=== PATIENT | male | born 1965 | race African-American/Black ===

== ENCOUNTER 2018-09-11 01:33 | Inpatient (IN) | payer OTHER ==
[2018-09-11 02:53] LABS: Hemoglobin 17.1 g/dL (14.0-18.0); Mean Corpuscular HGB CONC 32.7 g/dL (32.0-36.0); Mean Corpuscular Hemoglobin 30.3 pg (27.0-31.0); Mean Corpuscular Volume 92.8 fL (78.0-98.0); Mean Platelet Volume 9.3 fL (7.4-10.4); Platelet Count 174 thou/uL (130-400); RBC Distribution Width 13.1 % (11.5-14.5); Red Blood Cell (RBC) Count 5.65 mill/uL (4.70-6.10); White Blood Cell (WBC) Count 9.3 thou/uL (4.8-10.8)
[2018-09-11 03:03] LABS: ALT (SGPT) 37 U/L (8-55); AST (SGOT) 31 U/L (5-34); Albumin 3.7 g/dL (3.5-5.0); Alkaline Phosphatase 122 U/L (40-150); Anion Gap 16 mmol/L (10-20); BUN (Urea Nitrogen) 15 mg/dL (8.9-20.6); Bilirubin, Total 0.5 mg/dL (0.2-1.2); CK (CPK) 101 U/L (30-200); Calc. Creatinine Clearance 0 mL/min (70-130); Calcium 9.5 mg/dL (7.8-10.44); Carbon Dioxide 22 mmol/L (22-29); Chloride 104 mmol/L (98-107); Estimated GFR-MDRD Greater than 90; Globulin 4.6 g/dL (2.4-3.5); Glucose 94 mg/dL (70-105); Potassium 4.8 mmol/L (3.5-5.1); Protein, Total 8.3 g/dL (6.0-8.3); Sodium 137 mmol/L (136-145)
[2018-09-11 03:09] LABS: Band 7 % (5-11); Lymphocytes 19 % (21-51); MDiff Complete? YES; Monocytes 4 % (0-10); Neutrophil 70 % (42-75); PLT Morphology Comment Appears Adequate; RBC Morphology Normal
[2018-09-11 03:30] LABS: INR-International Normal Ratio 1.4; Prothrombin Time 16.8 SEC (12.0-14.7)
[2018-09-11 03:58] LABS: Bilirubin Negative (Negative); Blood, Urine Negative (Negative); Clarity CLEAR (Clear); Glucose, Urine (Dipstick) Negative (Negative); Leukocyte Negative (Negative); Nitrite Negative (Negative); Protein, Urine (Dipstick) 30 mg/dL (Neg-Trace); Specific Gravity, Urine 1.021 (1.002-1.036)
[2018-09-11 04:16] LABS: Bacteria/HPF None Seen HPF (None Seen); WBC/HPF 0-3 HPF (0-3)
[2018-09-11 04:25] LABS: Pathc Cast-AUWi Flag 2.76 (0-2.49)
[2018-09-11 04:27] LABS: Hyaline Casts/LPF 0-3 HYALINE CAST LPF (0-3 Hyaline); Other Casts/LPF None Seen LPF (0-3 Hyaline); RBC/HPF 0-3 HPF (0-3); Renal Epithelial None Seen HPF (0-3); Transitional Epithelial NONE SEEN HPF (0-3); Yeast-All Forms None Seen HPF (None Seen)
[2018-09-11] MEDS ORDERED: Sodium Chloride 0.9% 1,000 ML IV SCH (05:28)
[2018-09-11] MEDS ORDERED: Ondansetron PF 4 MG/2 ML Vial IVP PRN ×2 (05:28→15:58)
[2018-09-11] MEDS ORDERED: Acetaminophen 325 MG TAB PO PRN (05:28)
[2018-09-11] MEDS ORDERED: Ondansetron ODT 4 MG TAB SL PRN (05:28)
[2018-09-11 05:44] VITALS: BMI 26.2
[2018-09-11] MEDS ORDERED: Dextrose 5% in Water 1,000 ML IV PRN (07:13)
[2018-09-11] MEDS ORDERED: Dextrose 50% Abboject 50 ML SYRINGE SLOW IVP PRN (07:13)
[2018-09-11] MEDS ORDERED: HumaLOG 300 UNITS/3 ML VIAL SC PRN (07:13)
--- NOTE | 2018-09-11 08:34 | RAD ---
PORTABLE SEMIUPRIGHT CHEST ONE VIEW: HISTORY: A 52-year-old male with a history of altered mental status. COMPARISON: 04/24/2017 FINDINGS: Monitor leads overly the chest. Poor inspiration. Mild vascular crowding in the mid and lower lung zones, with increased markings, without confluent pneumonia or overt edema. Heart size is within nor mal limits for this inspiration. IMPRESSION: Poor inspiration with some vascular crowding in the bases. No overt confluent pneumonia, acute edema , or other active process. POS: [facility]
--- NOTE | 2018-09-11 08:46 | CT ---
PRELIMINARY REPORT/[facility]/EMERGENTY AFTER-HOURS PROCEDURE CT Head Without Contrast EXAM DATE/TIME: 09/11/2018 1:58 AM CLINICAL HISTORY: 52 years old, male; Signs and symptoms; Other: Seizure; Patient HX: M52 presents to ed via ems for ev aluation S/P seizure. Family reports that nurse noticed patient having seizure-like movements onset m idnight. Family reports PT is normally alert, laughing/smiling, and understands but is unable to speak. TECHNIQUE: Axial computed tomography images of the head/brain without contrast. COMPARISON: No relevant prior studies available. FINDINGS: Brain: No intracrainal hemorrhage. No midline shift. The brain parenchyma appears normal for age. Old right parietal lobe infarct Laceration of the right basal ganglia concerning for ischemia. Extensive periventricular white matter hypodensity likely representing small vessel ischemic change. Ventricles: No ventriculomegaly. Bones/joints: Normal. No acute fracture. Sinuses: Normal as visualized. No acute sinusitis. Mastoid air cells: Normal as visualized. No mastoid effusion. Soft tissues: Normal. IMPRESSION: No acute intracranial hemorrhage. Possible subacute right caudate and basal ganglia ischemia Old right parietal lobe infarct Thank you for allowing us to participate in the care of your patient. Dictated and Authenticated by: Ezekiel Cadena MD 09/11/2018 2:58 AM Central Time ([place] & [place]) FINAL REPORT EMERGENCY AFTER HOURS BRAIN CT WITHOUT IV CONTRAST: Date: 09/11/18 COMPARISON: 04/23/17. HISTORY: 52-year-old male with history of altered mental status. FINDINGS/IMPRESSION: There is some scattered atrophy and chronic white matter ischemic changes. Remote appearing area of e ncephalomalacia/old infarct changes in the right posterior parietal. Minimal patchy low attenuation c hanges in the right basal ganglia. This atrophy and chronic white matter ischemic changes and old inf arct changes have all developed since 04/23/17. No mass or bleed. Report in agreement with preliminary report given on-call by Aliyah. POS: [facility]
[2018-09-11] MEDS: Divalproex Sodium 125 mg Sprinkle Capsule PER TUBE SCH (10:03)
[2018-09-11] MEDS: levETIRAcetam 500 mg/5 ml Oral Solution PER TUBE SCH ×2 (10:04→21:48)
[2018-09-11] MEDS: Lisinopril 20 MG TAB PER TUBE SCH (10:05)
[2018-09-11] MEDS: Amlodipine 5 MG TAB PER TUBE SCH (10:05)
[2018-09-11] MEDS: Famotidine 20 MG TAB PER TUBE SCH ×2 (10:05→21:49)
[2018-09-11] MEDS: Carvedilol 6.25 MG TAB PER TUBE SCH (10:05)
[2018-09-11] MEDS: Insulin Glargine 12 UNITS in Pre-Filled Syringe 1 EACH SC SCH ×2 (10:05→21:50)
[2018-09-11] MEDS: Nystatin Powder 15 GM BOT TOP SCH ×2 (10:07→21:48)
--- NOTE | 2018-09-11 10:55 | ULT ---
BILATERAL CAROTID DOPPLER: HISTORY: Cerebrovascular accident. COMPARISON: None. TECHNIQUE: Real-time, delacrzu-scale, color Doppler, and spectral analysis of the extracranial carotid and vertebral arteries is performed. FINDINGS: There are no elevated peak systolic velocities within the internal carotid arteries. Antegrade flow of both vertebral arteries. Right ICA/CCA ratio 0.58. Left ICA/CCA ratio 0.76. IMPRESSION: No hemodynamically significant stenosis. POS: [facility]
--- NOTE | 2018-09-11 11:27 | PDOC.PN ---
- Subjective Encounter Start Date: 09/11/18 Encounter Start Time: 11:25 Mr. Larsen was seen today in follow-up of seizure, and altered mental status. He is sleeping, and is non-verbal. There were no reported seizures. - Objective Resuscitation Status - Order Detail: 09/11/18 06:53 Resuscitation Status Routine Resuscitation Status: DNAR: NO Resuscitation Discussed with: Patient's brother, PAIGE MADISON Reviewed: Yes Vital Signs & Weight: Vital Signs (12 hours) Temp Pulse Resp BP BP Pulse Ox 09/11/18 10:05 71 140/92 H 09/11/18 06:53 99.4 F 71 17 140/92 H 93 L 09/11/18 05:09 101 F H 72 20 139/88 99 Weight Weight 177 lb 8 oz Result Diagrams: 09/11/18 02:20 09/11/18 02:20 Phys Exam - Physical Examination Respiratory: no wheezing, no rales, no rhonchi, clear to auscultation bilateral Cardiovascular: RRR, no significant murmur, no rub Gastrointestinal: soft, non-tender, no distention, positive bowel sounds Musculoskeletal: no edema, pulses present Dx/Plan (1) Seizure Code(s): R56.9 - UNSPECIFIED CONVULSIONS Status: Acute (2) Chronic hypoxic-ischemic brain injury Code(s): I67.82 - CEREBRAL ISCHEMIA; G93.1 - ANOXIC BRAIN DAMAGE, NOT ELSEWHERE CLASSIFIED Status: Chronic (3) Diabetes mellitus Code(s): E11.9 - TYPE 2 DIABETES MELLITUS WITHOUT COMPLICATIONS Status: Chronic - Plan * Seizure- it is unclear if he has a history of prior seizure, and this is a seizure while on medication, vs. new first seizure ( he was admitted on Keppra and Depakote).- will try to obtain records from [facility] in the [facility] * Await Neurology evaluation * DM- blood glucoe is stable * Chronic hypoxic brain injury- this has left him with severe deficits, and he is essentially bed bound, and non-verbal, and dysphagia with a PEG tube .
--- NOTE | 2018-09-11 12:54 | HP ---
CHIEF COMPLAINT: Seizure activity. HISTORY OF PRESENT ILLNESS: This patient is a 52-year-old male, who was extremely unfortunate in that he developed a case of [place] spotted fever in March of 2017. The patient had been transferred from this facility with apparent septic shock with evidence of possible hypoxic brain injury to [facility] in [place]. 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 Subsequent to this, the patient has had significant debility and has been essentially bed bound, has some contractures in his hands. He is total care in that he cannot feed himself or do any basic activities of daily living. The patient's brother and [id number] are present. They indicate that typically the patient is awake, alert, and generally can understand what is being said quite well, still has a good sense of humor, intact, however, he cannot verbally respond. He can sometimes follow some simple commands, but other times not. The patient has a history of seizure disorder, but had Keppra added to his carbamazepine and has not had a seizure in number of months. [facility] and was found to have seizure activity around midnight. The patient was subsequently brought to the hospital and en route received some benzodiazepines. The patient was more somnolent than usual and was not appearing to come around. He had pupils that were more constricted and fixed and therefore, a head CT was obtained per the ER provider and the notes indicated possible right subacute caudate and posterior ganglia ischemia with an old right parietal lobe infarct. The official report of that is not available to me at this point. The patient is subsequently admitted. REVIEW OF SYSTEMS: Unobtainable given the patient's current mental status. The patient's brother and [id number], who were here, seen him daily, and they are unaware of any problems that he has been having and has been at his normal baseline. Functional status, the patient is bed bound. PAST MEDICAL HISTORY: Diabetes, hypertension, hyperlipidemia, heart murmur, encephalopathy with [place] spotted fever with apparent subsequent seizure disorder. PAST SURGICAL HISTORY: No known surgeries. FAMILY HISTORY: Father is , had diabetes. Mother has hypertension. SOCIAL HISTORY: No history of drug or alcohol abuse. The patient is debilitated to the point that he is bed-bound and living at a penitentiary facility. He is a DNAR and his brother is his power of prosecuting attorney and surrogate decision maker. ALLERGIES: NONE. MEDICATIONS: 1. Warfarin 7.5 mg per PEG daily. 2. Multivitamin one per PEG daily. 3. Acetaminophen p.r.n. 4. Keppra 100 mg/mL solution 6 mL q.12 hours. 5. Depakote Sprinkles 125 mg four capsules per G-tube b.i.d. 6. Nystatin powder p.r.n. 7. Pepcid 40 mg per PEG daily. 8. Triamcinolone cream p.r.n. 9. Insulin glargine 12 units subcu b.i.d. 10. Amlodipine 5 mg q.a.m. 11. Coreg 12.5 mg b.i.d. 12. Lisinopril 20 mg daily. PHYSICAL EXAMINATION: VITAL SIGNS: Blood pressure 127/78, pulse 75, respirations 16, and O2 saturations 98%. GENERAL APPEARANCE: The patient is age appropriate. He is essentially sleepy, will attempt to open his eyes a little bit with prodding, and he is not otherwise interactive. He appears in no distress. He is breathing comfortably. HEENT: Pupils are midpoint and reactive. He has no OP lesions. Poor dentition. NECK: Supple and symmetric without lymphadenopathy, JVD, or carotid bruits. HEART: Regular rate and rhythm without murmurs, gallops, or rubs. LUNGS: Clear to auscultation bilaterally with good chest wall expansion and air exchange. ABDOMEN: Soft, nontender, and nondistended. Positive bowel sounds. No masses. No organomegaly. EXTREMITIES: Warm and dry with no cyanosis, clubbing, or edema. There are some contractures of the hand and some mild general sarcopenia in the extremities. NEUROLOGIC: Again, the patient is somnolent but in no distress, and appears to be generally postictal. LABORATORY DATA: White count 9.3, hemoglobin 17.1, platelets 174. PT 16.8, INR is 1.4, PTT 31.0. Sodium 137, potassium 4.8, chloride 104, CO2 of 22, BUN 15, creatinine 0.91, glucose 94, calcium 9.5, AST 31, ALT 37, alkaline phosphatase 122, albumin 3.7. Urinalysis generally negative. Chest x-ray shows poor inspiratory effort, but no evidence of significant acute pathology. IMPRESSION AND PLAN: 1. Subacute cerebrovascular accident per the CT scan based on the ER physician's report of the interpretation. The patient is already on warfarin. I had a discussion with the patient's brother and power of prosecuting attorney to determine if they would even pursue carotid stenosis if that turned out to be an issue and they felt like they probably would, therefore, we will go ahead and order carotid Dopplers and I will get echocardiogram. 2. Seizure. The patient has a history of seizure disorder and has been pretty stable for number of months. I do not see significant evidence of anything that would have triggered his seizure. At this point, no evidence of acute infection and chest x-ray looks pretty clear. His urinalysis is good and his white count is normal. We will consult Neurology. 3. Anticoagulation, not entirely sure why the patient is on Coumadin at this point. He is slightly subtherapeutic, but we will avoid more aggressive deep venous thrombosis prophylaxis. 4. Hypertension. Continue with his usual home regimen per PEG. 5. Diabetes mellitus. Continue with his home regimen. We will add Accu-Cheks and sliding scale insulin. 6. Consult dietitian to help resume the patient's normal PEG tube feeds. Job ID: [id number]
[2018-09-11] MEDS ORDERED: Ondansetron ODT 4 MG TAB PO PRN (15:58)
[2018-09-11] MEDS ORDERED: hydrALAZINE 20 MG/ML VIAL SLOW IVP PRN (15:58)
[2018-09-11] MEDS ORDERED: Acetaminophen 650 MG Suppository PR PRN (15:58)
[2018-09-11] MEDS ORDERED: Acetaminophen 325 MG TAB PER TUBE PRN (15:58)
[2018-09-11] MEDS: Sodium Chloride 0.9% 1,000 ML IV SCH ×2 (16:07→21:49)
[2018-09-11] MEDS: Warfarin Sodium 7.5 MG TAB PER TUBE SCH (16:11)
[2018-09-12] MEDS ORDERED: Pancrelipase DR 12000 1 CAP FS PRN (00:12)
[2018-09-12] MEDS ORDERED: Sodium Bicarbonate Tab 325 MG TAB PER TUBE PRN (00:12)
[2018-09-12] MEDS: Divalproex Sodium 125 mg Sprinkle Capsule PER TUBE SCH ×3 (02:03→21:28)
[2018-09-12] MEDS: Famotidine 20 MG TAB PER TUBE SCH ×3 (02:03→21:29)
[2018-09-12] MEDS: Carvedilol 6.25 MG TAB PER TUBE SCH ×3 (02:03→21:28)
[2018-09-12] MEDS: levETIRAcetam 500 mg/5 ml Oral Solution PER TUBE SCH ×3 (02:04→21:30)
[2018-09-12] MEDS ORDERED: Valproate Sodium 500 MG in Sodium Chloride 0.9% 100 ML IVPB SCH (02:30)
[2018-09-12 07:35] LABS: INR-International Normal Ratio 1.7; Prothrombin Time 19.9 SEC (12.0-14.7)
[2018-09-12] MEDS: Insulin Glargine 12 UNITS in Pre-Filled Syringe 1 EACH SC SCH ×2 (10:59→21:30)
[2018-09-12] MEDS: Amlodipine 5 MG TAB PER TUBE SCH (11:00)
[2018-09-12] MEDS: Lisinopril 20 MG TAB PER TUBE SCH (11:01)
--- NOTE | 2018-09-12 11:23 | PDOC.PN ---
- Subjective Encounter Start Date: 09/12/18 Encounter Start Time: 11:22 Mr. Larsen was seen today in follow-up of possible CVA and Seizure. He is a bit more alert this morning. He opens his eyes but he does not follow commands. - Objective Resuscitation Status - Order Detail: 09/11/18 06:53 Resuscitation Status Routine Resuscitation Status: DNAR: NO Resuscitation Discussed with: Patient's brother, PAIGE MADISON Reviewed: Yes Vital Signs & Weight: Vital Signs (12 hours) Temp Pulse Resp BP Pulse Ox 09/12/18 08:00 98.6 F 69 16 166/98 H 95 09/12/18 03:00 60 16 128/80 93 L 09/12/18 00:00 99.8 F H 62 16 121/72 94 L Weight Admit Weight 177 lb 8 oz Weight 177 lb 8 oz I&O: 09/11/18 09/12/18 09/13/18 06:59 06:59 06:59 Intake Total 1040 Output Total 3 Balance 1040 -3 Result Diagrams: 09/11/18 02:20 09/11/18 02:20 Additional Labs: Accuchecks 09/12/18 09/12/18 09/11/18 10:38 00:20 17:04 POC Glucose 85 83 78 09/11/18 10:43 POC Glucose 87 Phys Exam - Physical Examination HEENT: PERRLA Respiratory: no wheezing, no rales, no rhonchi, clear to auscultation bilateral Cardiovascular: RRR, no significant murmur, no rub Gastrointestinal: soft, non-tender, no distention, positive bowel sounds Musculoskeletal: no edema contractures of the upper extremities Dx/Plan (1) Encephalopathy, metabolic Code(s): G93.41 - METABOLIC ENCEPHALOPATHY Status: Acute (2) Seizure Code(s): R56.9 - UNSPECIFIED CONVULSIONS Status: Acute (3) Chronic hypoxic-ischemic brain injury Code(s): I67.82 - CEREBRAL ISCHEMIA; G93.1 - ANOXIC BRAIN DAMAGE, NOT ELSEWHERE CLASSIFIED Status: Chronic (4) Diabetes mellitus Code(s): E11.9 - TYPE 2 DIABETES MELLITUS WITHOUT COMPLICATIONS Status: Chronic (5) PEG tube malfunction Code(s): K94.23 - GASTROSTOMY MALFUNCTION Status: Acute - Plan * Lethargy and possible new CVA- will check an MRI if able, and if not then repeat CT-scan * Seizure- he has a history of seizures prior to this admission- his Depakote level was low normal. If he infact had a new stroke, this could have provoked the seizure * Lethargy- likely a metabolic encephalopathy due to post ictal state, and possible CVA * Fever- no obvious source- cultures have been done, consider empiric antibiotics if he develops another fever * DM- blood glucose is stable . * PEG tube malfunction- will consult GI- may need to be replaced
[2018-09-12] MEDS: Nystatin Powder 15 GM BOT TOP SCH ×2 (11:31→21:31)
[2018-09-12 12:13] LABS: Cardiac Risk 4.7 (Less than 4.5)
--- NOTE | 2018-09-12 13:06 | EEG ---
Referring Physician: Roma MALCOLM EEG # [id number] TEST TYPE: ROUTINE PORTABLE INPATIENT REPORT: AN EEG USING THE INTERNATIONAL TEN-TWENTY SYSTEM OF ELECTRODE PLACEMENT WAS PERFORMED. The background activity is at best an 8 hertz Alpha frequency. There was fairly constant sharp and slow wave type discharges noted in the right hemisphere, primarily central in location. No clinical change in the patient was noted. Photic stimulation was unremarkable. IMPRESSION: THIS IS AN ABNORMAL STUDY FOR THE FINDINGS OF FAIRLY CONSTANT SUBCLINICAL SEIZURE ACTIVITY IN THE RIGHT HEMISPHERE. Director Hematology: EVELIA Long Wall Shear Operator: [email or web address] LAST
[2018-09-12] MEDS: Warfarin Sodium 7.5 MG TAB PER TUBE SCH (18:12)
[2018-09-12] MEDS: Sodium Chloride 0.9% 1,000 ML IV SCH (19:18)
--- NOTE | 2018-09-12 19:49 | CON ---
DATE OF CONSULTATION: 09/12/2018 GI INPATIENT CONSULTATION NOTE REQUESTING PHYSICIAN: Dr. Mills. REASON FOR CONSULTATION: PEG tube malfunction. HISTORY OF PRESENT ILLNESS: Derek Larsen is an unfortunate 52-year-old gentleman, who has been debilitated since the case of [place] spotted fever in March 2017 with resultant encephalitis. He has been bedbound and has some contractures in the hands. He cannot communicate and requires total cares. He was admitted to the hospital here yesterday with worsening of mental status and concern for possible new CVA or seizure activity. He is undergoing some workup for this. Overnight, his PEG tube was found to be clogged. I am not exactly sure when the PEG tube was placed, I assume around March 2017. His PEG tube looks quite old and ratty and indeed, we were unable to push any feeds or fluids through it. The patient has not been indicating any pain in that area. REVIEW OF SYSTEMS: Unable to obtain due to the patient's mental status. PAST MEDICAL HISTORY: Diabetes, hypertension, hyperlipidemia, heart murmur, encephalitis with [place] spotted fever, seizure disorder, and debility. FAMILY HISTORY: Father had diabetes. Mother has hypertension. SOCIAL HISTORY: No history of drug or alcohol abuse. He is debilitated, bedbound at the nursing facility. ALLERGIES: NONE. OUTPATIENT MEDICATIONS: 1. Warfarin 7.5 mg daily. 2. Multivitamin daily. 3. Acetaminophen p.r.n. 4. Keppra. 5. Depakote. 6. Nystatin. 7. Pepcid. 8. Triamcinolone cream. 9. Insulin. 10. Amlodipine. 11. Coreg. 12. Lisinopril. PHYSICAL EXAMINATION: VITAL SIGNS: Temperature 99.1, pulse 79, blood pressure 176/98, and 93% oxygen saturation on room air. GENERAL: Awake and disoriented. He is calm. He does not follow commands or meaningfully communicate. HEENT: Pupils reactive. Extraocular movements intact. Mucous membranes moist. Poor dentition. LYMPH: No submandibular or supraclavicular lymphadenopathy. THYROID: Nontender to palpation. HEART: Regular rate and rhythm. LUNGS: Clear to auscultation bilaterally. ABDOMEN: Soft and nontender. His PEG tube is in good position in the left upper quadrant, but it is clogged. There is some granulation tissue around the PEG site with some friability. EXTREMITIES: No peripheral edema. Contractures in the hands and general muscle wasting in the extremities. NEUROLOGIC: The patient is in no acute distress. He does not follow commands. LABORATORY STUDIES: WBC 9.3, hemoglobin 17.1, platelets 174. INR 1.7. Sodium 137, potassium 4.8, BUN 15, creatinine 0.91. LFTs all normal. Blood culture showing coagulase-negative Staph. Urine culture shows gram-negative rods. C. difficile stool assay is positive for antigen and toxin. ASSESSMENT AND PLAN: 1. Percutaneous endoscopic gastrostomy tube malfunction. 2. Debility. The patient's PEG tube is clogged. I was able to replace it at bedside with a new 20-Wolof replacement tube with a 20 mL balloon, this was replaced quite easily. The internal balloon inflated and the external bumper positioned to 4 cm. There is some oozing around the PEG site following PEG replacement. I expect this to slow down rapidly. Advise providers to flush the tube regularly. GI will sign off. Please call back if needed. Job ID: [id number]
--- NOTE | 2018-09-12 23:34 | PRG ---
DATE OF SERVICE: 09/12/2018 NEUROLOGIC FOLLOWUP NOTE IMPRESSION: 1. Recurrent seizures, which appeared to have settled down. 2. History of right parietal stroke. 3. History of [place] spotted fever. 4. Diabetes. 5. Hypertension. PLAN: Continue current anticonvulsants. Mr. Larsen is half-way resident who was brought in due to recurrent seizure activity. He has had a fairly extensive workup including unremarkable carotid artery exam and echocardiogram. His lab work was unremarkable including a valproic acid level of 54. He has not had any further seizure activity. His EEG showed a right parietal focus. He has gone back to his baseline level of alertness. His feeding tube has been changed. He appears to be clinically better and feel he can return to the half-way on the current doses of anticonvulsants. Job ID: [id number]
[2018-09-13 05:13] LABS: INR-International Normal Ratio 2.1
[2018-09-13 08:12] VITALS: TEMP 99.5
[2018-09-13] MEDS: Divalproex Sodium 125 mg Sprinkle Capsule PER TUBE SCH (09:32)
[2018-09-13] MEDS: Insulin Glargine 12 UNITS in Pre-Filled Syringe 1 EACH SC SCH (09:33)
[2018-09-13] MEDS: levETIRAcetam 500 mg/5 ml Oral Solution PER TUBE SCH (09:33)
[2018-09-13] MEDS: Lisinopril 20 MG TAB PER TUBE SCH (09:34)
[2018-09-13] MEDS: Carvedilol 6.25 MG TAB PER TUBE SCH (09:34)
[2018-09-13] MEDS: Amlodipine 5 MG TAB PER TUBE SCH (09:34)
[2018-09-13] MEDS: Famotidine 20 MG TAB PER TUBE SCH (09:34)
[2018-09-13 09:36] VITALS: BP 133/85
--- NOTE | 2018-09-13 09:37 | PDOC.PN ---
- Subjective Encounter Start Date: 09/13/18 Encounter Start Time: 09:35 Mr. Larsen was seen today in follow-up of seizure and possible stroke. He is more alert than he has been the entire hospitalization. He appears to be at his baseline. He was not able to do the MRI due to too much movement. - Objective Resuscitation Status - Order Detail: 09/11/18 06:53 Resuscitation Status Routine Resuscitation Status: DNAR: NO Resuscitation Discussed with: Patient's brother, APIGE MADISON Reviewed: Yes Vital Signs & Weight: Vital Signs (12 hours) Temp Pulse Resp BP Pulse Ox 09/13/18 08:00 99.5 F 65 16 151/96 H 92 L 09/13/18 04:00 99.1 F 63 16 133/88 94 L 09/13/18 00:00 98.9 F 64 16 148/91 H 95 Weight Admit Weight 177 lb 8 oz Weight 177 lb 8 oz I&O: 09/12/18 09/13/18 09/14/18 06:59 06:59 06:59 Intake Total 1040 2010 Output Total 3 Balance 1040 2007 Result Diagrams: 09/11/18 02:20 09/11/18 02:20 Additional Labs: Accuchecks 09/13/18 09/13/18 09/12/18 06:04 01:02 21:36 POC Glucose 89 100 83 09/12/18 09/12/18 16:59 10:38 POC Glucose 104 85 Phys Exam - Physical Examination HEENT: PERRLA Respiratory: no wheezing, no rales, no rhonchi + rhonchi bilaterally Cardiovascular: RRR, no significant murmur, no rub Gastrointestinal: soft, non-tender, no distention, positive bowel sounds Musculoskeletal: edema present + pedal edema, contractures in the hands Dx/Plan (1) Seizure Code(s): R56.9 - UNSPECIFIED CONVULSIONS Status: Acute (2) Encephalopathy, metabolic Code(s): G93.41 - METABOLIC ENCEPHALOPATHY Status: Resolved (3) Chronic hypoxic-ischemic brain injury Code(s): I67.82 - CEREBRAL ISCHEMIA; G93.1 - ANOXIC BRAIN DAMAGE, NOT ELSEWHERE CLASSIFIED Status: Chronic (4) Diabetes mellitus Code(s): E11.9 - TYPE 2 DIABETES MELLITUS WITHOUT COMPLICATIONS Status: Chronic (5) PEG tube malfunction Code(s): K94.23 - GASTROSTOMY MALFUNCTION Status: Acute (6) Acute CVA (cerebrovascular accident) Code(s): I63.9 - CEREBRAL INFARCTION, UNSPECIFIED Status: Acute (7) C. difficile diarrhea Code(s): A04.72 - ENTEROCOLITIS D/T CLOSTRIDIUM DIFFICILE, NOT SPCF RECUR Status: Acute - Plan * Seizure- he is back to his baseline, I suspect this may have been triggered by a probable acute CVA, and C. diff * Probable CVA- will place him on aspirin, and Lipitor * C Diff Diarrhea- will treat with Oral Vancomycin * DM- blood glucose is stable * Can transfer back to the [place].
[2018-09-13] MEDS: Nystatin Powder 15 GM BOT TOP SCH (10:12)
--- NOTE | 2018-09-13 11:51 | PQF ---
DATE: 09-13-18 ATTN: DR. MARTINEZ DIAZ Please exercise your independent, professional judgment in responding to the clarification form. Clinical indicators are provided on the bottom of this form for your review Please check appropriate box(s): [ ] Functional Quadriplegia (specify underlying cause) [ ] Weakness (please specify anatomical area) Specify: [ ] Non dominant side [ ] Dominant side [ ] Other diagnosis [ ] Unable to determine In addition, please specify: Present on Admission (POA): [ ] Yes [ ] No [ ] Unable to determine CLINICAL INDICATORS - SIGNS / SYMPTOMS / LABS H&P: PATIENT HAS HAD SIGNIFICANT DEBILITY AND HAS BEEN ESSENTIALLY BED BOUND, HAS SOME CONTRACTURES IN HIS HANDS. HE IS TOTAL CARE IN THAT HE CANNOT FEED HIMSELF OR DO ANY BASIC ACTIVITIES OF DAILY LIVING. CONSULT NOTE CASE 09-12-18: HE HAS BEEN BEDBOUND AND HAS SOME CONTRACTURES IN THE HANDS. HE CANNOT COMMUNICATE AND REQUIRES TOTAL CARES. RISK FACTORS: H&P: HX ENCEPHALOPATHY WITH [place] SPOTTED FEVER, SEIZURES, CHRONIC HYPOXIC ISCHEMIC BRAIN INJURY H&P: PATIENT HAS HAD SIGNIFICANT DEBILITY AND HAS BEEN ESSENTIALLY BED BOUND, HAS SOME CONTRACTURES IN HIS HANDS. HE IS TOTAL CARE IN THAT HE CANNOT FEED HIMSELF OR DO ANY BASIC ACTIVITIES OF DAILY LIVING. TREATMENT: NURSE NOTE 09-11-18 BY SERGIO: PATIENT TRANSFERRED OVER TO BED X 3 NURSES. PATIENT TRANSFER INFO 09-13-18: STRETCHER (This form is maintained as a part of the permanent medical record) 2014 [employer], [employer]. All Rights Reserved [email or web address] [email or web address] Office: [phone] [facility] [email or web address]
[2018-09-13] MEDS ORDERED: Atorvastatin Calcium 10 MG TAB PO SCH (21:00)
--- NOTE | 2018-09-14 06:02 | DIS ---
DATE OF ADMISSION: 09/11/2018 DATE OF DISCHARGE: 09/13/2018 DISCHARGE DISPOSITION: Back to the residential. DISCHARGE DIAGNOSES: 1. Seizure disorder with acute seizure. 2. Probable cerebrovascular accident. 3. Chronic anoxic brain injury. 4. Hypertension. 5. Diabetes mellitus. 6. History of [place] spotted fever. 7. Clostridium difficile colitis. DISCHARGE MEDICATIONS: Include; 1. Oral vancomycin 125 mg q.i.d. for 14 days. 2. Lipitor 5 mg at bedtime. 3. Aspirin 81 mg daily. 4. Coumadin 7.5 mg per tube daily. 5. Nystatin powder as needed. 6. Lisinopril 20 mg daily. 7. Keppra twice daily. 8. Lantus insulin 12 units twice a day. 9. Famotidine 40 mg per tube daily. 10. Depakote 125 mg four capsules per tube twice a day. 11. Carvedilol 12.5 mg twice a day. 12. Amlodipine 5 mg daily. PROCEDURES DONE DURING THE ADMISSION: The patient had bilateral carotid Dopplers, which were negative for any hemodynamic stenosis. He had a CT scan of the brain, which showed some findings of chronic white matter ischemic change. There was a remote area of encephalomalacia in the right posterior parietal lobe. There was some atrophy and there were some ischemic infarct changes that had developed and a possible right subacute caudate basal ganglia ischemia. The patient had an echocardiogram in which the left ventricular size was normal. The EF was estimated at 60% to 65%. There was grade 1/3 diastolic dysfunction. HOSPITAL COURSE: Mr. Larsen is a 52-year-old gentleman, who presented to the emergency room after suffering a stroke in the residential and afterwards was extremely lethargic. He has a history of seizure disorder ever since having an anoxic brain injury from a severe case of [place] spotted fever. He was brought over to the hospital due to concerns for possible stroke. He had a carotid Doppler and echo, which were essentially negative. He was seen by Neurology, who recommended to continue his usual medications for seizures. He was placed on aspirin and a low-dose statin for secondary stroke prevention. He was found to have a C. difficile colitis as he had some fever and diarrhea and was placed on oral vancomycin for this. I suspected that the seizure may have been triggered by possible or probable stroke as well as the C. diff colitis and therefore the medication doses for the seizures were not changed. He is being discharged back to the residential today. Job ID: [id number]
[2018-09-14] MEDS ORDERED: Vancomycin HCl 25 MG/ML Oral PO SCH (09:00)
--- NOTE | 2018-09-17 12:47 | EKG ---
Test Reason : Blood Pressure : / mmHG Vent. Rate : 066 BPM Atrial Rate : 066 BPM P-R Int : 142 ms QRS Dur : 078 ms QT Int : 338 ms P-R-T Axes : 053 026 -01 degrees QTc Int : 354 ms Normal sinus rhythm Possible Left atrial enlargement Nonspecific T wave abnormality Abnormal ECG Confirmed by KENYETTA MARSHALL DO ([id number]), editor city SALVADOR HERNANDEZ ([id number] on 09/17/2018 12:47:24 PM Referred By: Confirmed By:KENYETTA MARSHALL DO
== END 2018-09-13 12:28 | DRG 64 ==
LOC: ERS 01:33 → 2SE 03:43
PROVIDERS: ADMIT Internal Medicine; ATTEND Internal Medicine
PROC: 3E0G76Z Introduction of Nutritional Substance into Upper GI, Via Natural or Artificial Opening (ICD-10-PCS; principal; 2018-09-11)
DX: I63.9 Cerebral infarction, unspecified (principal); G93.41 Metabolic encephalopathy; G93.1 Anoxic brain damage, not elsewhere classified; K94.23 Gastrostomy malfunction; A04.72 Enterocolitis due to Clostridium difficile, not specified as recurrent; Z74.01 Bed confinement status; G40.909 Epilepsy, unspecified, not intractable, without status epilepticus; E11.9 Type 2 diabetes mellitus without complications; I10 Essential (primary) hypertension; E78.5 Hyperlipidemia, unspecified; Z79.4 Long term (current) use of insulin; Z79.01 Long term (current) use of anticoagulants; Z83.3 Family history of diabetes mellitus; Z82.49 Family history of ischemic heart disease and other diseases of the circulatory system
CPT/HCPCS: 36415; 36416; 51701; 70450; 71045; 80053; 80061; 80164; 81003; 81015; 82550; 85025; 85610; 85730; 87040; 87077; 87086; 87149; 87324; 87449; 93005; 93306; 93880; 95816; 95819; J1953; J7050

== ENCOUNTER 2018-09-29 09:31 | Emergency (ER) | payer OTHER ==
--- NOTE | 2018-09-29 14:11 | RAD ---
ABDOMEN 1 VIEW: Date: 09/29/18 HISTORY: PEG tube evaluation. FINDINGS: Visualized bowel gas pattern is nonspecific. Pelvis is excluded from the image. Contrast material is apparent within the second portion of the duodenum. It extends into the third an d fourth portions of the duodenum. No evidence of leak. IMPRESSION: PEG catheter tip is in the proximal duodenum. POS: GONZALEZ
== END 2018-09-29 14:45 | disposition home or self-care (01) ==
LOC: ERS 09:31
DX: Z43.1 Encounter for attention to gastrostomy (principal); E78.5 Hyperlipidemia, unspecified; E11.9 Type 2 diabetes mellitus without complications; I10 Essential (primary) hypertension; E66.9 Obesity, unspecified; Z79.899 Other long term (current) drug therapy; Z79.4 Long term (current) use of insulin
CPT/HCPCS: 43762; 74018

== ENCOUNTER 2018-11-26 10:19 | Emergency (ER) | payer OTHER | END 2018-11-26 14:30 | LOC: ERS 10:19 | DX: K94.23 Gastrostomy malfunction (principal); E11.9 Type 2 diabetes mellitus without complications; E78.5 Hyperlipidemia, unspecified; E66.9 Obesity, unspecified; Z79.899 Other long term (current) drug therapy; Z79.01 Long term (current) use of anticoagulants | CPT/HCPCS: 36415; 85610; 99283; C1769 ==

== ENCOUNTER 2018-11-29 10:43 | Emergency (ER) | payer OTHER ==
--- NOTE | 2018-11-29 12:32 | RAD ---
RADIOGRAPH ABDOMEN 1 VIEW: DATE: 11/29/2018. TIME: 11:09 a.m. HISTORY: A 53-year-old male with occluded, malfunctioning percutaneous gastrostomy tube. FINDINGS: A single supine KUB demonstrates contrast material within the lumen of the PEG tube, and within the l umen of a nondistended stomach. There is no evidence of extravasation. IMPRESSION: Intraluminal location of the distal portion of the percutaneous gastrostomy tube is confirmed. POS: TPC
== END 2018-11-29 16:15 | disposition home or self-care (01) ==
LOC: ERS 10:43
DX: K94.23 Gastrostomy malfunction (principal); E11.9 Type 2 diabetes mellitus without complications; I10 Essential (primary) hypertension; E66.9 Obesity, unspecified; E78.5 Hyperlipidemia, unspecified; Z79.899 Other long term (current) drug therapy
CPT/HCPCS: 43762; 74018

== ENCOUNTER 2018-12-23 11:35 | Emergency (ER) | payer OTHER | END 2018-12-23 11:52 | disposition home or self-care (01) | LOC: ERS 11:35 | DX: K94.23 Gastrostomy malfunction (principal); E78.5 Hyperlipidemia, unspecified; E11.9 Type 2 diabetes mellitus without complications; I10 Essential (primary) hypertension; E66.9 Obesity, unspecified; Z86.73 Personal history of transient ischemic attack (TIA), and cerebral infarction without residual deficits; Z79.899 Other long term (current) drug therapy; Z79.4 Long term (current) use of insulin | CPT/HCPCS: 99283 ==

== ENCOUNTER 2019-01-09 08:29 | Emergency (ER) | payer OTHER ==
--- NOTE | 2019-01-09 12:44 | RAD ---
Abdomen one view HISTORY: Feeding tube replacement. COMPARISON: 11/29/2018. FINDINGS: Radiopaque contrast is present within the stomach and duodenum. Some contrast also evident within the percutaneous feeding catheter. No evidence of intra-abdominal leak of contrast.
[2019-01-09] MEDS ORDERED: Lorazepam 2 MG/ML VIAL ONE (12:50)
[2019-01-09] MEDS ORDERED: levETIRAcetam In NaCl (Iso-Os) 1,000 MG in Premix Bag 1 BAG IVPB SCH (13:30)
== END 2019-01-09 15:30 ==
LOC: ERS 08:29
DX: K94.23 Gastrostomy malfunction (principal); G40.509 Epileptic seizures related to external causes, not intractable, without status epilepticus; Z91.14 Patient's other noncompliance with medication regimen; E78.5 Hyperlipidemia, unspecified; E11.9 Type 2 diabetes mellitus without complications; I10 Essential (primary) hypertension; E66.9 Obesity, unspecified; Z86.73 Personal history of transient ischemic attack (TIA), and cerebral infarction without residual deficits; Z79.899 Other long term (current) drug therapy; Z79.4 Long term (current) use of insulin
CPT/HCPCS: 43762; 74018; 96365; 96375; J1953; J2060

== ENCOUNTER 2019-01-09 16:34 | Emergency (ER) | payer OTHER | END 2019-01-09 17:03 | disposition home or self-care (01) | LOC: ERS 16:34 | DX: G40.909 Epilepsy, unspecified, not intractable, without status epilepticus (principal); E78.5 Hyperlipidemia, unspecified; E78.00 Pure hypercholesterolemia, unspecified; E11.9 Type 2 diabetes mellitus without complications; I10 Essential (primary) hypertension; E66.9 Obesity, unspecified; Z86.73 Personal history of transient ischemic attack (TIA), and cerebral infarction without residual deficits | CPT/HCPCS: 99284 ==

== ENCOUNTER 2019-02-27 10:20 | Emergency (ER) | payer OTHER ==
[2019-02-27 11:24] LABS: #Eosinphils 0.1 thou/uL (0.0-0.7); #Lymphocytes 1.4 thou/uL (1.20-3.40); #Monocytes 0.6 thou/uL (0.11-0.59); %Basophils 0.3 % (0.0-1.0); %Eosinophils 2.9 % (0.0-10.0); %Lymphocytes 27.1 % (21.0-51.0); %Monocytes 10.9 % (0.0-10.0); %Neutrophils 58.8 % (42.0-75.0); Hemoglobin 15.2 g/dL (14.0-18.0); Mean Corpuscular HGB CONC 33.2 g/dL (32.0-36.0); Mean Corpuscular Hemoglobin 30.6 pg (27.0-31.0); Mean Corpuscular Volume 92.4 fL (78.0-98.0); Mean Platelet Volume 9.4 fL (7.4-10.4); Platelet Count 122 thou/uL (130-400); RBC Distribution Width 12.7 % (11.5-14.5); Red Blood Cell (RBC) Count 4.95 mill/uL (4.70-6.10)
[2019-02-27 11:38] LABS: ALT (SGPT) 24 U/L (8-55); AST (SGOT) 19 U/L (5-34); Albumin 3.6 g/dL (3.5-5.0); Alkaline Phosphatase 94 U/L (40-150); Anion Gap 11 mmol/L (10-20); BUN (Urea Nitrogen) 14 mg/dL (8.4-25.7); Bilirubin, Total 0.3 mg/dL (0.2-1.2); Calc. Creatinine Clearance 0 mL/min (70-130); Calcium 9.5 mg/dL (7.8-10.44); Carbon Dioxide 26 mmol/L (22-29); Estimated GFR-MDRD Greater than 90; Globulin 3.8 g/dL (2.4-3.5); Glucose 112 mg/dL (70-105); Protein, Total 7.4 g/dL (6.0-8.3)
[2019-02-27 11:47] LABS: Chloride 102 mmol/L (98-107); Potassium 4.2 mmol/L (3.5-5.1); Sodium 135 mmol/L (136-145)
[2019-02-27] MEDS ORDERED: Divalproex Sodium 125 mg Sprinkle Capsule PER TUBE SCH (12:45)
== END 2019-02-27 13:19 ==
LOC: ERS 10:20
DX: K94.23 Gastrostomy malfunction (principal); R56.9 Unspecified convulsions; Z86.73 Personal history of transient ischemic attack (TIA), and cerebral infarction without residual deficits; E78.5 Hyperlipidemia, unspecified; E11.9 Type 2 diabetes mellitus without complications; I10 Essential (primary) hypertension; E66.9 Obesity, unspecified
CPT/HCPCS: 36415; 43762; 80053; 80164; 80177; 85025; B4087

== ENCOUNTER 2019-03-21 01:46 | Inpatient (IN) | payer OTHER ==
[2019-03-21 03:18] LABS: ALT (SGPT) 46 U/L (8-55); AST (SGOT) 39 U/L (5-34); Albumin 4.1 g/dL (3.5-5.0); Alkaline Phosphatase 109 U/L (40-150); Anion Gap 17 mmol/L (10-20); BUN (Urea Nitrogen) 18 mg/dL (8.4-25.7); Bilirubin, Total 0.4 mg/dL (0.2-1.2); Calc. Creatinine Clearance 0 mL/min (70-130); Carbon Dioxide 23 mmol/L (22-29); Chloride 103 mmol/L (98-107); Estimated GFR-MDRD Greater than 90; Globulin 4.6 g/dL (2.4-3.5); Glucose 109 mg/dL (70-105); Potassium 5.2 mmol/L (3.5-5.1); Protein, Total 8.7 g/dL (6.0-8.3); Sodium 138 mmol/L (136-145)
[2019-03-21 03:24] LABS: Hemoglobin 17.3 g/dL (14.0-18.0); Mean Corpuscular HGB CONC 32.4 g/dL (32.0-36.0); Mean Corpuscular Hemoglobin 30.6 pg (27.0-31.0); Mean Corpuscular Volume 94.4 fL (78.0-98.0); Mean Platelet Volume 10.1 fL (7.4-10.4); Platelet Count 139 thou/uL (130-400); RBC Distribution Width 12.7 % (11.5-14.5); Red Blood Cell (RBC) Count 5.66 mill/uL (4.70-6.10); White Blood Cell (WBC) Count 9.5 thou/uL (4.8-10.8)
[2019-03-21 03:35] LABS: Band 6 % (5-11); Lymphocytes 11 % (21-51); MDiff Complete? YES; Monocytes 3 % (0-10); Neutrophil 80 % (42-75); Platelet Morphology Comment Appears Adequate
[2019-03-21 03:37] LABS: Bilirubin Negative (Negative); Blood, Urine Negative (Negative); Clarity Clear (Clear); Glucose, Urine (Dipstick) Negative (Negative); Leukocyte Negative (Negative); Nitrite Negative (Negative); Protein, Urine (Dipstick) 100 mg/dL (Neg-Trace); Urobilinogen 0.2 mg/dL (0.2-1.0)
[2019-03-21 03:48] LABS: Bacteria/HPF None Seen HPF (None Seen); Hyaline Casts/LPF NONE SEEN LPF (0-3 Hyaline); RBC/HPF None Seen HPF (0-3); Squamous Epithelial 0-3 HPF (0-3); WBC/HPF None Seen HPF (0-3)
[2019-03-21] MEDS ORDERED: Piperacillin/Tazobactam 3.375 GM VIAL ONE (06:05)
[2019-03-21] MEDS ORDERED: Fentanyl 250 MCG/5 ML VIAL ONE (06:27)
[2019-03-21] MEDS ORDERED: Midazolam HCl 2 mg/2 ml Vial ONE (06:27)
--- NOTE | 2019-03-21 07:52 | CT ---
PRELIMINARY REPORT/[facility]/EMERGENCY AFTER HOURS PROCEDURE: Addendum created by Beau Wise MD on 03/21/2019 5:39 AM Central Time ([place] & [place]) On image 65 of axial series 2 there is suggestion of mass in the cecum, potentially primary colon cancer. Findings discussed with BETH CROOKS MD at time of interpretation. Initial Report created on 03/21/2019 5:23 AM Central Time ([place] & [place]) EXAM: CT Abdomen and Pelvis With Contrast EXAM DATE/TIME: 03/21/2019 4:21 AM CLINICAL HISTORY: 53 years old, male; Nausea and vomiting; Patient HX: Er 7. Transaminitis ; PT brought to er by EMS af ter [facility] noted that pt's face was twitching. PT has also had episodes of vomiting tonight. ; Additional info: *pt unable to move arms above his head TECHNIQUE: Imaging protocol: Axial computed tomography images of the abdomen and pelvis with intravenous contras t. COMPARISON: No relevant prior studies available. FINDINGS: Tubes, catheters and devices: Percutaneous G-tube in place, appears normally positioned. Entry site i s unremarkable. Liver: Normal. No mass. Gallbladder and bile ducts: Normal. No calcified stones. No ductal dilation. Pancreas: Normal. No ductal dilation. Spleen: Normal. No splenomegaly. Adrenals: Normal. No mass. Kidneys and ureters: Normal. No hydronephrosis. Stomach and bowel: There is fairly extensive multifocal pneumoperitoneum along the ascending colon wi thout associated inflammation, wall thickening, or extravasated bowel contents, consistent with perforation of the ascending colon. No abscess. No foreign body. No bowel wall thickening or intestin al obstruction. Appendix: Normal appendix. Intraperitoneal space: Normal. No free air. No significant fluid collection. Vasculature: Normal. No abdominal aortic aneurysm. Lymph nodes: Normal. No enlarged lymph nodes. Bladder: Unremarkable as visualized. Reproductive: Prostatomegaly. Bones/joints: No acute fracture. No dislocation. Soft tissues: See Stomach And Bowel Finding. IMPRESSION: There is fairly extensive multifocal pneumoperitoneum along the ascending colon without associated in flammation, wall thickening, or extravasated bowel contents, consistent with perforation of the ascending colon. No abscess. No foreign body. Thank you for allowing us to participate in the care of your patient. Dictated and Authenticated by: Beau Wise MD 03/21/2019 5:23 AM Central Time ([place] & [place]) FINAL REPORT: CT ABDOMEN AND PELVIS WITH IV CONTRAST:: I agree with the report given by Dr. Beau Wise of [facility]. Transcribed Date/Time: 03/21/2019 8:04 AM
--- NOTE | 2019-03-21 07:57 | RAD ---
RADIOGRAPH CHEST 1 VIEW: HISTORY: 53-year-old male with fever. FINDINGS: Lung volumes are very low, and therefore this is a limited study. There is no air space density, pulm onary edema, or pneumothorax. The lateral costophrenic angles are sharp. IMPRESSION: No acute pulmonary findings. tavo [] POS: CELESTE
[2019-03-21] MEDS ORDERED: Fentanyl 100 MCG/2 ML VIAL ONE (08:09)
[2019-03-21] MEDS ORDERED: Famotidine/PF 20 mg/2ml Vial ONE (08:10)
[2019-03-21] MEDS ORDERED: Dextrose 5% in Water 1,000 ML IV PRN (08:16)
[2019-03-21] MEDS ORDERED: Dextrose 50% Abboject 50 ML SYRINGE SLOW IVP PRN (08:16)
[2019-03-21] MEDS ORDERED: Ventilator Sedation Protocol 1 EACH FS SCH (08:30)
[2019-03-21] MEDS ORDERED: Propofol BOLUS 1,000 MG/100 ML VIAL IV PRN (08:32)
[2019-03-21] MEDS ORDERED: DISCONTINUE PREVIOUS NARCOTIC PAIN MEDICATIONS AND BENZODIAZEPINES FS SCH (08:32)
[2019-03-21] MEDS ORDERED: Lorazepam 2 MG/ML VIAL SLOW IVP PRN (08:32)
[2019-03-21] MEDS ORDERED: Morphine 2 MG/ML SYRINGE SLOW IVP PRN (08:32)
[2019-03-21] MEDS ORDERED: Fentanyl BOLUS 250 ML IVPB PRN (08:32)
[2019-03-21] MEDS ORDERED: Propofol 1,000 MG/100 ML VIAL IV PRN (08:32)
[2019-03-21] MEDS ORDERED: fentaNYL Citrate/PF 2,000 MCG in Sodium Chloride 0.9% 60 ML IV SCH (08:32)
[2019-03-21 08:35] LABS: INR-International Normal Ratio 2.5; PTT 36.1 SEC (22.9-36.1); Prothrombin Time 26.8 SEC (12.0-14.7)
[2019-03-21] MEDS ORDERED: [UNRECOGNIZED DRUG - OTHER] IV SCH (09:15)
[2019-03-21] MEDS ORDERED: HUM PROTHROMBIN CPLX IV SCH ×2 (09:15→09:30)
[2019-03-21] MEDS ORDERED: ADMIXTURE FEE IV SCH ×2 (09:15→09:30)
--- NOTE | 2019-03-21 09:24 | HP ---
HISTORY OF PRESENT ILLNESS: Derek Larsen is a 53-year-old black male, [facility] resident for the past year, is nonambulatory and bedridden essentially, contracted with dysphagia, unable to swallow, has depended on a feeding tube. He initially developed a case of [place] spotted fever in March of 2017, transferred from this facility with septic shock and hypoxic brain injury to [facility] in [place] where he was diagnosed with [place] spotted fever, resultant encephalitis. He has severe disability and has been in and out of emergency room for UTIs and pneumonias and feeding tube dysfunction dislodgement. Family reports he has a good sense of humor and still responds nonverbally. He is aphasic. He is able to follow some simple commands at times. He has a seizure disorder. His past history includes diabetes, hypertension, hyperlipidemia, encephalopathy, and severe disability. The patient developed seizure-type symptoms, presented to the emergency room where he was evaluated and found to be febrile. His white count was 9 and hemoglobin 17. Basic metabolic profile unremarkable. Potassium 5.2, sodium 138, BUN and creatinine 18 and 0.91, and glucose 109. He underwent a CAT scan of the abdomen and pelvis at 03:57 and a chest x-ray at 02:33. Chest x-ray did not reveal any acute findings. CAT scan of the abdomen and pelvis revealed extensive multifocal pneumoperitoneum along the ascending colon without associated inflammation. He had wall thickening. No extravasated bowel contents. It was felt that he had a perforation of ascending colon, possibly devascularization. I was asked to see him. I had a long discussion with the patient's brother who has power of senior trial attorney. The patient's [id number] is present. The patient's brother is called multiple family members. The patient after much consideration has decided to proceed with operative intervention. Plan is for laparotomy and indicated procedures. Risks of infection, bleeding, reoperation, colon anastomotic leakage, postoperative mechanical ventilation, tracheostomy necessity discussed. Options for hospice and supportive care only and nonoperative therapy given, but after much discussion and consideration, family desires operative intervention. ALLERGIES: NONE. SOCIAL HISTORY: Tobacco, none. Alcohol, none. Has been in the senior care for over a year. Debilitated, essentially bedridden with tube feedings. He is a DNR. There is a power of senior trial attorney in family, assures this, reiterates this at bedside. MEDICATIONS: 1. Flush feeding tube at 30 mL of water before and after feedings and after meds, Glucerna 1.5 infusion pumps 89 mL/hr, water flush 65 mL per hour, started 4 p.m. and off at 8 a.m., flushed with 60 mL of water before and after feedings at 3 cans formula to bag at 4 p.m. and midnight. Anti-pressure mattress, anti-pressure cushion, and the Lola chair. 2. Amlodipine 5 mg a day. 3. Atorvastatin 5 mg at bedtime per feeding tube. 4. Centrum liquid. 5. Coreg 12.5 per PEG twice a day. 6. Coumadin 7.5 mg per PEG once a day. 7. Depakene 250 mg per 5 mL, 10 mL via PEG 2 times a day. 8. Insulin 12 units subcu. 9. Glargine in the evening. 10. Keppra 2 times a day. 11. Lisinopril 20 mg a day. 12. Nystatin powder. 13. Pepcid tablet 40 mg a day per tube. 14. Triamcinolone ointment for face rash as needed. PAST SURGICAL HISTORY: PEG tube. PAST MEDICAL HISTORY: Type 2 diabetes mellitus, hypertension, hyperlipidemia, encephalopathy, [place] spotted fever, immobile, nonambulatory, dysphagia with tube feeding infusion dependent. PHYSICAL EXAMINATION: VITAL SIGNS: Blood pressure 130/74, respiratory rate 24, and heart rate 90. HEAD, EARS, EYES, NOSE, AND THROAT: Unremarkable. LUNGS: Coarse respirations. No wheezing. CARDIAC: Rate and rhythm. ABDOMEN: Soft, mild tenderness, firmness. Feeding tube, left upper quadrant. EXTREMITIES: Both upper extremities contracted with foam pads in his palms, deformity of his feet from immobility and encephalitis. DIAGNOSTIC DATA: Echocardiogram, 09/01/2018, 60% to 65% EF, grade 1 to 3 diastolic dysfunction. Mild mitral and tricuspid regurgitation. CAT scan; findings as described above. The right colonic changes of early perforation. ASSESSMENT AND PLAN: 1. Right colon abnormality with evidence of early perforation that may be contained. There are no clinical signs of peritonitis; however, I have discussed with family necessity of intervention. They do desire intervention. We will plan laparotomy, right colon resection is indicated, possibly anastomosis. Risks of infection, bleeding, reoperation, and anastomotic leakage discussed. DNR will be continued postoperatively. He may require mechanical ventilation postoperatively. 2. [place] spotted fever with encephalopathy, resulting in severe disability. He is immobile in the senior care, dysphagia, dysarthric, requires feeding tube. Job ID: [id number]
[2019-03-21] MEDS ORDERED: [UNRECOGNIZED DRUG - OTHER] IV SCH (09:30)
[2019-03-21] MEDS ORDERED: Promethazine HCl 25 MG/ML VIAL SLOW IVP PRN (09:53)
[2019-03-21] MEDS ORDERED: Promethazine HCl 25 MG/ML VIAL IM PRN (09:53)
[2019-03-21] MEDS ORDERED: SUGAMMADEX SODIUM 500 MG/5 ML VIAL ONE (09:53)
[2019-03-21] MEDS ORDERED: Ondansetron HCl/PF 4 MG/2 ML Vial IVP PRN (09:53)
--- NOTE | 2019-03-21 10:49 | OP ---
DATE OF PROCEDURE: 03/21/2019 PREOPERATIVE DIAGNOSIS: Pneumoperitoneum cecal tumor. POSTOPERATIVE DIAGNOSIS: Pneumoperitoneum cecal tumor without evident pneumoperitoneum and no evidence of peritonitis. PROCEDURES PERFORMED: Right subclavian vein central line, exploratory laparotomy, right colectomy, primary anastomosis, primary wound closure. ANESTHESIA: General. ESTIMATED BLOOD LOSS: 20 mL. Blood transfused none. Kcentra given in the operating room for INR 2.5. DESCRIPTION OF PROCEDURE: The patient was taken to the operating room, where under general anesthesia in supine position, Damico catheter placed and left postoperatively. NG tube placed. Right subclavian vein central line was placed. ChloraPrep was used. Infraclavicular approach used to cannulate the subclavian vein. J-wire threaded. Trocar catheter removed. Skin site enlarged sharply. Seldinger technique used to place triple-lumen catheter, removed the J-wire, securing the catheter with 3-0 silk suture. A Biopatch sterile dressing applied. Each port aspirated blood, flushed with saline solution. Abdomen, clipped of hair, prepared with ChloraPrep and draped in routine fashion. Midline incision was made and carried down to skin and subcutaneous tissue from above to below the umbilicus and in the abdominal cavity sharply. There was no evidence of peritonitis. Attention was turned to the right colon, where the preoperative CAT scan suggested a possible cecal tumor and pneumoperitoneum. The right colon was paler than the rest of the colon, but there was no evidence of perforation and no evidence of inflammation. There was a cecal tumor appreciated on palpation. The terminal ileum was removed, mobilized from its peritoneal attachments in the pelvis. Right colon mobilized. Hepatic flexure mobilized using the cautery. Duodenum identified and kept free of harm during the procedure. Transverse colon divided with DREA stapler. Terminal ileum 6 inches from the ileocecal valve, divided with a DREA stapler. Mesentery divided with the LigaSure and ileocolic, and then, the right colic vessels divided between clamps, ligated with 2-0 silk ties. Colon removed, submitted to Pathology. Good hemostasis ensured with the cautery and irrigation. Primary anastomosis performed with a DREA 75 staple technique closing the common enterocolotomy with another fire of the stapler. The anastomosis was reinforced with interrupted Lembert sutures of 3-0 silk. Mesenteric defect was not closed. Good hemostasis was noted. Abdominal cavity irrigated with saline solution. Irrigant evacuated. Hemostasis was noted. Midline fascia was closed after noting good sponge, instrument, and needle counts correct. Skin and subcutaneous tissues were irrigated. Good hemostasis was noted. Gloves were changed after the colon anastomosis. Skin was approximated with jeferson. Sterile dressing applied. Job ID: [id number]
[2019-03-21] MEDS ORDERED: Labetalol HCl 100 MG/20 ML VIAL SLOW IVP PRN (11:06)
--- NOTE | 2019-03-21 11:07 | RAD ---
XR Chest 1 View Portable History: Central line placement Comparison: Radiograph same day Findings: Patient is intubated endotracheal tube tip at the level of the clavicles in good position. Enteric tube tip at the gastric body. Central venous catheter tip sits at the cavoatrial junction. Lungs are hypoinflated with vascular crowding and compressive atelectasis. Impression: 1. Uncomplicated placement central venous catheter without pneumothorax. 2. Endotracheal and enteric tube tips in good position.]
[2019-03-21] MEDS ORDERED: Iopamidol 370 76% 100 ML VIAL ONE (11:13)
[2019-03-21] MEDS ORDERED: PROPOFOL 200 MG/20 ML VIAL ONE (11:21)
[2019-03-21] MEDS ORDERED: PHENYLEPHRINE-NS 100 MCG/ML 10 ML SYRINGE ONE (11:21)
[2019-03-21] MEDS ORDERED: Ondansetron PF 4 MG/2 ML Vial ONE (11:21)
[2019-03-21] MEDS ORDERED: Rocuronium Bromide 10 MG/ML (10ML VIAL) ONE (11:21)
[2019-03-21] MEDS ORDERED: Lidocaine 1% PF 5 ML VIAL ONE (11:21)
[2019-03-21] MEDS ORDERED: Metoprolol Tartrate 5 MG/5 ML VIAL ONE (11:21)
[2019-03-21] MEDS ORDERED: Senokot S 8.6-50 MG TAB PO PRN (11:22)
[2019-03-21] MEDS ORDERED: Cepastat Lozenges 1 LOZ PO PRN (11:22)
[2019-03-21] MEDS ORDERED: Sodium Chloride 0.65% Nasal 44 ML BOT EA NARE PRN (11:22)
[2019-03-21] MEDS ORDERED: Bisacodyl 5 MG TAB PO PRN (11:22)
[2019-03-21] MEDS ORDERED: Ondansetron PF 4 MG/2 ML Vial IVP PRN (11:22)
[2019-03-21] MEDS ORDERED: Bisacodyl 10 MG SUPP PR PRN (11:22)
[2019-03-21] MEDS ORDERED: Nitroglycerin 0.4 MG TAB (25 Tab Bottle) SL PRN (11:22)
[2019-03-21] MEDS ORDERED: hydrALAZINE 20 MG/ML VIAL SLOW IVP PRN (11:22)
[2019-03-21] MEDS ORDERED: Loratadine 10 MG TAB PO PRN (11:22)
[2019-03-21] MEDS ORDERED: Diabetic Tussin 200 MG/10 ML UDCUP PO PRN (11:22)
[2019-03-21] MEDS ORDERED: Piperacillin/Tazobactam 3.375 GM in Sodium Chloride 0.9% 100 ML IVPB SCH (12:00)
--- NOTE | 2019-03-21 12:07 | CON ---
DATE OF CONSULTATION: HISTORY OF PRESENT ILLNESS: Derek Larsen is a 53-year-old gentleman, from the prison in [place], previous baseline underlying problem of CVA and severe encephalopathy following [place] spotted fever and meningitis. He now is aphasic, has a PEG tube in place, which was recently replaced. He has right-sided hemiparesis. Comes in with some kind of nausea, vomiting, and abdominal pain issues. CT of the abdomen was done, which showed evidence of extensive multifocal pneumoperitoneum along the ascending colon inflammation, wall thickening, and extravasated bowel contents consistent with perforation of the ascending colon. He was taken to surgery, and apparently at the time of surgery as per the surgeon, no obvious perforation was seen. He underwent a right colectomy, back anastomosis in the ICU, on the vent. The patient is obviously unable to give any history. MEDICAL HISTORY: His previous medical records are extensively well outlined pertinent for presumed C diff colitis and was started on p.o. vancomycin, encephalopathy, CVA, diabetes, high cholesterol, hypertension, and right-sided weakness. HOME MEDICATIONS: Medicine from the prison is included; 1. Keppra 6 mL b.i.d. 2. Coumadin 1 tablet. 3. Vancomycin p.o. 125. 4. Lisinopril. 5. Pepcid. 6. Depakote Sprinkles 4 capsules b.i.d. 7. Coreg 1 tablet twice a day. 8. Calcium. 9. Aspirin. 10. Norvasc. ALLERGIES: NONE. SOCIAL HISTORY: No alcohol or tobacco at this time. REVIEW OF SYSTEMS: Otherwise unobtainable. PHYSICAL EXAMINATION: VITAL SIGNS: Postop on the vent, pulse is 70, blood pressure is elevated 102/106, sats 100%, and respiratory rate of 18. CHEST: Decreased breath sounds. No wheezing. CARDIAC: Normal S1-S2. No gallops. ABDOMEN: No masses. LABORATORY DATA: His lab shows his INR was 2.5. His lytes were normal. Renal function was normal. AST is mildly elevated at 39. Urine was normal. White count 9000, H and H are 17 and 53, and platelet count 139. IMPRESSION: 1. Presumed acute abdomen, status post laparoscopic colectomy. 2. Baseline underlying encephalopathy, secondary to [place] spotted fever. 3. Right-sided CVA, hypertension, and diabetes. We will try and wean the patient once he is stabilized. Supportive care. Otherwise, antibiotics as per Surgery. Pulmonary will follow him in the ICU. This is a 45-minute critical time. Job ID: [id number]
[2019-03-21 12:37] LABS: INR-International Normal Ratio 1.6; Prothrombin Time 19.3 SEC (12.0-14.7)
[2019-03-21] MEDS: Sodium Chloride 0.9% 1,000 ML IV SCH ×2 (12:44→19:35)
[2019-03-21 12:50] LABS: Anion Gap 13 mmol/L (10-20); BUN (Urea Nitrogen) 14 mg/dL (8.4-25.7); Calc. Creatinine Clearance 0 mL/min (70-130); Calcium 8.6 mg/dL (7.8-10.44); Carbon Dioxide 22 mmol/L (22-29); Chloride 108 mmol/L (98-107); Estimated GFR-MDRD Greater than 90; Glucose 159 mg/dL (70-105); Potassium 4.2 mmol/L (3.5-5.1); Sodium 139 mmol/L (136-145)
[2019-03-21] MEDS: cloNIDine 0.1 MG TAB PO PRN (13:12)
[2019-03-21] MEDS: Pantoprazole 40 MG VIAL IVP SCH (13:13)
--- NOTE | 2019-03-21 13:35 | PDOC.PN ---
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 - Objective Resuscitation Status - Order Detail: 03/21/19 08:16 Resuscitation Status Routine Resuscitation Status: DNAR: NO Resuscitation Discussed with: Family MAR Reviewed: Yes Vital Signs & Weight: Vital Signs (12 hours) Pulse BP 03/21/19 13:12 180/87 H 03/21/19 10:38 71 208/106 H Most Recent Monitor Data Heart Rate from ECG 79 NIBP 172/79 NIBP BP-Mean 110 Respiration from ECG 12 SpO2 100 Result Diagrams: 03/21/19 02:50 03/21/19 12:11 Additional Labs: Microbiology 03/21/19 03:17 Urine Straight Catheter Urine Culture - Preliminary NO GROWTH AT 12 HOURS Laboratory Tests 03/21/19 03/21/19 03/21/19 02:49 02:50 02:50 INR Lactic Acid Procalcitonin 0.08 Prolactin 8.30 Valproic Acid 60.1 Levetiracetam 03/21/19 03/21/19 03/21/19 02:50 02:50 06:23 INR Lactic Acid 2.8 H 2.0 Procalcitonin Prolactin Valproic Acid Levetiracetam 18.0 03/21/19 08:18 INR 2.5 Lactic Acid Procalcitonin Prolactin Valproic Acid Levetiracetam Phys Exam - Physical Examination Constitutional: NAD wakes up when name is called but wolf snot follow commands HEENT: PERRLA, moist MMs, sclera anicteric, oral pharynx no lesions ETT Neck: no nodes, no JVD, supple, full ROM Respiratory: no wheezing, no rales, no rhonchi Cardiovascular: RRR, no significant murmur Gastrointestinal: soft, non-tender, no distention, positive bowel sounds Musculoskeletal: no edema, pulses present chr venostasis changes R hemiparesis. Psychiatric: normal affect Deviation from normal: does not respond to Qs or follows any commands Skin: no rash Dx/Plan (1) Uncontrolled hypertension Code(s): I10 - ESSENTIAL (PRIMARY) HYPERTENSION Status: Acute Comment: Add Prn antihypertensives. Discussed w RN-Home meds need to be reconciled. restart on Coreg (2) Perforation bowel Code(s): K63.1 - PERFORATION OF INTESTINE (NONTRAUMATIC) Status: Acute Comment: s/p Ex-lap and R colectomy.Supportive care. Vent support Empiric ABx. follow Cx results GS primary team (3) PEG (percutaneous endoscopic gastrostomy) status Code(s): Z93.1 - GASTROSTOMY STATUS Status: Chronic (4) Seizure Code(s): R56.9 - UNSPECIFIED CONVULSIONS Status: Chronic Comment: [email or web address] Depakote and keppra (5) Chronic hypoxic-ischemic brain injury Code(s): I67.82 - CEREBRAL ISCHEMIA; G93.1 - ANOXIC BRAIN DAMAGE, NOT ELSEWHERE CLASSIFIED Status: Chronic Comment: supportive care (6) Diabetes mellitus Code(s): E11.9 - TYPE 2 DIABETES MELLITUS WITHOUT COMPLICATIONS Status: Chronic Comment: ISS and accuchecks. 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 EMR reviewed.On HOld due to abdominal Sx - Plan diaz catheter, DVT proph w/SCDs BP very high.started on prn antihypertensives but need to restart [facility] emeds -: Monitor Labs and blood sugar. -: IM team will follow * . Review of Systems - Review of Systems Other: can not be obtanied due to chr brain injury leading to dementia/encephalopathy - Medications/Allergies Allergies/Adverse Reactions: Allergies Allergy/AdvReac Type Severity Reaction Status Date / Time No Known Drug Allergies Allergy Verified 09/11/18 06:06 Medications: Current Medications Acetaminophen (Tylenol) 1,000 mg PO Q6H PRN PRN Reason: Mild Pain (1-3) Albuterol/Ipratropium (Duoneb) 3 ml NEB [id number] MEI Benzonatate (Tessalon) 100 mg PO Q6H PRN PRN Reason: Cough Bisacodyl (Dulcolax) 10 mg PO DAILYPRN PRN PRN Reason: Constipation Bisacodyl (Dulcolax) 10 mg [place] DAILYPRN PRN PRN Reason: Constipation Carvedilol (Coreg) 12.5 mg PER TUBE BID [facility] Clonidine (Catapres) 0.1 mg PO Q4H PRN PRN Reason: SBP > 160____ Last Admin: 03/21/19 13:12 Dose: 0.1 mg Dextrose/Water (Dextrose 50%) 25 gm SLOW IVP PRN PRN PRN Reason: Hypoglycemia Divalproex Sodium (Depakote Sprinkle) 500 mg PER TUBE BID [facility] Glucagon (Glucagon) 1 mg IM PRN PRN PRN Reason: Hypoglycemia Guaifenesin (Robitussin Sf) 200 mg PO Q4H PRN PRN Reason: Cough Hydralazine HCl (Apresoline) 10 mg SLOW IVP Q4H PRN PRN Reason: SBP > 180 and HR < 70 Dextrose/Water (D5w) 1,000 mls @ 0 mls/hr IV .Q0M PRN PRN Reason: Hypoglycemia Fentanyl Citrate 2,000 mcg/ (Sodium Chloride) 100 mls @ 0 mls/hr IV INF MEI; Protocol Stop: 04/20/19 08:32 Fentanyl Citrate (Fentanyl Bolus) 250 mls @ 0 mls/hr IVPB PRN PRN PRN Reason: Breakthrough pain/agitation Stop: 04/20/19 08:32 Sodium Chloride (Normal Saline 0.9%) 1,000 mls @ 125 mls/hr IV .Q8H [facility] Last Admin: 03/21/19 12:44 Dose: 1,000 mls Insulin Human Lispro (Humalog) 0 units SC .AGGRESSIVE SLIDING PRN PRN Reason: Aggressive Correctional Scale Labetalol HCl (Normodyne) 20 mg SLOW IVP Q2HR PRN PRN Reason: Blood Pressure Levetiracetam (Keppra Oral Solution) 600 mg PER TUBE BID [facility] Loratadine (Claritin) 10 mg PO DAILYPRN PRN PRN Reason: Sinus Symptoms Lorazepam (Ativan) 2 mg SLOW IVP Q1H PRN PRN Reason: Breakthrough agitation Stop: 04/20/19 08:32 Miscellaneous Medication (Ventilator Sedation Protocol) 1 each FS ONE [facility] Stop: 03/21/19 23:00 Morphine Sulfate (Morphine) 2 mg SLOW IVP Q1H PRN PRN Reason: BREAKTHROUGH PAIN/Agitation Stop: 04/20/19 08:32 Nitroglycerin (Nitrostat) 0.4 mg SL Q5MIN PRN PRN Reason: Chest Pain Discontinue Previous Narcotic Pain Medications And Benzodiazepines 1 each FS .ONE MEI Stop: 04/20/19 08:32 Ondansetron HCl (Zofran) 4 mg IVP Q6H PRN PRN Reason: Nausea/Vomiting Pantoprazole Sodium (Protonix) 40 mg IVP DAILY MEI Last Admin: 03/21/19 13:13 Dose: 40 mg Propofol (Diprivan) 1,000 mg IV INF PRN; Protocol PRN Reason: TO ACHIEVE GOAL RASS Stop: 04/20/19 08:32 Propofol (Diprivan Bolus) 20 mg IV Q5MIN PRN PRN Reason: BREAKTHROUGH AGITATION Stop: 04/20/19 08:32 Senna/Docusate Sodium (Senokot S) 2 tab PO BID PRN PRN Reason: Constipation Sodium Chloride (Flush - Normal Saline) 10 ml IVF PRN PRN PRN Reason: Saline Flush Sodium Chloride (Normal Saline Pf) 10 ml FS PRN PRN PRN Reason: RECONSTITUTION Sodium Chloride ([place] Nasal [place] 0.65%) 0 ml EA NARE QIDPRN PRN PRN Reason: Nasal Congestion Throat Lozenges (Cepastat Lozenges) 1 priyanka PO Q2H PRN PRN Reason: Sore Throat Triamcinolone Acetonide (Kenalog 0.1% Ointment) 0 gm TOP Q7DAYS MEI
[2019-03-21] MEDS ORDERED: Divalproex Sodium 125 mg Sprinkle Capsule PER TUBE SCH ×2 (17:00→21:00)
[2019-03-21] MEDS: Carvedilol 6.25 MG TAB PER TUBE SCH (20:54)
[2019-03-21] MEDS: levETIRAcetam 500 mg/5 ml Oral Solution PER TUBE SCH (20:54)
[2019-03-21] MEDS: Divalproex Sodium 125 mg Sprinkle Capsule PER TUBE SCH (20:56)
[2019-03-21] MEDS ORDERED: levETIRAcetam 100 mg/ml Oral Solution PER TUBE SCH (21:00)
[2019-03-21] MEDS ORDERED: Non-Formulary Item 1 EACH (Carvedilol [Carvedilol] 1 TAB) PER TUBE SCH (21:00)
[2019-03-22] MEDS: Sodium Chloride 0.9% 1,000 ML IV SCH ×3 (03:20→21:09)
[2019-03-22] MEDS: Acetaminophen 500 MG TAB PO PRN ×2 (04:25→21:09)
[2019-03-22 05:21] LABS: INR-International Normal Ratio 3.5; Prothrombin Time 34.5 SEC (12.0-14.7)
[2019-03-22 05:33] LABS: Band 11 % (5-11); Hemoglobin 10.5 g/dL (14.0-18.0); Lymphocytes 12 % (21-51); MDiff Complete? YES; Mean Corpuscular HGB CONC 31.5 g/dL (32.0-36.0); Mean Corpuscular Hemoglobin 29.7 pg (27.0-31.0); Mean Corpuscular Volume 94.3 fL (78.0-98.0); Mean Platelet Volume 9.8 fL (7.4-10.4); Metamyelocyte 1 % (0-0); Monocytes 15 % (0-10); Neutrophil 61 % (42-75); Platelet Count 131 thou/uL (130-400); Platelet Morphology Comment Appears Decreased; RBC Distribution Width 12.6 % (11.5-14.5); RBC Morphology Normal; Red Blood Cell (RBC) Count 3.54 mill/uL (4.70-6.10); White Blood Cell (WBC) Count 11.4 thou/uL (4.8-10.8)
[2019-03-22 05:34] LABS: Anion Gap 10 mmol/L (10-20); BUN (Urea Nitrogen) 17 mg/dL (8.4-25.7); Calc. Creatinine Clearance 124 mL/min (70-130); Calcium 7.8 mg/dL (7.8-10.44); Carbon Dioxide 22 mmol/L (22-29); Chloride 111 mmol/L (98-107); Estimated GFR-MDRD Greater than 90; Glucose 138 mg/dL (70-105); Magnesium 1.5 mg/dL (1.6-2.6); Phosphorus 2.7 mg/dL (2.3-4.7); Potassium 4.4 mmol/L (3.5-5.1); Sodium 139 mmol/L (136-145)
[2019-03-22] MEDS ORDERED: Morphine 4 MG/ML VIAL SLOW IVP PRN (08:14)
--- NOTE | 2019-03-22 08:47 | PRG ---
DATE OF SERVICE: 03/22/2019 SUBJECTIVE: This morning, he is awake, responsive, obviously encephalopathic, apparently he is grimacing. He has some pain. OBJECTIVE: VITAL SIGNS: , temperature is 99.1, pulse 93, respiratory rate 22, , and blood pressure is 160/86. CHEST: Bilateral rhonchi. CARDIAC: Normal S1, S2. No gallops. ABDOMEN: No masses. LABORATORY DATA: His white count is 11,000, but he got 61 segs, 11 bands. Lytes are normal. IMPRESSION: 1. Status post lap for acute abdomen. 2. Respiratory failure. 3. Previous [place] spotted fever with ensuing severe encephalopathy. PLAN: He is a DNR. I spoke to his brother postsurgery. He was extubated. X-ray shows low volumes, atelectatic area. He requires neb treatments and supportive care. He will be transferred out of the ICU. Antibiotics as per surgery. One-half hour of critical time. Job ID: [id number]
[2019-03-22] MEDS ORDERED: Magnesium Sulfate 4 GM in Sodium Chloride 0.9% 250 ML 250 ML IVPB SCH (09:00)
[2019-03-22] MEDS: Pantoprazole 40 MG VIAL IVP SCH (09:28)
[2019-03-22] MEDS: Divalproex Sodium 125 mg Sprinkle Capsule PER TUBE SCH ×2 (09:29→21:10)
[2019-03-22] MEDS: Carvedilol 6.25 MG TAB PER TUBE SCH ×2 (09:29→21:09)
[2019-03-22] MEDS: levETIRAcetam 500 mg/5 ml Oral Solution PER TUBE SCH ×2 (09:30→21:09)
[2019-03-22] MEDS ORDERED: Lactated Ringer's 500 ML IV SCH (09:45)
--- NOTE | 2019-03-22 12:02 | RAD ---
PORTABLE CHEST: Date: 03/22/19 HISTORY: Respiratory distress. COMPARISON: Prior day's exam. FINDINGS: Endotracheal and NG tubes have been removed. Right subclavian line is unchanged in position. There is now development of some atelectatic changes extending from the right hilum into the right upper lobe region. The left parahilar and lower lobe parenchymal changes have improved. IMPRESSION: Slight increasing atelectasis in the right lung. Improving changes within the left lung. POS: [facility]
--- NOTE | 2019-03-22 17:19 | PDOC.PN ---
- Subjective Encounter Start Date: 03/22/19 Encounter Start Time: 11:45 Subjective: pt up in bed does not communicate -: family at bedside - Objective Resuscitation Status - Order Detail: 03/21/19 08:16 Resuscitation Status Routine Resuscitation Status: DNAR: NO Resuscitation Discussed with: Family Vital Signs & Weight: Vital Signs (12 hours) Temp Pulse Resp BP BP Pulse Ox 03/22/19 15:53 99.3 F 92 14 127/84 96 03/22/19 13:25 99.5 F 97 18 124/85 96 03/22/19 12:00 99.5 F 03/22/19 11:02 100 19 95 03/22/19 09:29 138/93 H 03/22/19 08:00 100.1 F H 95 03/22/19 07:58 99 03/22/19 07:57 93 19 99 Weight Admit Weight 183 lb 6.793 oz Weight 177 lb 0.499 oz Most Recent Monitor Data Heart Rate from ECG 103 NIBP 100/83 NIBP BP-Mean 88 Respiration from ECG 20 SpO2 91 I&O: 03/21/19 03/22/19 03/23/19 06:59 06:59 06:59 Intake Total 3126 2028 Output Total 1200 475 Balance 1926 1553 Result Diagrams: 03/22/19 04:40 03/22/19 03:30 Additional Labs: Accuchecks 03/22/19 03/22/19 03/22/19 12:06 04:51 00:49 POC Glucose 140 H 144 H 150 H Phys Exam - Physical Examination Neck: no nodes, no JVD, supple, full ROM Respiratory: no wheezing, no rales, no rhonchi, clear to auscultation bilateral Cardiovascular: RRR, no significant murmur, no rub, gallop, irregular Gastrointestinal: soft, positive bowel sounds Musculoskeletal: no edema, pulses present, edema present Dx/Plan (1) Uncontrolled hypertension Code(s): I10 - ESSENTIAL (PRIMARY) HYPERTENSION Status: Acute Comment: Add Prn antihypertensives. Discussed w RN-Home meds need to be reconciled. restart on Coreg (2) Perforation bowel Code(s): K63.1 - PERFORATION OF INTESTINE (NONTRAUMATIC) Status: Acute Comment: s/p Ex-lap and R colectomy.Supportive care. Vent support Empiric ABx. follow Cx results GS primary team (3) PEG (percutaneous endoscopic gastrostomy) status Code(s): Z93.1 - GASTROSTOMY STATUS Status: Chronic (4) Diabetes mellitus Code(s): E11.9 - TYPE 2 DIABETES MELLITUS WITHOUT COMPLICATIONS Status: Chronic Comment: ISS and accuchecks. restart PO meds including glipizide via PEG (5) Seizure Code(s): R56.9 - UNSPECIFIED CONVULSIONS Status: Chronic Comment: [email or web address] Depakote and keppra - Plan pt has a cecal mass, s/p right colectomy -: vitals stable, family updated * . Review of Systems - Review of Systems Other: unable to obtain - Medications/Allergies Allergies/Adverse Reactions: Allergies Allergy/AdvReac Type Severity Reaction Status Date / Time No Known Drug Allergies Allergy Verified 09/11/18 06:06 Medications: Current Medications Acetaminophen (Tylenol) 1,000 mg PO Q6H PRN PRN Reason: Mild Pain (1-3) Last Admin: 03/22/19 04:25 Dose: 1,000 mg Albuterol/Ipratropium (Duoneb) 3 ml NEB [id number] [facility] Last Admin: 03/22/19 13:12 Dose: Not Given Benzonatate (Tessalon) 100 mg PO Q6H PRN PRN Reason: Cough Bisacodyl (Dulcolax) 10 mg PO DAILYPRN PRN PRN Reason: Constipation Bisacodyl (Dulcolax) 10 mg [place] DAILYPRN PRN PRN Reason: Constipation Carvedilol (Coreg) 12.5 mg PER TUBE BID [facility] Last Admin: 03/22/19 09:29 Dose: 12.5 mg Clonidine (Catapres) 0.1 mg PO Q4H PRN PRN Reason: SBP > 160____ Last Admin: 03/21/19 13:12 Dose: 0.1 mg Dextrose/Water (Dextrose 50%) 25 gm SLOW IVP PRN PRN PRN Reason: Hypoglycemia Divalproex Sodium (Depakote Sprinkle) 500 mg PER TUBE BID [facility] Last Admin: 03/22/19 09:29 Dose: 500 mg Glucagon (Glucagon) 1 mg IM PRN PRN PRN Reason: Hypoglycemia Guaifenesin (Robitussin Sf) 200 mg PO Q4H PRN PRN Reason: Cough Hydralazine HCl (Apresoline) 10 mg SLOW IVP Q4H PRN PRN Reason: SBP > 180 and HR < 70 Dextrose/Water (D5w) 1,000 mls @ 0 mls/hr IV .Q0M PRN PRN Reason: Hypoglycemia Fentanyl Citrate 2,000 mcg/ (Sodium Chloride) 100 mls @ 0 mls/hr IV INF [facility]; Protocol Stop: 04/20/19 08:32 Fentanyl Citrate (Fentanyl Bolus) 250 mls @ 0 mls/hr IVPB PRN PRN PRN Reason: Breakthrough pain/agitation Stop: 04/20/19 08:32 Sodium Chloride (Normal Saline 0.9%) 1,000 mls @ 125 mls/hr IV .Q8H [facility] Last Admin: 03/22/19 09:31 Dose: 1,000 mls Insulin Human Lispro (Humalog) 0 units SC .AGGRESSIVE SLIDING PRN PRN Reason: Aggressive Correctional Scale Labetalol HCl (Normodyne) 20 mg SLOW IVP Q2HR PRN PRN Reason: Blood Pressure Levetiracetam (Keppra Oral Solution) 600 mg PER TUBE BID [facility] Last Admin: 03/22/19 09:30 Dose: 600 mg Loratadine (Claritin) 10 mg PO DAILYPRN PRN PRN Reason: Sinus Symptoms Lorazepam (Ativan) 2 mg SLOW IVP Q1H PRN PRN Reason: Breakthrough agitation Stop: 04/20/19 08:32 Morphine Sulfate (Morphine) 2 mg SLOW IVP Q1H PRN PRN Reason: BREAKTHROUGH PAIN/Agitation Stop: 04/20/19 08:32 Morphine Sulfate (Morphine) 4 mg SLOW IVP Q4H PRN PRN Reason: Moderate to Severe Pain (6-10) Last Admin: 03/22/19 09:35 Dose: 4 mg Nitroglycerin (Nitrostat) 0.4 mg SL Q5MIN PRN PRN Reason: Chest Pain Discontinue Previous Narcotic Pain Medications And Benzodiazepines 1 each FS .ONE [facility] Stop: 04/20/19 08:32 Ondansetron HCl (Zofran) 4 mg IVP Q6H PRN PRN Reason: Nausea/Vomiting Pantoprazole Sodium (Protonix) 40 mg IVP DAILY [facility] Last Admin: 03/22/19 09:28 Dose: 40 mg Propofol (Diprivan) 1,000 mg IV INF PRN; Protocol PRN Reason: TO ACHIEVE GOAL RASS Stop: 04/20/19 08:32 Propofol (Diprivan Bolus) 20 mg IV Q5MIN PRN PRN Reason: BREAKTHROUGH AGITATION Stop: 04/20/19 08:32 Senna/Docusate Sodium (Senokot S) 2 tab PO BID PRN PRN Reason: Constipation Sodium Chloride (Flush - Normal Saline) 10 ml IVF PRN PRN PRN Reason: Saline Flush Sodium Chloride (Normal Saline Pf) 10 ml FS PRN PRN PRN Reason: RECONSTITUTION Sodium Chloride ([place] Nasal [place] 0.65%) 0 ml EA NARE QIDPRN PRN PRN Reason: Nasal Congestion Throat Lozenges (Cepastat Lozenges) 1 priyanka PO Q2H PRN PRN Reason: Sore Throat Triamcinolone Acetonide (Kenalog 0.1% Ointment) 0 gm TOP Q7DAYS MEI
--- NOTE | 2019-03-22 19:59 | PRG ---
DATE OF SERVICE: 03/22/2019 SUBJECTIVE: The patient is currently on the critical care unit. He is postop day #1, status post exploratory laparotomy, right colectomy, primary anastomosis, and primary wound closure. The patient had no issues overnight and after discussion with the Medicine and pulmonologists all are in agreement, the patient may be moved to the surgical floor today. OBJECTIVE: VITAL SIGNS: Temperature is 100.1, heart rate 93, blood pressure 155/85, respirations 22, and oxygen saturation is 95% on 2 L via nasal cannula. GENERAL: The patient appears to be resting comfortably in bed. He remains at his baseline. This is confirmed with family at bedside. LUNGS: Bilateral scattered rhonchi. HEART: Regular rate and rhythm. ABDOMEN: Incision is clean, dry, and intact. EXTREMITIES: Neurovascularly intact x4. LABORATORY FINDINGS: White blood cell count 11.4, hemoglobin 10.5, hematocrit 33.4, platelets 131. Sodium 139, potassium 4.4, chloride 111, CO2 of 10, BUN 17, creatinine 0.83, glucose 138, magnesium 1.5, and phosphorus 2.7. RADIOGRAPHS: AP chest shows slightly increasing atelectasis in the right lung, improving changes within the left lung. ASSESSMENT AND PLAN: 1. Status post exploratory laparotomy and above mentioned procedures. 2. History of severe encephalopathy. Plan will be to continue supportive care. Await bowel function return and start diet as indicated. The patient was evaluated this morning with Dr. Dawson during rounds. Job ID: [id number]
[2019-03-22] MEDS: Benzonatate 100 MG CAP PO PRN (21:09)
[2019-03-23] MEDS: Sodium Chloride 0.9% 1,000 ML IV SCH ×3 (03:17→22:26)
[2019-03-23 06:20] LABS: Anion Gap 9 mmol/L (10-20); BUN (Urea Nitrogen) 13 mg/dL (8.4-25.7); Calc. Creatinine Clearance 140 mL/min (70-130); Calcium 8.4 mg/dL (7.8-10.44); Carbon Dioxide 26 mmol/L (22-29); Chloride 112 mmol/L (98-107); Estimated GFR-MDRD Greater than 90; Glucose 94 mg/dL (70-105); Potassium 4.1 mmol/L (3.5-5.1); Sodium 143 mmol/L (136-145)
[2019-03-23 06:28] LABS: Band 12 % (5-11); Elliptocytes SLIGHT = 2-5 cells (100X) (0-1/hpf); Hemoglobin 7.8 g/dL (14.0-18.0); Lymphocytes 20 % (21-51); MDiff Complete? YES; Mean Corpuscular Hemoglobin 30.7 pg (27.0-31.0); Mean Platelet Volume 9.3 fL (7.4-10.4); Monocytes 27 % (0-10); Neutrophil 40 % (42-75); Platelet Count 99 thou/uL (130-400); Platelet Morphology Comment Appears Decreased; RBC Distribution Width 12.5 % (11.5-14.5); Reactive Lymphocytes 1 % (0-10); Red Blood Cell (RBC) Count 2.55 mill/uL (4.70-6.10); White Blood Cell (WBC) Count 5.8 thou/uL (4.8-10.8)
[2019-03-23] MEDS: Divalproex Sodium 125 mg Sprinkle Capsule PER TUBE SCH ×2 (08:32→22:08)
[2019-03-23] MEDS: Sodium Chloride 0.9% (PF) 10 ML VIAL FS PRN (08:33)
[2019-03-23] MEDS: Pantoprazole 40 MG VIAL IVP SCH (08:33)
[2019-03-23] MEDS: Carvedilol 6.25 MG TAB PER TUBE SCH ×2 (08:33→22:08)
--- NOTE | 2019-03-23 09:04 | RAD ---
CHEST 1 VIEW: Date: 03/23/19 HISTORY: Cough. COMPARISON: Prior day's study. FINDINGS: Heart size is enlarged. Film is of poor inspiration. Elevation of the right hemidiaphragm noted. Ther e are bibasilar parenchymal changes which have the appearance of atelectasis. IMPRESSION: Cardiomegaly with worsening bibasilar atelectasis. POS: [facility]
[2019-03-23] MEDS: levETIRAcetam 500 mg/5 ml Oral Solution PER TUBE SCH ×2 (10:50→22:08)
--- NOTE | 2019-03-23 11:33 | PRG ---
DATE OF SERVICE: 03/23/2019 SUBJECTIVE: This morning, he is in no distress. OBJECTIVE: VITAL SIGNS: Blood pressure 152/100, temperature 100.3, pulse 115, saturations 98% on 2 L, respiratory rate 18. CHEST: No wheezing, crackles. CARDIAC: Normal S1, S2. No gallops. ABDOMEN: No masses. LABORATORY DATA: Lytes are normal. White count is 5000, H and H 7 and 24. IMPRESSION: 1. Status post laparotomy for an acute abdomen. 2. Seizure disorder. 3. Encephalopathy. 4. Cerebrovascular accident. 5. Long-term [facility] patient. He is a DNR. X-ray shows an elevated right hemidiaphragm, but I do not see any other infiltrates. Pulmonary will follow at a distance. Disposition as per Surgery. Job ID: [id number]
[2019-03-23] MEDS: Piperacillin/Tazobactam 3.375 GM in Sodium Chloride 0.9% 100 ML IVPB SCH ×3 (13:19→23:59)
[2019-03-23 16:07] LABS: Hemoglobin 7.8 g/dL (14.0-18.0)
--- NOTE | 2019-03-23 16:24 | PRG ---
DATE OF SERVICE: 03/23/2019 SUBJECTIVE: The patient has been moved to the surgical floor yesterday. Overnight, he had no issues. He is postop day #2, status post exploratory laparotomy, right colectomy, primary anastomosis, and primary wound closure. OBJECTIVE: VITAL SIGNS: Temperature 100.3, heart rate 115, blood pressure 151/96, respirations 18, oxygen saturation 98% on 2 L via nasal cannula. GENERAL: The patient is lying, appears to be comfortable in bed. He appears to be at his baseline. HEENT: Unremarkable. LUNGS: Continued scattered rhonchi with moderate inspiratory and expiratory effort. HEART: Regular rate and rhythm. ABDOMEN: Soft, flat, nontender with hypoactive bowel sounds. Midline incision is clean, dry, and intact. EXTREMITIES: Neurovascularly intact x4. LABORATORY FINDINGS: White blood cell count 5.8, hemoglobin 7.8, hematocrit 24.5, platelets 99. Sodium 143, potassium 4.1, chloride 112, CO2 26, BUN 13, creatinine 0.71, glucose 94. RADIOGRAPHS: AP chest x-ray shows cardiomegaly with worsening bibasilar atelectasis. ASSESSMENT AND PLAN: 1. Status post exploratory laparotomy and above procedures. 2. History of severe encephalopathy, aphasic. PLAN: Plan will be to continue supportive care. Await function of the bowels to return and start tube feeds at that time. PEG tube will remain at gravity at this time. We will repeat his H and H this afternoon and transfuse if necessary. The patient was evaluated this morning with Dr. Dawson during rounds. Job ID: [id number]
[2019-03-23] MEDS: Acetaminophen 500 MG TAB PO PRN (22:09)
[2019-03-24] MEDS: Sodium Chloride 0.9% 1,000 ML IV SCH ×4 (04:32→17:57)
[2019-03-24] MEDS: MEROPENEM 1 GM/50 ML 1 GM in Premix Bag 1 BAG IVPB SCH ×3 (05:43→21:09)
[2019-03-24 06:21] LABS: Anion Gap 11 mmol/L (10-20); BUN (Urea Nitrogen) 12 mg/dL (8.4-25.7); Calc. Creatinine Clearance 126 mL/min (70-130); Carbon Dioxide 23 mmol/L (22-29); Chloride 111 mmol/L (98-107); Estimated GFR-MDRD Greater than 90; Glucose 94 mg/dL (70-105); Potassium 3.9 mmol/L (3.5-5.1); Sodium 141 mmol/L (136-145)
[2019-03-24 06:25] LABS: Band 5 % (5-11); Hemoglobin 7.1 g/dL (14.0-18.0); Hypochromia SLIGHT = 6-15 cells (100X) (0-5/hpf); Lymphocytes 32 % (21-51); MDiff Complete? YES; Mean Corpuscular HGB CONC 31.8 g/dL (32.0-36.0); Mean Corpuscular Hemoglobin 30.4 pg (27.0-31.0); Mean Corpuscular Volume 95.5 fL (78.0-98.0); Mean Platelet Volume 10.5 fL (7.4-10.4); Monocytes 6 % (0-10); Neutrophil 57 % (42-75); Platelet Count 74 thou/uL (130-400); Platelet Morphology Comment Appears Decreased; RBC Distribution Width 12.1 % (11.5-14.5); Red Blood Cell (RBC) Count 2.33 mill/uL (4.70-6.10); White Blood Cell (WBC) Count 7.4 thou/uL (4.8-10.8)
[2019-03-24] MEDS: levETIRAcetam 500 mg/5 ml Oral Solution PER TUBE SCH ×2 (08:53→20:45)
[2019-03-24] MEDS: Acetaminophen 500 MG TAB PO PRN ×2 (08:53→18:02)
[2019-03-24] MEDS: Sodium Chloride 0.9% (PF) 10 ML VIAL FS PRN (08:54)
[2019-03-24] MEDS: Divalproex Sodium 125 mg Sprinkle Capsule PER TUBE SCH ×2 (08:54→20:44)
[2019-03-24] MEDS: Pantoprazole 40 MG VIAL IVP SCH (08:54)
[2019-03-24] MEDS: Carvedilol 6.25 MG TAB PER TUBE SCH ×2 (08:54→20:44)
--- NOTE | 2019-03-24 09:33 | PRG ---
DATE OF SERVICE: 03/24/2019 SUBJECTIVE: Derek Larsen is a 53-year-old gentleman this morning. OBJECTIVE: VITAL SIGNS: Temperature of 101.7, blood pressure 164/80, pulse 103, and saturations are 98% on room air, respirations 18. GENERAL: He is in no distress. CHEST: Decreased breath sounds. No wheezing. CARDIAC: Normal S1 and S2. No gallops. ABDOMEN: No masses. IMPRESSION: 1. Status post laparoscopic colectomy, acute abdomen. 2. Underlying severe encephalopathy from previous [place] spotted fever. 3. Anemia. PLAN: Pulmonary-baires, he is stable. Disposition as per Surgery. Job ID: [id number]
--- NOTE | 2019-03-24 09:40 | PDOC.PN ---
- Subjective Encounter Start Date: 03/23/19 Encounter Start Time: 15:00 Subjective: pt up in bed unable to express any complains - Objective Resuscitation Status - Order Detail: 03/21/19 08:16 Resuscitation Status Routine Resuscitation Status: DNAR: NO Resuscitation Discussed with: Family Vital Signs & Weight: Vital Signs (12 hours) Temp Pulse Resp BP BP Pulse Ox 03/24/19 08:54 164/80 H 03/24/19 07:26 101.7 F H 103 H 18 164/80 H 96 03/24/19 06:48 106 H 20 98 03/24/19 03:16 99.0 F 80 20 116/73 100 03/23/19 23:29 99.4 F 78 20 95/54 L 100 03/23/19 22:08 130/78 Weight Admit Weight 183 lb 6.793 oz Weight 177 lb 0.499 oz Most Recent Monitor Data Heart Rate from ECG 103 NIBP 100/83 NIBP BP-Mean 88 Respiration from ECG 20 SpO2 91 I&O: 03/23/19 03/24/19 03/25/19 06:59 06:59 06:59 Intake Total 2027 3070 Output Total 780 3375 Balance 1248 -305 Result Diagrams: 03/24/19 05:42 03/24/19 05:42 Additional Labs: Accuchecks 03/24/19 03/23/19 03/23/19 05:55 23:27 15:26 POC Glucose 110 113 H 115 H 03/23/19 11:36 POC Glucose 105 Phys Exam - Physical Examination awake but does not follow any commands Neck: no nodes, no JVD, supple, full ROM Respiratory: no wheezing, no rales, no rhonchi, wheezing present, clear to auscultation bilateral Cardiovascular: RRR, no significant murmur, no rub, gallop, irregular Gastrointestinal: soft, non-tender, no distention, positive bowel sounds Dx/Plan (1) Uncontrolled hypertension Code(s): I10 - ESSENTIAL (PRIMARY) HYPERTENSION Status: Acute Comment: Add Prn antihypertensives. Discussed w RN-Home meds need to be reconciled. restart on Coreg (2) Perforation bowel Code(s): K63.1 - PERFORATION OF INTESTINE (NONTRAUMATIC) Status: Acute Comment: s/p Ex-lap and R colectomy.Supportive care. Vent support Empiric ABx. follow Cx results GS primary team (3) PEG (percutaneous endoscopic gastrostomy) status Code(s): Z93.1 - GASTROSTOMY STATUS Status: Chronic (4) Diabetes mellitus Code(s): E11.9 - TYPE 2 DIABETES MELLITUS WITHOUT COMPLICATIONS Status: Chronic Comment: ISS and accuchecks. restart PO meds including glipizide via PEG (5) Seizure Code(s): R56.9 - UNSPECIFIED CONVULSIONS Status: Chronic Comment: [email or web address] Depakote and keppra - Plan * .
[2019-03-24 12:40] VITALS: BMI 25.4
--- NOTE | 2019-03-24 13:13 | PQF ---
CLINICAL DOCUMENTATION IMPROVEMENT CLARIFICATION FORM: ICD-10 Updated PLEASE DO AN ADDENDUM TO THE PROGRESS NOTE WITH ANY DOCUMENTATION UPDATES OR ADDITIONS AND CARRY THROUGH TO DC SUMMARY. THANK YOU. DATE: 03/24/19 ATTN : DR. BROOKS Please exercise your independent, professional judgment in responding to the clarification form. Clinical indicators are provided on the bottom of this form for your review Please check appropriate box(s) to clarify if the following diagnosis has been ruled in or ruled out: "SEPSIS" WE ARE CONSULTANTS ON THIS CASE. DID NOT ADMIT THE PATIENT. [ ] Ruled in diagnosis [ ] Continue to treat [ ] Resolved [ ] Ruled out diagnosis [ ] Cannot rule out diagnosis [ ] Other diagnosis [ ] Unable to determine In addition, please specify: Present on Admission (POA): [ ] Yes [ ] No [ ] Unable to determine For continuity of documentation, please document condition throughout progress notes and discharge summary. Thank You. CLINICAL INDICATORS - SIGNS / SYMPTOMS / LABS ER NOTE: "SEPSIS" LACTIC ACID 2.8 PULSE 109 TEMP 101.7 RR 24 RISKS: PERFORATION OF BOWEL TREATMENT: EXPLORATORY LAP RIGHT COLECTOMY IV FLUIDS (ER) IV ZOSYN (ER-03/23) IV MEROPENEM (03/24) (This form is maintained as a part of the permanent medical record) 2014 [employer]. All Rights Reserved Radha Malhotra - [facility] Registrar [email or web address] [phone] [email or web address]
[2019-03-24] MEDS ORDERED: Pancrelipase DR 12000 1 CAP FS PRN (13:22)
[2019-03-24] MEDS ORDERED: Sodium Bicarbonate Tab 325 MG TAB PER TUBE PRN (13:22)
--- NOTE | 2019-03-24 13:22 | PQF ---
CLINICAL DOCUMENTATION IMPROVEMENT CLARIFICATION FORM: ICD-10 Updated PLEASE DO AN ADDENDUM TO THE PROGRESS NOTE WITH ANY DOCUMENTATION UPDATES OR ADDITIONS AND CARRY THROUGH TO DC SUMMARY. THANK YOU. DATE: 03/24/19 ATTN: DR. BROOKS Please exercise your independent, professional judgment in responding to the clarification form. Clinical indicators are provided on the bottom of this form for your review Please check appropriate box(s): [ ] Encephalopathy: Type: [ x ] Acute [ ] Subacute [ ] Chronic Etiology: [ ] Hypertensive [ x ] Metabolic [ ] Toxic [ ] Hepatic with Coma [ ] Hepatic w/o Coma [ ] Hypoxic [ ] Septic [ ] Drug induced: [ ] Unspecified [ ] in the setting of underlying dementia [ ] Other (please specify) [ ] Transient Alteration of Awareness [ ] Other diagnosis [ ] Unable to determine In addition, please specify: Present on Admission (POA): [ x ] Yes [ ] No [ ] Unable to determine For continuity of documentation, please document condition throughout progress notes and discharge summary. Thank You. CLINICAL INDICATORS - SIGNS / SYMPTOMS / LABS PROGRESS NOTE 03/23: "ENCEPHALOPATHY" RISKS: H/O CVA H/O [place] SPOTTED FEVER TREATMENT: IV FLUIDS (ER) IV ZOSYN (ER-03/23) IV MEROPENEM (03/24) (This form is maintained as a part of the permanent medical record) 2014 [employer]. All Rights Reserved [email or web address] Office: [phone] [email or web address]
--- NOTE | 2019-03-24 13:33 | PQF ---
CLINICAL DOCUMENTATION IMPROVEMENT CLARIFICATION FORM: ICD-10 Updated PLEASE DO AN ADDENDUM TO THE PROGRESS NOTE WITH ANY DOCUMENTATION UPDATES OR ADDITIONS AND CARRY THROUGH TO DC SUMMARY. THANK YOU. DATE: 03/24/19 ATTN: DR. BROOKS Please exercise your independent, professional judgment in responding to the clarification form. Clinical indicators are provided on the bottom of this form for your review Please check appropriate box(s): [ ] Hemiplegia Specify: [ ] Non dominant side [ ] Dominant side Status: [ ] Complete [ ] Incomplete [ ] Paraplegia Specify: [ ] Non dominant side [ ] Dominant side Status: [ ] Complete [ ] Incomplete [ ] Quadriplegia [ ] Functional Quadriplegia (specify underlying cause) [ ] Weakness (please specify anatomical area) Specify: [ ] Non dominant side [ ] Dominant side [ ] Other diagnosis [ x] Unable to determine In addition, please specify: Present on Admission (POA): [ ] Yes [ ] No [ x ] Unable to determine CLINICAL INDICATORS - SIGNS / SYMPTOMS / LABS H&P: "IS NONAMBULATORY AND BEDRIDDEN ESSENTIALLY" RISKS: H/O CVA H/O MAISHA M[place] SPOTTED FEVER TREATMENT: TOTAL ASSISTANCE PER NURSING CARE (This form is maintained as a part of the permanent medical record) 2015 [employer] All Rights Reserved [email or web address] Office: [phone] [facility] HOSPITALRocío
--- NOTE | 2019-03-24 13:48 | PRG ---
DATE OF SERVICE: 03/24/2019 SUBJECTIVE: Derek Larsen is doing well today. OBJECTIVE: VITAL SIGNS: 100.6 degrees, 92, and 160/72. GENERAL: The patient is bed ridden, has not been out of bed. In the intermediate, he does not get out of bed. LUNGS: Clear to auscultation. Rhonchi at base. CARDIAC: Regular rate and rhythm. ABDOMEN: Soft, difficult to examine. Wound well healed. LABORATORY DATA: This morning, his hemoglobin is 7.1 and his white count is 7.4. Basic metabolic profile is normal. Pathology is pending. ASSESSMENT AND PLAN: Post right colon resection, pathology pending. Anemia, continue to observe. His hemoglobin is stable. He was on anticoagulation reversed with Kcentra and he probably had some mild postoperative bleeding. This is stabilized and resolved. No transfusion necessary. The patient is a DNR and bedridden, but we will try to get him up into a chair or leave sit him upright for periods of time. We will resume his tube feedings. We will saline lock him when he is tolerating his tube feedings. Job ID: [id number]
--- NOTE | 2019-03-24 14:41 | PDOC.PN ---
- Subjective Encounter Start Date: 03/24/19 Encounter Start Time: 10:15 Subjective: pt in bed unable to communicate - Objective Resuscitation Status - Order Detail: 03/21/19 08:16 Resuscitation Status Routine Resuscitation Status: DNAR: NO Resuscitation Discussed with: Family Vital Signs & Weight: Vital Signs (12 hours) Temp Pulse Resp BP BP Pulse Ox 03/24/19 13:57 102 H 16 98 03/24/19 11:13 100.6 F H 92 18 116/72 98 03/24/19 08:54 164/80 H 03/24/19 08:00 96 03/24/19 07:26 101.7 F H 103 H 18 164/80 H 96 03/24/19 06:48 106 H 20 98 03/24/19 03:16 99.0 F 80 20 116/73 100 Weight Admit Weight 183 lb 6.793 oz Weight 177 lb 0.499 oz Most Recent Monitor Data Heart Rate from ECG 103 NIBP 100/83 NIBP BP-Mean 88 Respiration from ECG 20 SpO2 91 I&O: 03/23/19 03/24/19 03/25/19 06:59 06:59 06:59 Intake Total 8 3070 Output Total 780 3375 Balance 1248 -305 Result Diagrams: 03/24/19 05:42 03/24/19 05:42 Additional Labs: Accuchecks 03/24/19 03/24/19 03/23/19 11:14 05:55 23:27 POC Glucose 117 H 110 113 H 03/23/19 15:26 POC Glucose 115 H Phys Exam - Physical Examination Neck: no nodes, no JVD, supple, full ROM Respiratory: no wheezing, no rales, no rhonchi, wheezing present, clear to auscultation bilateral Cardiovascular: RRR, no significant murmur, no rub, gallop, irregular Gastrointestinal: soft, non-tender, no distention, positive bowel sounds Dx/Plan (1) Uncontrolled hypertension Code(s): I10 - ESSENTIAL (PRIMARY) HYPERTENSION Status: Acute Comment: Add Prn antihypertensives. Discussed w RN-Home meds need to be reconciled. restart on Coreg (2) Perforation bowel Code(s): K63.1 - PERFORATION OF INTESTINE (NONTRAUMATIC) Status: Acute Comment: s/p Ex-lap and R colectomy.Supportive care. Vent support Empiric ABx. follow Cx results primary team (3) PEG (percutaneous endoscopic gastrostomy) status Code(s): Z93.1 - GASTROSTOMY STATUS Status: Chronic (4) Diabetes mellitus Code(s): E11.9 - TYPE 2 DIABETES MELLITUS WITHOUT COMPLICATIONS Status: Chronic Comment: ISS and accuchecks. restart PO meds including glipizide via PEG (5) Seizure Code(s): R56.9 - UNSPECIFIED CONVULSIONS Status: Chronic Comment: [email or web address] Depakote and keppra (6) Thrombocytopenia Code(s): D69.6 - THROMBOCYTOPENIA, UNSPECIFIED Status: Acute - Plan pt spiked a fever, he needs to do IS but will hard to explain to patient -: since he is not very verbal. -: pending pathology. will call and update family -: will monitor his platelets, he is not on any heparin or lovonox * . Review of Systems - Review of Systems Other: unable to obtain - Medications/Allergies Allergies/Adverse Reactions: Allergies Allergy/AdvReac Type Severity Reaction Status Date / Time aspirin Allergy Verified 03/24/19 01:55 Penicillins Allergy Verified 03/24/19 01:55 Medications: Current Medications Acetaminophen (Tylenol) 1,000 mg PO Q6H PRN PRN Reason: Mild Pain (1-3) Last Admin: 03/24/19 08:53 Dose: 1,000 mg Albuterol/Ipratropium (Duoneb) 3 ml NEB [id number] MEI Last Admin: 03/24/19 13:57 Dose: 3 ml Lipase/Protease/[place] ([place] [id number]) 1 cap FS .PER PROTOCOL PRN PRN Reason: TUBE OCCLUSION PROTOCOL Benzonatate (Tessalon) 100 mg PO Q6H PRN PRN Reason: Cough Last Admin: 03/22/19 21:09 Dose: 100 mg Bisacodyl (Dulcolax) 10 mg PO DAILYPRN PRN PRN Reason: Constipation Bisacodyl (Dulcolax) 10 mg [place] DAILYPRN PRN PRN Reason: Constipation Carvedilol (Coreg) 12.5 mg PER TUBE BID MEI Last Admin: 03/24/19 08:54 Dose: 12.5 mg Clonidine (Catapres) 0.1 mg PO Q4H PRN PRN Reason: SBP > 160____ Last Admin: 03/21/19 13:12 Dose: 0.1 mg Dextrose/Water (Dextrose 50%) 25 gm SLOW IVP PRN PRN PRN Reason: Hypoglycemia Divalproex Sodium (Depakote Sprinkle) 500 mg PER TUBE BID [facility] Last Admin: 03/24/19 08:54 Dose: 500 mg Glucagon (Glucagon) 1 mg IM PRN PRN PRN Reason: Hypoglycemia Guaifenesin (Robitussin Sf) 200 mg PO Q4H PRN PRN Reason: Cough Hydralazine HCl (Apresoline) 10 mg SLOW IVP Q4H PRN PRN Reason: SBP > 180 and HR < 70 Dextrose/Water (D5w) 1,000 mls @ 0 mls/hr IV .Q0M PRN PRN Reason: Hypoglycemia Sodium Chloride (Normal Saline 0.9%) 1,000 mls @ 125 mls/hr IV .Q8H [facility] Last Admin: 03/24/19 12:14 Dose: Not Given Meropenem 1 gm/ Device 50 mls @ 100 mls/hr IVPB Q8HR [facility] Last Admin: 03/24/19 05:43 Dose: 50 mls Insulin Human Lispro (Humalog) 0 units SC .AGGRESSIVE SLIDING PRN PRN Reason: Aggressive Correctional Scale Labetalol HCl (Normodyne) 20 mg SLOW IVP Q2HR PRN PRN Reason: Blood Pressure Levetiracetam (Keppra Oral Solution) 600 mg PER TUBE BID [facility] Last Admin: 03/24/19 08:53 Dose: 600 mg Loratadine (Claritin) 10 mg PO DAILYPRN PRN PRN Reason: Sinus Symptoms Morphine Sulfate (Morphine) 4 mg SLOW IVP Q4H PRN PRN Reason: Moderate to Severe Pain (6-10) Last Admin: 03/22/19 09:35 Dose: 4 mg Nitroglycerin (Nitrostat) 0.4 mg SL Q5MIN PRN PRN Reason: Chest Pain Discontinue Previous Narcotic Pain Medications And Benzodiazepines 1 each FS .ONE [facility] Stop: 04/20/19 08:32 Ondansetron HCl (Zofran) 4 mg IVP Q6H PRN PRN Reason: Nausea/Vomiting Pantoprazole Sodium (Protonix) 40 mg IVP DAILY [facility] Last Admin: 03/24/19 08:54 Dose: 40 mg Senna/Docusate Sodium (Senokot S) 2 tab PO BID PRN PRN Reason: Constipation Sodium Bicarbonate (Bicarbonate, Sodium) 650 mg PER TUBE .PER PROTOCOL PRN PRN Reason: ENTERAL TUBE OCCLUSION Sodium Chloride (Flush - Normal Saline) 10 ml IVF PRN PRN PRN Reason: Saline Flush Sodium Chloride (Normal Saline Pf) 10 ml FS PRN PRN PRN Reason: RECONSTITUTION Last Admin: 03/24/19 08:54 Dose: 10 ml Sodium Chloride ([place] Nasal [place] 0.65%) 0 ml EA NARE QIDPRN PRN PRN Reason: Nasal Congestion Throat Lozenges (Cepastat Lozenges) 1 priyanka PO Q2H PRN PRN Reason: Sore Throat Triamcinolone Acetonide (Kenalog 0.1% Ointment) 0 gm TOP Q7DAYS MEI
[2019-03-24] MEDS ORDERED: Clopidogrel Bisulfate 75 MG TAB ONE (14:45)
[2019-03-25 01:33] LABS: Hemoglobin 7.8 g/dL (14.0-18.0)
[2019-03-25 01:54] LABS: ALT (SGPT) 16 U/L (8-55); AST (SGOT) 18 U/L (5-34); Albumin 2.6 g/dL (3.5-5.0); Alkaline Phosphatase 69 U/L (40-150); Bilirubin, Direct 0.2 mg/dL (0.1-0.3); Bilirubin, Total 0.4 mg/dL (0.2-1.2); Protein, Total 5.7 g/dL (6.0-8.3)
[2019-03-25] MEDS: Sodium Chloride 0.9% 1,000 ML IV SCH ×2 (02:52→10:39)
[2019-03-25] MEDS: MEROPENEM 1 GM/50 ML 1 GM in Premix Bag 1 BAG IVPB SCH ×2 (05:07→14:18)
[2019-03-25] MEDS: Acetaminophen 500 MG TAB PO PRN ×2 (05:07→16:19)
[2019-03-25] MEDS: Benzonatate 100 MG CAP PO PRN (05:12)
[2019-03-25 05:42] LABS: Anion Gap 11 mmol/L (10-20); BUN (Urea Nitrogen) 15 mg/dL (8.4-25.7); Band 42 % (5-11); Calc. Creatinine Clearance 129 mL/min (70-130); Calcium 8.4 mg/dL (7.8-10.44); Carbon Dioxide 25 mmol/L (22-29); Chloride 112 mmol/L (98-107); Estimated GFR-MDRD Greater than 90; Glucose 139 mg/dL (70-105); Hemoglobin 7.6 g/dL (14.0-18.0); Lymphocytes 20 % (21-51); MDiff Complete? YES; Mean Corpuscular HGB CONC 30.8 g/dL (32.0-36.0); Mean Corpuscular Hemoglobin 29.8 pg (27.0-31.0); Mean Corpuscular Volume 96.9 fL (78.0-98.0); Monocytes 6 % (0-10); Neutrophil 32 % (42-75); Platelet Count 136 thou/uL (130-400); Platelet Morphology Comment Appears Adequate; Potassium 3.7 mmol/L (3.5-5.1); RBC Distribution Width 12.1 % (11.5-14.5); Red Blood Cell (RBC) Count 2.54 mill/uL (4.70-6.10); Sodium 144 mmol/L (136-145); White Blood Cell (WBC) Count 10.4 thou/uL (4.8-10.8)
[2019-03-25] MEDS: HumaLOG 300 UNITS/3 ML VIAL SC PRN ×2 (06:51→18:23)
[2019-03-25] MEDS: levETIRAcetam 500 mg/5 ml Oral Solution PER TUBE SCH ×2 (10:06→20:49)
[2019-03-25] MEDS: Carvedilol 6.25 MG TAB PER TUBE SCH ×2 (10:06→20:52)
[2019-03-25] MEDS: Pantoprazole 40 MG VIAL IVP SCH (10:07)
[2019-03-25] MEDS: Divalproex Sodium 125 mg Sprinkle Capsule PER TUBE SCH ×2 (10:09→20:51)
--- NOTE | 2019-03-25 16:19 | PDOC.PN ---
- Subjective Encounter Start Date: 03/25/19 Encounter Start Time: 10:30 Subjective: pt up in bed non verbal - Objective Resuscitation Status - Order Detail: 03/21/19 08:16 Resuscitation Status Routine Resuscitation Status: DNAR: NO Resuscitation Discussed with: Family Vital Signs & Weight: Vital Signs (12 hours) Temp Pulse Resp BP BP Pulse Ox 03/25/19 15:31 99.6 F 91 21 H 148/88 H 99 03/25/19 13:42 86 16 100 03/25/19 11:58 99.3 F 88 22 H 168/79 H 100 03/25/19 10:06 155/79 H 03/25/19 08:45 100 03/25/19 07:22 99.1 F 89 24 H 155/79 H 100 03/25/19 06:42 98 16 98 Weight Admit Weight 183 lb 6.793 oz Weight 177 lb 0.499 oz Most Recent Monitor Data Heart Rate from ECG 103 NIBP 100/83 NIBP BP-Mean 88 Respiration from ECG 20 SpO2 91 I&O: 03/24/19 03/25/19 03/26/19 06:59 06:59 06:59 Intake Total 3070 3673 Output Total 3375 2548 Balance -305 1125 Result Diagrams: 03/25/19 05:02 03/25/19 05:02 Additional Labs: Accuchecks 03/25/19 03/25/19 03/25/19 11:54 05:42 00:26 POC Glucose 143 H 155 H 137 H Phys Exam - Physical Examination Neck: no nodes, no JVD, supple, full ROM Respiratory: no wheezing, no rales, no rhonchi, wheezing present, clear to auscultation bilateral Cardiovascular: RRR, no significant murmur, no rub, gallop, irregular Gastrointestinal: soft, non-tender, no distention, positive bowel sounds Dx/Plan (1) Uncontrolled hypertension Code(s): I10 - ESSENTIAL (PRIMARY) HYPERTENSION Status: Acute Comment: Add Prn antihypertensives. Discussed w RN-Home meds need to be reconciled. restart on Coreg (2) Perforation bowel Code(s): K63.1 - PERFORATION OF INTESTINE (NONTRAUMATIC) Status: Acute Comment: s/p Ex-lap and R colectomy.Supportive care. Vent support Empiric ABx. follow Cx results GS primary team (3) PEG (percutaneous endoscopic gastrostomy) status Code(s): Z93.1 - GASTROSTOMY STATUS Status: Chronic (4) Diabetes mellitus Code(s): E11.9 - TYPE 2 DIABETES MELLITUS WITHOUT COMPLICATIONS Status: Chronic Comment: ISS and accuchecks. restart PO meds including glipizide via PEG (5) Seizure Code(s): R56.9 - UNSPECIFIED CONVULSIONS Status: Chronic Comment: [email or web address] Depakote and keppra (6) Thrombocytopenia Code(s): D69.6 - THROMBOCYTOPENIA, UNSPECIFIED Status: Acute - Plan updated pt's brother about his pathlogy -: pt's hh stable, platelets have improved -: feedings have been started. possible discharge soon * . Review of Systems - Review of Systems Respiratory: negative: Cough, Dry, Shortness of Breath, Hemoptysis, SOB with Excertion, Pleuritic Pain, Sputum, Wheezing Cardiovascular: negative: chest pain, palpitations, orthopnea, paroxysmal nocturnal dyspnea, edema, light headedness, other Gastrointestinal: negative: Nausea, Vomiting, Abdominal Pain, Diarrhea, Constipation, Melena, Hematochezia, Other - Medications/Allergies Allergies/Adverse Reactions: Allergies Allergy/AdvReac Type Severity Reaction Status Date / Time aspirin Allergy Verified 03/24/19 01:55 Penicillins Allergy Verified 03/24/19 01:55 Medications: Current Medications Acetaminophen (Tylenol) 1,000 mg PO Q6H PRN PRN Reason: Mild Pain (1-3) Last Admin: 03/25/19 05:07 Dose: 1,000 mg Albuterol/Ipratropium (Duoneb) 3 ml NEB [id number] MEI Last Admin: 03/25/19 13:42 Dose: 3 ml Lipase/Protease/Amylase ([place] [address]) 1 cap FS .PER PROTOCOL PRN PRN Reason: TUBE OCCLUSION PROTOCOL Benzonatate (Tessalon) 100 mg PO Q6H PRN PRN Reason: Cough Last Admin: 03/25/19 05:12 Dose: 100 mg Bisacodyl (Dulcolax) 10 mg PO DAILYPRN PRN PRN Reason: Constipation Bisacodyl (Dulcolax) 10 mg [place] DAILYPRN PRN PRN Reason: Constipation Carvedilol (Coreg) 12.5 mg PER TUBE BID [facility] Last Admin: 03/25/19 10:06 Dose: 12.5 mg Clonidine (Catapres) 0.1 mg PO Q4H PRN PRN Reason: SBP > 160____ Last Admin: 03/21/19 13:12 Dose: 0.1 mg Dextrose/Water (Dextrose 50%) 25 gm SLOW IVP PRN PRN PRN Reason: Hypoglycemia Divalproex Sodium (Depakote Sprinkle) 500 mg PER TUBE BID [facility] Last Admin: 03/25/19 10:09 Dose: 500 mg Glucagon (Glucagon) 1 mg IM PRN PRN PRN Reason: Hypoglycemia Guaifenesin (Robitussin Sf) 200 mg PO Q4H PRN PRN Reason: Cough Hydralazine HCl (Apresoline) 10 mg SLOW IVP Q4H PRN PRN Reason: SBP > 180 and HR < 70 Dextrose/Water (D5w) 1,000 mls @ 0 mls/hr IV .Q0M PRN PRN Reason: Hypoglycemia Sodium Chloride (Normal Saline 0.9%) 1,000 mls @ 125 mls/hr IV .Q8H [facility] Last Admin: 03/25/19 10:39 Dose: 1,000 mls Meropenem 1 gm/ Device 50 mls @ 100 mls/hr IVPB Q8HR [facility] Last Admin: 03/25/19 14:18 Dose: 50 mls Insulin Human Lispro (Humalog) 0 units [place] .AGGRESSIVE SLIDING PRN PRN Reason: Aggressive Correctional Scale Last Admin: 03/25/19 06:51 Dose: 3 unit Labetalol HCl (Normodyne) 20 mg SLOW IVP Q2HR PRN PRN Reason: Blood Pressure Levetiracetam (Keppra Oral Solution) 600 mg PER TUBE BID [facility] Last Admin: 03/25/19 10:06 Dose: 600 mg Loratadine (Claritin) 10 mg PO DAILYPRN PRN PRN Reason: Sinus Symptoms Morphine Sulfate (Morphine) 4 mg SLOW IVP Q4H PRN PRN Reason: Moderate to Severe Pain (6-10) Last Admin: 03/22/19 09:35 Dose: 4 mg Nitroglycerin (Nitrostat) 0.4 mg SL Q5MIN PRN PRN Reason: Chest Pain Discontinue Previous Narcotic Pain Medications And Benzodiazepines 1 each FS .ONE MEI Stop: 04/20/19 08:32 Ondansetron HCl (Zofran) 4 mg IVP Q6H PRN PRN Reason: Nausea/Vomiting Pantoprazole Sodium (Protonix) 40 mg IVP DAILY [facility] Last Admin: 03/25/19 10:07 Dose: 40 mg Senna/Docusate Sodium (Senokot S) 2 tab PO BID PRN PRN Reason: Constipation Sodium Bicarbonate (Bicarbonate, Sodium) 650 mg PER TUBE .PER PROTOCOL PRN PRN Reason: ENTERAL TUBE OCCLUSION Sodium Chloride (Flush - Normal Saline) 10 ml IVF PRN PRN PRN Reason: Saline Flush Sodium Chloride (Normal Saline Pf) 10 ml FS PRN PRN PRN Reason: RECONSTITUTION Last Admin: 03/24/19 08:54 Dose: 10 ml Sodium Chloride ([place] Nasal [place] 0.65%) 0 ml EA NARE QIDPRN PRN PRN Reason: Nasal Congestion Throat Lozenges (Cepastat Lozenges) 1 priyanka PO Q2H PRN PRN Reason: Sore Throat Triamcinolone Acetonide (Kenalog 0.1% Ointment) 0 gm TOP Q7DAYS MEI
--- NOTE | 2019-03-25 17:40 | PRG ---
DATE OF SERVICE: 03/25/2019 SUBJECTIVE: Mr. Larsen is doing well today. He is tolerating his tube feedings. He has no complaints. He is afebrile, 99.6, 91, 148/88. He did have some bloody stools yesterday, but his hemoglobin remained stable at 7.6, white count at 10.4. Basic metabolic profile is normal. OBJECTIVE: LUNGS: Clear to auscultation. CARDIAC: Regular rate and rhythm without murmur or gallop. ABDOMEN: Soft. LABORATORY DATA: Pathology report from right colectomy 03/21/2019 reveals invasive moderately differentiated adenocarcinoma arising in adenoma. There is a 2 mm focus. 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 All lymph nodes negative. T1 N0 M0 right colon cancer. ASSESSMENT AND PLAN: The patient is doing well. [facility] will [facility]. Job ID: [id number]
[2019-03-25 19:46] LABS: Hemoglobin 6.8 g/dL (14.0-18.0); Mean Corpuscular HGB CONC 31.7 g/dL (32.0-36.0); Mean Corpuscular Hemoglobin 30.4 pg (27.0-31.0); Mean Platelet Volume 8.3 fL (7.4-10.4); Platelet Count 155 thou/uL (130-400); RBC Distribution Width 12.1 % (11.5-14.5); Red Blood Cell (RBC) Count 2.23 mill/uL (4.70-6.10); White Blood Cell (WBC) Count 10.6 thou/uL (4.8-10.8)
[2019-03-25 20:03] LABS: Band 16 % (5-11); Eosinophils 2 % (0-10); Hypochromia SLIGHT = 6-15 cells (100X) (0-5/hpf); Lymphocytes 2 % (21-51); MDiff Complete? YES; Monocytes 11 % (0-10); Neutrophil 69 % (42-75); Platelet Morphology Comment Appears Adequate; Polychromasia MODERATE = 3-4 cells (100X) (0-2/hpf)
[2019-03-26] MEDS: HumaLOG 300 UNITS/3 ML VIAL SC PRN ×3 (00:40→17:34)
[2019-03-26] MEDS: cloNIDine 0.1 MG TAB PO PRN (03:09)
[2019-03-26 05:33] LABS: Anion Gap 9 mmol/L (10-20); BUN (Urea Nitrogen) 12 mg/dL (8.4-25.7); Calc. Creatinine Clearance 138 mL/min (70-130); Calcium 8.8 mg/dL (7.8-10.44); Carbon Dioxide 28 mmol/L (22-29); Chloride 109 mmol/L (98-107); Estimated GFR-MDRD Greater than 90; Glucose 137 mg/dL (70-105); Potassium 3.4 mmol/L (3.5-5.1); Sodium 143 mmol/L (136-145)
[2019-03-26 05:35] LABS: Band 8 % (5-11); Eosinophils 3 % (0-10); Hemoglobin 8.7 g/dL (14.0-18.0); Hypochromia SLIGHT = 6-15 cells (100X) (0-5/hpf); Lymphocytes 12 % (21-51); MDiff Complete? YES; Mean Corpuscular HGB CONC 31.7 g/dL (32.0-36.0); Mean Corpuscular Hemoglobin 30.1 pg (27.0-31.0); Mean Corpuscular Volume 95.1 fL (78.0-98.0); Mean Platelet Volume 8.6 fL (7.4-10.4); Monocytes 8 % (0-10); Neutrophil 69 % (42-75); Nucleated RBC 1 % (0); Platelet Count 173 thou/uL (130-400); Platelet Morphology Comment Appears Adequate; RBC Distribution Width 12.7 % (11.5-14.5); Red Blood Cell (RBC) Count 2.87 mill/uL (4.70-6.10)
--- NOTE | 2019-03-26 07:34 | PRG ---
DATE OF SERVICE: 03/26/2019 SUBJECTIVE: Mr. Short is doing well today. He is tolerating his tube feedings. He has had multiple bowel movements. He has had some bloody output, but he has bowel movements, but his stools are becoming more formed and darker and less bloody. OBJECTIVE: VITAL SIGNS: Temperature 99.1 degrees, pulse 86, and blood pressure 151/92. LUNGS: Clear to auscultation. No wheezing. CARDIAC: Regular rate and rhythm. ABDOMEN: Soft and nontender. Surgical wound looks good. EXTREMITIES: Unremarkable. LABORATORY DATA: His hemoglobin yesterday morning was 7.6. At 7 o'clock last night, it was 6.8, and he was given 1 unit of blood. His hemoglobin is 8.7 this morning. ASSESSMENT AND PLAN: 1. T1 N0 M0 cecal adenocarcinoma. Since he required 1 unit of blood last night, we will plan on discharge to the assisted either later today or tomorrow. We will check his hemoglobin early this afternoon and again in the morning and hopefully will be able to transfer back to the assisted tomorrow. 2. Do not resuscitate status initiated. 3. Anemia. This patient's hemoglobin on admission was 17.3. He was dehydrated. Once hydrated, hemoglobin was 10.5. He did have some postoperative bleeding problem probably from his colon and small bowel anastomosis and this is decreased on its own. Plan is to observe him the remainder of the day, possibly transferred to the assisted later today or tomorrow for likely in the morning after we check the hemoglobin, begin iron. Job ID: [id number]
[2019-03-26] MEDS: levETIRAcetam 500 mg/5 ml Oral Solution PER TUBE SCH ×2 (09:13→19:41)
[2019-03-26] MEDS: Acetaminophen 500 MG TAB PO PRN ×2 (09:13→17:34)
[2019-03-26] MEDS: Carvedilol 6.25 MG TAB PER TUBE SCH ×2 (09:13→19:42)
[2019-03-26] MEDS: Divalproex Sodium 125 mg Sprinkle Capsule PER TUBE SCH ×2 (09:13→19:44)
[2019-03-26] MEDS: Pantoprazole 40 MG VIAL IVP SCH (09:16)
[2019-03-26 09:44] LABS: Magnesium 1.7 mg/dL (1.6-2.6)
[2019-03-26 09:47] LABS: Phosphorus 1.5 mg/dL (2.3-4.7)
[2019-03-26] MEDS ORDERED: PHOS-NAK 1 PKT PACK PER TUBE PRN (10:45)
[2019-03-26] MEDS ORDERED: Potassium Phosphate 12 MMOL in Sodium Chloride 0.9% 100 ML IVPB SCH (11:45)
[2019-03-26 15:10] LABS: Hemoglobin 9.4 g/dL (14.0-18.0); Mean Corpuscular HGB CONC 32.1 g/dL (32.0-36.0); Mean Corpuscular Hemoglobin 30.5 pg (27.0-31.0); Mean Corpuscular Volume 95.1 fL (78.0-98.0); Mean Platelet Volume 8.3 fL (7.4-10.4); Platelet Count 185 thou/uL (130-400); RBC Distribution Width 13.1 % (11.5-14.5); Red Blood Cell (RBC) Count 3.07 mill/uL (4.70-6.10); White Blood Cell (WBC) Count 11.9 thou/uL (4.8-10.8)
[2019-03-26 15:35] LABS: Band 12 % (5-11); Lymphocytes 7 % (21-51); MDiff Complete? YES; Metamyelocyte 1 % (0-0); Monocytes 12 % (0-10); Neutrophil 68 % (42-75); Nucleated RBC 2 % (0); Platelet Morphology Comment Appears Adequate; Polychromasia SLIGHT = 2-3 cells (100X) (0-2/hpf)
[2019-03-27] MEDS: cloNIDine 0.1 MG TAB PO PRN ×2 (03:55→16:05)
[2019-03-27 06:04] LABS: Band 13 % (5-11); Eosinophils 1 % (0-10); Hemoglobin 8.9 g/dL (14.0-18.0); Lymphocytes 13 % (21-51); MDiff Complete? YES; Mean Corpuscular HGB CONC 32.7 g/dL (32.0-36.0); Mean Corpuscular Hemoglobin 30.6 pg (27.0-31.0); Mean Corpuscular Volume 93.6 fL (78.0-98.0); Mean Platelet Volume 8.3 fL (7.4-10.4); Monocytes 13 % (0-10); Neutrophil 60 % (42-75); Platelet Count 229 thou/uL (130-400); Platelet Morphology Comment Appears Adequate; RBC Distribution Width 12.9 % (11.5-14.5); Red Blood Cell (RBC) Count 2.91 mill/uL (4.70-6.10); White Blood Cell (WBC) Count 11.7 thou/uL (4.8-10.8)
[2019-03-27] MEDS: HumaLOG 300 UNITS/3 ML VIAL SC PRN ×2 (06:09→12:34)
[2019-03-27] MEDS: Divalproex Sodium 125 mg Sprinkle Capsule PER TUBE SCH (09:07)
[2019-03-27] MEDS: Carvedilol 6.25 MG TAB PER TUBE SCH (09:07)
[2019-03-27] MEDS: levETIRAcetam 500 mg/5 ml Oral Solution PER TUBE SCH (09:07)
[2019-03-27] MEDS: Pantoprazole 40 MG VIAL IVP SCH (09:08)
[2019-03-27] MEDS: Acetaminophen 500 MG TAB PO PRN ×2 (09:08→16:05)
--- NOTE | 2019-03-27 13:58 | PRG ---
DATE OF SERVICE: 03/27/2019 SUBJECTIVE: Mr. Larsen is postoperative day #6 from his laparotomy and right hemicolectomy. He is at his baseline apparently. He is noncommunicative and noninteractive. He is tolerating tube feeds. He is having bowel movements and has had at least one today. He is having reasonable urine output, but his Damico catheter has been discontinued now. OBJECTIVE: VITAL SIGNS: On examination, he is afebrile currently. His temperature this morning was 99.9, pulse is 92, blood pressure 125/79. LUNGS: Clear to auscultation. ABDOMEN: Normoactive bowel sounds. The skin incision appears to be healing appropriately, although it looks like one of the jeferson was removed from the upper abdomen and there is a little bit of bloody-looking drainage coming from this. When I pressed, I was able to produce a little bit of additional bloody fluid. There is no foul smell associated with it. Remainder of incision is nicely healed. LABORATORY DATA: His hemoglobin is stable at 8.9. It was 9.4 at 3 o'clock yesterday. He did receive 1 unit of packed red blood cells early yesterday morning after his hemoglobin had dropped as low as 6.8 on the evening of March 25. Since then, it has been stable. He had a chemistry panel checked yesterday. ASSESSMENT AND PLAN: He appears to be stable following his surgery. The small amount of drainage from his upper abdominal wound will have to be followed. He is tolerating his tube feeds and is hemodynamically stable, and his hemoglobin is stable as well. He looks like to be stable for [facility] Dr. Farrell early next week. Job ID: [id number]
--- NOTE | 2019-03-27 14:14 | PDOC.PN ---
- Subjective Encounter Start Date: 03/26/19 Encounter Start Time: 10:00 Subjective: pt up in bed unable to express his feelings - Objective Resuscitation Status - Order Detail: 03/21/19 08:16 Resuscitation Status Routine Resuscitation Status: DNAR: NO Resuscitation Discussed with: Family Vital Signs & Weight: Vital Signs (12 hours) Temp Pulse Resp BP BP Pulse Ox 03/27/19 14:10 104 H 15 03/27/19 12:26 98.5 F 92 16 125/79 100 03/27/19 09:07 168/99 H 03/27/19 08:59 94 L 03/27/19 07:38 99.9 F H 97 18 168/99 H 94 L 03/27/19 07:13 92 15 03/27/19 06:00 159/97 H 03/27/19 03:55 166/99 H 03/27/19 03:43 99.4 F 90 16 166/99 H 94 L Weight Admit Weight 177 lb 0.4 oz Weight 177 lb 0.4 oz Most Recent Monitor Data Heart Rate from ECG 103 NIBP 100/83 NIBP BP-Mean 88 Respiration from ECG 20 SpO2 91 I&O: 03/26/19 03/27/19 03/28/19 06:59 06:59 06:59 Intake Total 2455 825 30 Output Total 4250 Balance -1795 825 30 Result Diagrams: 03/27/19 04:57 03/26/19 04:52 Additional Labs: Accuchecks 03/27/19 03/27/19 03/26/19 12:25 06:01 23:54 POC Glucose 164 H 177 H 132 H 03/26/19 17:01 POC Glucose 164 H Phys Exam - Physical Examination Neck: no nodes, no JVD, supple, full ROM Respiratory: no wheezing, no rales, no rhonchi, wheezing present, clear to auscultation bilateral Cardiovascular: RRR, no significant murmur, no rub, gallop, irregular Gastrointestinal: soft, non-tender, no distention, positive bowel sounds Dx/Plan (1) Uncontrolled hypertension Code(s): I10 - ESSENTIAL (PRIMARY) HYPERTENSION Status: Acute Comment: Add Prn antihypertensives. Discussed w RN-Home meds need to be reconciled. restart on Coreg (2) Perforation bowel Code(s): K63.1 - PERFORATION OF INTESTINE (NONTRAUMATIC) Status: Acute Comment: s/p Ex-lap and R colectomy.Supportive care. Vent support Empiric ABx. follow Cx results primary team (3) PEG (percutaneous endoscopic gastrostomy) status Code(s): Z93.1 - GASTROSTOMY STATUS Status: Chronic (4) Diabetes mellitus Code(s): E11.9 - TYPE 2 DIABETES MELLITUS WITHOUT COMPLICATIONS Status: Chronic Comment: ISS and accuchecks. restart PO meds including glipizide via PEG (5) Seizure Code(s): R56.9 - UNSPECIFIED CONVULSIONS Status: Chronic Comment: [email or web address] Depakote and keppra (6) Thrombocytopenia Code(s): D69.6 - THROMBOCYTOPENIA, UNSPECIFIED Status: Acute - Plan pt to follow up with surgeon next week -: was transfused blood last night * . Review of Systems - Review of Systems Other: pt unable to express - Medications/Allergies Allergies/Adverse Reactions: Allergies Allergy/AdvReac Type Severity Reaction Status Date / Time aspirin Allergy Verified 03/24/19 01:55 Penicillins Allergy Verified 03/24/19 01:55 Medications: Current Medications Acetaminophen (Tylenol) 1,000 mg PO Q6H PRN PRN Reason: Mild Pain (1-3) Last Admin: 03/27/19 09:08 Dose: 1,000 mg Albuterol/Ipratropium (Duoneb) 3 ml NEB [id number] [facility] Last Admin: 03/27/19 14:10 Dose: 3 ml Lipase/Protease/[place] ([place] [id number]) 1 cap FS .PER PROTOCOL PRN PRN Reason: TUBE OCCLUSION PROTOCOL Benzonatate (Tessalon) 100 mg PO Q6H PRN PRN Reason: Cough Last Admin: 03/25/19 05:12 Dose: 100 mg Bisacodyl (Dulcolax) 10 mg PO DAILYPRN PRN PRN Reason: Constipation Bisacodyl (Dulcolax) 10 mg [place] DAILYPRN PRN PRN Reason: Constipation Carvedilol (Coreg) 12.5 mg PER TUBE BID [facility] Last Admin: 03/27/19 09:07 Dose: 12.5 mg Clonidine (Catapres) 0.1 mg PO Q4H PRN PRN Reason: SBP > 160____ Last Admin: 03/27/19 03:55 Dose: 0.1 mg Dextrose/Water (Dextrose 50%) 25 gm SLOW IVP PRN PRN PRN Reason: Hypoglycemia Divalproex Sodium (Depakote Sprinkle) 500 mg PER TUBE BID [facility] Last Admin: 03/27/19 09:07 Dose: 500 mg Ferrous Sulfate (Ferrous Sulfate) 300 mg PER TUBE BID [facility] Last Admin: 03/27/19 09:07 Dose: 300 mg Glucagon (Glucagon) 1 mg IM PRN PRN PRN Reason: Hypoglycemia Guaifenesin (Robitussin Sf) 200 mg PO Q4H PRN PRN Reason: Cough Hydralazine HCl (Apresoline) 10 mg SLOW IVP Q4H PRN PRN Reason: SBP > 180 and HR < 70 Dextrose/Water (D5w) 1,000 mls @ 0 mls/hr IV .Q0M PRN PRN Reason: Hypoglycemia Insulin Human Lispro (Humalog) 0 units SC .AGGRESSIVE SLIDING PRN PRN Reason: Aggressive Correctional Scale Last Admin: 03/27/19 12:34 Dose: 3 unit Labetalol HCl (Normodyne) 20 mg SLOW IVP Q2HR PRN PRN Reason: Blood Pressure Levetiracetam (Keppra Oral Solution) 600 mg PER TUBE BID [facility] Last Admin: 03/27/19 09:07 Dose: 600 mg Loratadine (Claritin) 10 mg PO DAILYPRN PRN PRN Reason: Sinus Symptoms Nitroglycerin (Nitrostat) 0.4 mg SL Q5MIN PRN PRN Reason: Chest Pain Discontinue Previous Narcotic Pain Medications And Benzodiazepines 1 each FS .ONE [facility] Stop: 04/20/19 08:32 Ondansetron HCl (Zofran) 4 mg IVP Q6H PRN PRN Reason: Nausea/Vomiting Pantoprazole Sodium (Protonix) 40 mg IVP DAILY [facility] Last Admin: 03/27/19 09:08 Dose: 40 mg Senna/Docusate Sodium (Senokot S) 2 tab PO BID PRN PRN Reason: Constipation Sodium Bicarbonate (Bicarbonate, Sodium) 650 mg PER TUBE .PER PROTOCOL PRN PRN Reason: ENTERAL TUBE OCCLUSION Sodium Chloride (Flush - Normal Saline) 10 ml IVF PRN PRN PRN Reason: Saline Flush Sodium Chloride (Normal Saline Pf) 10 ml FS PRN PRN PRN Reason: RECONSTITUTION Last Admin: 03/24/19 08:54 Dose: 10 ml Sodium Chloride ([place] Nasal [place] 0.65%) 0 ml EA NARE QIDPRN PRN PRN Reason: Nasal Congestion Throat Lozenges (Cepastat Lozenges) 1 priyanka PO Q2H PRN PRN Reason: Sore Throat Triamcinolone Acetonide (Kenalog 0.1% Ointment) 0 gm TOP Q7DAYS [facility]
--- NOTE | 2019-03-27 14:18 | PDOC.PN ---
- Subjective Encounter Start Date: 03/27/19 Encounter Start Time: 11:30 Subjective: pt up in bed arousable, family at bedside updated - Objective Resuscitation Status - Order Detail: 03/21/19 08:16 Resuscitation Status Routine Resuscitation Status: DNAR: NO Resuscitation Discussed with: Family Vital Signs & Weight: Vital Signs (12 hours) Temp Pulse Resp BP BP Pulse Ox 03/27/19 14:10 104 H 15 03/27/19 12:26 98.5 F 92 16 125/79 100 03/27/19 09:07 168/99 H 03/27/19 08:59 94 L 03/27/19 07:38 99.9 F H 97 18 168/99 H 94 L 03/27/19 07:13 92 15 03/27/19 06:00 159/97 H 03/27/19 03:55 166/99 H 03/27/19 03:43 99.4 F 90 16 166/99 H 94 L Weight Admit Weight 177 lb 0.4 oz Weight 177 lb 0.4 oz Most Recent Monitor Data Heart Rate from ECG 103 NIBP 100/83 NIBP BP-Mean 88 Respiration from ECG 20 SpO2 91 I&O: 03/26/19 03/27/19 03/28/19 06:59 06:59 06:59 Intake Total 2455 825 30 Output Total 4250 Balance -1795 825 30 Result Diagrams: 03/27/19 04:57 03/26/19 04:52 Additional Labs: Accuchecks 03/27/19 03/27/19 03/26/19 12:25 06:01 23:54 POC Glucose 164 H 177 H 132 H 03/26/19 17:01 POC Glucose 164 H Phys Exam - Physical Examination Neck: no nodes, no JVD, supple, full ROM Respiratory: no wheezing, no rales, no rhonchi, wheezing present, clear to auscultation bilateral Cardiovascular: RRR, no significant murmur, no rub, gallop, irregular Gastrointestinal: soft, non-tender, no distention, positive bowel sounds Musculoskeletal: no edema, pulses present, edema present Dx/Plan (1) Uncontrolled hypertension Code(s): I10 - ESSENTIAL (PRIMARY) HYPERTENSION Status: Acute Comment: Add Prn antihypertensives. Discussed w RN-Home meds need to be reconciled. restart on Coreg (2) Perforation bowel Code(s): K63.1 - PERFORATION OF INTESTINE (NONTRAUMATIC) Status: Acute Comment: s/p Ex-lap and R colectomy.Supportive care. Vent support Empiric ABx. follow Cx results primary team (3) PEG (percutaneous endoscopic gastrostomy) status Code(s): Z93.1 - GASTROSTOMY STATUS Status: Chronic (4) Diabetes mellitus Code(s): E11.9 - TYPE 2 DIABETES MELLITUS WITHOUT COMPLICATIONS Status: Chronic Comment: ISS and accuchecks. restart PO meds including glipizide via PEG (5) Seizure Code(s): R56.9 - UNSPECIFIED CONVULSIONS Status: Chronic Comment: satble.cont Depakote and keppra (6) Thrombocytopenia Code(s): D69.6 - THROMBOCYTOPENIA, UNSPECIFIED Status: Acute - Plan pt to be discharged to the [facility]. -: will need to follow up with surgeon for follow u and when to start -: him back on coumadin. Family updated * . Review of Systems - Review of Systems Other: unable to obtain - Medications/Allergies Allergies/Adverse Reactions: Allergies Allergy/AdvReac Type Severity Reaction Status Date / Time aspirin Allergy Verified 03/24/19 01:55 Penicillins Allergy Verified 03/24/19 01:55 Medications: Current Medications Acetaminophen (Tylenol) 1,000 mg PO Q6H PRN PRN Reason: Mild Pain (1-3) Last Admin: 03/27/19 09:08 Dose: 1,000 mg Albuterol/Ipratropium (Duoneb) 3 ml NEB [id number] [facility] Last Admin: 03/27/19 14:10 Dose: 3 ml Lipase/Protease/Amylase ([place] [id number]) 1 cap FS .PER PROTOCOL PRN PRN Reason: TUBE OCCLUSION PROTOCOL Benzonatate (Tessalon) 100 mg PO Q6H PRN PRN Reason: Cough Last Admin: 03/25/19 05:12 Dose: 100 mg Bisacodyl (Dulcolax) 10 mg PO DAILYPRN PRN PRN Reason: Constipation Bisacodyl (Dulcolax) 10 mg [place] DAILYPRN PRN PRN Reason: Constipation Carvedilol (Coreg) 12.5 mg PER TUBE BID [facility] Last Admin: 03/27/19 09:07 Dose: 12.5 mg Clonidine (Catapres) 0.1 mg PO Q4H PRN PRN Reason: SBP > 160____ Last Admin: 03/27/19 03:55 Dose: 0.1 mg Dextrose/Water (Dextrose 50%) 25 gm SLOW IVP PRN PRN PRN Reason: Hypoglycemia Divalproex Sodium (Depakote Sprinkle) 500 mg PER TUBE BID [facility] Last Admin: 03/27/19 09:07 Dose: 500 mg Ferrous Sulfate (Ferrous Sulfate) 300 mg PER TUBE BID [facility] Last Admin: 03/27/19 09:07 Dose: 300 mg Glucagon (Glucagon) 1 mg IM PRN PRN PRN Reason: Hypoglycemia Guaifenesin (Robitussin Sf) 200 mg PO Q4H PRN PRN Reason: Cough Hydralazine HCl (Apresoline) 10 mg SLOW IVP Q4H PRN PRN Reason: SBP > 180 and HR < 70 Dextrose/Water (D5w) 1,000 mls @ 0 mls/hr IV .Q0M PRN PRN Reason: Hypoglycemia Insulin Human Lispro (Humalog) 0 units SC .AGGRESSIVE SLIDING PRN PRN Reason: Aggressive Correctional Scale Last Admin: 03/27/19 12:34 Dose: 3 unit Labetalol HCl (Normodyne) 20 mg SLOW IVP Q2HR PRN PRN Reason: Blood Pressure Levetiracetam (Keppra Oral Solution) 600 mg PER TUBE BID [facility] Last Admin: 03/27/19 09:07 Dose: 600 mg Loratadine (Claritin) 10 mg PO DAILYPRN PRN PRN Reason: Sinus Symptoms Nitroglycerin (Nitrostat) 0.4 mg SL Q5MIN PRN PRN Reason: Chest Pain Discontinue Previous Narcotic Pain Medications And Benzodiazepines 1 each FS .ONE [facility] Stop: 04/20/19 08:32 Ondansetron HCl (Zofran) 4 mg IVP Q6H PRN PRN Reason: Nausea/Vomiting Pantoprazole Sodium (Protonix) 40 mg IVP DAILY [facility] Last Admin: 03/27/19 09:08 Dose: 40 mg Senna/Docusate Sodium (Senokot S) 2 tab PO BID PRN PRN Reason: Constipation Sodium Bicarbonate (Bicarbonate, Sodium) 650 mg PER TUBE .PER PROTOCOL PRN PRN Reason: ENTERAL TUBE OCCLUSION Sodium Chloride (Flush - Normal Saline) 10 ml IVF PRN PRN PRN Reason: Saline Flush Sodium Chloride (Normal Saline Pf) 10 ml FS PRN PRN PRN Reason: RECONSTITUTION Last Admin: 03/24/19 08:54 Dose: 10 ml Sodium Chloride ([place] Nasal [place] 0.65%) 0 ml EA NARE QIDPRN PRN PRN Reason: Nasal Congestion Throat Lozenges (Cepastat Lozenges) 1 priyanka PO Q2H PRN PRN Reason: Sore Throat Triamcinolone Acetonide (Kenalog 0.1% Ointment) 0 gm TOP Q7DAYS [facility]
[2019-03-27 15:52] VITALS: TEMP 99.9
[2019-03-27 16:06] VITALS: BP 168/99
== END 2019-03-27 16:51 | DRG 329 ==
LOC: ERS 01:46 → SDC 08:26 → SURG A 08:26 → CCU 10:31 → SURG A 03-22 13:44
PROVIDERS: ADMIT Specialist; ATTEND Specialist
PROC: 0DTF0ZZ Resection of Right Large Intestine, Open Approach (ICD-10-PCS; principal; 2019-03-21)
PROC: 02HV33Z Insertion of Infusion Device into Superior Vena Cava, Percutaneous Approach (ICD-10-PCS; 2019-03-21)
PROC: 30233N1 Transfusion of Nonautologous Red Blood Cells into Peripheral Vein, Percutaneous Approach (ICD-10-PCS; 2019-03-26)
DX: K63.1 Perforation of intestine (nontraumatic) (principal); G93.41 Metabolic encephalopathy; J96.90 Respiratory failure, unspecified, unspecified whether with hypoxia or hypercapnia; R47.01 Aphasia; D49.0 Neoplasm of unspecified behavior of digestive system; G40.909 Epilepsy, unspecified, not intractable, without status epilepticus; Z66 Do not resuscitate; D69.6 Thrombocytopenia, unspecified; E78.5 Hyperlipidemia, unspecified; E11.9 Type 2 diabetes mellitus without complications; I10 Essential (primary) hypertension; E66.9 Obesity, unspecified; Z74.01 Bed confinement status; Z93.1 Gastrostomy status; Z88.0 Allergy status to penicillin; Z88.8 Allergy status to other drugs, medicaments and biological substances; Z86.73 Personal history of transient ischemic attack (TIA), and cerebral infarction without residual deficits; Z90.49 Acquired absence of other specified parts of digestive tract; Z79.01 Long term (current) use of anticoagulants; Z68.25 Body mass index [BMI] 25.0-25.9, adult
CPT/HCPCS: 36415; 36416; 36430; 51701; 71045; 74177; 80048; 80053; 80076; 80164; 80177; 81003; 81015; 83605; 83615; 83735; 84100; 84145; 84146; 85025; 85610; 85730; 86850; 86900; 86901; 87040; 87086; 88309; 93005; 94002; 94640; 96361; 96365; C9113; C9132; J0131; J0360; J2001; J2060; J2185; J2250; J2270; J2405; J2543; J2704; J3010; J3475; J3490; J7050; J7620; P9016; Q9967; S0028

== ENCOUNTER 2019-04-21 12:38 | Emergency (ER) | payer OTHER ==
--- NOTE | 2019-04-21 13:32 | RAD ---
EXAM: Single view of the abdomen HISTORY: Clogged feeding tube COMPARISON: 01/09/2019 FINDINGS: Single view of the abdomen shows a nonspecific, nonobstructive bowel gas pattern. Contrast is seen in the feeding tube, stomach and proximal small bowel The bones are unremarkable. IMPRESSION: Feeding tube located in the stomach.
[2019-04-21] MEDS ORDERED: MD-Gastroview 120 ML BOT ONE (16:25)
== END 2019-04-21 14:48 ==
LOC: ERS 12:38
DX: K94.23 Gastrostomy malfunction (principal); E78.5 Hyperlipidemia, unspecified; E11.9 Type 2 diabetes mellitus without complications; E66.9 Obesity, unspecified
CPT/HCPCS: 43762; 74018; B4087; Q9963

== ENCOUNTER 2019-05-29 05:10 | Observation (INO) | payer OTHER ==
[2019-05-29 07:09] LABS: Hemoglobin 11.8 g/dL (14.0-18.0); Mean Corpuscular HGB CONC 31.3 g/dL (32.0-36.0); Mean Corpuscular Hemoglobin 27.6 pg (27.0-31.0); Mean Corpuscular Volume 88.1 fL (78.0-98.0); Mean Platelet Volume 8.8 fL (7.4-10.4); Platelet Count 251 thou/uL (130-400); RBC Distribution Width 15.4 % (11.5-14.5); Red Blood Cell (RBC) Count 4.29 mill/uL (4.70-6.10); White Blood Cell (WBC) Count 8.9 thou/uL (4.8-10.8)
[2019-05-29 07:13] LABS: Bacteria/HPF None Seen HPF (None Seen); Bilirubin Negative (Negative); Blood, Urine 2+ (Negative); Clarity Clear (Clear); Glucose, Urine (Dipstick) Normal (Negative); Leukocyte 25 Leu/uL (Negative); Nitrite Negative (Negative); Protein, Urine (Dipstick) Negative (Neg-Trace); RBC/HPF Greater than 50 HPF (0-3); Squamous Epithelial None Seen HPF (0-3); Urobilinogen Normal mg/dL (Less than 2); WBC/HPF 0-3 HPF (0-3)
[2019-05-29 07:22] LABS: ALT (SGPT) 12 U/L (8-55); AST (SGOT) 21 U/L (5-34); Albumin 3.3 g/dL (3.5-5.0); Alkaline Phosphatase 97 U/L (40-150); Anion Gap 13 mmol/L (10-20); BUN (Urea Nitrogen) 18 mg/dL (8.4-25.7); Bilirubin, Total 0.3 mg/dL (0.2-1.2); Calc. Creatinine Clearance 0 mL/min (70-130); Calcium 9.5 mg/dL (7.8-10.44); Carbon Dioxide 26 mmol/L (22-29); Chloride 103 mmol/L (98-107); Estimated GFR-MDRD Greater than 90; Globulin 5.1 g/dL (2.4-3.5); Glucose 106 mg/dL (70-105); Lipase 71 U/L (8-78); Potassium 5.8 mmol/L (3.5-5.1); Protein, Total 8.4 g/dL (6.0-8.3); Sodium 136 mmol/L (136-145)
[2019-05-29 07:32] LABS: Band 19 % (5-11); Hypochromia SLIGHT = 6-15 cells (100X) (0-5/hpf); Lymphocytes 30 % (21-51); MDiff Complete? YES; Monocytes 7 % (0-10); Neutrophil 44 % (42-75); Platelet Morphology Comment Appears Adequate; Polychromasia SLIGHT = 2-3 cells (100X) (0-2/hpf)
--- NOTE | 2019-05-29 08:28 | CT ---
PRELIMINARY REPORT/[facility]/EMERGENCY AFTER HOURS PROCEDURE: EXAM: CT Abdomen and Pelvis With Contrast EXAM DATE/TIME: 05/29/2019 5:51 AM CLINICAL HISTORY: 53 years old, male; Fever and nausea and vomiting; Prior surgery; Patient HX: 53 y/o m [place] of fever (tmax 1004. F) and vomiting. PT was dx with cThania Mckeon f in February, , with dx following colon resection for treatment of colon CA TECHNIQUE: Imaging protocol: Computed tomography of the abdomen and pelvis with intravenous contrast. COMPARISON: CT Abdomen Pelvis W Con 03/21/2019 4:21 AM FINDINGS: Lungs: There are mild patchy groundglass opacities in the lung bases. Liver: Normal. No mass. Gallbladder and bile ducts: Normal. No calcified stones. No ductal dilation. Pancreas: Normal. No ductal dilation. Spleen: Normal. No splenomegaly. Adrenals: Normal. No mass. Kidneys and ureters: Normal. No hydronephrosis. Stomach and bowel: There is a percutaneous gastrostomy catheter with balloon inflated in the proximal duodenum. There is evidence of right hemicolectomy. There is fluid in the colon. Appendix: Absent. Intraperitoneal space: There is infiltration of mesenteric fat adjacent to ileocolic anastomosis in m id abdomen. Vasculature: Unremarkable. No abdominal aortic aneurysm. Lymph nodes: Unremarkable. No enlarged lymph nodes. Bladder: Unremarkable as visualized. Reproductive: The prostate is enlarged. Bones/joints: No fracture. No dislocation. Soft tissues: There is a new 3.0 x 1.8 x 4.1 cm gas and fluid collection in the anterior abdominal wa ll in the umbilical area to the right of midline. There is infiltration of adjacent soft tissues. The re is skin thickening in the anterior abdominal wall. IMPRESSION: 1. Gas and fluid collection in the anterior abdominal wall consistent with abscess. 2. Inflammatory process adjacent to ileocolic anastomosis which may be due to recent surgery although infection and leak are not ruled out. 3. Fluid in the colon. 4. Additional findings as above. Thank you for allowing us to participate in the care of your patient. Dictated and Authenticated by: Moe Boston MD 05/29/2019 6:59 AM Central Time ([place] & [place]) FINAL REPORT EMERGENT AFTER HOURS CT OF THE ABDOMEN AND PELVIS WITH CONTRAST: FINDINGS/IMPRESSION: I agree with the findings and impression given in the preliminary report per [facility] physician. 1. There is a periumbilical fluid collection containing air with surrounding stranding change consis tent with an abscess. 2. Interval postsurgical change within the ileocecal anastomosis concerning surrounding stranding ch anges. This may represent recent postsurgical change. POS: [facility]
[2019-05-29] MEDS ORDERED: Ondansetron ODT 4 MG TAB SL PRN (10:45)
[2019-05-29] MEDS ORDERED: Ondansetron PF 4 MG/2 ML Vial IVP PRN (10:45)
[2019-05-29] MEDS ORDERED: Acetaminophen 325 MG TAB PO PRN (10:45)
[2019-05-29] MEDS ORDERED: Lactated Ringer's 1,000 ML IV SCH (11:00)
[2019-05-29] MEDS ORDERED: Lidocaine 1% w/Epinephrine 1:100K 20 ML VIAL FS SCH (11:00)
[2019-05-29] MEDS ORDERED: Iopamidol 370 76% 100 ML VIAL ONE (17:12)
[2019-05-29] MEDS ORDERED: Bisacodyl 5 MG TAB PO PRN (17:40)
[2019-05-29] MEDS ORDERED: Bisacodyl 10 MG SUPP PR PRN (17:40)
[2019-05-29] MEDS ORDERED: Dextrose 5% in Water 1,000 ML IV PRN (17:41)
[2019-05-29] MEDS ORDERED: HumaLOG 300 UNITS/3 ML VIAL SC PRN (17:41)
[2019-05-29] MEDS ORDERED: Dextrose 50% Abboject 50 ML SYRINGE SLOW IVP PRN (17:41)
[2019-05-29] MEDS ORDERED: Acetaminophen 650 MG/20.3 ML UDCUP PO PRN (17:44)
[2019-05-29] MEDS ORDERED: Ketorolac Tromethamine 30 MG/ML VIAL IVP PRN (17:45)
[2019-05-29] MEDS ORDERED: Acetaminophen 1,000 MG in Premix Bag 1 BAG IVPB PRN (17:45)
--- NOTE | 2019-05-29 18:15 | RAD ---
Chest one view HISTORY: Chest pain. Dyspnea. COMPARISON: 03/23/2019. FINDINGS: Cardiac silhouette is magnified by projection. Pulmonary vasculature is engorged and accent uated by shallow inspiration. Mediastinum is midline. No lobar consolidation or evidence of pneumothorax. IMPRESSION: Borderline pulmonary vascular congestion. Less severe than on the prior exam.
[2019-05-29] MEDS: levETIRAcetam 500 mg/5 ml Oral Solution PER TUBE SCH (20:42)
[2019-05-29] MEDS: Divalproex Sodium 125 mg Sprinkle Capsule PER TUBE SCH (20:45)
[2019-05-29] MEDS: Carvedilol 25 MG TAB PER TUBE SCH (20:46)
[2019-05-29] MEDS ORDERED: Insulin Glargine 12 UNITS in Pre-Filled Syringe SC SCH (21:00)
[2019-05-29] MEDS ORDERED: Enoxaparin Sodium 40 MG/0.4 ML SYRINGE SC SCH (21:00)
[2019-05-29] MEDS ORDERED: Atorvastatin Calcium 10 MG TAB PO SCH (21:00)
[2019-05-29] MEDS: Nystatin Powder 15 GM BOT TOP SCH (22:27)
--- NOTE | 2019-05-29 22:39 | HP ---
HISTORY OF PRESENT ILLNESS: A 53-year-old male, assisted resident, presents to the Emergency Room [facility] and referred because of fevers and wound concerns. 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 He has had a seizure disorder. On 03/21/2019, the patient presented with radiological evidence of a perforated viscus, underwent right colectomy without evidence of perforation. 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 All lymph nodes were negative. The patient has been tolerating tube feedings in the assisted. He is admitted to the floor. CAT scan of the abdomen, pelvis on admission IV, no oral contrast reveals post right colectomy changes and abscess of abdominal wall periumbilical. Evaluation of the abdomen reveals that his wound did indeed heal secondarily and there is an area of thin skin of the umbilicus that I visually opened revealing intact fascia and evacuated. Material and a gauze dressing applied. The patient will be placed back on his tube feedings and observed and likely transfer back to the assisted tomorrow. On admission, his white count is 8, hemoglobin 11. Basic metabolic profile normal. Glucose 106. MEDICATIONS: 1. Levetiracetam. 2. Kenalog ointment. 3. Nystatin. 4. Lisinopril. 5. Ferrous sulfate. 6. Famotidine. 7. Carvedilol. 8. Atorvastatin. 9. Amlodipine. 10. He is on Vancocin for C diff colitis that was started elsewhere. I am not sure the treating physician for that. C diff studies on 04/28/2019 were positive antigen, positive toxin. We will continue Vancocin and avoid antibiotics for this reason. ALLERGIES: ASPIRIN, PENICILLIN. SOCIAL HISTORY: Tobacco, none. Alcohol, none. PAST SURGICAL HISTORY: PEG tube placement, right colectomy. PAST MEDICAL HISTORY: Type 2 diabetes mellitus, hypertension, hyperlipidemia, encephalopathy, Bernie spotted fever, seizure disorder, immobile, nonambulatory, assisted status, dysphagia, tube feeding, infusion dependent. PHYSICAL EXAMINATION: VITAL SIGNS: Height 5 feet 7 inches, weight 200 pounds. Temperature 98.4, pulse 78, blood pressure 125/82. GENERAL: The patient is noncommunicative. HEAD, EYES, EARS, NOSE, AND THROAT: Unremarkable. LUNGS: Clear to auscultation. CARDIAC: Regular rhythm without murmur or gallop. ABDOMEN: Soft. Wound periumbilical is noted. This was opened digitally. Purulent material evacuated. Fascia is intact. LABORATORY DATA: Urine culture on 05/28/2019, negative at 24 hours. We will repeat his C diff studies. ASSESSMENT: 1. Clostridium difficile on previous admission, not required this hospitalization. Continue Vancocin p.o. 2. Resume tube feedings. 3. Wound care. PLAN: Return to the assisted tomorrow. Job ID: [id number]
[2019-05-30] MEDS ORDERED: Polyethylene Glycol 3350 17 GM Packet PER TUBE SCH (09:00)
[2019-05-30] MEDS ORDERED: Famotidine 20 MG TAB PER TUBE SCH (09:00)
[2019-05-30] MEDS ORDERED: Amlodipine 5 MG TAB PER TUBE SCH (09:00)
[2019-05-30] MEDS ORDERED: Lisinopril 20 MG TAB PER TUBE SCH (09:00)
[2019-05-30] MEDS: Carvedilol 25 MG TAB PER TUBE SCH (09:39)
[2019-05-30] MEDS: Divalproex Sodium 125 mg Sprinkle Capsule PER TUBE SCH (09:39)
[2019-05-30] MEDS: levETIRAcetam 500 mg/5 ml Oral Solution PER TUBE SCH (09:40)
[2019-05-30] MEDS: Nystatin Powder 15 GM BOT TOP SCH (09:41)
[2019-05-30 12:25] VITALS: BP 144/84; TEMP 99
--- NOTE | 2019-05-31 02:41 | DIS ---
DATE OF ADMISSION: 05/29/2019 DATE OF DISCHARGE: 05/30/2019 HOSPITAL COURSE: Derek Larsen was sent to the emergency room from the residential. He had a wound infection. CAT scan was done revealing the wound infection and inflammatory changes, ileocolic, from previous anastomosis. No intraabdominal pathology was noted. His white count was noted to be 8, hemoglobin 11.9. Sodium 136, potassium 5.8. The patient in the hospital underwent bedside drainage of the abscess by digital breakdown of thinned out skin. The fascia was intact. Normal saline, wet-to-dry dressings were initiated. The patient had a chest x-ray obtained as well as a urine culture. Urine culture is negative for growth. Chest x-ray is no acute disease. No pneumonia. The patient remained afebrile this hospitalization. He has been transferred back to residential. We will continue wound care and resume tube feedings per PEG and overall care and medications per his PEG tube. He will see me in office in 3 to 4 weeks. wound is healing difficult transfer to my office. He did have a pre-existing C diff colitis for which he is receiving Vancocin. Stool culture was repeated this hospitalization and noted to be antigen and toxin negative. Job ID: [id number]
--- NOTE | 2019-06-01 03:16 | EKG ---
Test Reason : Blood Pressure : / mmHG Vent. Rate : 078 BPM Atrial Rate : 078 BPM P-R Int : 132 ms QRS Dur : 062 ms QT Int : 342 ms P-R-T Axes : 049 027 018 degrees QTc Int : 389 ms Normal sinus rhythm Possible Left atrial enlargement Nonspecific T wave abnormality Abnormal ECG Confirmed by KENYETTA MARSHALL DO ([id number]), manager editorial SALVADOR HERNANDEZ ([id number]) on 06/01/2019 3:15:21 AM Referred By: Confirmed By:KENYETTA MARSHALL DO
== END 2019-05-30 14:31 ==
LOC: ERS 05:10 → SURG A 07:27
PROVIDERS: ADMIT Specialist; ATTEND Specialist
DX: T81.41XA Infection following a procedure, superficial incisional surgical site, initial encounter (principal); G40.909 Epilepsy, unspecified, not intractable, without status epilepticus; E11.9 Type 2 diabetes mellitus without complications; I10 Essential (primary) hypertension; E78.5 Hyperlipidemia, unspecified; A04.72 Enterocolitis due to Clostridium difficile, not specified as recurrent; E66.9 Obesity, unspecified; Z68.31 Body mass index [BMI] 31.0-31.9, adult; Z86.19 Personal history of other infectious and parasitic diseases; Z86.73 Personal history of transient ischemic attack (TIA), and cerebral infarction without residual deficits; Z79.01 Long term (current) use of anticoagulants; Z79.2 Long term (current) use of antibiotics; Z79.4 Long term (current) use of insulin; Z79.899 Other long term (current) drug therapy; Z88.0 Allergy status to penicillin; Z88.8 Allergy status to other drugs, medicaments and biological substances; Z90.49 Acquired absence of other specified parts of digestive tract
CPT/HCPCS: 36415; 36416; 51701; 71045; 74177; 80053; 81003; 81015; 83690; 85025; 87324; 87449; 93005; 96372; 96374; G0378; J0131; J1650; J1815; J2001; Q9967

== ENCOUNTER 2019-06-03 14:12 | Emergency (ER) | payer OTHER ==
[~2019-06-03 14:12] MED LIST: Iopamidol 370 76% 100 ML VIAL ONE; Iopamidol 370 76% 50 ML VIAL FS ONE
[2019-06-03] MEDS ORDERED: Morphine 4 MG/ML VIAL ONE (15:27)
[2019-06-03 15:35] LABS: Hemoglobin 10.8 g/dL (14.0-18.0); Mean Corpuscular HGB CONC 31.5 g/dL (32.0-36.0); Mean Corpuscular Hemoglobin 27.5 pg (27.0-31.0); Mean Corpuscular Volume 87.5 fL (78.0-98.0); Mean Platelet Volume 8.3 fL (7.4-10.4); Platelet Count 289 thou/uL (130-400); RBC Distribution Width 15.4 % (11.5-14.5); Red Blood Cell (RBC) Count 3.92 mill/uL (4.70-6.10); White Blood Cell (WBC) Count 7.7 thou/uL (4.8-10.8)
[2019-06-03 15:49] LABS: Anisocytosis SLIGHT = 6-15 cells (100X) (0-5/hpf); Band 6 % (5-11); Hypochromia SLIGHT = 6-15 cells (100X) (0-5/hpf); Large Platelets SLIGHT; Lymphocytes 25 % (21-51); MDiff Complete? YES; Monocytes 16 % (0-10); Neutrophil 53 % (42-75); Platelet Morphology Comment Appears Adequate; Polychromasia SLIGHT = 2-3 cells (100X) (0-2/hpf)
[2019-06-03 15:59] LABS: ALT (SGPT) 15 U/L (8-55); AST (SGOT) 16 U/L (5-34); Albumin 3.2 g/dL (3.5-5.0); Alkaline Phosphatase 88 U/L (40-150); Anion Gap 12 mmol/L (10-20); BUN (Urea Nitrogen) 19 mg/dL (8.4-25.7); Bilirubin, Total 0.2 mg/dL (0.2-1.2); Calc. Creatinine Clearance 0 mL/min (70-130); Calcium 9.2 mg/dL (7.8-10.44); Carbon Dioxide 26 mmol/L (22-29); Chloride 102 mmol/L (98-107); Estimated GFR-MDRD Greater than 90; Globulin 4.6 g/dL (2.4-3.5); Glucose 81 mg/dL (70-105); Lipase 49 U/L (8-78); Potassium 4.5 mmol/L (3.5-5.1); Protein, Total 7.8 g/dL (6.0-8.3); Sodium 135 mmol/L (136-145)
--- NOTE | 2019-06-03 16:59 | CT ---
CT OF THE ABDOMEN AND PELVIS WITH IV CONTRAST INDICATION: Draining wound COMPARISON: CT abdomen pelvis dated May 29, 2019 and March 21, 2019. FINDINGS: ABDOMEN: Lung bases: There is bibasilar atelectasis Liver: No focal lesion. Gallbladder: Normal appearing. Pancreas: Normal. Adrenal glands: Normal. Spleen: Normal. Kidneys: Normal. Retroperitoneum of the upper abdomen: No lymphadenopathy or free fluid is identified. Pelvis: Small and large bowel: There is postsurgical change of a right hemicolectomy and establishment right ileocecal anastomosis. There is a fluid and gas tubular collection extending to the superficial anterior midline incision suspicious for small draining abscess or potentially a very tiny enterocuta neous fistula. There is no enteric contrast within this region. This is best seen on images 57 through 62 of series 2. There is a percutaneous gastrostomy tube in place. Bladder: Normal. Rectal and perirectal soft tissues:Normal. Reproductive structures: Normal. Free fluid in pelvis: No free fluid is evident. Lymphadenopathy pelvis: No lymphadenopathy is evident. Osseous structures: There is diffuse osteopenia. No acute osseous abnormality is evident. There is s cattered degenerative and osteoarthritic changes. IMPRESSION: 1. Fluid gas collection extending to the anterior midline abdominal incision without visible extralum inal contrast is suspicious for possible draining intra-abdominal abscess or possibly a very tiny enterocutaneous fistula. Findings were discussed with Dr. Farrell at 4:50 PM on 2018.
== END 2019-06-03 18:45 | disposition home or self-care (01) ==
LOC: ERS 14:12
DX: T81.31XA Disruption of external operation (surgical) wound, not elsewhere classified, initial encounter (principal); E11.9 Type 2 diabetes mellitus without complications; I10 Essential (primary) hypertension; Z79.899 Other long term (current) drug therapy; Z79.4 Long term (current) use of insulin
CPT/HCPCS: 36415; 74177; 80053; 83605; 83690; 85025; 87070; 87077; 87186; 87205; 96374; J2270; Q9967

== ENCOUNTER 2019-07-05 20:35 | Emergency (ER) | payer OTHER | END 2019-07-05 22:30 | LOC: ERS 20:35 | DX: K94.23 Gastrostomy malfunction (principal); E78.5 Hyperlipidemia, unspecified; E78.00 Pure hypercholesterolemia, unspecified; E11.9 Type 2 diabetes mellitus without complications; I10 Essential (primary) hypertension; E66.9 Obesity, unspecified; Z79.899 Other long term (current) drug therapy; Z79.01 Long term (current) use of anticoagulants; Z86.73 Personal history of transient ischemic attack (TIA), and cerebral infarction without residual deficits; Z79.4 Long term (current) use of insulin | CPT/HCPCS: 43762; B4087 ==

== ENCOUNTER 2019-07-19 01:49 | Inpatient (IN) | payer OTHER ==
[2019-07-19 03:10] LABS: Hemoglobin 14.1 g/dL (14.0-18.0); Mean Corpuscular HGB CONC 31.9 g/dL (32.0-36.0); Mean Corpuscular Hemoglobin 28.1 pg (27.0-31.0); Mean Corpuscular Volume 88.1 fL (78.0-98.0); Mean Platelet Volume 9.8 fL (7.4-10.4); Platelet Count 148 thou/uL (130-400); RBC Distribution Width 15.2 % (11.5-14.5); Red Blood Cell (RBC) Count 5.04 mill/uL (4.70-6.10); White Blood Cell (WBC) Count 8.1 thou/uL (4.8-10.8)
[2019-07-19 03:21] LABS: Bilirubin Negative (Negative); Blood, Urine Negative (Negative); Clarity Clear (Clear); Glucose, Urine (Dipstick) Normal (Negative); Leukocyte Negative Leu/uL (Negative); Nitrite Negative (Negative); Protein, Urine (Dipstick) 50 mg/dL (Neg-Trace); RBC/HPF 0-3 HPF (0-3); Squamous Epithelial None Seen HPF (0-3); Urobilinogen Normal mg/dL (Less than 2); WBC/HPF 0-3 HPF (0-3)
[2019-07-19 03:25] LABS: ALT (SGPT) 21 U/L (8-55); AST (SGOT) 18 U/L (5-34); Albumin 3.4 g/dL (3.5-5.0); Alkaline Phosphatase 110 U/L (40-110); Anion Gap 12 mmol/L (10-20); BUN (Urea Nitrogen) 17 mg/dL (8.4-25.7); Bilirubin, Total 0.2 mg/dL (0.2-1.2); CK (CPK) 113 U/L (30-200); Calc. Creatinine Clearance 0 mL/min (70-130); Carbon Dioxide 25 mmol/L (22-29); Chloride 103 mmol/L (98-107); Estimated GFR-MDRD Greater than 90; Globulin 4.6 g/dL (2.4-3.5); Glucose 97 mg/dL (70-105); Potassium 4.3 mmol/L (3.5-5.1); Sodium 136 mmol/L (136-145)
[2019-07-19 03:27] LABS: Bacteria/HPF 1+ HPF (None Seen)
[2019-07-19 03:36] LABS: Band 1 % (5-11); Lymphocytes 8 % (21-51); MDiff Complete? YES; Monocytes 4 % (0-10); Neutrophil 87 % (42-75); Platelet Morphology Comment Appears Adequate; RBC Morphology Normal
[2019-07-19 04:17] LABS: Color Of CSF Supernatant COLORLESS (Colorless); Tube # 2; Unspun CSF Color COLORLESS (Colorless)
[2019-07-19] MEDS ORDERED: Sodium Chloride 0.9% 100 ML ONE (04:18)
[2019-07-19] MEDS ORDERED: cefTRIAXone\\ROCEPHIN 1 GM VIAL ONE (04:18)
[2019-07-19 04:28] LABS: CSF, Glucose 54 mg/dl (40-70); CSF, Protein 88 mg/dL (15-40)
[2019-07-19 04:58] LABS: CSF Source CSF; Clarity Clear (Clear); Tube # 4
[2019-07-19 04:59] LABS: CSF Source CSF; Clarity Clear (Clear); Tube # 1
--- NOTE | 2019-07-19 07:47 | CT ---
PRELIMINARY REPORT/[facility]/EMERGENCY AFTER HOURS PROCEDURE: PROCEDURE INFORMATION: Exam: CT Head Without Contrast Exam date and time: 07/19/2019 2:11 AM Clinical history: 53 years old, male; Altered mental status/memory loss; Patient HX: 53m [place] changes after seizure, per [facility] staff. EMS was called d/t PT not tracking with his eyes or responding as he normally does. He is reportedly nonverbal at baseline. HX of dm, HTN, seizures, rickets. EMS gave 2mg of ativan, after which pt's BP dropped to 80s systolic, is not usuall y on home oxygen but was placed on nc for supposed low o2 saturation at the snf. TECHNIQUE: Imaging protocol: Computed tomography of the head without contrast. COMPARISON: No relevant prior studies available. FINDINGS: Brain: No acute intracranial hemorrhage or mass effect. There is decreased attenuation in the periventricular white matter, likely from microvascular disease . Old infarct in the right posterior parietal region. No definite acute infarct by CT. MRI could be more sensitive/specific for detection, as clinically di rected. Ventricles: Ventricle size is normal for age. Bones/joints: No definite acute skull fracture. Sinuses: Mild mucosal thickening in the maxillary sinuses. Included paranasal sinuses otherwise appea r essentially clear. Mastoid air cells: No significant acute finding. IMPRESSION: 1. No acute intracranial hemorrhage or mass effect. 2. Changes of microvascular disease, and old right-sided infarct. 3. No definite acute infarct by CT, see above. 4. Other findings discussed above. Thank you for allowing us to participate in the care of your patient. Dictated and Authenticated by: Derek Love MD 07/19/2019 2:32 AM Central Time ([place] & [place]) FINAL REPORT CT BRAIN WITHOUT CONTRAST: I agree with the preliminary report given by Aliyah. POS: [facility]
--- NOTE | 2019-07-19 08:37 | RAD ---
Portable frontal chest radiograph: 07/19/2019 COMPARISON: 05/29/2019 HISTORY: Seizure FINDINGS: Lungs are clear. Heart and mediastinal contours appear within normal limits. Shallow inspir ation slightly limits detailed assessment of the lung bases. IMPRESSION: No acute findings.
[2019-07-19] MEDS ORDERED: Ondansetron PF 4 MG/2 ML Vial IVP PRN (11:29)
[2019-07-19] MEDS ORDERED: Bisacodyl 10 MG SUPP PR PRN (11:29)
[2019-07-19] MEDS ORDERED: Lorazepam 2 MG/ML VIAL SLOW IVP PRN (11:29)
[2019-07-19] MEDS ORDERED: Acetaminophen 650 MG Suppository PR PRN (11:29)
[2019-07-19] MEDS ORDERED: Acetaminophen 650 MG/20.3 ML UDCUP PO PRN (11:29)
[2019-07-19] MEDS ORDERED: Warfarin Sodium 7.5 MG TAB PER TUBE SCH (11:30)
[2019-07-19] MEDS ORDERED: Warfarin Sodium 5 MG TAB PER TUBE SCH (11:30)
[2019-07-19] MEDS: Sodium Chloride 0.9% 1,000 ML IV SCH ×2 (12:14→21:30)
[2019-07-19 12:24] VITALS: BMI 26.2
[2019-07-19] MEDS: cefTRIAXone\\ROCEPHIN 2 GM in Sodium Chloride 0.9% 100 ML IVPB SCH (12:38)
[2019-07-19 13:45] LABS: INR-International Normal Ratio 2.4
--- NOTE | 2019-07-19 16:35 | HP ---
PRIMARY CARE PROVIDER: Vikram Mallory MD. CHIEF COMPLAINT: Seizure activity. HISTORY OF PRESENT ILLNESS: This is a 53-year-old male, who presents to [facility] in transfer from [facility] in [place], [place], where the patient is a current resident, after [place] [facility] staff noted seizure-like activity. The patient normally alert and can track with his eyes; however, [place] [facility] staff noted decreased responsiveness and concern for recurrent seizure in the context of known seizure disorder. The patient's history is significant for Quinby spotted fever with associated encephalitis, now bed-bound status, and requiring total assistance for care including tube feeds. The patient resides at [facility] in [place], [place], receiving supervised medical care and tube feedings. The patient was notably admitted on 08/2018 for similar presentation and seizure-like activity. The patient was evaluated by EMS personnel during this admission, receiving Ativan 2 mg IV push. The patient was noted with hypotension and received oxygen and IV fluids. The patient remains nonverbal and was evaluated in the emergency room including CT of the brain showing no acute process. Portable chest x-ray imaging was also obtained showing no acute process. The patient did receive IV vancomycin and Rocephin after concern for potential infectious process as the patient exhibited a temperature of 100.6 degrees rectally. PAST MEDICAL HISTORY: 1. Apraxia. 2. Expressive aphasia. 3. Ischemic CVA. 4. Dysphagia. 5. Generalized seizure disorder. 6. 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 8. Right-sided hemiparesis. 9. Bed-bound status. 10. Hyperlipidemia. 11. Diabetes mellitus, type 2, insulin dependent. PAST SURGICAL HISTORY: 1. Status post PEG tube placement. 2. Status post abscess drainage of the abdominal wall, 05/2019. CURRENT MEDICATIONS: 1. Amlodipine 5 mg per PEG tube daily. 2. Arginine powder 1 packet per tube PEG tube b.i.d. 3. Ascorbic acid 500 mg per PEG tube daily. 4. Carvedilol 12.5 mg per PEG tube b.i.d. 5. Pepcid 40 mg per PEG tube daily. 6. Lantus 12 units subcutaneously at bedtime. 7. Keppra 600 mg per PEG tube b.i.d. 8. Lisinopril 20 mg per PEG tube daily. 9. Multivitamin 1 tablet per PEG tube daily. 10. Nystatin one application topically b.i.d. 11. Valproic acid 500 mg per PEG tube b.i.d. 12. Coumadin 5 mg 1 tablet per PEG tube Sunday, , and Sunday, and 7.5 mg on Sunday, Sunday, Sunday, and Sunday. 13. Zinc sulfate 220 mg per PEG tube daily. 14. Lipitor 5 mg per PEG tube at bedtime. 15. Dulcolax 10 mg per rectum daily p.r.n. 16. Ferrous sulfate 300 mg per PEG tube b.i.d. ALLERGIES: NO KNOWN DRUG ALLERGIES. FAMILY HISTORY: Father . Mother with hypertension. SOCIAL HISTORY: The patient resides at [facility] in [place], [place]. Nonambulatory status. Total care patient. Medical power of commercial attorney is his brother. No alcohol, tobacco, or illicit drug use. CODE STATUS: Do not attempt resuscitation. REVIEW OF SYSTEMS: Unobtainable due to the patient's nonverbal status and obtunded. PHYSICAL EXAMINATION: VITAL SIGNS: On admission, blood pressure 134/84, pulse 66, respiratory rate 20, temperature 98.8 degrees Fahrenheit, and O2 saturation 100% on room air. T-max 100.6 degrees rectally. GENERAL APPEARANCE: This is a 53-year-old male, lethargic, obtunded, aphasic, in [id number] distress. HEENT: Pupils are equal, round, and reactive to light and accommodation. Extraocular muscles are intact. No scleral icterus. No conjunctival injection. Nares patent. OP is clear with dry oral mucosa. NECK: Supple. No cervical adenopathy. No thyromegaly. No carotid bruits. No JVD appreciated. Cervical spine with full active and passive range of motion. No meningeal signs noted. CHEST: Diminished breath sounds in the bases bilaterally. Occasional coarse breath sounds. CARDIOVASCULAR EXAM: S1 and S2 without noted murmur, rub, or gallop. ABDOMEN: Rounded, soft, and nontender. PEG tube in place. No palpable mass. No rebound or guarding appreciated. EXTREMITIES: Warm and dry with fair turgor. Contractures of bilateral upper and lower extremities. Generalized atrophy. Pulses palpable distally at the dorsalis pedis, posterior tibial, and popliteal arteries bilaterally. Capillary refill less than 2 seconds. NEUROLOGIC: Aphasic, dysphagia. Does not follow commands. Does not open eyes to name. Bed-bound status. PERTINENT LABORATORY AND X-RAY FINDINGS: Basic metabolic profile within normal limits. Total CK 113. CBC showed a white blood cell count 8.1, hemoglobin 14.1, hematocrit 44.4, and platelet count 148 with 87% neutrophils. Urinalysis positive for protein, trace ketones. Influenza A and B antigen on 07/19/2019 negative. Spinal fluid culture dated 07/19/2019 showed no organisms. WBC is noted. CT of the brain without contrast dated 07/19/2019 showed no acute intracranial process. Portable chest x-ray dated 07/19/2019 showed no acute cardiopulmonary process. ASSESSMENT AND PLAN: 1. Recurrent seizures. The patient will be admitted to the medical floor. Multifactorial process. Resume Keppra 600 mg b.i.d. Continue to monitor for recurrent seizures. May need additional titration of his chronic Keppra. 2. Acute metabolic encephalopathy. Multifactorial. We will continue general supportive management. Monitor for clinical improvement. 3. Dysphagia. We will resume Glucerna 1.5 tube feeds at 90 mL/h between the hours of 4 p.m. to 8 a.m. 4. Chronic anticoagulation. Resume outpatient regimen of Coumadin with daily PT/INR. 5. Diabetes mellitus, type 2, insulin requiring. Resume glargine 12 units subcutaneously at bedtime. Insulin sliding scale for reflexive coverage. Serial Accu-Cheks before meals and at bedtime. 6. Prophylaxis. SCDs while in bed. Pepcid 40 mg per PEG tube daily. Aspiration precautions. 7. Code status is do not attempt resuscitation, confirmed with family and medical power of commercial attorney. Job ID: [id number]
[2019-07-19] MEDS ORDERED: Nystatin Powder 15 GM BOT TOP SCH (21:00)
[2019-07-19] MEDS ORDERED: levETIRAcetam 100 mg/ml Oral Solution PER TUBE SCH (21:00)
[2019-07-19] MEDS ORDERED: Famotidine/PF 20 mg/2ml Vial SLOW IVP SCH (21:00)
[2019-07-19] MEDS ORDERED: Non-Formulary Item 1 EACH (Arginine/Ascorbate Sod/Vite Ac [Arginaid Powder] 1 PACKET) PER TUBE SCH (21:00)
[2019-07-19] MEDS: levETIRAcetam 500 mg/5 ml Oral Solution PO SCH (22:12)
[2019-07-19] MEDS: Carvedilol 6.25 MG TAB PER TUBE SCH (22:23)
[2019-07-19] MEDS: Atorvastatin Calcium 10 MG TAB PO SCH (22:24)
[2019-07-19] MEDS: Nystatin Powder 15 GM BOT TOP SCH (22:24)
[2019-07-19] MEDS: Valproic Acid 250 MG CAP PO SCH (22:25)
[2019-07-19] MEDS: Vancomycin HCl 1 GM in Premix Bag 1 BAG IVPB SCH (22:25)
[2019-07-19] MEDS: Insulin Glargine 12 UNITS in Pre-Filled Syringe 1 EACH SC SCH (23:17)
[2019-07-20] MEDS: Sodium Chloride 0.9% 1,000 ML IV SCH ×3 (03:43→17:41)
[2019-07-20 06:37] LABS: INR-International Normal Ratio 2.2; Prothrombin Time 23.9 SEC (12.0-14.7)
[2019-07-20 06:47] LABS: Anion Gap 11 mmol/L (10-20); BUN (Urea Nitrogen) 17 mg/dL (8.4-25.7); Calc. Creatinine Clearance 108 mL/min (70-130); Calcium 8.9 mg/dL (7.8-10.44); Carbon Dioxide 26 mmol/L (22-29); Chloride 108 mmol/L (98-107); Estimated GFR-MDRD Greater than 90; Glucose 125 mg/dL (70-105); Potassium 4.5 mmol/L (3.5-5.1); Sodium 140 mmol/L (136-145)
[2019-07-20 07:32] LABS: Band 4 % (5-11); Hemoglobin 12.2 g/dL (14.0-18.0); Lymphocytes 31 % (21-51); MDiff Complete? YES; Mean Corpuscular HGB CONC 30.5 g/dL (32.0-36.0); Mean Corpuscular Hemoglobin 27.1 pg (27.0-31.0); Mean Corpuscular Volume 88.6 fL (78.0-98.0); Mean Platelet Volume 9.6 fL (7.4-10.4); Monocytes 11 % (0-10); Neutrophil 53 % (42-75); Platelet Count 148 thou/uL (130-400); Red Blood Cell (RBC) Count 4.51 mill/uL (4.70-6.10); White Blood Cell (WBC) Count 6.4 thou/uL (4.8-10.8)
[2019-07-20] MEDS ORDERED: ASCORBATE SOD PER TUBE SCH (09:00)
[2019-07-20] MEDS ORDERED: VITE AC PER TUBE SCH (09:00)
[2019-07-20] MEDS ORDERED: ARGININE PER TUBE SCH (09:00)
[2019-07-20] MEDS ORDERED: FLU VACC QS2019-20(6MOS UP)/PF 60 MCG/0.5 ML SYRINGE IM ONE (09:00)
[2019-07-20] MEDS: Carvedilol 6.25 MG TAB PER TUBE SCH ×2 (09:05→20:38)
[2019-07-20] MEDS: Multivits W-Minerals Liquid 15mL UDCUP PER TUBE SCH (09:05)
[2019-07-20] MEDS: Valproic Acid 250 MG CAP PO SCH ×2 (09:05→20:38)
[2019-07-20] MEDS: Zinc Sulfate 220 MG CAP PER TUBE SCH (09:05)
[2019-07-20] MEDS: Ascorbic Acid 500 mg Chewable Tablet PER TUBE SCH (09:05)
[2019-07-20] MEDS: Amlodipine 5 MG TAB PER TUBE SCH (09:05)
[2019-07-20] MEDS: Famotidine 20 MG TAB PER TUBE SCH (09:05)
[2019-07-20] MEDS: Lisinopril 20 MG TAB PER TUBE SCH (09:05)
[2019-07-20] MEDS: Nystatin Powder 15 GM BOT TOP SCH ×2 (09:06→20:50)
[2019-07-20] MEDS: Vancomycin HCl 1 GM in Premix Bag 1 BAG IVPB SCH ×2 (09:06→20:38)
[2019-07-20] MEDS: levETIRAcetam 500 mg/5 ml Oral Solution PO SCH ×2 (09:06→20:38)
--- NOTE | 2019-07-20 12:19 | RAD ---
PORTABLE CHEST 1 VIEW: Date: 07/20/19 Time: 1036 hours HISTORY: Aspiration. Tube feeds. Seizure. Mental status change. FINDINGS/IMPRESSION: Comparison made with exam from previous day. The heart size is normal. No lobar consolidation, pneumothoraces, or pleural effusions are seen. Ther e is a plate of linear atelectasis in the right mid lung. POS: [facility]
[2019-07-20] MEDS: cefTRIAXone\\ROCEPHIN 2 GM in Sodium Chloride 0.9% 100 ML IVPB SCH (12:46)
--- NOTE | 2019-07-20 17:15 | PDOC.HOSPP ---
- Subjective Encounter Date: 07/20/19 Encounter Time: 17:15 Subjective: f/u for recurrent seizures and bacteremia with strep pneumonia spp on current Rocephin/Vancomycin. Nursing reports gurgling earlier this am on TF's which were discontinued and suctioned improved sx. - Objective Vital Signs & Weight: Vital Signs (12 hours) Temp Pulse Resp BP BP Pulse Ox 07/20/19 12:00 98.7 F 73 20 164/94 H 98 07/20/19 09:05 72 160/96 H 99 07/20/19 08:00 98.8 F 72 20 160/96 H 99 Weight Admit Weight 183 lb 3 oz Weight 183 lb 3 oz Result Diagrams: 07/20/19 06:15 07/20/19 06:15 Additional Labs: Accuchecks 07/20/19 07/19/19 12:15 23:17 POC Glucose 165 H 142 H Microbiology 07/19/19 03:28 Nasopharyngeal swab Influenza Types A,B Direct EIA - Final 07/19/19 04:20 Spinal Fluid Culture - Pending Body Fluid Culture - Preliminary 07/19/19 02:56 Venous blood - Right Hand Blood Culture - Preliminary Streptococcus species 07/19/19 02:45 Venous blood - Left Arm Blood Culture - Preliminary Specimen has been received and culture in progress. No Growth to date. Laboratory Tests 07/19/19 07/19/19 07/20/19 02:46 13:25 06:15 Hgb 14.1 Neutrophils % (Manual) 87 H 53 INR 2.4 07/20/19 06:15 Hgb Neutrophils % (Manual) INR 2.2 Radiology Reviewed by me: Yes (PCXR - R mid lung zone atelectasis) Hospitalist ROS - Medication Medications: Active Medications Generic Name Dose Route Start Last Admin Trade Name Freq PRN Reason Stop Dose Admin Amlodipine Besylate 5 mg 07/20/19 09:00 07/20/19 09:05 Norvasc PER TUBE 5 mg DAILY MEI Administration Ascorbic Acid 500 mg 07/20/19 09:00 07/20/19 09:05 Vitamin C PER TUBE 500 mg DAILY MEI Administration Atorvastatin Calcium 5 mg 07/19/19 21:00 07/19/19 22:24 Lipitor PO 5 mg HS MEI Administration Carvedilol 12.5 mg 07/19/19 21:00 07/20/19 09:05 Coreg PER TUBE 12.5 mg BID MEI Administration Famotidine 40 mg 07/20/19 09:00 07/20/19 09:05 Pepcid PER TUBE 40 mg DAILY MEI Administration Ferrous Sulfate 300 mg 07/19/19 21:00 07/20/19 09:05 Ferrous Sulfate PER TUBE 300 mg BID MEI Administration Sodium Chloride 1,000 mls @ 100 mls/hr 07/19/19 11:30 07/20/19 12:49 Normal Saline 0.9% IV 1,000 mls .Q10H MEI Administration Ceftriaxone Sodium 2 gm/ 100 mls @ 200 mls/hr 07/19/19 11:45 07/20/19 12:46 Sodium Chloride IVPB 100 mls Q24HR MEI Administration Vancomycin HCl 1 gm/ Device 200 mls @ 200 mls/hr 07/19/19 21:00 07/20/19 09: 06 IVPB 200 mls Q12HR MEI Administration Insulin Glargine 12 units/ 0.12 mls @ 0 mls/hr 07/19/19 21:00 07/19/19 23:17 Miscellaneous Medication SC Not Given HS MEI Iron/Minerals/Multivitamins 15 ml 07/20/19 09:00 07/20/19 09:05 Certa Yair Liquid PER TUBE 15 ml DAILY MEI Administration Levetiracetam 600 mg 07/19/19 21:00 07/20/19 09:06 Keppra Oral Solution PO 600 mg BID MEI Administration Lisinopril 20 mg 07/20/19 09:00 07/20/19 09:05 Zestril PER TUBE 20 mg DAILY MEI Administration Nystatin 0 gm 07/19/19 21:00 07/20/19 09:06 Mycostatin Powder TOP 1 applic BID MEI Administration Ondansetron HCl 4 mg 07/19/19 11:29 07/20/19 10:35 Zofran IVP 4 mg Q6H PRN Administration Nausea/Vomiting Valproic Acid 500 mg 07/19/19 21:00 07/20/19 09:05 Depakene PO 500 mg BID MEI Administration Zinc Sulfate 220 mg 07/20/19 09:00 07/20/19 09:05 Zinc Sulfate PER TUBE 220 mg DAILY MEI Administration - Exam General Appearance: awake alert General - other findings: eyes look left and do not track, non-verbal Eye: PERRL, anicteric sclera ENT: normocephalic atraumatic, no oropharyngeal lesions Neck: supple, symmetric, no JVD, no thyromegaly, no lymphadenopathy Heart: no murmur, no gallops, no rubs, normal peripheral pulses Heart - other findings: tachycardic Respiratory - other findings: diminished bilat, occasional rhonchi Gastrointestinal: soft, non-tender, non-distended, normal bowel sounds Gastrointestinal - other findings: PEG tube in place Extremities: no cyanosis, no edema Skin: normal turgor, no lesions Neurological - other findings: dysphagia, aphasic, bedbound Hosp A/P (1) Streptococcal bacteremia Code(s): R78.81 - BACTEREMIA; B95.5 - UNSP STREPTOCOCCUS THE CAUSE OF DISEASES CLASSD ELSR Status: Acute Plan: Continue Vancomycin/Rocephin, await final sensitivities, continue IVF's (2) Aspiration pneumonia Code(s): J69.0 - PNEUMONITIS DUE TO INHALATION OF FOOD AND VOMIT Status: Acute Plan: Continue Rocephin/Vancomycin, monitor clinical response, consider addition of Clindamycin if clinically decompensating (3) Seizure Code(s): R56.9 - UNSPECIFIED CONVULSIONS Status: Chronic Plan: Continue Keppra 600mg BID (4) Chronic anticoagulation Code(s): Z79.01 - SENIOR CARE (CURRENT) USE OF ANTICOAGULANTS Status: Chronic Plan: Resume Coumadin, serial PT/INR (5) Encephalopathy, metabolic Code(s): G93.41 - METABOLIC ENCEPHALOPATHY Status: Acute Plan: Improved, appears near baseline (6) Dysphagia Code(s): R13.10 - DYSPHAGIA, UNSPECIFIED Status: Chronic Qualifiers: Dysphagia type: oropharyngeal phase Qualified Code(s): R13.12 - Dysphagia, oropharyngeal phase Plan: Aspiration precautions, resume TF's at low-volume and monitor for recurrence, consider AMPLIFIER MECHANIC evaluation - Plan continue antibiotics, social welfare administrator, speech therapy, DVT proph w/SCDs Continue Rocephin/Vancomycin Consider additional Clindamycin Resume low-volume TF's Resume Coumadin Continue Keppra AM lab: BMP, CBC
[2019-07-20] MEDS: hydrALAZINE 20 MG/ML VIAL SLOW IVP PRN (17:29)
[2019-07-20] MEDS ORDERED: Warfarin Sodium 7.5 MG TAB PER TUBE SCH (17:45)
[2019-07-20] MEDS: Clindamycin/D5W 600 MG in Premix Bag 1 BAG IVPB SCH ×2 (17:56→23:33)
[2019-07-20] MEDS: Atorvastatin Calcium 10 MG TAB PO SCH (20:38)
[2019-07-20] MEDS: Insulin Glargine 12 UNITS in Pre-Filled Syringe 1 EACH SC SCH (20:48)
[2019-07-21] MEDS ORDERED: HumaLOG 300 UNITS/3 ML VIAL SC PRN ×2 (04:36)
[2019-07-21] MEDS ORDERED: Dextrose 50% Abboject 50 ML SYRINGE SLOW IVP PRN (04:36)
[2019-07-21] MEDS ORDERED: Dextrose 5% in Water 1,000 ML IV PRN (04:36)
[2019-07-21] MEDS ORDERED: Acetaminophen 650 MG/20.3 ML UDCUP PER TUBE PRN (04:38)
[2019-07-21] MEDS: Sodium Chloride 0.9% 1,000 ML IV SCH ×3 (05:18→20:47)
[2019-07-21] MEDS: Clindamycin/D5W 600 MG in Premix Bag 1 BAG IVPB SCH ×3 (05:18→17:58)
[2019-07-21 06:32] LABS: INR-International Normal Ratio 1.8; Prothrombin Time 21.1 SEC (12.0-14.7)
[2019-07-21 06:34] LABS: Mean Corpuscular HGB CONC 30.3 g/dL (32.0-36.0); Mean Corpuscular Volume 88.9 fL (78.0-98.0); Mean Platelet Volume 9.7 fL (7.4-10.4); Platelet Count 137 thou/uL (130-400); RBC Distribution Width 15.2 % (11.5-14.5); Red Blood Cell (RBC) Count 4.45 mill/uL (4.70-6.10); White Blood Cell (WBC) Count 12.7 thou/uL (4.8-10.8)
[2019-07-21 06:36] LABS: Band 6 % (5-11); MDiff Complete? YES; Neutrophil 69 % (42-75)
[2019-07-21 06:37] LABS: Eosinophils 1 % (0-10); Lymphocytes 16 % (21-51); Monocytes 8 % (0-10)
[2019-07-21 06:47] LABS: Anion Gap 10 mmol/L (10-20); BUN (Urea Nitrogen) 13 mg/dL (8.4-25.7); Calc. Creatinine Clearance 122 mL/min (70-130); Calcium 8.9 mg/dL (7.8-10.44); Carbon Dioxide 26 mmol/L (22-29); Chloride 107 mmol/L (98-107); Estimated GFR-MDRD Greater than 90; Glucose 128 mg/dL (70-105); Potassium 4.1 mmol/L (3.5-5.1); Sodium 139 mmol/L (136-145)
[2019-07-21] MEDS: Valproic Acid 250 MG CAP PO SCH ×2 (09:07→20:29)
[2019-07-21] MEDS: Multivits W-Minerals Liquid 15mL UDCUP PER TUBE SCH (09:07)
[2019-07-21] MEDS: Zinc Sulfate 220 MG CAP PER TUBE SCH (09:07)
[2019-07-21] MEDS: Ascorbic Acid 500 mg Chewable Tablet PER TUBE SCH (09:07)
[2019-07-21] MEDS: Carvedilol 6.25 MG TAB PER TUBE SCH ×2 (09:07→20:29)
[2019-07-21] MEDS: Famotidine 20 MG TAB PER TUBE SCH (09:08)
[2019-07-21] MEDS: Amlodipine 5 MG TAB PER TUBE SCH (09:08)
[2019-07-21] MEDS: levETIRAcetam 500 mg/5 ml Oral Solution PER TUBE SCH ×2 (09:08→20:29)
[2019-07-21] MEDS: Lisinopril 20 MG TAB PER TUBE SCH (09:08)
[2019-07-21] MEDS: Vancomycin HCl 1 GM in Premix Bag 1 BAG IVPB SCH ×3 (09:09→20:30)
[2019-07-21] MEDS: Nystatin Powder 15 GM BOT TOP SCH ×2 (09:09→20:31)
--- NOTE | 2019-07-21 11:20 | PDOC.HOSPP ---
- Subjective Encounter Date: 07/21/19 Encounter Time: 11:10 Subjective: f/u for strep pneumonia bacteremia, aspiration pneumonia and recurrent seizures. Receiving Rocephin/Vancomycin/Clindamycin. - Objective Vital Signs & Weight: Vital Signs (12 hours) Temp Pulse Resp BP BP Pulse Ox 07/21/19 09:08 76 151/90 H 07/21/19 09:07 151/90 H 07/21/19 08:00 99.2 F 76 16 151/90 H 98 07/21/19 04:00 99.1 F 78 16 170/94 H 96 07/21/19 00:00 98.7 F 70 16 138/82 99 Weight Admit Weight 183 lb 3 oz Weight 183 lb 3 oz I&O: 07/20/19 07/21/19 07/22/19 06:59 06:59 06:59 Intake Total 3317 Output Total 1400 Balance 1917 Result Diagrams: 07/21/19 06:02 07/21/19 06:02 Additional Labs: Accuchecks 07/21/19 07/20/19 07/20/19 05:17 20:49 17:16 POC Glucose 166 H 120 H 95 07/20/19 12:15 POC Glucose 165 H Microbiology 07/19/19 03:28 Nasopharyngeal swab Influenza Types A,B Direct EIA - Final 07/19/19 04:20 Spinal Fluid Culture - Pending Body Fluid Culture - Preliminary 07/19/19 04:20 Spinal Fluid Culture - Pending Body Fluid Culture - Preliminary 07/19/19 02:56 Venous blood - Right Hand Blood Culture - Preliminary Streptococcus species 07/19/19 02:45 Venous blood - Left Arm Blood Culture - Preliminary Specimen has been received and culture in progress. No Growth to date. Laboratory Tests 07/19/19 07/19/19 07/20/19 02:46 13:25 06:15 Hgb 14.1 Neutrophils % (Manual) 87 H 53 PT INR 2.4 Vancomycin Trough 07/20/19 07/21/19 07/21/19 06:15 06:02 09:22 Hgb Neutrophils % (Manual) PT 21.1 H INR 2.2 1.8 Vancomycin Trough 14.0 Radiology Reviewed by me: Yes (PCXR - R mid zone atelectasis) Hospitalist ROS - Medication Medications: Active Medications Generic Name Dose Route Start Last Admin Trade Name Freq PRN Reason Stop Dose Admin Amlodipine Besylate 5 mg 07/20/19 09:00 07/21/19 09:08 Norvasc PER TUBE 5 mg DAILY MEI Administration Ascorbic Acid 500 mg 07/20/19 09:00 07/21/19 09:07 Vitamin C PER TUBE 500 mg DAILY MEI Administration Carvedilol 12.5 mg 07/19/19 21:00 07/21/19 09:07 Coreg PER TUBE 12.5 mg BID MEI Administration Famotidine 40 mg 07/20/19 09:00 07/21/19 09:08 Pepcid PER TUBE 40 mg DAILY MEI Administration Ferrous Sulfate 300 mg 07/19/19 21:00 07/21/19 09:08 Ferrous Sulfate PER TUBE 300 mg BID MEI Administration Hydralazine HCl 10 mg 07/19/19 11:29 07/20/19 17:29 Apresoline SLOW IVP 10 mg Q4H PRN Administration SBP > 180 and HR < 70 Sodium Chloride 1,000 mls @ 100 mls/hr 07/19/19 11:30 07/21/19 05:18 Normal Saline 0.9% IV 1,000 mls .Q10H MEI Administration Ceftriaxone Sodium 2 gm/ 100 mls @ 200 mls/hr 07/19/19 11:45 07/20/19 12:46 Sodium Chloride IVPB 100 mls Q24HR MEI Administration Vancomycin HCl 1 gm/ Device 200 mls @ 200 mls/hr 07/19/19 21:00 07/21/19 10: 01 IVPB 200 mls Q12HR MEI Administration Insulin Glargine 12 units/ 0.12 mls @ 0 mls/hr 07/19/19 21:00 07/20/19 20:48 Miscellaneous Medication SC 0.12 mls HS MEI Administration Clindamycin Phosphate/Dextrose 50 mls @ 100 mls/hr 07/20/19 18:00 07/21/19 05 :18 600 mg/ Device IVPB 50 mls Q6HR MEI Administration Iron/Minerals/Multivitamins 15 ml 07/20/19 09:00 07/21/19 09:07 Certa Yair Liquid PER TUBE 15 ml DAILY MEI Administration Levetiracetam 600 mg 07/21/19 04:39 07/21/19 09:08 Keppra Oral Solution PER TUBE 600 mg BID MEI Administration Lisinopril 20 mg 07/20/19 09:00 07/21/19 09:08 Zestril PER TUBE 20 mg DAILY MEI Administration Nystatin 0 gm 07/19/19 21:00 07/21/19 09:09 Mycostatin Powder TOP 1 applic BID MEI Administration Ondansetron HCl 4 mg 07/19/19 11:29 07/20/19 10:35 Zofran IVP 4 mg Q6H PRN Administration Nausea/Vomiting Valproic Acid 500 mg 07/19/19 21:00 07/21/19 09:07 Depakene PO 500 mg BID MEI Administration Zinc Sulfate 220 mg 07/20/19 09:00 07/21/19 09:07 Zinc Sulfate PER TUBE 220 mg DAILY MEI Administration - Exam General Appearance: awake alert General - other findings: non-verbal Eye: PERRL, anicteric sclera ENT: normocephalic atraumatic, no oropharyngeal lesions ENT - other findings: dry oral mucosa Neck: supple, symmetric, no JVD, no thyromegaly Heart: RRR, no murmur, no gallops, no rubs, normal peripheral pulses Respiratory: CTAB, no wheezes, no rales, no ronchi Gastrointestinal: soft, non-tender, non-distended, normal bowel sounds Gastrointestinal - other findings: PEG in place Extremities: no cyanosis Extremities - other findings: contractures of upper extremities Skin: normal turgor Neurological - other findings: non-verbal, bed bound Musculoskeletal: generalized weakness Hosp A/P (1) Streptococcal bacteremia Code(s): R78.81 - BACTEREMIA; B95.5 - UNSP STREPTOCOCCUS THE CAUSE OF DISEASES CLASSD ELSWHR Status: Acute Plan: Likely from pulmonary source, continue Vanc/Rocephin, monitor pulmonary status (2) Aspiration pneumonia Code(s): J69.0 - PNEUMONITIS DUE TO INHALATION OF FOOD AND VOMIT Status: Acute Plan: Suspected given presentation, continue IV abx with addition of Clindamycin, pulmonary support, aspiration precautions (3) Seizure Code(s): R56.9 - UNSPECIFIED CONVULSIONS Status: Chronic Plan: Continue Keppra 600mg BID (4) Chronic anticoagulation Code(s): Z79.01 - PULVERIZER TENDER (CURRENT) USE OF ANTICOAGULANTS Status: Chronic Plan: Continue Coumadin, daily PT/INR (5) Encephalopathy, metabolic Code(s): G93.41 - METABOLIC ENCEPHALOPATHY Status: Acute (6) Dysphagia Code(s): R13.10 - DYSPHAGIA, UNSPECIFIED Status: Chronic Qualifiers: Dysphagia type: oropharyngeal phase Qualified Code(s): R13.12 - Dysphagia, oropharyngeal phase Plan: Continue TF's, monitor residuals, tolerating current volume/rate - Plan continue antibiotics, PT/OT, manager social media, speech therapy, DVT proph w/SCDs Continue Rocephin/Vancomycin Clindamycin 600mg IV q6h Resume low-volume TF's titrate to goal rate, monitor gastric residuals Resume Coumadin Continue Keppra AM lab: CBC
[2019-07-21] MEDS: cefTRIAXone\\ROCEPHIN 2 GM in Sodium Chloride 0.9% 100 ML IVPB SCH (11:23)
[2019-07-21] MEDS ORDERED: Hydrocortisone 1% Cream 1.5 GM Packet TOP SCH (13:00)
[2019-07-21] MEDS: Warfarin Sodium 7.5 MG TAB PER TUBE SCH (16:26)
[2019-07-21] MEDS: hydrALAZINE 20 MG/ML VIAL SLOW IVP PRN (16:44)
[2019-07-21] MEDS: Insulin Glargine 12 UNITS in Pre-Filled Syringe 1 EACH SC SCH (20:30)
[2019-07-21] MEDS: Hydrocortisone 1% Cream 30 GM TUBE TOP SCH (20:30)
[2019-07-21] MEDS: Atorvastatin Calcium 10 MG TAB PER TUBE SCH (20:30)
[2019-07-22] MEDS: Clindamycin/D5W 600 MG in Premix Bag 1 BAG IVPB SCH ×4 (00:22→17:23)
[2019-07-22 04:51] LABS: INR-International Normal Ratio 2.3; Prothrombin Time 25.2 SEC (12.0-14.7)
[2019-07-22 05:27] LABS: Anisocytosis SLIGHT = 6-15 cells (100X) (0-5/hpf); Band 3 % (5-11); Eosinophils 1 % (0-10); Hemoglobin 11.6 g/dL (14.0-18.0); Lymphocytes 20 % (21-51); MDiff Complete? YES; Mean Corpuscular HGB CONC 30.2 g/dL (32.0-36.0); Mean Corpuscular Hemoglobin 26.4 pg (27.0-31.0); Mean Corpuscular Volume 87.4 fL (78.0-98.0); Mean Platelet Volume 9.8 fL (7.4-10.4); Monocytes 9 % (0-10); Neutrophil 67 % (42-75); Platelet Count 144 thou/uL (130-400); Red Blood Cell (RBC) Count 4.39 mill/uL (4.70-6.10); White Blood Cell (WBC) Count 8.2 thou/uL (4.8-10.8)
[2019-07-22] MEDS: Vancomycin HCl 1 GM in Premix Bag 1 BAG IVPB SCH (09:44)
[2019-07-22] MEDS: levETIRAcetam 500 mg/5 ml Oral Solution PER TUBE SCH ×2 (09:48→20:28)
[2019-07-22] MEDS: Valproic Acid 250 MG CAP PO SCH (09:51)
[2019-07-22] MEDS: Zinc Sulfate 220 MG CAP PER TUBE SCH (09:52)
[2019-07-22] MEDS: Famotidine 20 MG TAB PER TUBE SCH (09:52)
[2019-07-22] MEDS: Lisinopril 20 MG TAB PER TUBE SCH (09:52)
[2019-07-22] MEDS: Carvedilol 6.25 MG TAB PER TUBE SCH ×2 (09:53→20:28)
[2019-07-22] MEDS: Amlodipine 5 MG TAB PER TUBE SCH ×2 (09:53→20:28)
[2019-07-22] MEDS: Hydrocortisone 1% Cream 30 GM TUBE TOP SCH (09:54)
[2019-07-22] MEDS: Ascorbic Acid 500 mg Chewable Tablet PER TUBE SCH (09:54)
[2019-07-22] MEDS: Multivits W-Minerals Liquid 15mL UDCUP PER TUBE SCH (09:54)
[2019-07-22] MEDS: Nystatin Powder 15 GM BOT TOP SCH ×2 (09:55→20:30)
[2019-07-22] MEDS: cefTRIAXone\\ROCEPHIN 2 GM in Sodium Chloride 0.9% 100 ML IVPB SCH (11:39)
[2019-07-22] MEDS: Sodium Chloride 0.9% 1,000 ML IV SCH ×3 (11:47→20:48)
--- NOTE | 2019-07-22 16:28 | PDOC.HOSPP ---
- Subjective Subjective: Seen and examined. Eyes open, tracks around the room. Does not follow commands. Patient is very stiff with flexion contractures from prior CVA. Feeding tube in position and working adequately. Aspiration pneumonia with bacteremia, will repeat blood cultures. EEG to monitor for subclinical seizures. Seborrheic dermatitis of the face, improving per RN. - Objective Vital Signs & Weight: Vital Signs (12 hours) Temp Pulse Resp BP BP Pulse Ox 07/22/19 09:53 70 157/74 H 07/22/19 09:52 150/74 H 07/22/19 08:00 97 07/22/19 07:56 98.4 F 70 16 157/74 H 97 07/22/19 05:37 98.5 F 63 17 144/83 H 96 Weight Admit Weight 183 lb 3 oz Weight 183 lb 3 oz I&O: 07/21/19 07/22/19 07/23/19 06:59 06:59 06:59 Intake Total 3317 3676 30 Output Total 1400 2700 Balance 1917 976 30 Result Diagrams: 07/22/19 04:26 07/21/19 06:02 Additional Labs: Accuchecks 07/22/19 07/22/19 07/21/19 11:36 05:12 20:02 POC Glucose 140 H 140 H 126 H 07/21/19 16:37 POC Glucose 84 Radiology Reviewed by me: Yes (CT head) Hospitalist ROS - Review of Systems All other systems reviewed; all pertinent +/- noted in HPI/Subj - Medication Medications: Active Medications Generic Name Dose Route Start Last Admin Trade Name Freq PRN Reason Stop Dose Admin Ascorbic Acid 500 mg 07/20/19 09:00 07/22/19 09:54 Vitamin C PER TUBE 500 mg DAILY MEI Administration Atorvastatin Calcium 5 mg 07/21/19 04:39 07/21/19 20:30 Lipitor PER TUBE 5 mg HS MEI Administration Carvedilol 12.5 mg 07/19/19 21:00 07/22/19 09:53 Coreg PER TUBE 12.5 mg BID MEI Administration Famotidine 40 mg 07/20/19 09:00 07/22/19 09:52 Pepcid PER TUBE 40 mg DAILY MEI Administration Ferrous Sulfate 300 mg 07/19/19 21:00 07/22/19 09:54 Ferrous Sulfate PER TUBE 300 mg BID MEI Administration Hydralazine HCl 10 mg 07/19/19 11:29 07/21/19 16:44 Apresoline SLOW IVP 10 mg Q4H PRN Administration SBP > 180 and HR < 70 Ceftriaxone Sodium 2 gm/ 100 mls @ 200 mls/hr 07/19/19 11:45 07/22/19 11:39 Sodium Chloride IVPB 100 mls Q24HR MEI Administration Vancomycin HCl 1 gm/ Device 200 mls @ 200 mls/hr 07/19/19 21:00 07/22/19 09: 44 IVPB 200 mls Q12HR MEI Administration Insulin Glargine 12 units/ 0.12 mls @ 0 mls/hr 07/19/19 21:00 07/21/19 20:30 Miscellaneous Medication SC 0.12 mls HS MEI Administration Clindamycin Phosphate/Dextrose 50 mls @ 100 mls/hr 07/20/19 18:00 07/22/19 12 :45 600 mg/ Device IVPB 50 mls Q6HR MEI Administration Sodium Chloride 1,000 mls @ 50 mls/hr 07/22/19 11:49 07/22/19 12:46 Normal Saline 0.9% IV Not Given .Q20H MEI Iron/Minerals/Multivitamins 15 ml 07/20/19 09:00 07/22/19 09:54 Certa Yair Liquid PER TUBE 15 ml DAILY MEI Administration Levetiracetam 600 mg 07/21/19 04:39 07/22/19 09:48 Keppra Oral Solution PER TUBE 600 mg BID MEI Administration Lisinopril 20 mg 07/20/19 09:00 07/22/19 09:52 Zestril PER TUBE 20 mg DAILY MEI Administration Nystatin 0 gm 07/19/19 21:00 07/22/19 09:55 Mycostatin Powder TOP 1 applic BID MEI Administration Ondansetron HCl 4 mg 07/19/19 11:29 07/20/19 10:35 Zofran IVP 4 mg Q6H PRN Administration Nausea/Vomiting Valproic Acid 500 mg 07/19/19 21:00 07/22/19 09:51 Depakene PO 500 mg BID MEI Administration Warfarin Sodium 7.5 mg 07/21/19 17:00 07/21/19 16:26 Coumadin PER TUBE 7.5 mg [id number] MEI Administration Zinc Sulfate 220 mg 10/27/19 09:00 07/22/19 09:52 Zinc Sulfate PER TUBE 220 mg DAILY MEI Administration - Exam General Appearance: ill appearing Eye: anicteric sclera ENT: normocephalic atraumatic, moist mucosa ENT - other findings: Seborrheic dermatitis of the face Neck: supple, symmetric, no lymphadenopathy Heart: no murmur, no gallops, no rubs Respiratory: CTAB, no wheezes, no ronchi Gastrointestinal: soft, non-tender, no guarding, no rigidity Gastrointestinal - other findings: PEG tube in position Extremities: no edema Skin: no lesions, no rashes Neurological: cranial nerve grossly intact, no new deficit. negative: vision deficit (Tracks around the room with eyes) Neurological - other findings: Flexion contractures bilateral upper extremities. Follows no commands. Psychiatric: not oriented, flat affect Hosp A/P (1) Aspiration pneumonia Code(s): J69.0 - PNEUMONITIS DUE TO INHALATION OF FOOD AND VOMIT Status: Acute (2) Streptococcal bacteremia Code(s): R78.81 - BACTEREMIA; B95.5 - UNSP STREPTOCOCCUS THE CAUSE OF DISEASES CLASSD ELSWHR Status: Acute (3) Dysphagia Code(s): R13.10 - DYSPHAGIA, UNSPECIFIED Status: Chronic Qualifiers: Dysphagia type: oropharyngeal phase Qualified Code(s): R13.12 - Dysphagia, oropharyngeal phase (4) Encephalopathy, metabolic Code(s): G93.41 - METABOLIC ENCEPHALOPATHY Status: Acute (5) Uncontrolled hypertension Code(s): I10 - ESSENTIAL (PRIMARY) HYPERTENSION Status: Acute (6) Chronic anticoagulation Code(s): Z79.01 - HIGH SCALER (CURRENT) USE OF ANTICOAGULANTS Status: Chronic (7) Chronic hypoxic-ischemic brain injury Code(s): I67.82 - CEREBRAL ISCHEMIA; G93.1 - ANOXIC BRAIN DAMAGE, NOT ELSEWHERE CLASSIFIED Status: Chronic (8) Diabetes mellitus Code(s): E11.9 - TYPE 2 DIABETES MELLITUS WITHOUT COMPLICATIONS Status: Chronic (9) PEG (percutaneous endoscopic gastrostomy) status Code(s): Z93.1 - GASTROSTOMY STATUS Status: Chronic (10) Seizure Code(s): R56.9 - UNSPECIFIED CONVULSIONS Status: Chronic - Plan Plan: medical unit consider neurology consultation EEG to evaluate for subclinical seizure Keppra level patient on Keppra and valproic acid for antiepileptic control seizure precautions Ativan 2 mg PRN seizure concerning the patient's bacteremia: Streptococcus pneumoniae a with subspecies mitis/ oralis - on one out of two blood cultures repeat blood cultures to ensure sterilization of the blood patient on broad-spectrum antibiotics which have been clinically improving his condition as there is no MRSA colonization or culture data with MRSA, we can d/c vancomycin Afebrile for past 48 hours Add probiotic therapy I adjusted blood pressure medications Blood sugar control, long and short acting insulin for glucose control Tube feedings, increase free water flush in tube feeding Decrease rate of IV fluids, will D/c tomorrow after tube feedings corrected nystatin/triamcinolone for seborrheic dermatitis of the face continue other home medications as able
[2019-07-22] MEDS: Warfarin Sodium 10 MG TAB PER TUBE SCH (17:23)
[2019-07-22] MEDS ORDERED: Valproate Sodium 1,500 MG in Sodium Chloride 0.9% 100 ML IVPB SCH (17:45)
[2019-07-22] MEDS: Floranex Packet PER TUBE SCH (20:27)
[2019-07-22] MEDS: Nystatin/Triamcinolone Cream 15 GM TUBE TOP SCH (20:27)
[2019-07-22] MEDS: Insulin Glargine 12 UNITS in Pre-Filled Syringe 1 EACH SC SCH (20:29)
[2019-07-22] MEDS: Atorvastatin Calcium 10 MG TAB PER TUBE SCH (20:29)
[2019-07-23] MEDS: Clindamycin/D5W 600 MG in Premix Bag 1 BAG IVPB SCH ×4 (00:11→17:16)
[2019-07-23] MEDS: Floranex Packet PER TUBE SCH ×2 (08:48→21:36)
[2019-07-23] MEDS: Carvedilol 6.25 MG TAB PER TUBE SCH ×2 (08:49→21:37)
[2019-07-23] MEDS: Ascorbic Acid 500 mg Chewable Tablet PER TUBE SCH (08:49)
[2019-07-23] MEDS: Famotidine 20 MG TAB PER TUBE SCH (08:49)
[2019-07-23] MEDS: Lisinopril 20 MG TAB PER TUBE SCH (08:50)
[2019-07-23] MEDS: Zinc Sulfate 220 MG CAP PER TUBE SCH (08:50)
[2019-07-23] MEDS: levETIRAcetam 500 mg/5 ml Oral Solution PER TUBE SCH (09:04)
[2019-07-23] MEDS: Nystatin Powder 15 GM BOT TOP SCH ×2 (09:04→21:38)
[2019-07-23] MEDS: Multivits W-Minerals Liquid 15mL UDCUP PER TUBE SCH (09:04)
[2019-07-23] MEDS: Valproate Sodium 1,500 MG in Sodium Chloride 0.9% 100 ML IVPB SCH ×2 (09:04→21:29)
[2019-07-23] MEDS: Nystatin/Triamcinolone Cream 15 GM TUBE TOP SCH ×2 (09:05→21:38)
[2019-07-23] MEDS: Amlodipine 5 MG TAB PER TUBE SCH ×2 (09:05→21:36)
--- NOTE | 2019-07-23 12:00 | CON ---
DATE OF TELEMEDICINE CONSULTATION: 07/23/2019 CHIEF COMPLAINT: Possible seizures and altered mental status. HISTORY OF PRESENT ILLNESS: The patient is unable to give any medical history based on the admitting physician's request for consultation. The patient was thought to have stiffening of the whole body and altered mental status and presence of prior contractures, and we were called to consult on possible seizures and the patient is from a nursing facility and he is from [facility] in [place], [place], and nursing staff noted seizure-like activity. He is normally alert and track with his eyes and staff noted decreased responsiveness, and the patient has history of Soledad spotted fever and encephalitis. The patient also is receiving tube feeds. He was admitted in August 2018 for similar presentation. He is nonverbal. CT of the head was negative for acute in process and the diagnosis at this time is whether he has aspiration pneumonia and he is being given vancomycin and Rocephin. 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 PAST SURGICAL HISTORY: He has PEG tube placement and abscess drainage of the abdominal wall in May 2019. MEDICATIONS: At the facility include; 1. Amlodipine. 2. Arginine powder. 3. Ascorbic acid. 4. Carvedilol. 5. Pepcid. 6. Lantus insulin. 7. Keppra 600 mg b.i.d. 8. Lisinopril. 9. Multivitamin. 10. Valproic acid 500 mg b.i.d. 11. Coumadin. 12. Zinc sulfate. 13. Lipitor. 14. Dulcolax. 15. Ferrous sulfate. ALLERGIES: NO KNOWN DRUG ALLERGIES. FAMILY HISTORY: Per chart, father is and mother has hypertension. SOCIAL HISTORY: He lives in a nursing facility and he is full care. REVIEW OF SYSTEMS: Unobtainable. LABORATORY DATA: White count 8.2, hemoglobin 11.6, hematocrit 38.3, and platelet count 144. Coagulation PT 25.2. INR 2.3. Chemistry; sodium 139, potassium 4.1 , chloride 107, bicarb 26, BUN 13, creatinine 0.84, glucose 128, and calcium 8.9; and he did have CSF studies on 07/19/2019 showed normal glucose, high protein at 88 , and colorless clear fluid. 59 RBCs, 5 nucleated cells. Depakote level 23.4, Keppra level 17.9. IMAGING STUDIES: His CT has been performed. CT scan from 07/19/2019 showed no intracranial hemorrhage. There is decreased attenuation in the periventricular white matter, likely from microvascular disease, old infarct in the right posterior parietal region, and no acute infarct. MRI could be most sensitive. PHYSICAL EXAMINATION: VITAL SIGNS: Temperature 97.5, pulse 67, and blood pressure 144/84. GENERAL APPEARANCE: Well-built, well-nourished man, who seems to be comfortable in bed. HEENT: He is looking, and after being stimulated, he was able to track RN, Candelario Chand, when he went back to check on. His eyes were open, does track, but has threat response. EXTREMITIES: He has contracture in the right elbow and the left hand. Has increased tone in all extremities. He has atrophy of the muscles in lower extremities. Rest of motor response is withdrawal in right lower extremities with stimulus. He also had some spontaneous movement of the left foot. Sensory/cerebellar unable to examine. IMPRESSION AND RECOMMENDATIONS: The patient is a 53-year-old man with history of encephalitis and CVA. CSF studies seem to be unremarkable at this time. His cultures are negative so far other than Streptococcus in his blood from 07/19/2019. He is on antibiotics as well for possible pneumonia. 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 He seems to be tracking. I did not observe any seizure activity. He is on Keppra, but we can increase the dose to 1000 mg b.i.d. 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 Job ID: [id number] [facility]
[2019-07-23] MEDS: cefTRIAXone\\ROCEPHIN 2 GM in Sodium Chloride 0.9% 100 ML IVPB SCH (12:17)
--- NOTE | 2019-07-23 14:52 | PDOC.HOSPP ---
- Subjective Subjective: Seen and examined. Patient's eyes open and does track around the room to the right, though he will not look to the left. The patient follows no commands. The patient has flexion contractures in the upper extremity. Patient will not open his mouth. I was paged yesterday in the afternoon about seizure activity, valproic acid level was found to be subtherapeutic. I ordered and EEG and increased the valproic acid. Neurology consultation requested for further recommendations. - Objective Vital Signs & Weight: Vital Signs (12 hours) Temp Pulse Resp BP BP Pulse Ox 07/23/19 11:00 98.3 F 62 18 167/93 H 95 07/23/19 09:05 144/84 H 07/23/19 08:50 144/84 H 07/23/19 08:49 144/84 H 07/23/19 08:40 96 07/23/19 08:00 97.5 F L 67 20 144/84 H 96 07/23/19 03:00 98.4 F 64 17 151/85 H 96 Weight Admit Weight 183 lb 3 oz Weight 183 lb 3 oz I&O: 07/22/19 07/23/19 07/24/19 06:59 06:59 06:59 Intake Total 3676 3053 30 Output Total 2700 2100 Balance 976 953 30 Result Diagrams: 07/22/19 04:26 07/21/19 06:02 Additional Labs: Accuchecks 07/23/19 07/23/19 07/22/19 11:54 05:20 20:22 POC Glucose 101 102 126 H 07/22/19 07/20/19 16:22 05:28 POC Glucose 93 114 H Radiology Reviewed by me: Yes (CT head) Hospitalist ROS - Review of Systems ROS unobtainable: due to mental status - Medication Medications: Active Medications Generic Name Dose Route Start Last Admin Trade Name Freq PRN Reason Stop Dose Admin Acidophilus 1 gm 07/22/19 21:00 07/23/19 08:48 Floranex PER TUBE 1 gm BID MEI Administration Amlodipine Besylate 5 mg 07/22/19 21:00 07/23/19 09:05 Norvasc PER TUBE Not Given BID MEI Ascorbic Acid 500 mg 07/20/19 09:00 07/23/19 08:49 Vitamin C PER TUBE 500 mg DAILY MEI Administration Atorvastatin Calcium 5 mg 07/21/19 04:39 07/22/19 20:29 Lipitor PER TUBE 5 mg HS MEI Administration Carvedilol 12.5 mg 07/19/19 21:00 07/23/19 08:49 Coreg PER TUBE 12.5 mg BID MEI Administration Famotidine 40 mg 07/20/19 09:00 07/23/19 08:49 Pepcid PER TUBE 40 mg DAILY MEI Administration Ferrous Sulfate 300 mg 07/19/19 21:00 07/23/19 08:49 Ferrous Sulfate PER TUBE 300 mg BID MEI Administration Hydralazine HCl 10 mg 07/19/19 11:29 07/21/19 16:44 Apresoline SLOW IVP 10 mg Q4H PRN Administration SBP > 180 and HR < 70 Ceftriaxone Sodium 2 gm/ 100 mls @ 200 mls/hr 07/19/19 11:45 07/23/19 12:17 Sodium Chloride IVPB 100 mls Q24HR MEI Administration Insulin Glargine 12 units/ 0.12 mls @ 0 mls/hr 07/19/19 21:00 07/22/19 20:29 Miscellaneous Medication SC 0.12 mls HS MEI Administration Clindamycin Phosphate/Dextrose 50 mls @ 100 mls/hr 07/20/19 18:00 07/23/19 13 :14 600 mg/ Device IVPB 50 mls Q6HR MEI Administration Sodium Chloride 1,000 mls @ 50 mls/hr 07/22/19 11:49 07/22/19 20:48 Normal Saline 0.9% IV 1,000 mls .Q20H MEI Administration Valproic Acid 1,500 mg/ Sodium 115 mls @ 100 mls/hr 07/23/19 09:00 07/23/19 09:04 Chloride IVPB 115 mls BID MEI Administration Iron/Minerals/Multivitamins 15 ml 07/20/19 09:00 07/23/19 09:04 Certa Yair Liquid PER TUBE 15 ml DAILY MEI Administration Levetiracetam 600 mg 07/21/19 04:39 07/23/19 09:04 Keppra Oral Solution PER TUBE 600 mg BID MEI Administration Lisinopril 20 mg 07/20/19 09:00 07/23/19 08:50 Zestril PER TUBE 20 mg DAILY MEI Administration Lorazepam 1 mg 07/19/19 11:29 07/22/19 17:25 Ativan SLOW IVP 1 mg Q4H PRN Administration Seizures Nystatin 0 gm 07/19/19 21:00 07/23/19 09:04 Mycostatin Powder TOP 1 applic BID MEI Administration Nystatin/Triamcinolone Acetonide 1 gm 07/22/19 21:00 07/23/19 09:05 Mycogen Ii Cream TOP 1 applic BID MEI Administration Ondansetron HCl 4 mg 07/19/19 11:29 07/20/19 10:35 Zofran IVP 4 mg Q6H PRN Administration Nausea/Vomiting Warfarin Sodium 7.5 mg 07/21/19 17:00 07/21/19 16:26 Coumadin PER TUBE 7.5 mg [email or web address] MEI Administration Warfarin Sodium 10 mg 07/22/19 17:00 07/22/19 17:23 Coumadin PER TUBE 10 mg [email or web address] MEI Administration Zinc Sulfate 220 mg 07/20/19 09:00 07/23/19 08:50 Zinc Sulfate PER TUBE 220 mg DAILY MEI Administration - Exam General Appearance: ill appearing Eye: PERRL ENT: normocephalic atraumatic, moist mucosa Neck: supple, symmetric, no JVD, no lymphadenopathy Heart: RRR, no murmur, no gallops, no rubs Respiratory: no rales, normal chest expansion, no tachypnea, rhonchi, wheezes Respiratory - other findings: Few faint lower lung field rhonchorus breath sounds with mild wheezing Gastrointestinal: soft, non-tender, no guarding, no rigidity Gastrointestinal - other findings: PEG tube in position Skin - other findings: Seborrheic dermatitis on face with dry white scales with erythema on face Neurological: no new deficit Neurological - other findings: Stiff flexion contractures. Follows no commands. Tracks with eyes Musculoskeletal: diffuse muscle atrophy Psychiatric: not oriented, flat affect Hosp A/P (1) Aspiration pneumonia Code(s): J69.0 - PNEUMONITIS DUE TO INHALATION OF FOOD AND VOMIT Status: Acute (2) Streptococcal bacteremia Code(s): R78.81 - BACTEREMIA; B95.5 - UNSP STREPTOCOCCUS THE CAUSE OF DISEASES CLASSD ELSWHR Status: Acute (3) Dysphagia Code(s): R13.10 - DYSPHAGIA, UNSPECIFIED Status: Chronic Qualifiers: Dysphagia type: oropharyngeal phase Qualified Code(s): R13.12 - Dysphagia, oropharyngeal phase (4) Encephalopathy, metabolic Code(s): G93.41 - METABOLIC ENCEPHALOPATHY Status: Acute (5) Uncontrolled hypertension Code(s): I10 - ESSENTIAL (PRIMARY) HYPERTENSION Status: Acute (6) Chronic anticoagulation Code(s): Z79.01 - [facility] (CURRENT) USE OF ANTICOAGULANTS Status: Chronic (7) Chronic hypoxic-ischemic brain injury Code(s): I67.82 - CEREBRAL ISCHEMIA; G93.1 - ANOXIC BRAIN DAMAGE, NOT ELSEWHERE CLASSIFIED Status: Chronic (8) Diabetes mellitus Code(s): E11.9 - TYPE 2 DIABETES MELLITUS WITHOUT COMPLICATIONS Status: Chronic (9) PEG (percutaneous endoscopic gastrostomy) status Code(s): Z93.1 - GASTROSTOMY STATUS Status: Chronic (10) Seizure Code(s): R56.9 - UNSPECIFIED CONVULSIONS Status: Acute - Plan Plan: medical unit neurology consultation, Recommendations appreciated valproic acid found to be subtherapeutic dose increased Keppra dose increased EEG report pending Keppra level seizure precautions Ativan 1 mg PRN seizure MRI brain pending concerning the patient's bacteremia: Streptococcus pneumoniae a with subspecies mitis/ oralis - on one out of two blood cultures repeat blood cultures to ensure sterilization of the blood patient on broad-spectrum antibiotics which have been clinically improving his condition as there is no MRSA colonization or culture data with MRSA, we can d/c vancomycin Afebrile for past 48 hours Add probiotic therapy I adjusted blood pressure medications Blood sugar control, long and short acting insulin for glucose control Tube feedings, increased free water flush in tube feeding D/c IV fluids nystatin/triamcinolone for seborrheic dermatitis of the face continue other home medications as able
--- NOTE | 2019-07-23 15:25 | MRI ---
Exam: Brain MRI without contrast HISTORY: Altered mental status. Eval for CVA. COMPARISON: 04/24/2017 FINDINGS: Calvarial marrow signal intensity: Appropriate T1 signal Gradient echo sequence: No hemorrhage Brain parenchyma: Expected evolutionary changes of leukomalacia and gliosis involving the right cereb rum compatible with a posterior right MCA distribution infarct. Remainder the cerebrum demonstrates preservation of cortical delacruz-white matter differentiation. Diffuse cerebral atrophy, greater than ex pected for patient's age. Confluent T2 and FLAIR white matter hyperintensities, which have developed since the examination. Restricted diffusion: Central arterial flow voids are maintained. Absent restricted diffusion Sinuses: Adequate aeration of the paranasal sinuses and mastoid air cells. IMPRESSION: 1. Expected evolutionary changes with malacia and gliosis due to a remote posterior right MCA distrib ution infarct. 2. Atrophy, greater than expected for patient's age 3. Confluent T2 and FLAIR white matter hyperintensities since the previous examination. Findings may be due to chronic small vessel ischemic changes white matter. Additional etiologies cannot be excluded. Further evaluation with postcontrast imaging may be beneficial. CODE T
[2019-07-23] MEDS: Warfarin Sodium 7.5 MG TAB PER TUBE SCH (17:11)
[2019-07-23] MEDS: levETIRAcetam In NaCl (Iso-Os) 1,000 MG in Premix Bag 1 BAG IVPB SCH (20:42)
[2019-07-23] MEDS: Atorvastatin Calcium 10 MG TAB PER TUBE SCH (21:37)
[2019-07-23] MEDS: Insulin Glargine 12 UNITS in Pre-Filled Syringe 1 EACH SC SCH (21:37)
[2019-07-24] MEDS: Clindamycin/D5W 600 MG in Premix Bag 1 BAG IVPB SCH ×5 (00:15→23:57)
[2019-07-24 05:43] LABS: INR-International Normal Ratio 3.5
[2019-07-24] MEDS: Multivits W-Minerals Liquid 15mL UDCUP PER TUBE SCH (09:30)
[2019-07-24] MEDS: Famotidine 20 MG TAB PER TUBE SCH (09:30)
[2019-07-24] MEDS: Floranex Packet PER TUBE SCH ×2 (09:30→20:45)
[2019-07-24] MEDS: Lisinopril 20 MG TAB PER TUBE SCH (09:30)
[2019-07-24] MEDS: Carvedilol 6.25 MG TAB PER TUBE SCH (09:31)
[2019-07-24] MEDS: Ascorbic Acid 500 mg Chewable Tablet PER TUBE SCH (09:31)
[2019-07-24] MEDS: Zinc Sulfate 220 MG CAP PER TUBE SCH (09:31)
[2019-07-24] MEDS: Amlodipine 5 MG TAB PER TUBE SCH ×2 (09:31→20:47)
[2019-07-24] MEDS: Nystatin/Triamcinolone Cream 15 GM TUBE TOP SCH ×2 (09:32→20:48)
[2019-07-24] MEDS: Nystatin Powder 15 GM BOT TOP SCH ×2 (09:32→20:48)
[2019-07-24] MEDS: Valproate Sodium 1,500 MG in Sodium Chloride 0.9% 100 ML IVPB SCH ×2 (09:32→20:47)
[2019-07-24] MEDS: levETIRAcetam In NaCl (Iso-Os) 1,000 MG in Premix Bag 1 BAG IVPB SCH ×2 (10:23→20:42)
[2019-07-24] MEDS ORDERED: Gadobenate Dimeglumine 529 MG/1 ML (20ML VIAL) ONE (12:00)
[2019-07-24] MEDS: cefTRIAXone\\ROCEPHIN 2 GM in Sodium Chloride 0.9% 100 ML IVPB SCH (14:24)
--- NOTE | 2019-07-24 16:23 | MRI ---
MRI BRAIN WITH IV CONTRAST: HISTORY: Altered mental status. CORRELATION: Noncontrast study from the previous day. FINDINGS: No abnormal post contrast enhancement is seen. Findings are consistent with chronic small vessel isch emic disease in the periventricular white matter. The posterior right MCA distribution infarct appear s old. IMPRESSION: No evidence of post contrast enhancement. Please see above. This study was interpreted in consultation with Dr. Elliott Jones (neuroradiologist) who concurs. POS: CELESTE
[2019-07-24] MEDS: Warfarin Sodium 10 MG TAB PER TUBE SCH (17:32)
--- NOTE | 2019-07-24 17:43 | PDOC.HOSPP ---
- Subjective Subjective: Seen and examined. Discuss case with nursing staff. No acute overnight events. MRI brain noted. No further overt seizure activity. Neurology on case. Blood pressure elevated, adjusting medications. Appears in no distress today and more comfortable resting in bed. - Objective Vital Signs & Weight: Vital Signs (12 hours) Temp Pulse Resp BP BP Pulse Ox 07/24/19 09:31 73 182/92 H 07/24/19 09:30 182/92 H 07/24/19 08:00 98.8 F 73 18 182/92 H 95 Weight Admit Weight 183 lb 3 oz Weight 183 lb 3 oz I&O: 07/23/19 07/24/19 07/25/19 06:59 06:59 06:59 Intake Total 3053 2445 280 Output Total 2100 1725 1000 Balance 953 720 -720 Result Diagrams: 07/22/19 04:26 07/21/19 06:02 Additional Labs: Accuchecks 07/24/19 07/24/19 07/24/19 16:57 12:18 04:31 POC Glucose 82 96 106 07/23/19 20:08 POC Glucose 120 H Radiology Reviewed by me: Yes (MRI brain - Old CVA) Hospitalist ROS - Review of Systems ROS unobtainable: due to mental status - Medication Medications: Active Medications Generic Name Dose Route Start Last Admin Trade Name Freq PRN Reason Stop Dose Admin Acetaminophen 650 mg 07/21/19 04:38 07/23/19 21:39 Tylenol Elixir PER TUBE 650 mg Q6H PRN Administration Pain Acidophilus 1 gm 07/22/19 21:00 07/24/19 09:30 Floranex PER TUBE 1 gm BID MEI Administration Amlodipine Besylate 5 mg 07/22/19 21:00 07/24/19 09:31 Norvasc PER TUBE 5 mg BID MEI Administration Ascorbic Acid 500 mg 07/20/19 09:00 07/24/19 09:31 Vitamin C PER TUBE 500 mg DAILY MEI Administration Atorvastatin Calcium 5 mg 07/21/19 04:39 07/23/19 21:37 Lipitor PER TUBE 5 mg HS MEI Administration Famotidine 40 mg 07/20/19 09:00 07/24/19 09:30 Pepcid PER TUBE 40 mg DAILY MEI Administration Ferrous Sulfate 300 mg 07/19/19 21:00 07/24/19 09:31 Ferrous Sulfate PER TUBE 300 mg BID MEI Administration Hydralazine HCl 10 mg 07/19/19 11:29 07/21/19 16:44 Apresoline SLOW IVP 10 mg Q4H PRN Administration SBP > 180 and HR < 70 Ceftriaxone Sodium 2 gm/ 100 mls @ 200 mls/hr 07/19/19 11:45 07/24/19 14:24 Sodium Chloride IVPB 100 mls Q24HR MEI Administration Insulin Glargine 12 units/ 0.12 mls @ 0 mls/hr 07/19/19 21:00 07/23/19 21:37 Miscellaneous Medication SC 0.12 mls HS MEI Administration Clindamycin Phosphate/Dextrose 50 mls @ 100 mls/hr 07/20/19 18:00 07/24/19 14 :22 600 mg/ Device IVPB 50 mls Q6HR MEI Administration Valproic Acid 1,500 mg/ Sodium 115 mls @ 100 mls/hr 07/23/19 09:00 07/24/19 09:32 Chloride IVPB 115 mls BID MEI Administration Levetiracetam 1,000 mg/ Device 100 mls @ 200 mls/hr 07/23/19 21:00 07/24/19 10:23 IVPB 100 mls BID MEI Administration Iron/Minerals/Multivitamins 15 ml 07/20/19 09:00 07/24/19 09:30 Certa Yair Liquid PER TUBE 15 ml DAILY MEI Administration Lisinopril 20 mg 07/20/19 09:00 07/24/19 09:30 Zestril PER TUBE 20 mg DAILY MEI Administration Lorazepam 1 mg 07/19/19 11:29 07/22/19 17:25 Ativan SLOW IVP 1 mg Q4H PRN Administration Seizures Nystatin 0 gm 07/19/19 21:00 07/24/19 09:32 Mycostatin Powder TOP 1 applic BID MEI Administration Nystatin/Triamcinolone Acetonide 1 gm 07/22/19 21:00 07/24/19 09:32 Mycogen Ii Cream TOP 1 applic BID MEI Administration Ondansetron HCl 4 mg 07/19/19 11:29 07/20/19 10:35 Zofran IVP 4 mg Q6H PRN Administration Nausea/Vomiting Warfarin Sodium 7.5 mg 07/21/19 17:00 07/23/19 17:11 Coumadin PER TUBE 7.5 mg [email or web address] [facility] Administration Warfarin Sodium 10 mg 07/22/19 17:00 07/24/19 17:32 Coumadin PER TUBE Not Given [email or web address] [facility] Zinc Sulfate 220 mg 07/20/19 09:00 07/24/19 09:31 Zinc Sulfate PER TUBE 220 mg DAILY MEI Administration - Exam General Appearance: NAD Eye: PERRL ENT: normocephalic atraumatic, moist mucosa Neck: supple, symmetric, no lymphadenopathy Heart: RRR, no murmur, no gallops, no rubs Respiratory: CTAB, no rales, no ronchi, normal chest expansion, wheezes ( improving) Gastrointestinal: soft, non-tender, non-distended, no guarding, no rigidity Gastrointestinal - other findings: PEG in position Extremities: no edema Skin - other findings: Seborrhea on face improving Neurological: no new deficit Neurological - other findings: Eyes open, track in room, follows no commands. Rigid flexion contractures Musculoskeletal: diffuse muscle atrophy Psychiatric: not oriented, flat affect Hosp A/P (1) Aspiration pneumonia Code(s): J69.0 - PNEUMONITIS DUE TO INHALATION OF FOOD AND VOMIT Status: Acute (2) Streptococcal bacteremia Code(s): R78.81 - BACTEREMIA; B95.5 - UNSP STREPTOCOCCUS THE CAUSE OF DISEASES CLASSD ELSWHR Status: Acute (3) Dysphagia Code(s): R13.10 - DYSPHAGIA, UNSPECIFIED Status: Chronic Qualifiers: Dysphagia type: oropharyngeal phase Qualified Code(s): R13.12 - Dysphagia, oropharyngeal phase (4) Encephalopathy, metabolic Code(s): G93.41 - METABOLIC ENCEPHALOPATHY Status: Acute (5) Uncontrolled hypertension Code(s): I10 - ESSENTIAL (PRIMARY) HYPERTENSION Status: Acute (6) Chronic anticoagulation Code(s): Z79.01 - [facility] (CURRENT) USE OF ANTICOAGULANTS Status: Chronic (7) Chronic hypoxic-ischemic brain injury Code(s): I67.82 - CEREBRAL ISCHEMIA; G93.1 - ANOXIC BRAIN DAMAGE, NOT ELSEWHERE CLASSIFIED Status: Chronic (8) Diabetes mellitus Code(s): E11.9 - TYPE 2 DIABETES MELLITUS WITHOUT COMPLICATIONS Status: Chronic (9) PEG (percutaneous endoscopic gastrostomy) status Code(s): Z93.1 - GASTROSTOMY STATUS Status: Chronic (10) Seizure Code(s): R56.9 - UNSPECIFIED CONVULSIONS Status: Acute - Plan Plan: medical unit neurology consultation, Recommendations appreciated AED per neurology Continue Salazar valproic acid MRI brain noted, no acute intracranial pathology - old CVA identified EEG report pending seizure precautions Ativan 1 mg PRN seizure MRI brain pending concerning the patient's bacteremia: Streptococcus pneumoniae a with subspecies mitis/ oralis - on one out of two blood cultures repeat blood cultures to ensure sterilization of the blood patient on broad-spectrum antibiotics which have been clinically improving his condition as there is no MRSA colonization or culture data with MRSA, we can d/c vancomycin Afebrile Continue probiotic therapy Again adjusting blood pressure medications Blood sugar control, long and short acting insulin for glucose control Tube feedings, increased free water flush in tube feeding D/c IV fluids nystatin/triamcinolone for seborrheic dermatitis of the face continue other home medications as able
[2019-07-24] MEDS: Atorvastatin Calcium 10 MG TAB PER TUBE SCH (20:45)
[2019-07-24] MEDS: Carvedilol 25 MG TAB PER TUBE SCH (20:46)
[2019-07-24] MEDS: Insulin Glargine 10 UNITS in Pre-Filled Syringe SC SCH (20:49)
[2019-07-25] MEDS: Clindamycin/D5W 600 MG in Premix Bag 1 BAG IVPB SCH ×4 (05:41→23:01)
[2019-07-25 06:03] LABS: INR-International Normal Ratio 2.5; Prothrombin Time 26.7 SEC (12.0-14.7)
[2019-07-25] MEDS: levETIRAcetam In NaCl (Iso-Os) 1,000 MG in Premix Bag 1 BAG IVPB SCH (08:44)
[2019-07-25] MEDS: Lisinopril 20 MG TAB PER TUBE SCH (08:47)
[2019-07-25] MEDS: Zinc Sulfate 220 MG CAP PER TUBE SCH (08:48)
[2019-07-25] MEDS: Famotidine 20 MG TAB PER TUBE SCH (08:48)
[2019-07-25] MEDS: Floranex Packet PER TUBE SCH ×2 (08:48→21:37)
[2019-07-25] MEDS: Amlodipine 5 MG TAB PER TUBE SCH ×2 (08:48→21:37)
[2019-07-25] MEDS: Ascorbic Acid 500 mg Chewable Tablet PER TUBE SCH (08:48)
[2019-07-25] MEDS: Carvedilol 25 MG TAB PER TUBE SCH ×2 (08:48→21:36)
[2019-07-25] MEDS: Nystatin/Triamcinolone Cream 15 GM TUBE TOP SCH ×2 (08:49→21:38)
[2019-07-25] MEDS: Nystatin Powder 15 GM BOT TOP SCH ×2 (08:50→21:38)
[2019-07-25] MEDS: Valproate Sodium 1,500 MG in Sodium Chloride 0.9% 100 ML IVPB SCH (08:50)
[2019-07-25] MEDS: Multivits W-Minerals Liquid 15mL UDCUP PER TUBE SCH (11:19)
[2019-07-25] MEDS: cefTRIAXone\\ROCEPHIN 2 GM in Sodium Chloride 0.9% 100 ML IVPB SCH (11:19)
--- NOTE | 2019-07-25 14:16 | PDOC.HOSPP ---
- Subjective Subjective: Seen and examined. Getting cleaned and changed this AM. Skin breakdown on gluteal is mild and superficial - present on admission DTI stage 1. Being dressed by RN. I am told that patient was laughing when his family was in the room with him. He continues to be non verbal for me, follows no commands. No seizures overnight. Will transition to oral AED. - Objective Vital Signs & Weight: Vital Signs (12 hours) Temp Pulse Resp BP BP Pulse Ox 07/25/19 08:48 79 137/86 07/25/19 08:47 137/86 07/25/19 08:00 98.3 F 60 18 137/86 97 Weight Admit Weight 183 lb 3 oz Weight 183 lb 3 oz I&O: 07/24/19 07/25/19 07/26/19 06:59 06:59 06:59 Intake Total 2445 4551 Output Total 1725 1450 Balance 720 3101 Result Diagrams: 07/22/19 04:26 07/21/19 06:02 Additional Labs: Accuchecks 07/25/19 07/25/19 07/24/19 10:50 04:42 19:46 POC Glucose 106 132 H 119 H 07/24/19 16:57 POC Glucose 82 Hospitalist ROS - Review of Systems All other systems reviewed; all pertinent +/- noted in HPI/Subj - Medication Medications: Active Medications Generic Name Dose Route Start Last Admin Trade Name Freq PRN Reason Stop Dose Admin Acetaminophen 650 mg 07/21/19 04:38 07/23/19 21:39 Tylenol Elixir PER TUBE 650 mg Q6H PRN Administration Pain Acidophilus 1 gm 07/22/19 21:00 07/25/19 08:48 Floranex PER TUBE 1 gm BID MEI Administration Amlodipine Besylate 5 mg 07/22/19 21:00 07/25/19 08:48 Norvasc PER TUBE 5 mg BID MEI Administration Ascorbic Acid 500 mg 07/20/19 09:00 07/25/19 08:48 Vitamin C PER TUBE 500 mg DAILY MEI Administration Atorvastatin Calcium 5 mg 07/21/19 04:39 07/24/19 20:45 Lipitor PER TUBE 5 mg HS MEI Administration Carvedilol 25 mg 07/24/19 21:00 07/25/19 08:48 Coreg PER TUBE 25 mg BID MEI Administration Famotidine 40 mg 07/20/19 09:00 07/25/19 08:48 Pepcid PER TUBE 40 mg DAILY MEI Administration Ferrous Sulfate 300 mg 07/19/19 21:00 07/25/19 08:48 Ferrous Sulfate PER TUBE 300 mg BID MEI Administration Hydralazine HCl 10 mg 07/19/19 11:29 07/21/19 16:44 Apresoline SLOW IVP 10 mg Q4H PRN Administration SBP > 180 and HR < 70 Ceftriaxone Sodium 2 gm/ 100 mls @ 200 mls/hr 07/19/19 11:45 07/25/19 11:19 Sodium Chloride IVPB 100 mls Q24HR MEI Administration Clindamycin Phosphate/Dextrose 50 mls @ 100 mls/hr 07/20/19 18:00 07/25/19 11 :21 600 mg/ Device IVPB 50 mls Q6HR MEI Administration Valproic Acid 1,500 mg/ Sodium 115 mls @ 100 mls/hr 07/23/19 09:00 07/25/19 08:50 Chloride IVPB 115 mls BID MEI Administration Levetiracetam 1,000 mg/ Device 100 mls @ 200 mls/hr 07/23/19 21:00 07/25/19 08:44 IVPB 100 mls BID MEI Administration Insulin Glargine 10 units/ 0.1 mls @ 1 mls/hr 07/24/19 21:00 07/24/19 20:49 Miscellaneous Medication SC 0.1 mls HS MEI Administration Iron/Minerals/Multivitamins 15 ml 07/20/19 09:00 07/25/19 11:19 Certa Yair Liquid PER TUBE 15 ml DAILY MEI Administration Lisinopril 20 mg 07/20/19 09:00 07/25/19 08:47 Zestril PER TUBE 20 mg DAILY MEI Administration Lorazepam 1 mg 07/19/19 11:29 07/22/19 17:25 Ativan SLOW IVP 1 mg Q4H PRN Administration Seizures Nystatin 0 gm 07/19/19 21:00 07/25/19 08:50 Mycostatin Powder TOP 1 applic BID MEI Administration Nystatin/Triamcinolone Acetonide 1 gm 07/22/19 21:00 07/25/19 08:49 Mycogen Ii Cream TOP 1 applic BID MEI Administration Ondansetron HCl 4 mg 07/19/19 11:29 07/20/19 10:35 Zofran IVP 4 mg Q6H PRN Administration Nausea/Vomiting Zinc Sulfate 220 mg 07/20/19 09:00 07/25/19 08:48 Zinc Sulfate PER TUBE 220 mg DAILY MEI Administration - Exam General Appearance: NAD Eye: PERRL, anicteric sclera ENT: normocephalic atraumatic, moist mucosa Neck: supple, no lymphadenopathy Heart: RRR, no murmur, no gallops, no rubs Respiratory: CTAB, no wheezes, no rales, no ronchi, normal chest expansion Gastrointestinal: soft, non-tender, no guarding, no rigidity Extremities: no edema Skin - other findings: Stage 1 DTI on bilateral buttocks - present on admission. See wound care Neurological: cranial nerve grossly intact, normal sensation to touch, no new deficit Musculoskeletal: generalized weakness Psychiatric: not oriented, flat affect Hosp A/P (1) Aspiration pneumonia Code(s): J69.0 - PNEUMONITIS DUE TO INHALATION OF FOOD AND VOMIT Status: Acute (2) Streptococcal bacteremia Code(s): R78.81 - BACTEREMIA; B95.5 - UNSP STREPTOCOCCUS THE CAUSE OF DISEASES CLASSD ELSWHR Status: Acute (3) Dysphagia Code(s): R13.10 - DYSPHAGIA, UNSPECIFIED Status: Chronic Qualifiers: Dysphagia type: oropharyngeal phase Qualified Code(s): R13.12 - Dysphagia, oropharyngeal phase (4) Encephalopathy, metabolic Code(s): G93.41 - METABOLIC ENCEPHALOPATHY Status: Acute (5) Uncontrolled hypertension Code(s): I10 - ESSENTIAL (PRIMARY) HYPERTENSION Status: Acute (6) Chronic anticoagulation Code(s): 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 Status: Chronic (7) Chronic hypoxic-ischemic brain injury Code(s): I67.82 - CEREBRAL ISCHEMIA; G93.1 - ANOXIC BRAIN DAMAGE, NOT ELSEWHERE CLASSIFIED Status: Chronic (8) Diabetes mellitus Code(s): E11.9 - TYPE 2 DIABETES MELLITUS WITHOUT COMPLICATIONS Status: Chronic (9) PEG (percutaneous endoscopic gastrostomy) status Code(s): Z93.1 - GASTROSTOMY STATUS Status: Chronic (10) Seizure Code(s): R56.9 - UNSPECIFIED CONVULSIONS Status: Acute - Plan Plan: medical unit neurology consultation, Recommendations appreciated AED per neurology, transition to oral Continue Keppra, valproic acid MRI brain noted, no acute intracranial pathology - old CVA identified EEG report pending seizure precautions Ativan 1 mg PRN seizure MRI brain pending concerning the patient's bacteremia: Streptococcus pneumoniae a with subspecies mitis/ oralis - on one out of two blood cultures repeat blood cultures to ensure sterilization of the blood - no growth to date patient on broad-spectrum antibiotics which have been clinically improving his condition as there is no MRSA colonization or culture data with MRSA, we can d/c vancomycin Afebrile Continue probiotic therapy Again adjusting blood pressure medications Blood sugar control, long and short acting insulin for glucose control Tube feedings, increased free water flush in tube feeding D/c IV fluids nystatin/triamcinolone for seborrheic dermatitis of the face continue other home medications as able Continue Coumadin - pharmacy to dose
[2019-07-25] MEDS ORDERED: Valproate Sodium 250 mg/5 ml UD Cup PO SCH (15:00)
[2019-07-25] MEDS: Warfarin Sodium 7.5 MG TAB PER TUBE SCH (16:31)
[2019-07-25] MEDS: Atorvastatin Calcium 10 MG TAB PER TUBE SCH (21:36)
[2019-07-25] MEDS: levETIRAcetam 500 mg/5 ml Oral Solution PER TUBE SCH (21:37)
[2019-07-25] MEDS: Insulin Glargine 10 UNITS in Pre-Filled Syringe SC SCH (21:38)
[2019-07-26] MEDS: Clindamycin/D5W 600 MG in Premix Bag 1 BAG IVPB SCH ×2 (05:32→12:20)
[2019-07-26 08:40] LABS: Prothrombin Time 22.9 SEC (12.0-14.7)
[2019-07-26] MEDS: Zinc Sulfate 220 MG CAP PER TUBE SCH (08:59)
[2019-07-26] MEDS: Ascorbic Acid 500 mg Chewable Tablet PER TUBE SCH (09:00)
[2019-07-26] MEDS: Lisinopril 20 MG TAB PER TUBE SCH (09:00)
[2019-07-26] MEDS: Carvedilol 25 MG TAB PER TUBE SCH ×2 (09:00→21:42)
[2019-07-26] MEDS: Famotidine 20 MG TAB PER TUBE SCH (09:00)
[2019-07-26] MEDS: Amlodipine 5 MG TAB PER TUBE SCH ×2 (09:00→21:42)
[2019-07-26] MEDS: Floranex Packet PER TUBE SCH ×2 (09:00→21:43)
[2019-07-26] MEDS: Multivits W-Minerals Liquid 15mL UDCUP PER TUBE SCH (09:01)
[2019-07-26] MEDS: Valproate Sodium 250 mg/5 ml UD Cup PO SCH ×3 (09:01→21:41)
[2019-07-26] MEDS: levETIRAcetam 500 mg/5 ml Oral Solution PER TUBE SCH ×2 (09:01→21:42)
[2019-07-26] MEDS: Nystatin/Triamcinolone Cream 15 GM TUBE TOP SCH ×2 (09:02→21:43)
[2019-07-26] MEDS: Nystatin Powder 15 GM BOT TOP SCH ×2 (09:02→21:43)
[2019-07-26] MEDS: cefTRIAXone\\ROCEPHIN 2 GM in Sodium Chloride 0.9% 100 ML IVPB SCH (12:20)
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
[2019-07-26] MEDS: Warfarin Sodium 7.5 MG TAB PER TUBE SCH (16:06)
[2019-07-26] MEDS: Insulin Glargine 10 UNITS in Pre-Filled Syringe SC SCH (21:41)
[2019-07-26] MEDS: Atorvastatin Calcium 10 MG TAB PER TUBE SCH (21:42)
[2019-07-27 06:20] LABS: INR-International Normal Ratio 1.9; Prothrombin Time 21.4 SEC (12.0-14.7)
[2019-07-27] MEDS: Multivits W-Minerals Liquid 15mL UDCUP PER TUBE SCH (09:31)
[2019-07-27] MEDS: Amlodipine 5 MG TAB PER TUBE SCH ×2 (09:31→20:57)
[2019-07-27] MEDS: Floranex Packet PER TUBE SCH ×2 (09:31→20:57)
[2019-07-27] MEDS: Lisinopril 20 MG TAB PER TUBE SCH (09:32)
[2019-07-27] MEDS: Carvedilol 25 MG TAB PER TUBE SCH ×2 (09:32→20:58)
[2019-07-27] MEDS: levETIRAcetam 500 mg/5 ml Oral Solution PER TUBE SCH ×2 (09:33→20:57)
[2019-07-27] MEDS: Valproate Sodium 250 mg/5 ml UD Cup PO SCH ×3 (09:33→20:57)
[2019-07-27] MEDS: Ascorbic Acid 500 mg Chewable Tablet PER TUBE SCH (09:33)
[2019-07-27] MEDS: Nystatin/Triamcinolone Cream 15 GM TUBE TOP SCH ×2 (09:34→20:59)
[2019-07-27] MEDS: Nystatin Powder 15 GM BOT TOP SCH ×2 (09:34→20:58)
[2019-07-27] MEDS: Zinc Sulfate 220 MG CAP PER TUBE SCH (09:37)
[2019-07-27] MEDS: Famotidine 20 MG TAB PER TUBE SCH (09:37)
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
[2019-07-27] MEDS ORDERED: Warfarin Sodium 7.5 MG TAB PER TUBE SCH (17:00)
[2019-07-27] MEDS: Atorvastatin Calcium 10 MG TAB PER TUBE SCH (20:57)
[2019-07-27] MEDS: Insulin Glargine 10 UNITS in Pre-Filled Syringe SC SCH (20:58)
[2019-07-28] MEDS: Amlodipine 5 MG TAB PER TUBE SCH (08:42)
[2019-07-28] MEDS: Floranex Packet PER TUBE SCH (08:42)
[2019-07-28] MEDS: Lisinopril 20 MG TAB PER TUBE SCH (08:42)
[2019-07-28] MEDS: Zinc Sulfate 220 MG CAP PER TUBE SCH (08:42)
[2019-07-28] MEDS: Valproate Sodium 250 mg/5 ml UD Cup PO SCH ×2 (08:42→14:52)
[2019-07-28] MEDS: Ascorbic Acid 500 mg Chewable Tablet PER TUBE SCH (08:42)
[2019-07-28] MEDS: Carvedilol 25 MG TAB PER TUBE SCH (08:42)
[2019-07-28] MEDS: Famotidine 20 MG TAB PER TUBE SCH (08:43)
[2019-07-28] MEDS: levETIRAcetam 500 mg/5 ml Oral Solution PER TUBE SCH (08:43)
[2019-07-28] MEDS: Multivits W-Minerals Liquid 15mL UDCUP PER TUBE SCH (08:43)
[2019-07-28] MEDS: Nystatin Powder 15 GM BOT TOP SCH (08:44)
[2019-07-28] MEDS: Nystatin/Triamcinolone Cream 15 GM TUBE TOP SCH (08:44)
[2019-07-28 10:43] LABS: Prothrombin Time 22.3 SEC (12.0-14.7)
[2019-07-28 13:36] VITALS: BP 142/88
[2019-07-28 15:39] VITALS: TEMP 98
--- NOTE | 2019-07-29 02:15 | DIS ---
DATE OF ADMISSION: 07/19/2019 DATE OF DISCHARGE: 07/28/2019 REASON FOR HOSPITALIZATION: Bacteremia and seizures. SIGNIFICANT FINDINGS: The patient is found to have aspiration pneumonia and was admitted to the medical floor for close management. PROCEDURES PERFORMED AND TREATMENTS RENDERED: The patient had maximum medical therapy and was treated by Neurology-please see full consultation and progress notes for details. The patient had antiepileptic drugs that were titrated appropriately by neurologist. The patient had improvement of his seizure condition. However, he did have periodic seizures throughout his hospital course. Neurology recommending the patient is stable for discharge with close followup in the outpatient setting. The patient had MRI of the brain-please see full report for details-there is no acute intracranial pathology. However, there is chronic changes noted consistent with right middle cerebral artery distribution infarct which is old in appearance. The patient also with chronic small-vessel ischemic disease and periventricular white matter. An EEG was performed-please see full report for details-read by Neurology. Concerning the patient's aspiration, he was found to have Streptococcus oralis growing in the blood. Blood cultures were repeated and final report was no growth. The patient had appropriate antibiotic therapy with resolution of infection. The patient's Coumadin was continued and Coumadin dosing was therapeutic with a level of 2.0 on day of discharge, 07/28/2019. The patient worked with Physical Therapy and Occupational Therapy, who recommended the patient safe for discharge. This is a halfway facility, where he is a chronic resident. The patient did have improvement of his symptoms and recommended safe for discharge. DISCHARGE MEDICATIONS: Please see full discharge medication list for details. 1. Tylenol 650 mg per PEG tube q.6 hours p.r.n. pain or fever. 2. Floranex 1 g p.o. b.i.d. 3. Amlodipine 5 mg b.i.d. 4. Vitamin C 500 mg daily. 5. Atorvastatin 5 mg daily. 6. Dulcolax 5 mg per rectal p.r.n. constipation. 7. Carvedilol 25 mg one tablet p.o. b.i.d. 8. Cefpodoxime 200 mg one tablet p.o. PEG tube q.12 hours for an additional 7 days. 9. Famotidine 40 mg one tab daily. 10. Hydralazine IV push q.4 hours p.r.n. blood pressure greater than 180 systolic over 100. 11. Insulin glargine 10 units subcutaneous injection at bedtime. 12. Insulin lispro sliding scale moderate before meals and at bedtime. 13. Multivitamin per feeding tube daily. 14. Keppra 1000 mg per feeding tube liquid solution b.i.d. 15. Lisinopril 20 mg per feeding tube daily. 16. Nystatin topical powder to creases and full to the body daily. 17. Nystatin/triamcinolone topical cream apply to affected area of the face b.i.d. 18. Valproic acid 500 mg per PEG tube t.i.d. 19. Warfarin 7.5 mg per PEG tube, Sunday, Sunday, Sunday, Sunday, Sunday. 20. Warfarin 10 mg per PEG tube, Sunday and . 21. Zinc 220 mg per PEG tube daily. SPECIFIC INSTRUCTIONS FOR THE PATIENT/FAMILY: 1. The patient recommended to complete a full course of oral antibiotics for resolution of infection. 2. The patient is recommended to have all medications adjusted by admitting physician at [facility], where he is a chronic resident. 3. The patient is recommended to follow up with Neurology in the outpatient clinic in the next 2 to 4 weeks. 4. The patient is recommended to follow up with all other specialists as directed. 5. The patient is recommended to return to acute care hospital immediately if signs or symptoms return, worsen, or any other new symptoms occur. Greater than 39 minutes spent coordinating care and discharge process for this patient. Job ID: [id number]
[2019-07-29] MEDS ORDERED: Warfarin Sodium 10 MG TAB PO SCH (17:00)
== END 2019-07-28 15:27 | DRG 177 ==
LOC: ERS 01:49 → T4-B 04:40
PROVIDERS: ADMIT Internal Medicine; ATTEND Internal Medicine
PROC: 009U3ZX Drainage of Spinal Canal, Percutaneous Approach, Diagnostic (ICD-10-PCS; principal; 2019-07-19)
DX: J69.0 Pneumonitis due to inhalation of food and vomit (principal); G93.41 Metabolic encephalopathy; R78.81 Bacteremia; G93.1 Anoxic brain damage, not elsewhere classified; I69.351 Hemiplegia and hemiparesis following cerebral infarction affecting right dominant side; Z66 Do not resuscitate; E78.5 Hyperlipidemia, unspecified; G40.409 Other generalized epilepsy and epileptic syndromes, not intractable, without status epilepticus; B95.4 Other streptococcus as the cause of diseases classified elsewhere; R13.10 Dysphagia, unspecified; E11.9 Type 2 diabetes mellitus without complications; Z88.0 Allergy status to penicillin; Z88.8 Allergy status to other drugs, medicaments and biological substances; Z79.899 Other long term (current) drug therapy; Z79.01 Long term (current) use of anticoagulants; Z79.4 Long term (current) use of insulin; Z74.01 Bed confinement status; Z93.1 Gastrostomy status; I69.391 Dysphagia following cerebral infarction
CPT/HCPCS: 36415; 36416; 51702; 62270; 70450; 70551; 70552; 71045; 80048; 80053; 80164; 80177; 80202; 81003; 81015; 82550; 82945; 84157; 85007; 85025; 85027; 85610; 87040; 87070; 87077; 87149; 87186; 87205; 87804; 89051; 95816; 95819; 96365; 96367; A9577; J0360; J0696; J1815; J1953; J2060; J2405; J3370; J3490

== ENCOUNTER 2019-08-01 22:33 | Inpatient (IN) | payer OTHER, SELFPAY ==
[2019-08-01] MEDS ORDERED: levETIRAcetam In NaCl (Iso-Os) 1,500 MG in Premix Bag 1 BAG IVPB SCH (23:15)
--- NOTE | 2019-08-01 23:22 | CT ---
CT Head without IV contrast COMPARISON: 08/19/2019 HISTORY: Increased seizure frequency. TECHNIQUE: Axial CT imaging at 5 mm intervals from vertex through skull base without contrast FINDINGS: There is no evidence of an acute infarction, hemorrhage, mass effect, or midline shift. There is decr eased attenuation seen in the periventricular white matter which is nonspecific but likely attributable to chronic small vessel ischemic changes and overall stable compared to prior study. The re is a stable area of encephalomalacia seen within the right parietal-occipital lobe likely due to remote area of infarction. There is mild cerebral volume loss. The ventricular system is normal in si ze, shape, and position for the degree of sulcal atrophy. Small mucous retention cyst is seen in each maxillary antrum. The mastoid air cells are clear. Osseous structures appear intact. IMPRESSION: 1. No acute intracranial abnormality demonstrated. 2. Stable chronic small vessel ischemic changes and cerebral volume loss as well as stable area of en cephalomalacia in the right cerebral hemisphere likely due to remote area of infarction.
[2019-08-01 23:33] LABS: Bacteria/HPF None Seen HPF (None Seen); Bilirubin Negative (Negative); Blood, Urine Negative (Negative); Clarity Clear (Clear); Glucose, Urine (Dipstick) Normal (Negative); Leukocyte Negative Leu/uL (Negative); Nitrite Negative (Negative); Protein, Urine (Dipstick) 30 mg/dL (Neg-Trace); Squamous Epithelial 0-3 HPF (0-3); Urobilinogen Normal mg/dL (Less than 2)
[2019-08-01 23:34] LABS: #Basophils 0.1 thou/uL (0.0-0.2); #Eosinphils 0.1 thou/uL (0.0-0.7); #Lymphocytes 1.8 thou/uL (1.20-3.40); #Monocytes 0.6 thou/uL (0.11-0.59); #Neutrophils 6.2 thou/uL (1.40-6.50); %Basophils 0.7 % (0.0-1.0); %Eosinophils 0.6 % (0.0-10.0); %Lymphocytes 20.3 % (21.0-51.0); %Monocytes 7.2 % (0.0-10.0); %Neutrophils 71.3 % (42.0-75.0); Hemoglobin 14.2 g/dL (14.0-18.0); Mean Corpuscular HGB CONC 31.5 g/dL (32.0-36.0); Mean Corpuscular Hemoglobin 27.7 pg (27.0-31.0); Mean Corpuscular Volume 87.7 fL (78.0-98.0); Mean Platelet Volume 9.1 fL (7.4-10.4); Platelet Count 194 thou/uL (130-400); RBC Distribution Width 15.1 % (11.5-14.5); Red Blood Cell (RBC) Count 5.14 mill/uL (4.70-6.10); White Blood Cell (WBC) Count 8.7 thou/uL (4.8-10.8)
--- NOTE | 2019-08-01 23:48 | RAD ---
EXAM: CHEST ONE VIEW HISTORY: Seizure. Evaluate for pneumonia. COMPARISON: 07/20/2019 FINDINGS: The cardiac silhouette and pulmonary vasculature is within normal limits. There are linear bibasilar densities probably related to volume loss as this exam was obtained in a shallow depth of inspiration. No consolidation or pleural fluid is identified. The osseous structures are intact. Ches t is overall stable compared to prior study. IMPRESSION: Findings likely related to bibasilar atelectasis. There is otherwise no acute cardiopulmonary process identified.
[2019-08-01 23:49] LABS: Acetaminophen Less than 6.0 mcg/mL (10.0-30.0); Alcohol Less than 10 mg/dL (Less than 10); Salicylate Less than 8.0 mg/dL (15.0-30.0)
[2019-08-01 23:50] LABS: INR-International Normal Ratio 1.8; PTT 29.4 SEC (22.9-36.1); Prothrombin Time 20.5 SEC (12.0-14.7)
[2019-08-02 00:07] LABS: Albumin 3.4 g/dL (3.5-5.0)
[2019-08-02 00:08] LABS: Chloride 105 mmol/L (98-107); Sodium 137 mmol/L (136-145)
[2019-08-02 00:09] LABS: Calcium 8.8 mg/dL (7.8-10.44); Glucose 91 mg/dL (70-105)
[2019-08-02 00:10] LABS: Globulin 4.3 g/dL (2.4-3.5); Protein, Total 7.7 g/dL (6.0-8.3)
[2019-08-02 00:11] LABS: Bilirubin, Total 0.2 mg/dL (0.2-1.2); Carbon Dioxide 20 mmol/L (22-29)
[2019-08-02 00:12] LABS: Alkaline Phosphatase 99 U/L (40-110)
[2019-08-02 00:13] LABS: Calc. Creatinine Clearance 0 mL/min (70-130); Estimated GFR-MDRD 88
[2019-08-02 00:14] LABS: BUN (Urea Nitrogen) 25 mg/dL (8.4-25.7)
[2019-08-02 00:15] LABS: ALT (SGPT) 23 U/L (8-55); AST (SGOT) 23 U/L (5-34)
[2019-08-02] MEDS ORDERED: cefTRIAXone\\ROCEPHIN 2 GM VIAL ONE (00:30)
[2019-08-02] MEDS ORDERED: ACYCLOVIR SODIUM IVPB SCH (00:30)
[2019-08-02] MEDS ORDERED: SODIUM CHLORIDE 0.9% IVPB SCH (00:30)
[2019-08-02 00:33] LABS: Anion Gap 17 mmol/L (10-20)
[2019-08-02 01:10] LABS: Syphilis Antibody Nonreactive (Nonreactive); Syphilis Antibody Index 0.12 S/CO (<1.00 Non-Reactive)
[2019-08-02] MEDS ORDERED: Lorazepam 2 MG/ML VIAL SLOW IVP PRN (01:20)
--- NOTE | 2019-08-02 01:55 | PDOC.EVN ---
Event Note - Event Note Event Note: [id number] HP
[2019-08-02 02:13] LABS: Color Of CSF Supernatant COLORLESS (Colorless); Tube # 2; Unspun CSF Color COLORLESS (Colorless)
[2019-08-02 02:26] LABS: CSF, Glucose 60 mg/dl (40-70); CSF, Protein 56 mg/dL (15-40)
[2019-08-02 02:40] LABS: CSF Source CSF; Clarity Cloudy/Turbid (Clear); Tube # 1
[2019-08-02 02:59] LABS: CSF Source CSF; Clarity Clear (Clear); Tube # 4
--- NOTE | 2019-08-02 03:41 | HP ---
CHIEF COMPLAINT: Seizures. HISTORY OF PRESENT ILLNESS: Mr. Larsen is a 53-year-old male with past medical history of CVA, ischemic, , seizures, hyperlipidemia, type 2 diabetes, among others, was brought to the emergency room for seizures. The patient has a history of large CVA with residual global cerebral dysfunction. The patient was given 4 mg of midazolam and 4 mg of diazepam by EMS. Glucose was 145. Vital signs were within normal limits. The patient was maintaining his airway. The patient was recently admitted for seizures and infection ? The patient had a low-grade fever. During his previous hospital stay, lumbar puncture was done. CSF was inconclusive. In the emergency room, the patient also was loaded with IV Keppra. Emergency physician is attempting to repeat the lumbar puncture. The patient is being admitted to hospital for further management. PAST MEDICAL HISTORY: 1. Ischemic CVA. 2. 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 3. Toxic encephalopathy. 4. Hyperlipidemia. 5. Hypertension, type 2. 6. Seizures. PAST SURGICAL HISTORY: 1. PEG tube. 2. Abscess drainage. SOCIAL HISTORY: No reported alcohol use or drug use or smoking. FAMILY HISTORY: Reviewed and noncontributory. HOME MEDICATIONS: Please see home medication reconciliation form for updated medications. REVIEW OF SYSTEMS: Unable to obtain due to patient's underlying medical condition. ALLERGIES: ALLERGIC TO ASPIRIN AND PENICILLIN. PHYSICAL EXAMINATION: GENERAL: The patient is awake about at his baseline as per his brother. HEAD AND NECK: Normocephalic. Neck is supple. CHEST: Fair bilateral air entry. HEART: S1, S2. Regular. ABDOMEN: Soft. Bowel sounds present. NEUROLOGIC: Awake, right-sided weakness. PSYCH: Unable to assess. EXTREMITIES: No clubbing, no cyanosis. LABORATORY DATA: Sodium 137, potassium is 5, BUN is 25, creatinine 1.0. WBC is 8.7, hemoglobin 14.2, platelets 194. Urinalysis, 4 to 6 wbc's and 4 to 6 rbc's, nitrite negative, leukocyte negative. CT of the head, no acute finding, stable chronic small vessel ischemic changes and cerebral volume loss as well as area of encephalomalacia in the right cerebral hemisphere. ASSESSMENT: 1. Seizures, recurrent. 2. History of cerebrovascular accident. 3. Encephalopathy, chronic. 4. Hyperlipidemia. 5. Diabetes mellitus. 6. History of spotted fever. PLAN: 1. Admit. 2. Follow CSF results, lumbar puncture is being done by the ED physician at the time of this dictation. 3. The patient was loaded with IV Keppra. 4. Septic workup done in the ED. 5. IV antibiotics given, reassess in a.m. 6. Consider neurology consultation in a.m. for evaluation and further recommendations. 7. Consider infectious disease consultation in a.m. for evaluation and further recommendations. During the recent hospital stay, the patient had bacteremia with Streptococcus in the blood. Still having low-grade fever. 8. Reassess in the morning for the need for continuation of antibiotics after reviewing CSF results. 9. Reconcile home medications. 10. DVT prophylaxis, the patient is anticoagulated. 11. Expected length of stay, 2 midnights or more. 12. Case discussed with ED physician and the patient's family. Job ID: [id number]
[2019-08-02 04:07] LABS: Cell Count Non Hematic 2 %; Lymphocytes 86 %; Segmented Neutrophils 12 %
[2019-08-02 04:13] LABS: Cell Count Non Hematic 1 %; Lymphocytes 25 %; Segmented Neutrophils 74 %
[2019-08-02] MEDS: Sodium Chloride 0.9% 1,000 ML IV SCH ×2 (04:26→14:35)
[2019-08-02] MEDS ORDERED: Fosphenytoin Sodium 100 MG in Sodium Chloride 0.9% 50 ML IVPB SCH (06:00)
[2019-08-02] MEDS: levETIRAcetam In NaCl (Iso-Os) 1,000 MG in Premix Bag 1 BAG IVPB SCH ×2 (08:46→21:45)
[2019-08-02] MEDS ORDERED: Prevnar 13-Val Conj/PF 0.5 ML SYRINGE IM ONE (09:00)
[2019-08-02] MEDS ORDERED: FLU VACC QS2019-20(6MOS UP)/PF 60 MCG/0.5 ML SYRINGE IM ONE (09:00)
--- NOTE | 2019-08-02 09:15 | CON ---
DATE OF CONSULTATION: 08/02/2019 CONSULTING PHYSICIAN: Hospitalist Service. IMPRESSION: 1. Seizure disorder. 2. Previous right middle cerebral artery stroke. 3. Chronic encephalopathy. 4. Diabetes. 5. Hyperlipidemia. 6. History of [place] spotted fever. PLAN: Continue Keppra 1000 mg twice a day. HISTORY OF PRESENT ILLNESS: Mr. Larsen is a 53-year-old man with past history of multiple problems. He was recently seen in June by Dr. Cottrell for seizure. Prior EEGs have showed subclinical seizure activity of the right hemisphere. He apparently had an alteration of mental status. Based on the review of the available records, there is no one with the patient to give me any further information and he apparently received 4 mg of midazolam and some Valium by EMS. His glucose is 145. He had a CT scan of the brain done, which showed chronic ischemic change in the right middle cerebral artery territory. He had lumbar puncture done, which did not suggest evidence of infection. He was given some IV Keppra. He has been admitted for observation. PAST MEDICAL HISTORY: As listed above. PAST SURGICAL HISTORY: PEG tube placement, abscess drainage. SOCIAL HISTORY: No alcohol or drug use. FAMILY HISTORY: Not obtainable. MEDICATIONS: List was reviewed. ALLERGIES: ASPIRIN, PENICILLIN. REVIEW OF SYSTEMS: Not obtainable due to his unresponsive state. PHYSICAL EXAMINATION: GENERAL: He appears to be well nourished with poor dentition. He reportedly can appear awake based on his family's reports. HEENT: Pupils are equal. Conjunctivae are clear. Oropharynx is dry. NECK: Supple. No lymphadenopathy noted. NEUROLOGIC: He is sleepy and would not follow any commands. There did not appear to be any facial asymmetry. There was no abnormal movements seen. Tone appeared grossly symmetric. LABORATORY DATA: Laboratory studies were reviewed. IMAGING STUDIES: CT scan of the brain was reviewed. SUMMARY: A middle-aged man with a history of a prior stroke, encephalopathy, and seizures. His Keppra level is 21.8. This is relatively low. We will continue a dose of 1000 mg twice a day IV. Monitor his clinical course. Job ID: [id number]
[2019-08-02] MEDS ORDERED: Bisacodyl 10 MG SUPP PR PRN (11:01)
[2019-08-02] MEDS ORDERED: Docusate Sodium 100 MG/10 ML UDCUP PO PRN (11:01)
[2019-08-02] MEDS ORDERED: Warfarin Sodium 7.5 MG TAB PER TUBE SCH (11:15)
[2019-08-02] MEDS ORDERED: Warfarin Sodium 5 MG TAB PER TUBE SCH (11:15)
--- NOTE | 2019-08-02 11:18 | PDOC.HOSPP ---
- Subjective Encounter Date: 08/02/19 Encounter Time: 11:10 Subjective: f/u for recurrent seizures in context of prior large R MCA infarct and [place] Spotted Fever. Remains lethargic and sleeping per family after receiving Midazolam/Keppra IV. Resides at the [facility] in [place] receiving total care and TF's. - Objective Vital Signs & Weight: Vital Signs (12 hours) Temp Pulse Resp BP Pulse Ox 08/02/19 07:18 97.1 F L 59 L 20 102/50 L 99 08/02/19 03:25 98.1 F 61 20 117/59 L 100 Weight Weight 180 lb 8 oz I&O: 08/01/19 08/02/19 08/03/19 06:59 06:59 06:59 Intake Total 360 Output Total 450 Balance -90 Result Diagrams: 08/01/19 23:20 08/01/19 23:20 Additional Labs: Accuchecks 08/02/19 08/02/19 08/01/19 10:16 05:32 23:25 POC Glucose 77 84 92 Microbiology 08/02/19 02:00 Spinal Fluid Culture - Pending Cryptococcal Antigen - Final 08/02/19 00:24 Nasal swab Influenza Types A,B Direct EIA - Final 07/22/19 13:56 Venous blood - Left Hand Blood Culture - Final NO GROWTH IN 5 DAYS 07/22/19 13:47 Venous blood - Left Hand Blood Culture - Final NO GROWTH IN 5 DAYS 07/19/19 03:28 Nasopharyngeal swab Influenza Types A,B Direct EIA - Final 08/02/19 02:00 Lumbar - Pending Body Fluid Culture - Preliminary 07/19/19 04:20 Spinal Fluid Culture - Pending Body Fluid Culture - Preliminary 07/19/19 02:56 Venous blood - Right Hand Blood Culture - Preliminary Streptococcus species 07/19/19 02:45 Venous blood - Left Arm Blood Culture - Preliminary Specimen has been received and culture in progress. No Growth to date. Laboratory Tests 07/19/19 07/19/19 07/20/19 02:46 13:25 06:15 Hgb 14.1 Neutrophils % (Manual) 87 H 53 PT INR 2.4 Levetiracetam Plasma Alcohol Syphilis IgG/IgM Ab 07/20/19 08/01/19 08/01/19 06:15 23:20 23:20 Hgb Neutrophils % (Manual) PT INR 2.2 Levetiracetam 21.8 Plasma Alcohol Less than 10 Syphilis IgG/IgM Ab 08/01/19 08/01/19 23:20 23:31 Hgb Neutrophils % (Manual) PT 20.5 H INR 1.8 Levetiracetam Plasma Alcohol Syphilis IgG/IgM Ab Nonreactive Radiology Reviewed by me: Yes (CT brain - no acute process, stable chronic changes) EKG Reviewed by me: Yes (Tele - SR) Hospitalist ROS - Medication Medications: Active Medications Generic Name Dose Route Start Last Admin Trade Name Freq PRN Reason Stop Dose Admin Levetiracetam 1,000 mg/ Device 100 mls @ 200 mls/hr 08/02/19 09:00 08/02/19 08:46 IVPB 100 mls BID MEI Administration Sodium Chloride 1,000 mls @ 100 mls/hr 08/02/19 01:30 08/02/19 04:26 Normal Saline 0.9% IV 1,000 mls .Q10H MEI Administration - Exam General - other findings: lethargic, sleeping Eye: PERRL ENT: normocephalic atraumatic, no oropharyngeal lesions, dry oral mucosa Neck: supple, symmetric, no JVD, no thyromegaly Heart: RRR, no murmur, no gallops, no rubs, normal peripheral pulses Respiratory - other findings: diminished in bases, scattered coarse sounds Gastrointestinal: soft, non-tender, non-distended, normal bowel sounds Gastrointestinal - other findings: PEG in place Extremities: no cyanosis Skin: normal turgor, no lesions Neurological: no new deficit Neurological - other findings: aphasic, bed-bound Psychiatric: somnolent, lethargic Hosp A/P (1) Recurrent seizures Code(s): G40.909 - EPILEPSY, UNSP, NOT INTRACTABLE, WITHOUT STATUS EPILEPTICUS Status: Acute Plan: Unclear etiology of recurrent seizures, potential natural clinical decline, continue Keppra/Valproic Acid, Ativan PRN IV (2) Encephalopathy, metabolic Code(s): G93.41 - METABOLIC ENCEPHALOPATHY Status: Acute Plan: Chronic encephalopathy due to hx of KENDRA fever and prior CVA (3) Chronic anticoagulation Code(s): 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 Status: Chronic Plan: Resume outpt Coumadin, serial INR (4) Chronic hypoxic-ischemic brain injury Code(s): I67.82 - CEREBRAL ISCHEMIA; G93.1 - ANOXIC BRAIN DAMAGE, NOT ELSEWHERE CLASSIFIED Status: Chronic (5) Dysphagia Code(s): R13.10 - DYSPHAGIA, UNSPECIFIED Status: Chronic Qualifiers: Dysphagia type: oropharyngeal phase Qualified Code(s): R13.12 - Dysphagia, oropharyngeal phase Plan: Resume TF's when clinically stabilizing, monitor for aspiration - Plan plan discussed w/ family, continue antibiotics, social services director, speech therapy , respiratory therapy, DVT proph w/SCDs Continue Keppra 1000mg IV BID Resume Valproic Acid 500mg TID Resume home BP regimen Appreciate assistance from Neurology Discussed likely progressive clinical decline with family Continue IVF's Dietitian consult for TF recommendations
[2019-08-02] MEDS: Valproate Sodium 250 mg/5 ml UD Cup PO SCH ×2 (15:52→21:44)
[2019-08-02] MEDS ORDERED: Warfarin Sodium 10 MG TAB PER TUBE SCH (17:00)
[2019-08-02] MEDS: Atorvastatin Calcium 10 MG TAB PO SCH (21:40)
[2019-08-02] MEDS: Carvedilol 25 MG TAB PER TUBE SCH (21:41)
[2019-08-02] MEDS: Amlodipine 5 MG TAB PER TUBE SCH (21:43)
[2019-08-02] MEDS: Floranex Packet PER TUBE SCH (21:44)
[2019-08-02] MEDS: Nystatin Powder 15 GM BOT TOP SCH (21:45)
[2019-08-02] MEDS: Nystatin/Triamcinolone Cream 15 GM TUBE TOP SCH (21:46)
[2019-08-02] MEDS: Insulin Glargine 10 UNITS in Pre-Filled Syringe 1 EACH SC SCH (22:04)
[2019-08-03] MEDS: Sodium Chloride 0.9% 1,000 ML IV SCH ×3 (00:39→18:33)
[2019-08-03] MEDS: levETIRAcetam In NaCl (Iso-Os) 1,000 MG in Premix Bag 1 BAG IVPB SCH ×2 (08:26→21:14)
[2019-08-03] MEDS: Carvedilol 25 MG TAB PER TUBE SCH ×2 (08:36→21:22)
[2019-08-03] MEDS: Ascorbic Acid 500 mg Chewable Tablet PER TUBE SCH (08:37)
[2019-08-03] MEDS: Famotidine 20 MG TAB PER TUBE SCH (08:37)
[2019-08-03] MEDS: Amlodipine 5 MG TAB PER TUBE SCH ×2 (08:37→21:22)
[2019-08-03] MEDS: Zinc Sulfate 220 MG CAP PER TUBE SCH (08:37)
[2019-08-03] MEDS: Floranex Packet PER TUBE SCH ×2 (08:38→21:23)
[2019-08-03] MEDS: Nystatin Powder 15 GM BOT TOP SCH ×2 (08:38→21:24)
[2019-08-03] MEDS: Nystatin/Triamcinolone Cream 15 GM TUBE TOP SCH ×2 (08:39→21:24)
[2019-08-03] MEDS ORDERED: Lisinopril 20 MG TAB PER TUBE SCH (09:00)
[2019-08-03] MEDS: Valproate Sodium 250 mg/5 ml UD Cup PO SCH ×3 (10:08→21:21)
--- NOTE | 2019-08-03 15:53 | CON ---
DATE OF CONSULTATION: 08/03/2019 REASON FOR CONSULTATION: Evaluate CSF findings, possibility of a IT CONSULTING DIRECTOR infection. 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 He has a history of type 2 diabetes and has had recurrent episodes of seizures and admitted for admissions for those complications of seizure related events. At this time, he was brought back from the intermediate because of another episode of seizure activity. He was given antiseizure medication with control and he had a CSF evaluation at this time, which showed the findings described below. He is currently awake, but does not interact with the examiner, does not establish eye contact, which seems to be his baseline. According to the nursing staff, the seizure activities are mostly localized around the facial area, lasting for 5 to 15 minutes with multiple episodes. No reported diarrhea and no respiratory symptoms. The patient is fed through a gastrostomy tube. 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 PAST SURGICAL HISTORY: Includes partial colectomy for adeno CA of cecum. ALLERGIES: PENICILLIN. CURRENT MEDICATIONS: 1. Tylenol. 2. Floranex. 3. DuoNeb. 4. Norvasc. 5. Vitamin C. 6. Lipitor. 7. Dulcolax. 8. Coreg. 9. Vantin. 10. Colace. 11. Pepcid. 12. Keppra. 13. Lorazepam. 14. Valproic acid. 15. Warfarin. FAMILY HISTORY: Noncontributory. SOCIAL HISTORY: Resident at a local intermediate. No smoking history. PHYSICAL EXAMINATION: VITAL SIGNS: Temperature max 99.8, blood pressure 140/70, pulse 76, respirations 16, O2 saturation 96%. SKIN: Areas of dryness around the gluteal region. A little bit of intertriginous maceration and shallow erosion in the intergluteal region as well. Peripheral IV access, gastrostomy tube exit site appears normal. HEENT: Left gaze preference. Pupils are equal and reactive, although he grimaces frequently. Oral cavity was hard to evaluate due to lack of cooperation. NECK: No jugular vein distention. Neck stiff to all directions. LUNGS: Symmetric air entry. HEART: S1 and S2. Regular rate without murmurs. ABDOMEN: Soft, not distended, not tender. No ascites. No bladder distention. He has an indwelling [place] catheter, which was placed upon admission. LABORATORY DATA: White cell count 8.7, hemoglobin 14, platelets 194. Chemistry was fairly normal except for albumin 3.4 and globulin 4.3, carbon dioxide 20. Syphilis was nonreactive. CSF with initial with the only sample with tube 4 showing 9 nucleated cells with 86% lymphocytes, glucose was 60 and protein 256. Urinalysis with 4 to 6 wbc's. Microbiology with negative cryptococcal antigen. Blood culture, no growth. Influenza A and B were negative. IMAGING STUDIES: Chest x-ray, bibasilar atelectases, but no other infiltrate noted. Brain MRI, chronic small-vessel disease and periventricular white matter, previous posterior right MCA distribution infarct which is old. 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 ASSESSMENT: Anoxic encephalopathy, prior cerebrovascular accident, prior Rickettsial infection, recurrent seizure activity, recent resection of ascending colon for management of colonic mass which was identified as adenocarcinoma moderately differentiated. The tumor had focally invaded into submucosa. All the lymph nodes were negative. Now recrudescence of what appears to be a perioral seizure activity and the CSF findings as related above. DISCUSSION: The CSF findings are typical of post ictal state. I would not treat those findings at this point in time. CSF fluid pleocytosis is common in the postictal state. He has had a negative syphilis serology. (There is a positive Rickettsia IgG antibody test from April 09 and that in itself does not establish the diagnosis of rickettsial infection.) The abdomen and pelvis CT from May showed a fluid gas collection extending to the anterior midline abdominal incision, but no extraluminal contrast noted. That area seems to have healed at this point in time. If drainage or wound recurrence develops, would need repeat imaging study. Job ID: [id number] [facility]
[2019-08-03] MEDS ORDERED: Warfarin Sodium 7.5 MG TAB PER TUBE SCH (17:00)
--- NOTE | 2019-08-03 18:05 | PDOC.HOSPP ---
- Subjective Encounter Date: 08/03/19 Encounter Time: 18:00 Subjective: Patient still encephalopathic and non-verbal. He is able to follow some commands. Tube feeds restarted per dietary - Objective Vital Signs & Weight: Vital Signs (12 hours) Temp Pulse Resp BP Pulse Ox 08/03/19 15:50 98.8 F 77 16 149/79 H 95 08/03/19 12:00 98.7 F 76 16 149/70 H 96 08/03/19 08:26 100 08/03/19 08:00 98.4 F 86 18 164/82 H 100 Weight Admit Weight 180 lb Weight 180 lb 1 oz I&O: 08/02/19 08/03/19 08/04/19 06:59 06:59 06:59 Intake Total 360 1300 Output Total 450 3750 Balance -90 -2450 Result Diagrams: 08/01/19 23:20 08/01/19 23:20 Additional Labs: Accuchecks 08/03/19 08/03/19 08/03/19 16:54 11:14 05:57 POC Glucose 97 85 75 08/03/19 08/02/19 08/02/19 00:31 19:57 18:30 POC Glucose 79 84 79 Hospitalist ROS - Review of Systems ROS unobtainable: due to mental status - Medication Medications: Active Medications Generic Name Dose Route Start Last Admin Trade Name Freq PRN Reason Stop Dose Admin Acidophilus 1 gm 08/02/19 21:00 08/03/19 08:38 Floranex PER TUBE 1 gm BID MEI Administration Amlodipine Besylate 5 mg 08/02/19 21:00 08/03/19 08:37 Norvasc PER TUBE 5 mg BID MEI Administration Ascorbic Acid 500 mg 08/03/19 09:00 08/03/19 08:37 Vitamin C PER TUBE 500 mg DAILY MEI Administration Atorvastatin Calcium 5 mg 08/02/19 21:00 08/02/19 21:40 Lipitor PO 5 mg HS MEI Administration Carvedilol 12.5 mg 08/02/19 21:00 08/03/19 08:36 Coreg PER TUBE 12.5 mg BID MEI Administration Cefpodoxime Proxetil 200 mg 08/02/19 21:00 08/03/19 08:38 Vantin PER TUBE 200 mg Q12HR MEI Administration Famotidine 40 mg 08/03/19 09:00 08/03/19 08:37 Pepcid PER TUBE 40 mg DAILY MEI Administration Ferrous Sulfate 300 mg 08/02/19 21:00 08/03/19 08:37 Ferrous Sulfate PER TUBE 300 mg BID MEI Administration Levetiracetam 1,000 mg/ Device 100 mls @ 200 mls/hr 08/02/19 09:00 08/03/19 08:26 IVPB 100 mls BID MEI Administration Sodium Chloride 1,000 mls @ 100 mls/hr 08/02/19 01:30 08/03/19 10:08 Normal Saline 0.9% IV 1,000 mls .Q10H MEI Administration Insulin Glargine 10 units/ 0.1 mls @ 0 mls/hr 08/02/19 21:00 08/02/19 22:04 Miscellaneous Medication SC Not Given HS MEI Lisinopril 20 mg 08/03/19 09:00 08/03/19 08:37 Zestril PER TUBE 20 mg DAILY MEI Administration Nystatin 0 gm 08/02/19 21:00 08/03/19 08:38 Mycostatin Powder TOP 1 applic BID MEI Administration Nystatin/Triamcinolone Acetonide 1 gm 08/02/19 21:00 08/03/19 08:39 Mycogen Ii Cream TOP 1 applic BID MIE Administration Valproic Acid 500 mg 08/02/19 15:00 08/03/19 14:52 Depakene Liquid PO 500 mg TID MEI Administration Warfarin Sodium 10 mg 08/02/19 17:00 08/02/19 15:51 Coumadin PER TUBE 10 mg [id number]@1700 MEI Administration Warfarin Sodium 7.5 mg 08/03/19 17:00 08/03/19 18:00 Coumadin PER TUBE 7.5 mg [id number]@1700 MEI Administration Zinc Sulfate 220 mg 08/03/19 09:00 08/03/19 08:37 Zinc Sulfate PER TUBE 220 mg DAILY MEI Administration - Exam General Appearance: NAD General - other findings: drowsy Eye: PERRL ENT: normocephalic atraumatic, no oropharyngeal lesions ENT - other findings: Patient's lower lip noted to be swollen. Red bumps noted on upper lip Neck: no JVD Heart: RRR, no murmur, no gallops, no rubs Respiratory: CTAB, no wheezes, no rales, no ronchi Gastrointestinal: soft, non-tender, non-distended Extremities: no cyanosis, no clubbing, no edema Skin - other findings: erythematous dry skin on face Neurological: no focal deficits Psychiatric: lethargic Hosp A/P - Plan ECHO: mild MR, mild TR, aortic valve sclerosis. EF 60-65% This is a 53 year old male with recent Rickettsia infection who was in vegetative state after seizure who presented with recurrent seizure event. Seizures - neurology was consulted and patient was started on keppra 1000 mg IV BId - CT head showed no acute disease. Will check MRI brain -blood culture, body fluid culture, crypto in CSF negative. Influenza and urine culture negative - ECHO showed no endocarditis, chest X ray normal - repeat labs today Angioedema of lips - lower lip very swollen and erythematous. Patient is on lisinopril, will discontinue and switch to losartan - check HSV1 and 2 PCR, appears to possibly have some herpetic lesion on upper lip. Will trial acyclovir TID - repeat BMP Malnutrition - nutrition consulted, tube feeds with glucerna resumed Cecal adenocarcinoma - s/p treatment Type II diabetes Hypertension - continue lisinopril and coreg Code status:full
[2019-08-03] MEDS: Non-Formulary Item 1 EACH (Arginine/Ascorbate Sod/Vite Ac [Arginaid Powder] 1 PACKET) PER TUBE SCH (18:26)
[2019-08-03 18:28] LABS: PTT 51.6 SEC (22.9-36.1); Prothrombin Time 39.3 SEC (12.0-14.7)
[2019-08-03] MEDS ORDERED: Acyclovir 400 mg Tablet PER TUBE SCH ×2 (18:30→21:00)
[2019-08-03 18:34] LABS: INR-International Normal Ratio 4.1
[2019-08-03 18:44] LABS: ALT (SGPT) 14 U/L (8-55); AST (SGOT) 20 U/L (5-34); Albumin 3.4 g/dL (3.5-5.0); Alkaline Phosphatase 93 U/L (40-110); Anion Gap 13 mmol/L (10-20); BUN (Urea Nitrogen) 18 mg/dL (8.4-25.7); Bilirubin, Total 0.2 mg/dL (0.2-1.2); Calc. Creatinine Clearance 67 mL/min (70-130); Calcium 9.3 mg/dL (7.8-10.44); Carbon Dioxide 26 mmol/L (22-29); Chloride 115 mmol/L (98-107); Estimated GFR-MDRD 59; Globulin 4.4 g/dL (2.4-3.5); Glucose 94 mg/dL (70-105); Potassium 4.6 mmol/L (3.5-5.1); Protein, Total 7.8 g/dL (6.0-8.3); Sodium 149 mmol/L (136-145)
[2019-08-03] MEDS ORDERED: Phytonadione 10 MG/ML AMP PO SCH (18:45)
[2019-08-03 18:50] LABS: Band 7 % (5-11); Eosinophils 3 % (0-10); Hemoglobin 13.1 g/dL (14.0-18.0); Lymphocytes 9 % (21-51); MDiff Complete? YES; Mean Corpuscular HGB CONC 31.6 g/dL (32.0-36.0); Mean Corpuscular Hemoglobin 28.1 pg (27.0-31.0); Mean Corpuscular Volume 88.8 fL (78.0-98.0); Mean Platelet Volume 9.2 fL (7.4-10.4); Monocytes 8 % (0-10); Neutrophil 69 % (42-75); Platelet Count 181 thou/uL (130-400); Platelet Morphology Comment Appears Adequate; Polychromasia SLIGHT = 2-3 cells (100X) (0-2/hpf); Reactive Lymphocytes 3 % (0-10); Red Blood Cell (RBC) Count 4.65 mill/uL (4.70-6.10); Target Cells SLIGHT = 2-5 cells (100X) (0-1/hpf); Tear Drops SLIGHT = 2-5 cells (100X) (0-1/hpf)
--- NOTE | 2019-08-03 19:26 | CT ---
CT BRAIN NONCONTRAST: DATE: 08/03/2019 HISTORY: 53-year-old male with encephalopathy. COMPARISON: 08/01/2019 FINDINGS: Current images are moderately severely degraded by streak artifact due to waffle mattress, limiting t he evaluation of the lower half of the brain. There is no evidence of acute intra-axial or extra-axial hemorrhage. There is no midline shift or any other mass effect. There is no extra-axial f luid collection. There is no evidence of obstructive hydrocephalus. Calvarium is intact. There is diffuse brain parenchymal volume loss. There are low attenuation areas in the white matter. These are nonspecific, but in a patient of this age, they are probably chronic ischemic white matter changes due to microvascular atherosclerosis. There is a moderate sized right parietal infarction. There is n o interval change detected overall. IMPRESSION: 1) No acute intracranial findings. 2) involutional changes and severe chronic ischemic white matter changes. 3) moderate size old right parietal infarction in the right middle cerebral artery territory.
[2019-08-03] MEDS: Dextrose 5% in Water 1,000 ML IV SCH (21:14)
[2019-08-03] MEDS: Acyclovir 400 mg Tablet PER TUBE SCH (21:21)
[2019-08-03] MEDS: Atorvastatin Calcium 10 MG TAB PO SCH (21:23)
[2019-08-03] MEDS: Insulin Glargine 10 UNITS in Pre-Filled Syringe 1 EACH SC SCH (21:25)
[2019-08-04 04:59] LABS: Hemoglobin 12.7 g/dL (14.0-18.0); Mean Corpuscular HGB CONC 30.8 g/dL (32.0-36.0); Mean Corpuscular Hemoglobin 27.2 pg (27.0-31.0); Mean Corpuscular Volume 88.4 fL (78.0-98.0); Mean Platelet Volume 9.9 fL (7.4-10.4); Platelet Count 192 thou/uL (130-400); RBC Distribution Width 15.1 % (11.5-14.5); Red Blood Cell (RBC) Count 4.66 mill/uL (4.70-6.10); White Blood Cell (WBC) Count 7.8 thou/uL (4.8-10.8)
[2019-08-04 05:06] LABS: INR-International Normal Ratio 3.3; Prothrombin Time 33.2 SEC (12.0-14.7)
[2019-08-04 05:30] LABS: ALT (SGPT) 27 U/L (8-55); AST (SGOT) 30 U/L (5-34); Albumin 3.2 g/dL (3.5-5.0); Alkaline Phosphatase 96 U/L (40-110); Anion Gap 15 mmol/L (10-20); BUN (Urea Nitrogen) 21 mg/dL (8.4-25.7); Bilirubin, Total 0.2 mg/dL (0.2-1.2); Calc. Creatinine Clearance 74 mL/min (70-130); Calcium 9.1 mg/dL (7.8-10.44); Carbon Dioxide 23 mmol/L (22-29); Chloride 114 mmol/L (98-107); Estimated GFR-MDRD 66; Globulin 4.4 g/dL (2.4-3.5); Glucose 145 mg/dL (70-105); Potassium 4.5 mmol/L (3.5-5.1); Protein, Total 7.6 g/dL (6.0-8.3); Sodium 147 mmol/L (136-145)
--- NOTE | 2019-08-04 08:59 | MRI ---
Brain MRI without contrast: 08/04/2019 HISTORY: Recurrent seizures, encephalopathy TECHNIQUE: Multiplanar multisequence MR imaging of the brain obtained without contrast COMPARISON: 07/23/2019 FINDINGS: A seizure protocol was attempted but is markedly limited secondary to persistent head motio n artifact. The diffusion weighted imaging demonstrates no evidence for acute infarction. There is extensive periventricular, deep, and subcortical white matter FLAIR hyperintensity, evidence of small vessel disease. Significant diffuse cerebral volume loss. Focal area of encephalomalacia in the right posterior parietal region suggesting prior infarct. IMPRESSION: Motion limited examination with no evidence for acute infarction.
[2019-08-04] MEDS: Valproate Sodium 250 mg/5 ml UD Cup PO SCH ×3 (09:15→21:53)
[2019-08-04] MEDS: Amlodipine 5 MG TAB PER TUBE SCH ×2 (09:16→21:53)
[2019-08-04] MEDS: Carvedilol 25 MG TAB PER TUBE SCH ×2 (09:16→21:54)
[2019-08-04] MEDS: Famotidine 20 MG TAB PER TUBE SCH (09:18)
[2019-08-04] MEDS: Floranex Packet PER TUBE SCH ×2 (09:18→21:55)
[2019-08-04] MEDS: Acyclovir 400 mg Tablet PER TUBE SCH ×3 (09:18→21:54)
[2019-08-04] MEDS: Ascorbic Acid 500 mg Chewable Tablet PER TUBE SCH (09:19)
[2019-08-04] MEDS: Losartan 25 MG TAB PO SCH (09:19)
[2019-08-04] MEDS: levETIRAcetam In NaCl (Iso-Os) 1,000 MG in Premix Bag 1 BAG IVPB SCH ×2 (09:19→21:55)
[2019-08-04] MEDS: Zinc Sulfate 220 MG CAP PER TUBE SCH (09:19)
[2019-08-04] MEDS: Dextrose 5% in Water 1,000 ML IV SCH (13:00)
--- NOTE | 2019-08-04 16:44 | PDOC.HOSPP ---
- Subjective Encounter Date: 08/04/19 Encounter Time: 16:43 Subjective: Patient is more alert. He looks at you while walking in the room, but otherwise he is still non-verbal. - Objective Vital Signs & Weight: Vital Signs (12 hours) Temp Pulse Resp BP BP Pulse Ox 08/04/19 16:00 99.3 F 71 18 158/77 H 98 08/04/19 12:00 99.4 F 80 18 138/80 98 08/04/19 09:45 95 08/04/19 09:16 83 145/88 H 08/04/19 07:55 99.2 F 80 18 145/88 H 95 Weight Admit Weight 180 lb Weight 183 lb 8 oz I&O: 08/03/19 08/04/19 08/05/19 06:59 06:59 06:59 Intake Total 1300 3962 Output Total 3750 2750 Balance -2450 1212 Result Diagrams: 08/04/19 04:40 08/04/19 04:40 Additional Labs: Accuchecks 08/04/19 08/04/19 08/03/19 10:58 06:10 19:51 POC Glucose 121 H 164 H 107 08/03/19 16:54 POC Glucose 97 Hospitalist ROS - Review of Systems ROS unobtainable: due to mental status - Medication Medications: Active Medications Generic Name Dose Route Start Last Admin Trade Name Freq PRN Reason Stop Dose Admin Acidophilus 1 gm 08/02/19 21:00 08/04/19 09:18 Floranex PER TUBE 1 gm BID MEI Administration Acyclovir 400 mg 08/03/19 21:00 08/04/19 15:50 Zovirax PER TUBE 400 mg TID MEI Administration Amlodipine Besylate 5 mg 08/02/19 21:00 08/04/19 09:16 Norvasc PER TUBE 5 mg BID MEI Administration Ascorbic Acid 500 mg 08/03/19 09:00 08/04/19 09:19 Vitamin C PER TUBE 500 mg DAILY MEI Administration Atorvastatin Calcium 5 mg 08/02/19 21:00 08/03/19 21:23 Lipitor PO 5 mg HS MEI Administration Carvedilol 12.5 mg 08/02/19 21:00 08/04/19 09:16 Coreg PER TUBE 12.5 mg BID MEI Administration Cefpodoxime Proxetil 200 mg 08/02/19 21:00 08/04/19 09:19 Vantin PER TUBE 200 mg Q12HR MEI Administration Famotidine 40 mg 08/03/19 09:00 08/04/19 09:18 Pepcid PER TUBE 40 mg DAILY MEI Administration Ferrous Sulfate 300 mg 08/02/19 21:00 08/04/19 09:22 Ferrous Sulfate PER TUBE 300 mg BID MEI Administration Levetiracetam 1,000 mg/ Device 100 mls @ 200 mls/hr 08/02/19 09:00 08/04/19 09:19 IVPB 100 mls BID MEI Administration Insulin Glargine 10 units/ 0.1 mls @ 0 mls/hr 08/02/19 21:00 08/03/19 21:25 Miscellaneous Medication SC 0.1 mls HS MEI Administration Dextrose/Water 1,000 mls @ 75 mls/hr 08/03/19 20:15 08/04/19 13:00 D5w IV 1,000 mls .[id number] MEI Administration Losartan Potassium 25 mg 08/04/19 09:00 08/04/19 09:19 Cozaar PO 25 mg DAILY MEI Administration Nystatin 0 gm 08/02/19 21:00 08/04/19 09:22 Mycostatin Powder TOP 1 applic BID MEI Administration Nystatin/Triamcinolone Acetonide 1 gm 08/02/19 21:00 08/04/19 09:22 Mycogen Ii Cream TOP 1 applic BID MEI Administration Valproic Acid 500 mg 08/02/19 15:00 08/04/19 15:50 Depakene Liquid PO 500 mg TID MEI Administration Zinc Sulfate 220 mg 08/03/19 09:00 08/04/19 09:19 Zinc Sulfate PER TUBE 220 mg DAILY MEI Administration - Exam General Appearance: NAD, awake alert Eye: PERRL, anicteric sclera ENT: normocephalic atraumatic, no oropharyngeal lesions ENT - other findings: Still has some swelling of his lips, less erythematous Neck: supple, symmetric, no JVD, no thyromegaly Heart: RRR, no murmur, no gallops, no rubs Respiratory: CTAB, no wheezes, no rales, no ronchi Gastrointestinal: soft, non-tender, non-distended, normal bowel sounds Extremities: no cyanosis, no clubbing, no edema Skin: normal turgor, no lesions, no rashes Neurological: cranial nerve grossly intact, normal sensation to touch, no focal deficits, no new deficit Musculoskeletal: normal tone, normal strength, no muscle wasting Psychiatric: normal affect, normal behavior, oriented to person Psychiatric - other findings: unable to assesss orientation Hosp A/P - Plan ECHO: mild MR, mild TR, aortic valve sclerosis. 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 Seizures - neurology was consulted and patient was started on keppra 1000 mg IV BId. Appreciate further neuro recs - CT head showed no acute disease. Will check MRI brain -blood culture, body fluid culture, crypto in CSF negative. Influenza and urine culture negative. CSF had showed 74% neutrophil that was red and turbid. Per ID this is common from post-ictal state - ECHO showed no endocarditis, chest X ray normal #Acute metabolic encephalopathy secondary to hypernatremia vs postictal state #Old right parietal infarction #History of [place] Spotted Fever - sodium 147, started on D5W, will repeat BMP this afternoon and adjust - INR elevated at [address] head shows no acute disease, MRI brain showed no acute infarction - on coumadin, will hold today since still supratherapeutic Angioedema of lips - lower lip very swollen and erythematous. Patient is on lisinopril, discontinued and switch to losartan - check HSV1 and 2 PCR, appears to possibly have some herpetic lesion on upper lip. Continue acyclovir TID Malnutrition - nutrition consulted, tube feeds with glucerna resumed Cecal adenocarcinoma - s/p treatment Type II diabetes - blood sugars are well controlled - continue glargine 10 units qhs Hypertension - continue lisinopril and coreg Dispo: improvement of hypernatremia Code status:full
[2019-08-04] MEDS ORDERED: Warfarin Sodium 7.5 MG TAB PER TUBE SCH (17:00)
[2019-08-04] MEDS: Nystatin Powder 15 GM BOT TOP SCH ×2 (18:02→21:55)
[2019-08-04] MEDS: Nystatin/Triamcinolone Cream 15 GM TUBE TOP SCH ×2 (18:02→21:55)
[2019-08-04 19:49] LABS: Anion Gap 12 mmol/L (10-20); BUN (Urea Nitrogen) 16 mg/dL (8.4-25.7); Calc. Creatinine Clearance 91 mL/min (70-130); Calcium 9.2 mg/dL (7.8-10.44); Carbon Dioxide 27 mmol/L (22-29); Chloride 112 mmol/L (98-107); Estimated GFR-MDRD 83; Glucose 132 mg/dL (70-105); Potassium 3.8 mmol/L (3.5-5.1); Sodium 147 mmol/L (136-145)
[2019-08-04] MEDS: Atorvastatin Calcium 10 MG TAB PO SCH (21:54)
[2019-08-04] MEDS: Insulin Glargine 10 UNITS in Pre-Filled Syringe 1 EACH SC SCH (21:56)
[2019-08-04] MEDS ORDERED: Dextrose 5% in Water 1,000 ML IV SCH (23:59)
[2019-08-05] MEDS: Acetaminophen 650 MG/20.3 ML UDCUP PO PRN ×2 (01:17→20:37)
[2019-08-05] MEDS: Dextrose 5% in Water 1,000 ML IV SCH (02:11)
[2019-08-05 06:57] LABS: Mean Corpuscular HGB CONC 31.7 g/dL (32.0-36.0); Mean Corpuscular Hemoglobin 28.3 pg (27.0-31.0); Mean Corpuscular Volume 89.4 fL (78.0-98.0); Mean Platelet Volume 9.2 fL (7.4-10.4); Platelet Count 163 thou/uL (130-400); Red Blood Cell (RBC) Count 4.57 mill/uL (4.70-6.10)
[2019-08-05 06:59] LABS: INR-International Normal Ratio 1.9; Prothrombin Time 21.9 SEC (12.0-14.7)
[2019-08-05 07:14] LABS: Anion Gap 11 mmol/L (10-20); BUN (Urea Nitrogen) 16 mg/dL (8.4-25.7); Calc. Creatinine Clearance 96 mL/min (70-130); Carbon Dioxide 26 mmol/L (22-29); Chloride 108 mmol/L (98-107); Estimated GFR-MDRD 88; Glucose 120 mg/dL (70-105); Potassium 4.3 mmol/L (3.5-5.1); Sodium 141 mmol/L (136-145)
[2019-08-05 07:41] LABS: Anisocytosis SLIGHT = 6-15 cells (100X) (0-5/hpf); Band 1 % (5-11); Eosinophils 3 % (0-10); Hypochromia SLIGHT = 6-15 cells (100X) (0-5/hpf); Lymphocytes 20 % (21-51); MDiff Complete? YES; Monocytes 18 % (0-10); Neutrophil 50 % (42-75); Platelet Morphology Comment Appears Adequate; Reactive Lymphocytes 8 % (0-10)
--- NOTE | 2019-08-05 09:43 | PDOC.HOSPP ---
- Subjective Encounter Date: 08/05/19 Encounter Time: 09:30 Subjective: The patient had a seizure few minutes ago. Per nursing staff patient was drooling and oxygen saturation dropped into the 70's. Keppra level was normal and depakote level normal. Patient still non-verbal Yesterday PEG tube noted to be leaking and was clogged and some medications not able to be administered. - Objective Vital Signs & Weight: Vital Signs (12 hours) Temp Pulse Resp BP BP Pulse Ox 08/05/19 07:38 99 F 69 20 154/84 H 96 08/05/19 03:47 99.3 F 72 20 106/63 96 08/05/19 02:15 99.6 F 08/04/19 23:17 100.1 F H 78 18 137/80 95 08/04/19 21:53 85 170/92 H Weight Admit Weight 180 lb Weight 183 lb 8 oz I&O: 08/04/19 08/05/19 08/06/19 06:59 06:59 06:59 Intake Total 3962 963 Output Total 2750 1830 Balance 1212 -867 Result Diagrams: 08/05/19 06:05 08/05/19 06:05 Additional Labs: Accuchecks 08/05/19 08/04/19 08/04/19 06:21 19:49 16:53 POC Glucose 134 H 145 H 135 H 08/04/19 10:58 POC Glucose 121 H Hospitalist ROS - Review of Systems Constitutional: denies: fever, chills - Medication Medications: Active Medications Generic Name Dose Route Start Last Admin Trade Name Freq PRN Reason Stop Dose Admin Acetaminophen 650 mg 08/02/19 11:01 08/05/19 01:17 Tylenol Elixir PO 650 mg Q6H PRN Administration Pain Acidophilus 1 gm 08/02/19 21:00 08/04/19 21:55 Floranex PER TUBE 1 gm BID MEI Administration Acyclovir 400 mg 08/03/19 21:00 08/04/19 21:54 Zovirax PER TUBE 400 mg TID MEI Administration Amlodipine Besylate 5 mg 08/02/19 21:00 08/04/19 21:53 Norvasc PER TUBE 5 mg BID MEI Administration Ascorbic Acid 500 mg 08/03/19 09:00 08/04/19 09:19 Vitamin C PER TUBE 500 mg DAILY MEI Administration Atorvastatin Calcium 5 mg 08/02/19 21:00 08/04/19 21:54 Lipitor PO 5 mg HS MEI Administration Carvedilol 12.5 mg 08/02/19 21:00 08/04/19 21:54 Coreg PER TUBE 12.5 mg BID MEI Administration Cefpodoxime Proxetil 200 mg 08/02/19 21:00 08/04/19 21:54 Vantin PER TUBE 200 mg Q12HR MEI Administration Famotidine 40 mg 08/03/19 09:00 08/04/19 09:18 Pepcid PER TUBE 40 mg DAILY MEI Administration Ferrous Sulfate 300 mg 08/02/19 21:00 08/04/19 21:53 Ferrous Sulfate PER TUBE 300 mg BID MEI Administration Levetiracetam 1,000 mg/ Device 100 mls @ 200 mls/hr 08/02/19 09:00 08/04/19 21:55 IVPB 100 mls BID MEI Administration Insulin Glargine 10 units/ 0.1 mls @ 0 mls/hr 08/02/19 21:00 08/04/19 21:56 Miscellaneous Medication SC 0.1 mls HS MEI Administration Lorazepam 2 mg 08/02/19 01:20 08/05/19 01:34 Ativan SLOW IVP 2 mg Q15MIN PRN Administration Seizures Losartan Potassium 25 mg 08/04/19 09:00 08/04/19 09:19 Cozaar PO 25 mg DAILY MEI Administration Nystatin 0 gm 08/02/19 21:00 08/04/19 21:55 Mycostatin Powder TOP 1 applic BID MEI Administration Nystatin/Triamcinolone Acetonide 1 gm 08/02/19 21:00 08/04/19 21:55 Mycogen Ii Cream TOP 1 applic BID MEI Administration Valproic Acid 500 mg 08/02/19 15:00 08/04/19 21:53 Depakene Liquid PO 500 mg TID MEI Administration Zinc Sulfate 220 mg 08/03/19 09:00 08/04/19 09:19 Zinc Sulfate PER TUBE 220 mg DAILY MEI Administration - Exam General Appearance: NAD General - other findings: non-verbal, encephalopathic Eye: PERRL, anicteric sclera ENT: normocephalic atraumatic, no oropharyngeal lesions ENT - other findings: lips not as erythematous, less swollen Neck: supple, symmetric, no JVD, no thyromegaly Heart: RRR, no gallops, no rubs Heart - other findings: systolic murmur left second intercostal space Respiratory: CTAB, no wheezes, no rales, no ronchi Gastrointestinal: soft, non-tender, non-distended, normal bowel sounds, no splenomegaly Gastrointestinal - other findings: PEG tube present Extremities: no cyanosis, no clubbing, no edema Skin: normal turgor, no lesions, no rashes Neurological: cranial nerve grossly intact, normal sensation to touch, no focal deficits, no new deficit Musculoskeletal: normal tone Hosp A/P - Plan ECHO: mild MR, mild TR, aortic valve sclerosis. 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 Seizures - neurology was consulted and patient was started on keppra 1000 mg IV BId. Had seizure overnight and this am, appreciate further recs. CT head and MRI brain show no acute stroke -blood culture, body fluid culture, crypto in CSF negative. Influenza and urine culture negative. CSF had showed 74% neutrophil that was red and turbid. Per ID this is common from post-ictal state - ECHO showed no endocarditis, chest X ray normal. 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 Patient is on lisinopril, discontinued and switch to losartan - HSV1 and 2 PCR pending, continue acyclovir. Red lip lesions seem to have improved Malnutrition - nutrition consulted, tube feeds with glucerna resumed from 4 pm to 8 am Cecal adenocarcinoma - s/p treatment Type II diabetes - blood sugars are well controlled - continue glargine 10 units qhs Hypertension - continue lisinopril and coreg Anemia - Hb 13/40, check iron panel Dispo: pending improvement of seizures, encephalopathy Code status:full
[2019-08-05] MEDS: levETIRAcetam In NaCl (Iso-Os) 1,000 MG in Premix Bag 1 BAG IVPB SCH (09:44)
[2019-08-05] MEDS: Zinc Sulfate 220 MG CAP PER TUBE SCH (09:45)
[2019-08-05] MEDS: Ascorbic Acid 500 mg Chewable Tablet PER TUBE SCH (09:45)
[2019-08-05] MEDS: Losartan 25 MG TAB PO SCH (09:45)
[2019-08-05] MEDS: Valproate Sodium 250 mg/5 ml UD Cup PO SCH ×3 (09:45→20:37)
[2019-08-05] MEDS: Acyclovir 400 mg Tablet PER TUBE SCH ×3 (09:46→20:35)
[2019-08-05] MEDS: Famotidine 20 MG TAB PER TUBE SCH (09:46)
[2019-08-05] MEDS: Floranex Packet PER TUBE SCH ×2 (09:46→19:32)
[2019-08-05] MEDS: Carvedilol 25 MG TAB PER TUBE SCH ×2 (09:46→20:38)
[2019-08-05] MEDS: Nystatin/Triamcinolone Cream 15 GM TUBE TOP SCH ×2 (09:46→20:38)
[2019-08-05] MEDS: Amlodipine 5 MG TAB PER TUBE SCH ×2 (09:46→20:36)
[2019-08-05] MEDS: Nystatin Powder 15 GM BOT TOP SCH ×2 (09:47→20:37)
[2019-08-05 10:11] LABS: Anion Gap 12 mmol/L (10-20); BUN (Urea Nitrogen) 15 mg/dL (8.4-25.7); Calc. Creatinine Clearance 98 mL/min (70-130); Calcium 9.3 mg/dL (7.8-10.44); Carbon Dioxide 30 mmol/L (22-29); Chloride 107 mmol/L (98-107); Estimated GFR-MDRD 90; Glucose 130 mg/dL (70-105); Potassium 4.8 mmol/L (3.5-5.1); Sodium 144 mmol/L (136-145)
[2019-08-05 11:17] VITALS: BMI 24.8
--- NOTE | 2019-08-05 13:29 | PDOC.PALCO ---
Palliative Care Consult - Consult Details Requesting Physician: Dr Munguia Reason for Consult: goals of care, advance directives assistance, complex decision-making Family Members Present: None - Pertinent HPI 53 year old male who presented to the emergency room secondary for evaluation related to seizure activity at facility he resides at. Patient has chronic conditions related to s/p cva. Aphagic, non ambulatory, nutritional support via PEG, bed-silvano jaspreet bound, total max assist for all ADL's.. On arrival to hospital patient was noted to be febrile, and admitted for further medical management. - Pertinent PMH Ischemic CVA, HTN, HDL, encephalopathy, seizures - Social History Smoking Status: Unknown if ever smoked Alcohol Use: none Drug Use History: none Living Situation: halfway resident - Medications MAR Reviewed: Yes - Allergies Allergies/Adverse Reactions: Allergies Allergy/AdvReac Type Severity Reaction Status Date / Time aspirin Allergy Verified 08/02/19 05:04 Penicillins Allergy Verified 08/02/19 05:04 - Subjective non responsive at time of assessment, aphagic. O2 via nasal canula. Unable to perform ROS secondary to altered mental status - Objective Vital Signs: Vital Signs - Most Recent Temp Pulse Resp BP Pulse Ox 101.4 F H 97 20 137/77 91 L 08/05/19 11:49 08/05/19 11:49 08/05/19 11:49 08/05/19 11:49 08/05/19 11:49 Palliative Performance Scale: 20 - Physical Exam Deviation from normal: Non responsive, poor dentition, chronically ill appearing HEENT: moist MMs, sclera anicteric Respiratory: tachypnea Cardiovascular: RRR Gastrointestinal: soft, non-tender, positive bowel sounds Musculoskeletal: no edema, pulses present Deviation from normal: muscle atrophy, contractures to hand Deviation from normal: unable to determine orientation at time of assessment Skin: cap refill <2 seconds - Problem List (1) Palliative care encounter Code(s): Z51.5 - ENCOUNTER FOR PALLIATIVE CARE Current Visit: Yes Status: Acute (2) Recurrent seizures Code(s): G40.909 - EPILEPSY, UNSP, NOT INTRACTABLE, WITHOUT STATUS EPILEPTICUS Current Visit: Yes Status: Acute (3) Chronic hypoxic-ischemic brain injury Code(s): I67.82 - CEREBRAL ISCHEMIA; G93.1 - ANOXIC BRAIN DAMAGE, NOT ELSEWHERE CLASSIFIED Current Visit: No Status: Chronic (4) PEG (percutaneous endoscopic gastrostomy) status Code(s): Z93.1 - GASTROSTOMY STATUS Current Visit: No Status: Chronic - Plan/Recommendations Plan: Spoke with Dr Munguia in relation to patient and family meeting at 1:15 today. Family not at bedside, called both numbers for brother and sister in law/unable to reach. Family had indicated seeking hospice care to manage symptoms related to chronic condition and trajectory to decline. *Will attempt to follow up with family to discuss resuscitation status and goals of care for patient Palliative Care RN to continue to follow. [30] minutes spent on this encounter with >50% of the time in counseling and coordination of care. Thank you for this very appropriate consult.
--- NOTE | 2019-08-05 15:04 | PDOC.PALFU ---
Palliative Care Follow-up Note Met with family to discuss goals of care and resuscitation status. DNAR. Family decided to seek comfort through hospice care. Discussed at length. Dr uMnguia notified. Requesting they call Andie the Sister in law Andie [phone] cell [phone] home requested to have [employer] call so she can interview and make best choice for patient. LALI Richardtonya Almendarez and Andie Chava Almendarez #[phone]
[2019-08-05] MEDS ORDERED: Warfarin Sodium 10 MG TAB PER TUBE SCH (17:00)
[2019-08-05] MEDS ORDERED: Warfarin Sodium 5 MG TAB PER TUBE SCH (17:00)
--- NOTE | 2019-08-05 18:05 | PRG ---
DATE OF SERVICE: 08/05/2019 Mr. Larsen had a witnessed recurrent seizure. His Keppra and Depakote levels are in therapeutic range. I have elected to increase his Keppra to 1500 mg twice a day. He remains in a relatively vegetative state. There is little else that can be done at this juncture. He is going to have p.r.n. Ativan available. My understanding is they are looking at hospice care. He otherwise appears stable. Job ID: [id number]
[2019-08-05] MEDS: levETIRAcetam In NaCl (Iso-Os) 1,500 MG in Premix Bag 1 BAG IVPB SCH (20:23)
[2019-08-05] MEDS: Atorvastatin Calcium 10 MG TAB PO SCH (20:36)
[2019-08-05] MEDS: Insulin Glargine 10 UNITS in Pre-Filled Syringe 1 EACH SC SCH (20:39)
[2019-08-06] MEDS ORDERED: Ondansetron PF 4 MG/2 ML Vial IVP PRN (00:01)
[2019-08-06] MEDS: Acetaminophen 650 MG/20.3 ML UDCUP PO PRN ×2 (05:19→13:22)
[2019-08-06 06:19] LABS: Hemoglobin 13.1 g/dL (14.0-18.0); Mean Corpuscular HGB CONC 30.9 g/dL (32.0-36.0); Mean Corpuscular Hemoglobin 27.5 pg (27.0-31.0); Mean Corpuscular Volume 89.2 fL (78.0-98.0); Platelet Count 164 thou/uL (130-400); Red Blood Cell (RBC) Count 4.76 mill/uL (4.70-6.10); White Blood Cell (WBC) Count 9.5 thou/uL (4.8-10.8)
[2019-08-06 06:48] LABS: ALT (SGPT) 19 U/L (8-55); AST (SGOT) 14 U/L (5-34); Albumin 3.2 g/dL (3.5-5.0); Alkaline Phosphatase 84 U/L (40-110); Anion Gap 13 mmol/L (10-20); BUN (Urea Nitrogen) 23 mg/dL (8.4-25.7); Bilirubin, Total 0.3 mg/dL (0.2-1.2); Calc. Creatinine Clearance 82 mL/min (70-130); Calcium 9.1 mg/dL (7.8-10.44); Carbon Dioxide 24 mmol/L (22-29); Chloride 109 mmol/L (98-107); Estimated GFR-MDRD 73; Globulin 4.5 g/dL (2.4-3.5); Glucose 213 mg/dL (70-105); Iron 13 ug/dL (65-175); Iron Binding Capacity, Total 260 mcg/dL (261-462); Protein, Total 7.7 g/dL (6.0-8.3); Sodium 141 mmol/L (136-145)
[2019-08-06] MEDS: Floranex Packet PER TUBE SCH ×2 (08:02→21:16)
[2019-08-06] MEDS: levETIRAcetam In NaCl (Iso-Os) 1,500 MG in Premix Bag 1 BAG IVPB SCH ×2 (09:05→21:13)
[2019-08-06] MEDS: Acyclovir 400 mg Tablet PER TUBE SCH ×3 (09:10→21:14)
[2019-08-06] MEDS: Amlodipine 5 MG TAB PER TUBE SCH ×2 (09:11→21:14)
[2019-08-06] MEDS: Zinc Sulfate 220 MG CAP PER TUBE SCH (09:11)
[2019-08-06] MEDS: Valproate Sodium 250 mg/5 ml UD Cup PO SCH ×3 (09:11→21:15)
[2019-08-06] MEDS: Carvedilol 25 MG TAB PER TUBE SCH ×2 (09:12→21:14)
[2019-08-06] MEDS: Ascorbic Acid 500 mg Chewable Tablet PER TUBE SCH (09:12)
[2019-08-06] MEDS: Losartan 25 MG TAB PO SCH (09:12)
[2019-08-06] MEDS: Nystatin/Triamcinolone Cream 15 GM TUBE TOP SCH ×2 (09:12→21:16)
[2019-08-06] MEDS: Nystatin Powder 15 GM BOT TOP SCH ×2 (09:12→21:16)
[2019-08-06] MEDS: Famotidine 20 MG TAB PER TUBE SCH (09:12)
--- NOTE | 2019-08-06 18:46 | PDOC.HOSPP ---
- Subjective Encounter Date: 08/06/19 Encounter Time: 18:44 Subjective: Patient is still non-verbal. More alert and opens eyes. No seizures today or overnight per nursing staff Per family member yesterday, patient has been almost a vegetable for the past two years. Palliative was consulted and they are looking towards hospice - Objective Vital Signs & Weight: Vital Signs (12 hours) Temp Pulse Resp BP BP Pulse Ox 08/06/19 16:08 98.9 F 132/77 08/06/19 15:41 100.1 F H 90 20 161/84 H 98 08/06/19 11:42 99.7 F H 91 24 H 105/64 100 08/06/19 09:11 93 113/65 08/06/19 09:06 100 08/06/19 07:46 99.9 F H 93 20 113/65 100 Weight Admit Weight 180 lb Weight 183 lb 8 oz I&O: 08/05/19 08/06/19 08/07/19 06:59 06:59 06:59 Intake Total 963 2390 30 Output Total 1830 Balance -867 2390 30 Result Diagrams: 08/06/19 05:36 08/06/19 05:36 Additional Labs: Accuchecks 08/06/19 08/06/19 08/06/19 16:39 10:49 05:54 POC Glucose 113 H 106 208 H 08/05/19 19:59 POC Glucose 204 H Hospitalist ROS - Review of Systems Constitutional: denies: chills Eyes: denies: pain Respiratory: denies: cough - Medication Medications: Active Medications Generic Name Dose Route Start Last Admin Trade Name Joshuaq PRN Reason Stop Dose Admin Acetaminophen 650 mg 08/02/19 11:01 08/06/19 13:22 Tylenol Elixir PO 650 mg Q6H PRN Administration Pain Acidophilus 1 gm 08/02/19 21:00 08/06/19 08:02 Floranex PER TUBE Not Given BID MEI Acyclovir 400 mg 08/03/19 21:00 08/06/19 16:15 Zovirax PER TUBE 400 mg TID MEI Administration Amlodipine Besylate 5 mg 08/02/19 21:00 08/06/19 09:11 Norvasc PER TUBE 5 mg BID MEI Administration Ascorbic Acid 500 mg 08/03/19 09:00 08/06/19 09:12 Vitamin C PER TUBE 500 mg DAILY MEI Administration Atorvastatin Calcium 5 mg 08/02/19 21:00 08/05/19 20:36 Lipitor PO 5 mg HS MEI Administration Carvedilol 12.5 mg 08/02/19 21:00 08/06/19 09:12 Coreg PER TUBE 12.5 mg BID MEI Administration Cefpodoxime Proxetil 200 mg 08/02/19 21:00 08/06/19 09:10 Vantin PER TUBE 200 mg Q12HR MEI Administration Famotidine 40 mg 08/03/19 09:00 08/06/19 09:12 Pepcid PER TUBE 40 mg DAILY MEI Administration Ferrous Sulfate 300 mg 08/02/19 21:00 08/06/19 09:11 Ferrous Sulfate PER TUBE 300 mg BID MEI Administration Insulin Glargine 10 units/ 0.1 mls @ 0 mls/hr 08/02/19 21:00 08/05/19 20:39 Miscellaneous Medication SC 0.1 mls HS MEI Administration Levetiracetam 1,500 mg/ Device 100 mls @ 200 mls/hr 08/05/19 21:00 08/06/19 09:05 IVPB 100 mls BID MEI Administration Lorazepam 2 mg 08/02/19 01:20 08/05/19 01:34 Ativan SLOW IVP 2 mg Q15MIN PRN Administration Seizures Losartan Potassium 25 mg 08/04/19 09:00 08/06/19 09:12 Cozaar PO 25 mg DAILY MEI Administration Nystatin 0 gm 08/02/19 21:00 08/06/19 09:12 Mycostatin Powder TOP 1 applic BID MEI Administration Nystatin/Triamcinolone Acetonide 1 gm 08/02/19 21:00 08/06/19 09:12 Mycogen Ii Cream TOP 1 applic BID MEI Administration Ondansetron HCl 4 mg 08/06/19 00:01 08/06/19 00:44 Zofran IVP 4 mg Q6H PRN Administration Nausea/Vomiting Valproic Acid 500 mg 08/02/19 15:00 08/06/19 16:14 Depakene Liquid PO 500 mg TID MEI Administration Zinc Sulfate 220 mg 08/03/19 09:00 08/06/19 09:11 Zinc Sulfate PER TUBE 220 mg DAILY MEI Administration - Exam General Appearance: NAD, awake alert Eye: PERRL, anicteric sclera ENT: normocephalic atraumatic, no oropharyngeal lesions Neck: supple, symmetric, no JVD, no thyromegaly Heart: RRR, no murmur, no gallops, no rubs, normal peripheral pulses Respiratory: CTAB, no wheezes, no rales, no ronchi Gastrointestinal: soft, non-tender, non-distended, normal bowel sounds Extremities: no cyanosis, no clubbing, no edema Skin: normal turgor, no lesions, no rashes Neurological: cranial nerve grossly intact, normal sensation to touch, no focal deficits, no new deficit Musculoskeletal: normal tone, normal strength, no muscle wasting Psychiatric: normal affect, normal behavior, A&O x 3, oriented to person, oriented to place, oriented to time Hosp A/P - Plan ECHO: mild MR, mild TR, aortic valve sclerosis. 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 Seizures - neurology was consulted and patient was started on keppra 1000 mg IV BId. Had seizure overnight and this am, keppra increased to 1500 mg bid. Will continue for now -blood culture, body fluid culture, crypto in CSF negative. Influenza and urine culture negative. CSF had showed 74% neutrophil that was red and turbid. Per ID this is common from post-ictal state - ECHO showed no endocarditis, chest X ray normal. 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 Recheck INR today Angioedema of lips - lower lip very swollen and erythematous. Patient is on lisinopril, discontinued and switch to losartan - HSV1 and 2 PCR pending, continue acyclovir. Red lip lesions seem to have improved Malnutrition - nutrition consulted, tube feeds with glucerna resumed from 4 pm to 8 am Cecal adenocarcinoma - s/p treatment Type II diabetes - blood sugars are well controlled - continue glargine 10 units qhs Hypertension - continue lisinopril and coreg Anemia of Chronic disease - Hb 13.1, stable Dispo: Code status:full
[2019-08-06 19:43] LABS: INR-International Normal Ratio 3.1; Prothrombin Time 31.9 SEC (12.0-14.7)
[2019-08-06] MEDS: Insulin Glargine 10 UNITS in Pre-Filled Syringe 1 EACH SC SCH (21:13)
[2019-08-06] MEDS: Atorvastatin Calcium 10 MG TAB PO SCH (21:14)
[2019-08-07] MEDS: Acetaminophen 650 MG/20.3 ML UDCUP PO PRN ×2 (01:24→14:26)
[2019-08-07 05:56] LABS: Hemoglobin 12.6 g/dL (14.0-18.0); Mean Corpuscular HGB CONC 31.4 g/dL (32.0-36.0); Mean Corpuscular Hemoglobin 27.7 pg (27.0-31.0); Mean Corpuscular Volume 88.4 fL (78.0-98.0); Mean Platelet Volume 10.1 fL (7.4-10.4); Platelet Count 170 thou/uL (130-400); RBC Distribution Width 14.9 % (11.5-14.5); Red Blood Cell (RBC) Count 4.53 mill/uL (4.70-6.10); White Blood Cell (WBC) Count 11.8 thou/uL (4.8-10.8)
[2019-08-07 06:19] LABS: Anion Gap 12 mmol/L (10-20); BUN (Urea Nitrogen) 23 mg/dL (8.4-25.7); Calc. Creatinine Clearance 93 mL/min (70-130); Calcium 9.2 mg/dL (7.8-10.44); Carbon Dioxide 27 mmol/L (22-29); Chloride 111 mmol/L (98-107); Estimated GFR-MDRD 85; Glucose 176 mg/dL (70-105); Potassium 4.8 mmol/L (3.5-5.1); Sodium 145 mmol/L (136-145)
[2019-08-07] MEDS: Valproate Sodium 250 mg/5 ml UD Cup PO SCH ×3 (09:51→21:51)
[2019-08-07] MEDS: Acyclovir 400 mg Tablet PER TUBE SCH ×2 (09:51→14:26)
[2019-08-07] MEDS: Ascorbic Acid 500 mg Chewable Tablet PER TUBE SCH (09:52)
[2019-08-07] MEDS: Amlodipine 5 MG TAB PER TUBE SCH ×2 (09:52→21:51)
[2019-08-07] MEDS: Zinc Sulfate 220 MG CAP PER TUBE SCH (09:52)
[2019-08-07] MEDS: Carvedilol 25 MG TAB PER TUBE SCH ×2 (09:53→21:53)
[2019-08-07] MEDS: Famotidine 20 MG TAB PER TUBE SCH (09:55)
[2019-08-07] MEDS: Losartan 25 MG TAB PO SCH (09:55)
[2019-08-07] MEDS: levETIRAcetam In NaCl (Iso-Os) 1,500 MG in Premix Bag 1 BAG IVPB SCH (09:56)
[2019-08-07] MEDS: Floranex Packet PER TUBE SCH ×2 (09:56→21:50)
--- NOTE | 2019-08-07 13:53 | RAD ---
CHEST 1 VIEW: DATE: 08/07/2019. TIME: 11:54 a.m. HISTORY: Fever. FINDINGS: Comparison is made with the exam of 08/01/2019. The heart size is normal. There is patchy airspace disease in the right lung predominantly mid and l ower lung zones. No pneumothoraces or pleural effusions are seen. IMPRESSION: Right-sided pneumonia. POS: [facility]
[2019-08-07] MEDS: Nystatin/Triamcinolone Cream 15 GM TUBE TOP SCH ×2 (14:18→21:57)
[2019-08-07] MEDS: Nystatin Powder 15 GM BOT TOP SCH ×2 (14:18→21:57)
[2019-08-07 15:36] LABS: Bilirubin Negative (Negative); Blood, Urine Trace (Negative); Clarity Clear (Clear); Glucose, Urine (Dipstick) Normal (Negative); Leukocyte Negative Leu/uL (Negative); Nitrite Negative (Negative); Protein, Urine (Dipstick) 100 mg/dL (Neg-Trace); Squamous Epithelial None Seen HPF (0-3); Urobilinogen Normal mg/dL (Less than 2); WBC/HPF 0-3 HPF (0-3)
[2019-08-07 15:44] LABS: Bacteria/HPF None Seen HPF (None Seen)
--- NOTE | 2019-08-07 16:06 | PDOC.HOSPP ---
- Subjective Encounter Date: 08/07/19 Encounter Time: 14:00 Subjective: The patient continues to be non-verbal in a vegetative state. He is more alert. No seizures overnight. Patient did spike a fever overnight and was tachycardic. Chest X ray is showing pneumonia. UA currently pending. Per family, they are interested in sending him to hospice. - Objective Vital Signs & Weight: Vital Signs (12 hours) Temp Pulse Resp BP BP Pulse Ox 08/07/19 15:31 99.0 F 82 16 135/84 100 08/07/19 09:52 97 140/68 08/07/19 07:46 98.6 F 97 15 140/68 97 Weight Admit Weight 180 lb Weight 183 lb 8 oz I&O: 08/06/19 08/07/19 08/08/19 06:59 06:59 06:59 Intake Total 2390 1278 30 Output Total 900 445 Balance 2390 378 -415 Result Diagrams: 08/07/19 05:34 08/07/19 05:34 Additional Labs: Accuchecks 08/07/19 08/07/19 08/06/19 10:04 05:52 20:37 POC Glucose 141 H 177 H 152 H 08/06/19 16:39 POC Glucose 113 H Hospitalist ROS - Review of Systems ROS unobtainable: due to mental status Constitutional: reports: fever - Medication Medications: Active Medications Generic Name Dose Route Start Last Admin Trade Name Freq PRN Reason Stop Dose Admin Acetaminophen 650 mg 08/02/19 11:01 08/07/19 14:26 Tylenol Elixir PO 650 mg Q6H PRN Administration Pain Acidophilus 1 gm 08/02/19 21:00 08/07/19 09:56 Floranex PER TUBE Not Given BID MEI Acyclovir 400 mg 08/03/19 21:00 08/07/19 14:26 Zovirax PER TUBE 400 mg TID MEI Administration Amlodipine Besylate 5 mg 08/02/19 21:00 08/07/19 09:52 Norvasc PER TUBE 5 mg BID MEI Administration Ascorbic Acid 500 mg 08/03/19 09:00 08/07/19 09:52 Vitamin C PER TUBE 500 mg DAILY MEI Administration Atorvastatin Calcium 5 mg 08/02/19 21:00 08/06/19 21:14 Lipitor PO 5 mg HS MEI Administration Carvedilol 12.5 mg 08/02/19 21:00 08/07/19 09:53 Coreg PER TUBE 12.5 mg BID MEI Administration Famotidine 40 mg 08/03/19 09:00 08/07/19 09:55 Pepcid PER TUBE 40 mg DAILY MEI Administration Ferrous Sulfate 300 mg 08/02/19 21:00 08/07/19 09:51 Ferrous Sulfate PER TUBE 300 mg BID MEI Administration Insulin Glargine 10 units/ 0.1 mls @ 0 mls/hr 08/02/19 21:00 08/06/19 21:13 Miscellaneous Medication SC 0.1 mls HS MEI Administration Levetiracetam 1,500 mg/ Device 100 mls @ 200 mls/hr 08/05/19 21:00 08/07/19 09:56 IVPB 100 mls BID MEI Administration Lorazepam 2 mg 08/02/19 01:20 08/05/19 01:34 Ativan SLOW IVP 2 mg Q15MIN PRN Administration Seizures Losartan Potassium 25 mg 08/04/19 09:00 08/07/19 09:55 Cozaar PO 25 mg DAILY MEI Administration Nystatin 0 gm 08/02/19 21:00 08/07/19 14:18 Mycostatin Powder TOP 1 applic BID MEI Administration Nystatin/Triamcinolone Acetonide 1 gm 08/02/19 21:00 08/07/19 14:18 Mycogen Ii Cream TOP 1 applic BID MEI Administration Ondansetron HCl 4 mg 08/06/19 00:01 08/06/19 00:44 Zofran IVP 4 mg Q6H PRN Administration Nausea/Vomiting Valproic Acid 500 mg 08/02/19 15:00 08/07/19 14:26 Depakene Liquid PO 500 mg TID MEI Administration Zinc Sulfate 220 mg 08/03/19 09:00 08/07/19 09:52 Zinc Sulfate PER TUBE 220 mg DAILY MEI Administration - Exam General Appearance: NAD, awake alert Eye: PERRL ENT: normocephalic atraumatic, no oropharyngeal lesions Heart: no gallops, no rubs Heart - other findings: systolic murmur at second intercostal space Respiratory: CTAB, no wheezes, no rales, no ronchi Gastrointestinal: soft, non-tender, non-distended, normal bowel sounds Extremities: no cyanosis, no clubbing, no edema Skin: normal turgor, no lesions, no rashes Neurological: cranial nerve grossly intact, normal sensation to touch, no focal deficits, no new deficit Musculoskeletal: normal tone, normal strength, no muscle wasting Psychiatric: normal affect, normal behavior Hosp A/P - Plan ECHO: mild MR, mild TR, aortic valve sclerosis. 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 Sepsis from aspiration pneumonia - had fever overnight, tachycardia, leukocytosis. Tachycardia now resolved - will start treatment with clindamycin for seven days Seizures - neurology was consulted and patient was started on keppra 1000 mg IV BId. It was then increased to 1500 mg bid. No further seizures. Will switch to oral keppra and monitor. -blood culture, body fluid culture, crypto in CSF negative. Influenza and urine culture negative. CSF had showed 74% neutrophil that was red and turbid. 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 INR 3.1 08/06, coumadin held. Recheck today Angioedema of lips - lower lip very swollen and erythematous. Patient is on lisinopril, discontinued and switch to losartan - HSV1 and 2 PCR negative, will d/c acyclovir. Red lip lesions seem to have improved Malnutrition - nutrition consulted, tube feeds with glucerna resumed from 4 pm to 8 am Cecal adenocarcinoma - s/p treatment Type II diabetes - blood sugars are well controlled - continue glargine 10 units qhs Hypertension - continue lisinopril and coreg Anemia of Chronic disease - Hb 13.1, stable. Iron sat low, consider IV iron when infection resolves - check B12 and folate Dispo: likely d/c to hospice tomorrow if fever resolved Code status: DNR Dispo: Code status:full
[2019-08-07] MEDS ORDERED: Clindamycin 150 MG CAP PO SCH (16:15)
[2019-08-07 17:19] LABS: INR-International Normal Ratio 2.2; Prothrombin Time 23.9 SEC (12.0-14.7)
[2019-08-07] MEDS: Atorvastatin Calcium 10 MG TAB PO SCH (21:52)
[2019-08-07] MEDS: levETIRAcetam 500 MG TAB PER TUBE SCH (21:55)
[2019-08-07] MEDS: Insulin Glargine 10 UNITS in Pre-Filled Syringe 1 EACH SC SCH (21:56)
[2019-08-07] MEDS: Clindamycin 150 MG CAP PO SCH (21:56)
[2019-08-08 06:04] LABS: INR-International Normal Ratio 1.9; Prothrombin Time 21.7 SEC (12.0-14.7)
[2019-08-08 06:29] LABS: Hemoglobin 12.6 g/dL (14.0-18.0); Mean Corpuscular HGB CONC 31.7 g/dL (32.0-36.0); Mean Corpuscular Volume 91.2 fL (78.0-98.0); Platelet Count 139 thou/uL (130-400); Red Blood Cell (RBC) Count 4.35 mill/uL (4.70-6.10); White Blood Cell (WBC) Count 11.4 thou/uL (4.8-10.8)
[2019-08-08 06:33] LABS: ALT (SGPT) 16 U/L (8-55); AST (SGOT) 21 U/L (5-34); Albumin 3.1 g/dL (3.5-5.0); Alkaline Phosphatase 103 U/L (40-110); Anion Gap 14 mmol/L (10-20); BUN (Urea Nitrogen) 24 mg/dL (8.4-25.7); Bilirubin, Total 0.2 mg/dL (0.2-1.2); Calc. Creatinine Clearance 104 mL/min (70-130); Calcium 9.4 mg/dL (7.8-10.44); Carbon Dioxide 26 mmol/L (22-29); Chloride 112 mmol/L (98-107); Estimated GFR-MDRD Greater than 90; Globulin 4.7 g/dL (2.4-3.5); Glucose 174 mg/dL (70-105); Potassium 5.1 mmol/L (3.5-5.1); Protein, Total 7.8 g/dL (6.0-8.3); Sodium 147 mmol/L (136-145)
[2019-08-08] MEDS: levETIRAcetam 500 MG TAB PER TUBE SCH (09:32)
[2019-08-08] MEDS: Floranex Packet PER TUBE SCH ×2 (09:32→20:25)
[2019-08-08] MEDS: Nystatin/Triamcinolone Cream 15 GM TUBE TOP SCH ×2 (09:33→20:33)
[2019-08-08] MEDS: Clindamycin 150 MG CAP PO SCH ×4 (09:34→20:20)
[2019-08-08] MEDS: Nystatin Powder 15 GM BOT TOP SCH ×2 (09:34→20:26)
[2019-08-08] MEDS: Valproate Sodium 250 mg/5 ml UD Cup PO SCH ×4 (09:34→20:20)
[2019-08-08] MEDS: Famotidine 20 MG TAB PER TUBE SCH (09:36)
[2019-08-08] MEDS: Losartan 25 MG TAB PO SCH (09:36)
[2019-08-08] MEDS: Carvedilol 25 MG TAB PER TUBE SCH ×3 (09:37→20:23)
[2019-08-08] MEDS: Ascorbic Acid 500 mg Chewable Tablet PER TUBE SCH (09:37)
[2019-08-08] MEDS: Amlodipine 5 MG TAB PER TUBE SCH ×3 (09:37→20:24)
[2019-08-08] MEDS: Zinc Sulfate 220 MG CAP PER TUBE SCH (09:37)
[2019-08-08] MEDS ORDERED: Sodium Bicarbonate Tab 325 MG TAB PER TUBE PRN (10:19)
[2019-08-08] MEDS ORDERED: Pancrelipase DR 12000 1 CAP PER TUBE PRN (10:19)
--- NOTE | 2019-08-08 13:54 | PRG ---
DATE OF SERVICE: 08/08/2019 SUBJECTIVE: Mr. Larsen started having fever, low-grade, for the past few days. The white cell count has gone up a bit to 11.8, and repeat blood cultures have been thus far no growth. Repeat urinalysis with 0 to 3 wbc's. Chest x-ray was completed yesterday. It showed patchy airspace disease in the right lung, predominantly mid and lower lung zones. OBJECTIVE: GENERAL: Currently, he is grimacing. He does not interact with the examiner. He does not follow commands. He kept his mouth closed. I could not evaluate the oral cavity. He has stiffness throughout. LUNGS: Diminished air entry, but no obvious crackles or wheezing. HEART: S1 and S2. Regular rate without murmurs. ABDOMEN: Soft. Not distended. Damico catheter in place. Gastrostomy tube exit site appears normal. NEUROLOGIC: Quadriparesis. LABORATORY DATA: The latest white cell count is 11.4, hemoglobin 12.6, platelets 139. Differential was not stated. Creatinine 0.99. Liver profile within normal limits. Albumin 3.1. Brain MRI from 08/04, with an evidence of old focal areas of encephalomalacia from prior infarcts. ASSESSMENT: Anoxic encephalopathy; prior cerebrovascular accident; prior rickettsial infection, but that is not confirmed; seizure activity, recurrent; recent resection of ascending colon for management of colonic mass which was identified as adenocarcinoma, moderately differentiated with focal invasion into the submucosa; now abnormal lung findings and the possibility of aspiration pneumonia. The patient has been given clindamycin. DISCUSSION: Most likely, the patient has had aspiration, and if he continues to have fever, I would advise transition to broader regimen such as piperacillin and tazobactam or third or fourth generation cephalosporin with or without anaerobic coverage. More recent data indicate that the role of anaerobic infections is less than what had been felt to be the case previously in aspiration pneumonias, and gram-negative iwona component is more important. Job ID: [id number]
[2019-08-08] MEDS ORDERED: levETIRAcetam 500 mg/5 ml Oral Solution PO SCH (15:15)
--- NOTE | 2019-08-08 17:07 | PDOC.HOSPP ---
- Subjective Encounter Date: 08/08/19 Encounter Time: 11:00 Subjective: The patient is still non-verbal alert. Continues to do head shaking movements and sniffling sounds with his nose. Per neurology, unlikely seizure. PEG tube was not working. GI replaced this today. Fever came down to 100.3 today. - Objective Vital Signs & Weight: Vital Signs (12 hours) Temp Pulse Resp BP Pulse Ox 08/08/19 15:35 99.3 F 87 16 162/90 H 100 08/08/19 15:04 84 08/08/19 11:03 99.4 F 84 17 142/91 H 100 08/08/19 09:16 100 08/08/19 07:39 100.3 F H 92 18 141/75 H 100 Weight Admit Weight 180 lb Weight 183 lb 8 oz I&O: 08/07/19 08/08/19 08/09/19 06:59 06:59 06:59 Intake Total 1278 120 Output Total 900 1005 200 Balance 378 -215 -200 Result Diagrams: 08/08/19 05:22 08/08/19 05:22 Additional Labs: Accuchecks 08/08/19 08/08/19 08/08/19 15:48 10:16 06:07 POC Glucose 140 H 131 H 195 H 08/07/19 19:46 POC Glucose 151 H Hospitalist ROS - Review of Systems ROS unobtainable: due to mental status Constitutional: denies: chills - Medication Medications: Active Medications Generic Name Dose Route Start Last Admin Trade Name Freq PRN Reason Stop Dose Admin Acetaminophen 650 mg 08/02/19 11:01 08/07/19 14:26 Tylenol Elixir PO 650 mg Q6H PRN Administration Pain Acidophilus 1 gm 08/02/19 21:00 08/08/19 09:32 Floranex PER TUBE Not Given BID MEI Amlodipine Besylate 5 mg 08/02/19 21:00 08/08/19 15:04 Norvasc PER TUBE Not Given BID MEI Lipase/Protease/Amylase 1 cap 08/08/19 10:19 08/08/19 10:49 Creheena Pride [id number] PER TUBE 1 cap ASDIR PRN Administration TUBE OCCLUSION TX Ascorbic Acid 500 mg 08/03/19 09:00 08/08/19 09:37 Vitamin C PER TUBE 500 mg DAILY MEI Administration Atorvastatin Calcium 5 mg 08/02/19 21:00 08/07/19 21:52 Lipitor PO 5 mg HS MEI Administration Carvedilol 12.5 mg 08/02/19 21:00 08/08/19 15:05 Coreg PER TUBE Not Given BID MEI Clindamycin HCl 450 mg 08/07/19 21:00 08/08/19 15:06 Cleocin PO Not Given TID MEI Famotidine 40 mg 08/03/19 09:00 08/08/19 09:36 Pepcid PER TUBE 40 mg DAILY MEI Administration Ferrous Sulfate 300 mg 08/02/19 21:00 08/08/19 15:06 Ferrous Sulfate PER TUBE Not Given BID [facility] Insulin Glargine 10 units/ 0.1 mls @ 0 mls/hr 08/02/19 21:00 08/07/19 21:56 Miscellaneous Medication SC 0.1 mls HS MEI Administration Lorazepam 2 mg 08/02/19 01:20 08/05/19 01:34 Ativan SLOW IVP 2 mg Q15MIN PRN Administration Seizures Losartan Potassium 25 mg 08/04/19 09:00 08/08/19 09:36 Cozaar PO 25 mg DAILY MEI Administration Nystatin 0 gm 08/02/19 21:00 08/08/19 09:34 Mycostatin Powder TOP 1 applic BID MEI Administration Nystatin/Triamcinolone Acetonide 1 gm 08/02/19 21:00 08/08/19 09:33 Mycogen Ii Cream TOP 1 applic BID MEI Administration Ondansetron HCl 4 mg 08/06/19 00:01 08/06/19 00:44 Zofran IVP 4 mg Q6H PRN Administration Nausea/Vomiting Sodium Bicarbonate 650 mg 08/08/19 10:19 08/08/19 10:49 Bicarbonate, Sodium PER TUBE 650 mg ASDIR PRN Administration TUBE OCCLUSION TX Valproic Acid 500 mg 08/02/19 15:00 08/08/19 15:07 Depakene Liquid PO Not Given TID [facility] Zinc Sulfate 220 mg 08/03/19 09:00 08/08/19 09:37 Zinc Sulfate PER TUBE 220 mg DAILY MEI Administration - Exam General Appearance: NAD, awake alert Eye: PERRL, anicteric sclera ENT: normocephalic atraumatic, no oropharyngeal lesions Neck: supple, symmetric, no thyromegaly Heart: no gallops, no rubs Heart - other findings: systolic murmur second intercostal space on left Respiratory: CTAB, no wheezes, no rales, no ronchi Gastrointestinal: soft, non-distended Gastrointestinal - other findings: PEG tube in place Extremities: no cyanosis, no clubbing, no edema Skin: normal turgor, no lesions, no rashes Neurological: cranial nerve grossly intact, normal sensation to touch, no focal deficits, no new deficit Neurological - other findings: vegetative state. Has eye twitching, makes faces with mouth frequently Musculoskeletal: normal tone, normal strength, no muscle wasting Psychiatric: normal affect, normal behavior, A&O x 3, oriented to person Hosp A/P - Plan ECHO: mild MR, mild TR, aortic valve sclerosis. 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 Sepsis from aspiration pneumonia - had fever on 07/27, tachycardia, leukocytosis. Tachycardia now resolved, fever down to 100.3. UA was negative, chest Xray showed pneumonia - wax on cefpodoxime since admission. Discontinued and switched to clindamycin. Patient has allergy to penicillin, and avoiding fluoroquinolone due to seizures - patient was to be d/c to hospice today but they decided to wait Recurrent Seizures - neurology was consulted and patient was started on keppra 1000 mg IV BId. It was then increased to 1500 mg bid. No further seizures. Switched to oral keppra liquid -blood culture, body fluid culture, crypto in CSF negative. Influenza and urine culture negative. CSF had showed 74% neutrophil that was red and turbid. 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 INR 3.1 08/06, coumadin held. INR 1.9 today will give 4 mg coumadin Angioedema of lips - lower lip very swollen and erythematous. Patient is on lisinopril, discontinued and switch to losartan - HSV1 and 2 PCR negative, acyclovir discontinued. Red lip lesions seem to have improved Cecal adenocarcinoma - s/p treatment Type II diabetes - blood sugars are well controlled - continue glargine 10 units qhs Hypertension - continue losartan and coreg Anemia of Chronic disease - Hb 13.1, stable. Iron sat low, consider IV iron when infection resolves - B12 and folate low Dispo: d/c to hospice tomorrow Code status: DNR
--- NOTE | 2019-08-08 18:34 | PRG ---
DATE OF SERVICE: 08/08/2019 REASON FOR EVALUATION: Malfunctioning PEG tube. SUBJECTIVE: Per nursing staff, the patient was undergoing continuous tube feeds , but upon stopping them earlier today, was unable to flush the tube or receive any residual return. Despite more conservative measures, they were unable to unclog the tube. Upon evaluation of the tube, it appeared to be a 20-Tajik Kangaroo percutaneous gastrostomy tube with a large amount of retained tube feeds within the tube itself that appeared to be caked along the inside of the tubing. Attempts to flush the tube were unsuccessful. Subsequently, the gastrostomy tube was then replaced with a 20-Tajik Kangaroo replacement gastrostomy tube with no problems with placement. The PEG tube flushed easily at the end of the maneuver. RECOMMENDATIONS: 1. Would adhere to standard PEG tube care (rotate the tubing with 120 degrees daily, with flush with 60 mL of water both before and after tube feeds, would refrain from placing any dressings or bandages underneath the external bumper in the skin. 2. Would refrain from placing high viscosity fluids or solid objects within the tubing itself unless flushed with adequate amount of water. We will sign off at this time. Please call with any questions. Job ID: [id number] [facility]
[2019-08-08] MEDS: levETIRAcetam 500 mg/5 ml Oral Solution PO SCH (20:19)
[2019-08-08] MEDS: Atorvastatin Calcium 10 MG TAB PO SCH (20:21)
[2019-08-08] MEDS: Acetaminophen 650 MG/20.3 ML UDCUP PO PRN (20:26)
[2019-08-08] MEDS: Insulin Glargine 10 UNITS in Pre-Filled Syringe 1 EACH SC SCH (20:26)
[2019-08-08] MEDS ORDERED: cloNIDine 0.1 MG TAB PO PRN (23:52)
[2019-08-09] MEDS: Acetaminophen 650 MG/20.3 ML UDCUP PO PRN (03:24)
[2019-08-09 05:06] LABS: Hemoglobin 12.5 g/dL (14.0-18.0); Mean Corpuscular HGB CONC 31.6 g/dL (32.0-36.0); Mean Corpuscular Hemoglobin 27.9 pg (27.0-31.0); Mean Corpuscular Volume 88.5 fL (78.0-98.0); Mean Platelet Volume 9.9 fL (7.4-10.4); Platelet Count 171 thou/uL (130-400); RBC Distribution Width 14.8 % (11.5-14.5); Red Blood Cell (RBC) Count 4.46 mill/uL (4.70-6.10); White Blood Cell (WBC) Count 9.4 thou/uL (4.8-10.8)
[2019-08-09 05:07] LABS: INR-International Normal Ratio 1.3; PTT 28.5 SEC (22.9-36.1); Prothrombin Time 16.4 SEC (12.0-14.7)
[2019-08-09 05:26] LABS: ALT (SGPT) 22 U/L (8-55); AST (SGOT) 23 U/L (5-34); Albumin 3.2 g/dL (3.5-5.0); Alkaline Phosphatase 99 U/L (40-110); Anion Gap 13 mmol/L (10-20); BUN (Urea Nitrogen) 32 mg/dL (8.4-25.7); Bilirubin, Total 0.2 mg/dL (0.2-1.2); Calc. Creatinine Clearance 102 mL/min (70-130); Calcium 9.5 mg/dL (7.8-10.44); Carbon Dioxide 29 mmol/L (22-29); Chloride 109 mmol/L (98-107); Estimated GFR-MDRD Greater than 90; Globulin 4.2 g/dL (2.4-3.5); Glucose 178 mg/dL (70-105); Potassium 4.7 mmol/L (3.5-5.1); Protein, Total 7.4 g/dL (6.0-8.3); Sodium 146 mmol/L (136-145)
[2019-08-09] MEDS: levETIRAcetam 500 mg/5 ml Oral Solution PO SCH (09:08)
[2019-08-09] MEDS: Valproate Sodium 250 mg/5 ml UD Cup PO SCH (09:08)
[2019-08-09] MEDS: Famotidine 20 MG TAB PER TUBE SCH (09:08)
[2019-08-09] MEDS: Clindamycin 150 MG CAP PO SCH (09:08)
[2019-08-09] MEDS: Amlodipine 5 MG TAB PER TUBE SCH (09:09)
[2019-08-09] MEDS: Losartan 25 MG TAB PO SCH (09:09)
[2019-08-09] MEDS: Carvedilol 25 MG TAB PER TUBE SCH (09:09)
[2019-08-09] MEDS: Ascorbic Acid 500 mg Chewable Tablet PER TUBE SCH (09:09)
[2019-08-09] MEDS: Zinc Sulfate 220 MG CAP PER TUBE SCH (09:09)
[2019-08-09] MEDS: Floranex Packet PER TUBE SCH (09:10)
[2019-08-09] MEDS: Nystatin Powder 15 GM BOT TOP SCH (09:10)
[2019-08-09] MEDS: Nystatin/Triamcinolone Cream 15 GM TUBE TOP SCH (10:41)
[2019-08-09 11:28] VITALS: BP 174/86; TEMP 98.3
[2019-08-09] MEDS ORDERED: Warfarin Sodium 2 MG TAB PO SCH (17:00)
--- NOTE | 2019-08-12 02:44 | PQF ---
DAMARIS GOYAL UMA [id number] CLINICAL DOCUMENTATION CLARIFICATION FORM: POST DISCHARGE Addendum to original discharge summary date: ____ Late entry note date: __ DATE: 08/12/19 ATTN: Kala Nieves Please exercise your independent, professional judgment in responding to the clarification form. Clinical indicators are provided on the bottom of this form for your review Can you please identify the condition as the reason for inpatient admission? Please check appropriate box(s): [ X] Seizure Disorder [ ] Sepsis [ ] Aspiration pneumonia [ ] Other diagnosis please specify [ ] Unable to determine In addition, please specify: Present on Admission (POA): [ ] Yes [ ] No [ ] Unable to determine For continuity of documentation, please document condition throughout progress notes and discharge summary. Thank You. CLINICAL INDICATORS - SIGNS / SYMPTOMS / LABS ED Provider pg.5- Diagnosis: Primary altered ental status, dehydration, recurrent seizure, sepsis H and P pg.1- Brought to emergency room for seizures H and P pg.1- the patient has low grade fever H and P pg.2- recurrent seizure H and P pg.2- Septic work up done in the ED Chest X ray 08/01/19- findings likely related to bibasilar atelectasis Consult 08/02 Dr. Stark pg.1- seizure disorder Chest X ray 08/07 pg.1- Right Sided pneumonia Hospitalist PN 08/07 pg.1 -patient did spike a fever overnight and was tachycardic. chest X ray showing Pneumonia Hospitalist PN 08/07 pg.6- Sepsis from aspiration pneumonia RISK FACTORS Recurrent Seizure- H and P pg.2 History of CVA- H and P pg.2 Hyperlipidemia- H and P pg.2 Diabetes Mellitus- H and P pg.2 History of Spotted fever Chronic encephalopathy- Consult 08/02 Dr. Stark pg.1 Acute metabolic encephalopathy- Hospitalist PN 08/07 pg.6 TREATMENTS: Chest X ray 08/01 Infectious Consult 08/03 Dr. Pemberton Neurology Consult 08/02 Dr. Stark IV Keppra- DEC 02 CT Brain 08/03 Brain MRI 08/04 IV Fluids- NOV IV Antibiotics- DEC 02 (This form is maintained as a part of the permanent medical record) 2014 [employer] All Rights Reserved Reji [email or web address] [not provided] MTDD
== END 2019-08-09 13:09 | disposition hospice, inpatient (51) | DRG 100 ==
LOC: ERS 22:33 → 2SE 08-02 03:16
PROVIDERS: ADMIT Internal Medicine; ATTEND Internal Medicine
PROC: 3E02340 Introduction of Influenza Vaccine into Muscle, Percutaneous Approach (ICD-10-PCS; principal; 2019-08-02)
PROC: 3E0234Z Introduction of Serum, Toxoid and Vaccine into Muscle, Percutaneous Approach (ICD-10-PCS; 2019-08-02)
PROC: 009U3ZX Drainage of Spinal Canal, Percutaneous Approach, Diagnostic (ICD-10-PCS; 2019-08-02)
PROC: 0D20XUZ Change Feeding Device in Upper Intestinal Tract, External Approach (ICD-10-PCS; 2019-08-08)
DX: G40.909 Epilepsy, unspecified, not intractable, without status epilepticus (principal); A41.9 Sepsis, unspecified organism; G93.41 Metabolic encephalopathy; J69.0 Pneumonitis due to inhalation of food and vomit; I69.951 Hemiplegia and hemiparesis following unspecified cerebrovascular disease affecting right dominant side; G93.1 Anoxic brain damage, not elsewhere classified; E87.0 Hyperosmolality and hypernatremia; E46 Unspecified protein-calorie malnutrition; C18.0 Malignant neoplasm of cecum; K94.23 Gastrostomy malfunction; Z66 Do not resuscitate; Z51.5 Encounter for palliative care; T78.3XXA Angioneurotic edema, initial encounter; E78.5 Hyperlipidemia, unspecified; E11.9 Type 2 diabetes mellitus without complications; I10 Essential (primary) hypertension; D63.8 Anemia in other chronic diseases classified elsewhere; E78.00 Pure hypercholesterolemia, unspecified; R13.12 Dysphagia, oropharyngeal phase; E66.9 Obesity, unspecified; Z88.8 Allergy status to other drugs, medicaments and biological substances; I69.398 Other sequelae of cerebral infarction; Z88.0 Allergy status to penicillin; I69.920 Aphasia following unspecified cerebrovascular disease; Z79.899 Other long term (current) drug therapy; Z79.01 Long term (current) use of anticoagulants; Z79.02 Long term (current) use of antithrombotics/antiplatelets; Z68.24 Body mass index [BMI] 24.0-24.9, adult; Z93.1 Gastrostomy status; Z79.4 Long term (current) use of insulin; Z23 Encounter for immunization
CPT/HCPCS: 36415; 36416; 51702; 62270; 70450; 70551; 71045; 80048; 80053; 80164; 80177; 80185; 80307; 81001; 81003; 81015; 82607; 82728; 82746; 82945; 83540; 83550; 84157; 85007; 85025; 85027; 85060; 85610; 85730; 86612; 86635; 86698; 86757; 86780; 87040; 87070; 87086; 87205; 87255; 87529; 87804; 87899; 89051; 93005; 93306; 96365; 96367; J0133; J0696; J1815; J1953; J2060; J2405; J3370; J3430; J7050

== ENCOUNTER 2019-12-18 21:46 | Observation (INO) | payer MEDICARE, MEDICAID ==
--- NOTE | 2019-12-18 23:03 | RAD ---
RADIOGRAPH CHEST 1 VIEW: DATE: 12/18/2019 HISTORY: 54-year-old male with fever and cough FINDINGS: Shallow inspiration. There is no airspace density, pulmonary edema, or pneumothorax. The lateral cost ophrenic angles are not effaced. IMPRESSION: No acute pulmonary findings.
[2019-12-18 23:08] LABS: Bilirubin Negative (Negative); Blood, Urine Negative (Negative); Clarity Clear (Clear); Glucose, Urine (Dipstick) Normal (Negative); Leukocyte Negative Leu/uL (Negative); Nitrite Negative (Negative); Protein, Urine (Dipstick) 20 mg/dL (Neg-Trace); Urobilinogen Normal mg/dL (Less than 2)
[2019-12-18 23:14] LABS: #Basophils 0.1 thou/uL (0.0-0.2); #Eosinphils 0.1 thou/uL (0.0-0.7); #Lymphocytes 2.3 thou/uL (1.20-3.40); #Monocytes 0.7 thou/uL (0.11-0.59); #Neutrophils 3.8 thou/uL (1.40-6.50); %Eosinophils 0.9 % (0.0-10.0); %Monocytes 9.7 % (0.0-10.0); %Neutrophils 55.3 % (42.0-75.0); Hemoglobin 16.8 g/dL (14.0-18.0); Mean Corpuscular HGB CONC 32.7 g/dL (32.0-36.0); Mean Corpuscular Hemoglobin 30.3 pg (27.0-31.0); Mean Corpuscular Volume 92.6 fL (78.0-98.0); Mean Platelet Volume 9.7 fL (7.4-10.4); Platelet Count 141 thou/uL (130-400); RBC Distribution Width 13.1 % (11.5-14.5); Red Blood Cell (RBC) Count 5.54 mill/uL (4.70-6.10); White Blood Cell (WBC) Count 6.8 thou/uL (4.8-10.8)
[2019-12-18 23:36] LABS: ALT (SGPT) 24 U/L (8-55); AST (SGOT) 25 U/L (5-34); Albumin 3.7 g/dL (3.5-5.0); Alkaline Phosphatase 90 U/L (40-110); Anion Gap 15 mmol/L (10-20); BUN (Urea Nitrogen) 15 mg/dL (8.4-25.7); Bilirubin, Total 0.3 mg/dL (0.2-1.2); Calc. Creatinine Clearance 0 mL/min (70-130); Calcium 9.3 mg/dL (7.8-10.44); Carbon Dioxide 22 mmol/L (22-29); Chloride 103 mmol/L (98-107); Estimated GFR-MDRD Greater than 90; Globulin 4.6 g/dL (2.4-3.5); Glucose 86 mg/dL (70-105); Potassium 4.6 mmol/L (3.5-5.1); Protein, Total 8.3 g/dL (6.0-8.3); Sodium 135 mmol/L (136-145)
--- NOTE | 2019-12-18 23:59 | RAD ---
Radiograph abdomen one view supine: DATE: 12/18/2019 Time: 11:39 PM HISTORY: Status post NG tube placement in 54-year-old male. FINDINGS: The distal tip of the catheter is visualized in the left upper quadrant. The bilateral hemidiaphragms are excluded from the [id number]. The bowel gas pattern is normal. No evidence of organomegaly. IMPRESSION: Distal tip of what is presumed to be an esophagogastric tube, is probably in the proximal stomach.
[2019-12-19 00:44] LABS: INR-International Normal Ratio 1.1; PTT 26.9 SEC (22.9-36.1); Prothrombin Time 13.8 SEC (12.0-14.7)
[2019-12-19] MEDS ORDERED: Acetaminophen 325 MG TAB PO PRN (03:05)
[2019-12-19] MEDS ORDERED: Ondansetron PF 4 MG/2 ML Vial IVP PRN (03:05)
[2019-12-19] MEDS ORDERED: Ondansetron ODT 4 MG TAB PO PRN (03:05)
[2019-12-19] MEDS ORDERED: Acetaminophen 650 MG Suppository PR PRN (03:05)
[2019-12-19] MEDS ORDERED: Dextrose 5% in Water 1,000 ML IV PRN (03:07)
[2019-12-19] MEDS ORDERED: Insulin Regular 300 UNITS/3 ML VIAL SC PRN ×2 (03:07)
[2019-12-19] MEDS ORDERED: Dextrose 50% Abboject 50 ML SYRINGE SLOW IVP PRN (03:07)
[2019-12-19] MEDS ORDERED: levETIRAcetam 500 mg/5 ml Oral Solution PER TUBE SCH (03:15)
[2019-12-19] MEDS: Sodium Chloride 0.9% 1,000 ML IV SCH ×3 (03:43→20:19)
[2019-12-19] MEDS: Valproate Sodium 250 mg/5 ml UD Cup PO SCH ×3 (05:47→21:16)
--- NOTE | 2019-12-19 06:21 | HP ---
PRIMARY CARE PHYSICIAN: [facility] CHIEF COMPLAINT: PEG tube malfunction. HISTORY OF PRESENT ILLNESS: The patient is a 54-year-old male with history of CVA, currently residing at the nursing facility, was brought into the emergency room with fever along with PEG tube malfunction. The patient's PEG tube had come out earlier. He also had a fever of 101 at the nursing facility. The patient is unable to communicate and is generally contracted. No family at the bedside. In the emergency room, his initial vital signs showed temperature 99, respirations of 17, pulse rate of 67 with a blood pressure of 145/101, and O2 saturation 95% on room air. His chest x-ray and flu testing were negative. An NG tube was placed. The ER physician was unable to replace the PEG tube. PAST MEDICAL HISTORY: 1. Seizure disorder. 2. History of cerebrovascular accident. 3. History of aspiration pneumonia. 4. History of angioedema due to EILEEN inhibitor. 5. Diabetes mellitus, type 2. 6. Hypertension. 7. Anemia of chronic disease. 8. 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 PAST SURGICAL HISTORY: 1. PEG tube placement. 2. Drainage of an abscess. ALLERGIES: THE PATIENT IS ALLERGIC TO ASPIRIN AND PENICILLIN. CURRENT MEDICATIONS: At the nursing facility, 1. Carvedilol 12.5 mg b.i.d. 2. Cozaar 25 mg daily. 3. Pepcid 40 mg daily. 4. Keppra 1500 mg b.i.d. 5. Nebulizer treatment as needed. 6. Lantus 10 units daily. 7. Lorazepam as needed. 8. Morphine as needed. 9. Amlodipine 5 mg daily. 10. Depakote 500 mg 3 times a day. 11. Tylenol as needed. SOCIAL HISTORY: As discussed above. Code status needs to be clarified with the family when they arrive. There is no current use of smoking, alcohol, or drug use. FAMILY HISTORY: Cannot be obtained from the patient due to current mentation. REVIEW OF SYSTEMS: Cannot be obtained from the patient due to current mentation. PHYSICAL EXAMINATION: VITAL SIGNS: Temperature 99, respirations of 17, pulse of 67, blood pressure of 145/101, and O2 saturation 95% on room air. GENERAL: A 54-year-old male, in no apparent distress. Generally contracted and noncommunicative. HEENT: Head, atraumatic and normocephalic. Sclerae anicteric. NG tube in place. Saliva drooling from the angle of the mouth. NECK: Supple. No JVD. No carotid bruit. LUNGS: Showed scattered rhonchi without significant rales. No wheezing. No accessory muscle use. HEART: S1, S2 present. Regular. No rubs or gallops. ABDOMEN: Soft. Scar from PEG tube. No guarding or rigidity. NEUROLOGY: Examination could not be reliably done due to current mentation. PSYCHIATRY: Examination could not be reliably done due to current mentation. EXTREMITIES: No edema or calf tenderness. There are generalized contracted extremities. SKIN: Warm and dry. LYMPH NODES: No palpable lymph nodes in the neck. LABORATORY FINDINGS: CBC showed WBC 6.8 without any left shift. Hemoglobin was 16.8. PT/INR and PTT normal range. Sodium 135, potassium 4.6, chloride 103, bicarb 22, BUN 15, and creatinine 0.86. Urinalysis was negative for wbc or bacteria. Influenza screen was negative. IMAGING STUDIES: Chest x-ray by my review was negative for infiltrate or edema. IMPRESSION: 1. Percutaneous endoscopic gastrostomy tube malfunction. 2. Seizure disorder. 3. Hyponatremia. 4. History of cerebrovascular accident. 5. Hypertension. 6. Diabetes mellitus, type 2. 7. Aspirin and penicillin allergy. 8. Chronic physical deconditioning. 9. History of aspiration pneumonia. PLAN: The patient will be monitored as a 23-hour observation. His etiology of fever appears to be unclear. We will hold antibiotics for now. His blood culture and urine cultures have been sent. We will hold tube feeding for now. Gastroenterology Team will be consulted. We will start him on gentle hydration. We will restart Keppra and Depakote along with carvedilol. Hold amlodipine for now. We will recheck labs after 24 hours. We will consider antibiotics if he develops any episodes of fever. We will discuss the plan of care with the family when they arrive. Code status will be verified with the family when they arrive. Job ID: [id number]
[2019-12-19] MEDS: levETIRAcetam 500 mg/5 ml Oral Solution PER TUBE SCH ×2 (07:58→21:16)
[2019-12-19] MEDS: Famotidine 20 MG TAB PO SCH ×2 (07:58→21:15)
[2019-12-19] MEDS: hydrALAZINE 20 MG/ML VIAL SLOW IVP PRN ×2 (08:43→16:22)
[2019-12-19] MEDS ORDERED: Iopamidol 300 61% 50 ML VIAL FS ONE (08:47)
[2019-12-19] MEDS ORDERED: FLU VACC QS2019-20(6MOS UP)/PF 60 MCG/0.5 ML SYRINGE IM ONE (09:00)
[2019-12-19] MEDS ORDERED: Midazolam HCl 2 mg/2 ml Vial ONE (12:55)
[2019-12-19] MEDS ORDERED: Sodium Bicarbonate 2.5 MEQ/5 ML VIAL ONE (12:55)
[2019-12-19] MEDS ORDERED: Fentanyl 100 MCG/2 ML VIAL ONE (12:55)
[2019-12-19 13:25] VITALS: BMI 27.8
--- NOTE | 2019-12-19 14:10 | CON ---
DATE OF CONSULTATION: 12/19/2019 CHIEF COMPLAINT: PEG tube fell out. HISTORY OF PRESENT ILLNESS: Mr. Larsen is a 54-year-old man who came to the emergency room last night after he was found to have his PEG tube accidentally removed. The timing of this is not really determined. The ER physician attempted to Q-tip through the opening and met resistance and could not advance the Q-tip further, was unable to replace the tube. The patient was admitted to the medical team, and GI was consulted to further evaluate. The patient is nonverbal and came from a detention. He has had some bleeding from around the PEG site with just spotting of the 4x4 covering. PAST MEDICAL HISTORY: 1. Stroke and seizure disorder with contractures, detention bound. 2. History of aspiration pneumonia. 3. History of angioedema due to EILEEN inhibitor. 4. Diabetes mellitus, type 2. 5. Hypertension. 6. [place] spotted fever. PAST SURGICAL HISTORY: 1. PEG tube placement, abscess drainage. He has had a right hemicolectomy for colon cancer in February of 2019. 2. The patient apparently was on hospice care prior to admission. This is more related to his strokes and cancer related. FAMILY HISTORY: Negative. SOCIAL HISTORY: Negative for alcohol, tobacco, or drugs. ALLERGIES: ASPIRIN, PENICILLIN, EILEEN INHIBITOR. MEDICATIONS: From the detention, 1. Carvedilol. 2. Cozaar. 3. Pepcid. 4. Keppra. 5. Lantus. 6. Lorazepam. 7. Amlodipine. 8. Depakote. 9. Morphine. 10. Nebulizer as needed. REVIEW OF SYSTEMS: Unobtainable as the patient is nonverbal. PHYSICAL EXAMINATION: VITAL SIGNS: Temperature 98.5, pulse 78, blood pressure 167/94. GENERAL: He is in no acute distress. He is awake and looks around, but otherwise is not communicative. Oropharynx is clear. There are no cervical or supraclavicular lymphadenopathy. He has no scleral icterus. LUNGS: Clear to auscultation bilaterally. HEART: Regular rate and rhythm without murmur. ABDOMEN: Soft, nontender, and nondistended. Bowel sounds are present. EXTREMITIES: No lower extremity edema. LABORATORY DATA: CBC was normal. INR 1.1. Creatinine 0.86. LFTs were normal. Albumin 3.7. IMPRESSION: Complications of gastrostomy tube. The patient's tube was accidentally removed and gastrostomy opening had closed, and the ER physician was unable to advance the tube back through. RECOMMENDATIONS: 1. I attempted to pass a red rubber catheter, which did not pass through the opening. I passed a Savary wire, which did appear to go down into the stomach. I placed a 21-Togolese Savary dilator over the guidewire, however, this only dilated the tract somewhat and only the tip of the dilator would go through the opening, and inadequate dilation was performed to really . I did attempt with a 14-Togolese replacement gastrostomy tube, but this would not pass through the opening into the stomach. 2. I will recommend an attempt with Interventional Radiology if they can get a wire into the stomach and dilate further. 3. If Interventional Radiology is unable to place the tube, then options include endoscopic percutaneous placement of the gastrostomy. However, currently in light of the COVID-19 pandemic, elective endoscopies are not being performed. 4. Other option would be just to leave the NG tube in and the patient could be fed through that. intermediate typically will not take the patient back with the NG tube. The patient could remain in the hospital for NG tube feedings or exception to follow through with endoscopy and percutaneous placement could still be considered by a hospital ethics committee our OR committee. Still the patient could stay and this could be performed at delayed date. Job ID: [id number]
--- NOTE | 2019-12-19 14:27 | SPC ---
PROCEDURE: GASTROSTOMY TUBE CHG w/REV PROVIDED CLINICAL HISTORY: Patient with gastrostomy tube in place which was inadvertently removed. Replacement of the gastrostom y tube was requested. COMPARISON: None TECHNIQUE: After informed consent was obtained, the patient was placed on the angiography table in the supine po sition. The gastrostomy tube site and surrounding area were meticulously prepped and draped in the usual sterile fashion. A 5 Turkmen Munaxenstein catheter was manipulated through the gastrostomy tube tr act. Contrast was injected demonstrating contrast within the lumen of the stomach as well as in the duodenum. The catheter was exchanged over a 0.035 inch Amplatz guidewire for a 6 mm diameter angiopla sty balloon which was placed through a 14 Turkmen gastrostomy tube. The angioplasty balloon was distended within the gastrostomy tube tract. The angioplasty balloon as well as 14 Turkmen gastrostomy tube were then advanced into the stomach. The angioplasty balloon was removed. Contrast injection through the gastrostomy tube opacifies the lumen of the stomach and small bowel. Proximally 6 mL of s terile water was placed in the distal gastrostomy tube balloon. The lumens of the gastrostomy tube were flushed with normal saline. The patient tolerated the procedure well and without immediate complication. A dry sterile dressing w as placed. IMPRESSION: Technically successful replacement of a 14 Turkmen gastrostomy tube through the existing gastrostomy t ube tract..
[2019-12-20 04:32] LABS: #Basophils 0.1 thou/uL (0.0-0.2); #Eosinphils 0.1 thou/uL (0.0-0.7); #Lymphocytes 2.5 thou/uL (1.20-3.40); #Neutrophils 3.5 thou/uL (1.40-6.50); %Basophils 0.9 % (0.0-1.0); %Eosinophils 1.2 % (0.0-10.0); %Lymphocytes 34.3 % (21.0-51.0); %Monocytes 14.5 % (0.0-10.0); Hemoglobin 14.6 g/dL (14.0-18.0); Mean Corpuscular HGB CONC 32.5 g/dL (32.0-36.0); Mean Corpuscular Hemoglobin 30.1 pg (27.0-31.0); Mean Corpuscular Volume 92.7 fL (78.0-98.0); Mean Platelet Volume 9.8 fL (7.4-10.4); Platelet Count 130 thou/uL (130-400); RBC Distribution Width 13.1 % (11.5-14.5); Red Blood Cell (RBC) Count 4.84 mill/uL (4.70-6.10); White Blood Cell (WBC) Count 7.2 thou/uL (4.8-10.8)
[2019-12-20 04:55] LABS: ALT (SGPT) 14 U/L (8-55); AST (SGOT) 16 U/L (5-34); Albumin 3.1 g/dL (3.5-5.0); Alkaline Phosphatase 86 U/L (40-110); Anion Gap 13 mmol/L (10-20); BUN (Urea Nitrogen) 13 mg/dL (8.4-25.7); Bilirubin, Total 0.4 mg/dL (0.2-1.2); Calc. Creatinine Clearance 133 mL/min (70-130); Calcium 8.7 mg/dL (7.8-10.44); Carbon Dioxide 20 mmol/L (22-29); Chloride 108 mmol/L (98-107); Estimated GFR-MDRD Greater than 90; Globulin 4.1 g/dL (2.4-3.5); Glucose 109 mg/dL (70-105); Magnesium 2.1 mg/dL (1.6-2.6); Potassium 4.2 mmol/L (3.5-5.1); Protein, Total 7.2 g/dL (6.0-8.3); Sodium 137 mmol/L (136-145)
[2019-12-20] MEDS: Valproate Sodium 250 mg/5 ml UD Cup PO SCH ×2 (05:11→15:38)
[2019-12-20] MEDS: Sodium Chloride 0.9% 1,000 ML IV SCH (09:07)
[2019-12-20] MEDS: Famotidine 20 MG TAB PO SCH (09:09)
[2019-12-20] MEDS: levETIRAcetam 500 mg/5 ml Oral Solution PER TUBE SCH (09:12)
[2019-12-20] MEDS ORDERED: Acetaminophen 650 MG/20.3 ML UDCUP PER TUBE PRN (10:00)
[2019-12-20 12:41] VITALS: BP 136/74; TEMP 98.2
--- NOTE | 2019-12-20 13:15 | PRG ---
DATE OF SERVICE: 12/20/2019 SUBJECTIVE: Mr. Larsen is tolerating feeds through his new gastrostomy tube. OBJECTIVE: VITAL SIGNS: Temperature 98.2, pulse 77, and blood pressure 136/74. GENERAL: He is in no acute distress. LUNGS: Clear to auscultation bilaterally. HEART: Regular rate and rhythm without murmur. ABDOMEN: Soft, nontender, and nondistended. Bowel sounds are present. EXTREMITIES: No lower extremity edema. IMPRESSION: Oropharyngeal dysphagia, status post replacement of the gastrostomy tube. It had closed and was replaced by Interventional Radiology with a 14-Bengali gastrostomy tube. This will be high risk for clogging. He has been into the emergency room a couple of times prior with clogged gastrostomy tubes. RECOMMENDATIONS: 1. I recommend that his medications be given in liquid form rather than just crushed pills as these will likely clog a 14-Bengali gastrostomy. 2. Continue bolus feeds as he would normally get. Job ID: [id number]
[2019-12-20] MEDS ORDERED: Famotidine 40 MG/5 ML Oral Suspension PER TUBE SCH (21:00)
--- NOTE | 2019-12-22 09:18 | DIS ---
DATE OF ADMISSION: 12/19/2019 DATE OF DISCHARGE: 12/20/2019 DISCHARGE DIAGNOSES: 1. Percutaneous endoscopic gastrostomy tube displacement with subsequent replacement. 2. Seizure disorder, stable. 3. Hyponatremia, resolved. 4. Dysphagia with percutaneous endoscopic gastrostomy tube placement. 5. Hypertension. 6. Diabetes mellitus type 2, insulin requiring. 7. Chronic deconditioning with bed-bound status. CONSULTATIONS: Dr. Mayer with GI Service. Interventional Radiology service. PERTINENT LABORATORY AND X-RAY FINDINGS: Sodium ranged between 135 to 137. Lactic acid level 1.6. Magnesium level 2.1. LFTs within normal limits. CBC within normal limits. Blood cultures x2 dated 12/18/2019 showed no growth to date. Urine culture dated 12/18/2019, showed no growth at 12 hours. Influenza A and B antigen dated 12/18/2019 negative. Portable chest x-ray dated 12/18/2019 showed no acute cardiopulmonary process. Abdominal radiographs dated 12/18/2019 showed distal tip of presumed esophagogastric tube in the proximal stomach. HOSPITAL COURSE: The patient was initially admitted after presenting with malfunctioning and displaced percutaneous gastrostomy tube. The patient underwent general evaluation including consultation with the GI service with recommendations to pursue interventional radiology assistance for dilation of the gastrostomy tube tract. The patient underwent a successful dilation procedure on 12/19/2019 with placement of a 14-Luxembourgish G-tube without complication. The patient was resumed on his regular tube feeds with Glucerna 1.5 at 95 mL/h from 4:00 p.m. to 0:08 a.m. without complication. The patient received IV fluids and general supportive management during the hospital course and overall remained clinically stable. The patient currently at baseline functional status, tolerating resumption of tube feeds. I have examined the patient at the time of discharge and disposition planning discussed with nursing staff. The patient ready for discharge on 12/20/2019. DISCHARGE MEDICATIONS: 1. Vitamin C 500 mg per PEG tube daily. 2. Carvedilol 12.5 mg per PEG tube b.i.d. 3. Docusate sodium 100 mg per PEG tube daily. 4. Pepcid 40 mg per PEG tube daily. 5. Hyoscyamine sulfate 0.125 mg per PEG tube q.6 hours p.r.n. 6. DuoNeb 3 mL nebulized q.4 hours p.r.n. 7. Lorazepam 1 mg per PEG tube q.4 hours p.r.n. 8. Cozaar 25 mg per PEG tube daily. 9. Morphine sulfate extended release 7.5 mg per PEG tube q.1 hour p.r.n. 10. Valproic acid 500 mg per PEG tube t.i.d. 11. Floranex 1 g per PEG tube b.i.d. 12. Norvasc 5 mg per PEG tube b.i.d. 13. Dulcolax 10 mg per rectum daily p.r.n. 14. Lantus 10 units subcutaneously at bedtime. 15. Keppra 1500 mg per PEG tube b.i.d. 16. Creheena JETT 12,000 units one capsule per PEG tube p.r.n. FOLLOWUP: The patient may follow up with Dr. Ginna Lassiter at [facility]. CONDITION ON DISCHARGE: Guarded. ACTIVITY: Ad-michaelle. DIET: Glucerna 1.5 at 95 mL/h from 4:00 p.m. to 0:08 a.m. CODE STATUS: Do not attempt resuscitation. DISPOSITION: Discharged to [facility] 12/20/2019. TIME SPENT: Total time preparing and coordinating discharge is 32 minutes. Job ID: [id number]
== END 2019-12-20 16:00 ==
LOC: ERS 21:46 → ONC 12-19 00:14
PROVIDERS: ADMIT Internal Medicine; ATTEND Internal Medicine
DX: K94.23 Gastrostomy malfunction (principal); G40.909 Epilepsy, unspecified, not intractable, without status epilepticus; E87.1 Hypo-osmolality and hyponatremia; I10 Essential (primary) hypertension; E11.9 Type 2 diabetes mellitus without complications; D64.9 Anemia, unspecified; R53.81 Other malaise; Z79.4 Long term (current) use of insulin; Z79.899 Other long term (current) drug therapy; Z86.73 Personal history of transient ischemic attack (TIA), and cerebral infarction without residual deficits; Z88.6 Allergy status to analgesic agent; Z88.0 Allergy status to penicillin; Z66 Do not resuscitate
CPT/HCPCS: 43763; 51701; 71045; 74018; 80053 ×2; 81003; 82962 ×2; 83605; 83735; 85025 ×2; 85610; 85730; 87040; 87086; 87804 ×2; 96361 ×2; 96374; 96376; 99284; C1725; G0378 ×3; 36415; 36416; B4087; J0360; J2250; J3010; Q9967

== ENCOUNTER 2020-05-22 20:39 | Inpatient (IN) | payer MEDICARE, MEDICAID ==
[2020-05-22 23:32] LABS: SARS-CoV-2 NAA Rapid Test Not Detected (NotDetected)
[2020-05-23 02:22] VITALS: BMI 28.1
[2020-05-23] MEDS ORDERED: cloNIDine 0.1 MG TAB PO PRN (02:47)
[2020-05-23] MEDS ORDERED: Lorazepam 2 MG/ML VIAL SLOW IVP PRN (02:47)
[2020-05-23] MEDS ORDERED: Guaifenesin DM 100-10/5 ML UDCUP PO PRN (02:47)
[2020-05-23] MEDS ORDERED: Ondansetron PF 4 MG/2 ML Vial IVP PRN (02:47)
[2020-05-23] MEDS ORDERED: HYDROcodone/Acetaminophen 5/325 mg Tablet PO PRN (02:47)
[2020-05-23] MEDS ORDERED: Promethazine HCl 12.5 MG in Sodium Chloride 0.9% 50 ML IVPB PRN (02:47)
[2020-05-23] MEDS ORDERED: Acetaminophen 325 MG TAB PO PRN (02:47)
[2020-05-23] MEDS ORDERED: hydrALAZINE 20 MG/ML VIAL SLOW IVP PRN (02:47)
[2020-05-23] MEDS ORDERED: Labetalol HCl 100 MG/20 ML VIAL SLOW IVP PRN (02:47)
--- NOTE | 2020-05-23 02:53 | PDOC.HHP ---
Hospitalist HPI - History of Present Illness Seizure History of Present Illness: Patient is a 54 year old male with PMH seizure disorder transferred from [facility] for seizure, sepsis. Patient is origincally from [facility], had 55 minute long seizure there today, terminated with 2mg ativan IM, baseline GCS ~10, was 7 at [facility] ED, on my exam patient post ictal rouses to painful stimuli and to voice but altered and not conversive currently, post ictal. He is on keppra currently, has a history of CVAs and is chronically nonverbal. He was a sepsis alert at [facility] and their workup revealed RLL pneumonia. Patient given IVF, ativan, keppra IV, levaquin/vancomycin/cefepime. Hospitalist ROS - Review of Systems ROS unobtainable: due to mental status (altered mental status) - Medication Medications: bisacodyl rectal SUPPOSITORY, RECTAL : Strength - 5 mg : RECTAL Patient Dose: 10 mg Rectal As Needed. Coreg TABLET : Strength - 12.5 mg : ORAL Patient Dose: 1 tab(s) G-Tube 2 times a day.Hold if SBP <100 or DBP <60. Tylenol TABLET : Strength - 325 mg : ORAL Patient Dose: 2 tab(s) G-Tube every 6 hours PRN. Vitamin C chewable tablet TABLET, CHEWABLE : Strength - 1,000 mg : ORAL Patient Dose: G-Tube once a day.unable to verify strength. nystatin topical POWDER (GRAM) : Strength - 100,000 unit/gram : TOPICAL Patient Dose: Topical As Needed.to groin. ipratropium-albuterol AMPUL FOR NEBULIZATION (ML) : Strength - 0.5 mg-3 mg (2.5 mg base)/3 mL : INHALATION Patient Dose: 3 mL Oral every 4 hours prn. Cozaar tablet : Strength - 25 mg : ORAL Patient Dose: 1 tab(s) G-Tube once a day. Creon capsule,delayed release(DR/EC) : Strength - 12,000 unit-38,000 unit-60,000 unit : ORAL Patient Dose: 1 cap(s) G-Tube As Needed. docusate sodium CAPSULE (HARD, SOFT, ETC.) : Strength - 100 mg : ORAL Patient Dose: 100 mg G-Tube once a day. famotidine oral TABLET : Strength - 20 mg : ORAL Patient Dose: 20 mg G-Tube once a day. hyoscyamine TABLET : Strength - 0.15 mg : ORAL Patient Dose: 0.125 mg G-Tube every 6 hours. Keppra oral TABLET : Strength - 750 mg : ORAL Patient Dose: 1500 mg G-Tube 2 times a day. Lantus U-100 Insulin CARTRIDGE (ML) : Strength - 100 unit/mL : SUBCUTANEOUS Patient Dose: 10 units Subcutaneous once a day (at bedtime). LORazepam oral TABLET : Strength - 1 mg : ORAL Patient Dose: 2 mg G-Tube every 4 hours prn.FOR SEIZURES. morphine oral TABLET : Strength - 15 mg : ORAL Patient Dose: 1/2 tab(s) G-Tube See Notes.EVERY HOUR NEEDED FOR SEVERE PAIN. valproate sodium solution : Strength - 500 mg/5 mL (100 mg/mL) : INTRAVENOUS Patient Dose: 500 mg G-Tube 3 times a day. Hospitalist History - Past Medical History Other Medical History: seizure disorder Shoshoni spotted fever 2017 CVA T2DM HTN chronic aphasia R sided hemiparesis HLD - Past Surgical History Other Surgical History: Surgical history of feeding tube placement, Other type of feeding tube, Notes: PEG Tube. abscess drainage on 05/2019. - Family History Family History: reports: no pertinent history - Social History Alcohol: reports: None Drugs: reports: none - Exam General Appearance: NAD General - other findings: post ictal, awake, responds to painful stimuli and voice Eye: PERRL, anicteric sclera ENT: normocephalic atraumatic, no oropharyngeal lesions, moist mucosa Neck: supple, symmetric, no JVD, no thyromegaly, no lymphadenopathy, no carotid bruit Heart: RRR, no murmur, no gallops, no rubs, normal peripheral pulses Respiratory: CTAB, no wheezes, no rales, no ronchi, normal chest expansion, no tachypnea, normal percussion Gastrointestinal: soft, non-tender, non-distended, normal bowel sounds, no palpable masses, no hepatomegaly, no splenomegaly, no bruit Extremities: no cyanosis, no clubbing, no edema Skin: normal turgor, no lesions, no rashes Neurological - other findings: altered mental status, responds to voice but noncompliant with exam Psychiatric - other findings: unable to evaluate, chronically nonverbal Hospitalist Results - Labs Additional comment: VITAL SIGNS Sat May 22, 2020 23:48 DEEPTHI Garcia, Bryan BP: 139/98 Pulse: 67 Resp: 18 Temp: 98.4 (Oral) Pain: UTO O2 sat: 95 on (Room Air) Time: 05/22/2020 23:48. all outside labs, imaging, ED documents and group home documents reviewed Hospitalist H&P A/P - Plan Plan: Patient is a 54 year old male with H seizure disorder transferred from [facility] for seizure, sepsis. # seizure # sepsis due to pneumonia # RLL pneumonia # history of seizure from [facility], sent to [facility] for 55 minute long seizure there today terminated by IM ativan, has a history of CVAs and is chronically nonverbal. He was a sepsis alert at [facility] and their workup revealed RLL pneumonia. Patient given IVF, ativan, keppra IV, levaquin/vancomycin/cefepime. - admit to neurology unit - seizure precatutions, PRN ativan, continue IV keppra - azithromycin/ceftriaxone # feeding tube status - IVF, NPO for now consult nutrition once appropriate for food # history of Shoshoni spotted fever 2016 # history of CVA # chronic aphasia # R sided hemiparesis - noted, treat as above # T2DM - SSI # HTN # HLD - resume home meds once home med rec available, PRN HTN meds in chart # DVT ppx # GI ppx
[2020-05-23] MEDS ORDERED: levETIRAcetam In NaCl (Iso-Os) 1,000 MG in Premix Bag 1 BAG IVPB SCH ×2 (03:00→09:00)
[2020-05-23] MEDS ORDERED: Azithromycin 500 MG in Syringe 0 ML IVPB SCH (03:00)
[2020-05-23] MEDS ORDERED: Electrolyte Replacement Protoc 1 EACH EACH FS PRN (03:00)
[2020-05-23] MEDS ORDERED: HumaLOG 300 UNITS/3 ML VIAL SC PRN (03:06)
[2020-05-23] MEDS ORDERED: Dextrose 50% Abboject 50 ML SYRINGE SLOW IVP PRN (03:06)
[2020-05-23] MEDS: Sodium Chloride 0.9% 1,000 ML IV SCH ×2 (03:11→16:32)
[2020-05-23] MEDS: cefTRIAXone\\ROCEPHIN 1 GM in Sodium Chloride 0.9% 100 ML IVPB SCH (03:12)
[2020-05-23] MEDS: Azithromycin 500 MG in Sodium Chloride 0.9% 250 ML 250 ML IVPB SCH (04:26)
[2020-05-23 05:44] LABS: Anion Gap 13 mmol/L (10-20); BUN (Urea Nitrogen) 12 mg/dL (8.4-25.7); Calc. Creatinine Clearance 135 mL/min (70-130); Calcium 8.6 mg/dL (7.8-10.44); Carbon Dioxide 22 mmol/L (22-29); Chloride 105 mmol/L (98-107); Estimated GFR-MDRD Greater than 90; Glucose 75 mg/dL (70-105); Magnesium 1.9 mg/dL (1.6-2.6); Potassium 4.4 mmol/L (3.5-5.1); Sodium 136 mmol/L (136-145)
[2020-05-23] MEDS ORDERED: Magnesium 2 GM/50 ML 2 GM in Premix Bag 1 BAG IVPB SCH (06:00)
[2020-05-23 07:06] LABS: #Basophils 0.1 thou/uL (0.0-0.2); #Lymphocytes 1.7 thou/uL (1.20-3.40); #Monocytes 0.8 thou/uL (0.11-0.59); #Neutrophils 5.2 thou/uL (1.40-6.50); %Basophils 0.7 % (0.0-1.0); %Eosinophils 0.2 % (0.0-10.0); %Lymphocytes 22.2 % (21.0-51.0); %Monocytes 10.5 % (0.0-10.0); %Neutrophils 66.3 % (42.0-75.0); Hemoglobin 15.2 g/dL (14.0-18.0); Mean Corpuscular HGB CONC 31.9 g/dL (32.0-36.0); Mean Corpuscular Hemoglobin 30.9 pg (27.0-31.0); Mean Corpuscular Volume 96.7 fL (78.0-98.0); Platelet Count 113 thou/uL (130-400); Platelet Morphology Comment Appears Decreased; RBC Distribution Width 13.1 % (11.5-14.5); RBC Morphology Normal; Red Blood Cell (RBC) Count 4.91 mill/uL (4.70-6.10); White Blood Cell (WBC) Count 7.8 thou/uL (4.8-10.8)
[2020-05-23] MEDS ORDERED: Famotidine 20 MG TAB PO SCH (09:00)
[2020-05-23] MEDS: Enoxaparin Sodium 40 MG/0.4 ML SYRINGE SC SCH (09:55)
[2020-05-23] MEDS: Polyethylene Glycol 3350 17 GM Packet PO SCH (09:56)
[2020-05-23] MEDS ORDERED: Nystatin Powder 15 GM BOT TOP PRN (14:20)
[2020-05-23] MEDS ORDERED: Lorazepam 1 MG TAB PER TUBE PRN (14:20)
[2020-05-23] MEDS ORDERED: Pancrelipase DR 12,000 1 CAP PER TUBE PRN (14:20)
[2020-05-23] MEDS ORDERED: Docusate Sodium 100 MG/10 ML UDCUP PER TUBE PRN (14:20)
[2020-05-23] MEDS ORDERED: Acetaminophen 650 MG/20.3 ML UDCUP PO PRN (14:20)
[2020-05-23] MEDS ORDERED: Bisacodyl 10 MG SUPP PR PRN (14:20)
[2020-05-23] MEDS: Valproate Sodium 250 mg/5 ml UD Cup PER TUBE SCH ×2 (15:58→20:58)
[2020-05-23] MEDS: levETIRAcetam 500 mg/5 ml Oral Solution PER TUBE SCH (20:57)
[2020-05-23] MEDS: Carvedilol 6.25 MG TAB PER TUBE SCH (20:58)
[2020-05-23] MEDS: Insulin Glargine 10 UNITS in Pre-Filled Syringe 1 EACH SC SCH (21:55)
[2020-05-24] MEDS: cefTRIAXone\\ROCEPHIN 1 GM in Sodium Chloride 0.9% 100 ML IVPB SCH (02:13)
[2020-05-24] MEDS: Azithromycin 500 MG in Sodium Chloride 0.9% 250 ML 250 ML IVPB SCH (03:01)
[2020-05-24 05:46] LABS: Anion Gap 14 mmol/L (10-20); BUN (Urea Nitrogen) 13 mg/dL (8.4-25.7); Calc. Creatinine Clearance 130 mL/min (70-130); Calcium 8.4 mg/dL (7.8-10.44); Carbon Dioxide 21 mmol/L (22-29); Chloride 106 mmol/L (98-107); Estimated GFR-MDRD Greater than 90; Glucose 119 mg/dL (70-105); Potassium 4.2 mmol/L (3.5-5.1); Sodium 137 mmol/L (136-145)
[2020-05-24 05:47] LABS: Hemoglobin 14.5 g/dL (14.0-18.0); Mean Corpuscular HGB CONC 32.1 g/dL (32.0-36.0); Mean Corpuscular Hemoglobin 30.6 pg (27.0-31.0); Mean Corpuscular Volume 95.4 fL (78.0-98.0); Mean Platelet Volume 10.1 fL (7.4-10.4); Platelet Count 115 thou/uL (130-400); RBC Distribution Width 13.1 % (11.5-14.5); Red Blood Cell (RBC) Count 4.73 mill/uL (4.70-6.10); White Blood Cell (WBC) Count 5.7 thou/uL (4.8-10.8)
[2020-05-24] MEDS ORDERED: Magnesium 2 GM/50 ML 2 GM in Premix Bag 1 BAG IVPB SCH (06:00)
[2020-05-24 06:15] LABS: Eosinophils 2 % (0-10); Lymphocytes 39 % (21-51); MDiff Complete? YES; Monocytes 16 % (0-10); Neutrophil 43 % (42-75); Platelet Morphology Comment Appears Decreased
[2020-05-24] MEDS: Carvedilol 6.25 MG TAB PER TUBE SCH ×2 (09:35→20:54)
[2020-05-24] MEDS: Polyethylene Glycol 3350 17 GM Packet PO SCH (09:36)
[2020-05-24] MEDS: Ascorbic Acid 500 mg Chewable Tablet PER TUBE SCH (09:36)
[2020-05-24] MEDS: Losartan 25 MG TAB PER TUBE SCH (09:36)
[2020-05-24] MEDS: Valproate Sodium 250 mg/5 ml UD Cup PER TUBE SCH ×3 (09:36→20:53)
[2020-05-24] MEDS: Enoxaparin Sodium 40 MG/0.4 ML SYRINGE SC SCH (09:40)
[2020-05-24] MEDS: Famotidine 40 MG/5 ML Oral Suspension PER TUBE SCH (09:41)
[2020-05-24] MEDS: levETIRAcetam 500 mg/5 ml Oral Solution PER TUBE SCH ×2 (09:47→20:53)
[2020-05-24] MEDS: Insulin Glargine 10 UNITS in Pre-Filled Syringe 1 EACH SC SCH (20:54)
--- NOTE | 2020-05-24 21:40 | PDOC.HOSPP ---
- Subjective Encounter Date: 05/24/20 Encounter Time: 10:00 non-verbal Subjective: Patient seen and examined for seizure with pneumonia. No new seizure like activity. Tolerating PEG tube feeding. No fever reported. - Objective Vital Signs & Weight: Vital Signs (12 hours) Temp Pulse Resp BP BP Pulse Ox 05/24/20 20:54 137/73 05/24/20 19:54 97.8 F 57 L 16 137/73 97 05/24/20 15:13 97.8 F 53 L 16 145/73 H 98 05/24/20 11:43 98.1 F 54 L 18 129/75 94 L Weight Admit Weight 190 lb 8 oz Weight 190 lb 8 oz I&O: 05/23/20 05/24/20 05/25/20 06:59 06:59 06:59 Intake Total 1134 670 Balance 1134 670 Result Diagrams: 05/24/20 05:10 05/24/20 05:10 Additional Labs: Accuchecks 05/24/20 05/24/20 05/24/20 20:47 16:58 10:40 POC Glucose 83 76 104 EKG Reviewed by me: Yes (Sinus rhythm on surveillance monitor) Hospitalist ROS - Review of Systems ROS unobtainable: due to mental status - Medication Medications: Active Medications Generic Name Dose Route Start Last Admin Trade Name Lisa PRN Reason Stop Dose Admin Ascorbic Acid 500 mg 05/24/20 09:00 05/24/20 09:36 Vitamin C PER TUBE 500 mg DAILY MEI Administration Carvedilol 12.5 mg 05/23/20 21:00 05/24/20 20:54 Coreg PER TUBE 12.5 mg BID MEI Administration Enoxaparin Sodium 40 mg 05/23/20 09:00 05/24/20 09:40 Lovenox SC 40 mg 0900 MEI Administration Famotidine 20 mg 05/24/20 09:00 05/24/20 09:41 Pepcid PER TUBE 20 mg DAILY MEI Administration Ceftriaxone Sodium 1 gm/ 100 mls @ 200 mls/hr 05/23/20 03:00 05/24/20 02:13 Sodium Chloride IVPB 100 mls Q24HR MEI Administration Azithromycin 500 mg/ Sodium 250 mls @ 250 mls/hr 05/23/20 04:00 05/24/20 03: 01 Chloride IVPB 250 mls 0400 MEI Administration Insulin Glargine 10 units/ 0.1 mls @ 0 mls/hr 05/23/20 21:00 05/24/20 20:54 Miscellaneous Medication SC 0.1 mls HS MEI Administration Levetiracetam 1,500 mg 05/23/20 21:00 05/24/20 20:53 Keppra Oral Solution PER TUBE 1,500 mg BID MEI Administration Losartan Potassium 25 mg 05/24/20 09:00 05/24/20 09:36 Cozaar PER TUBE 25 mg DAILY MEI Administration Polyethylene Glycol 17 gm 05/23/20 09:00 05/24/20 09:36 Miralax PO 17 gm DAILY MEI Administration Valproic Acid 500 mg 05/23/20 15:00 05/24/20 20:53 Depakene Liquid PER TUBE 500 mg TID MEI Administration - Exam General Appearance: NAD Neck: supple, no JVD Heart: RRR, no gallops Respiratory: rales, rhonchi Gastrointestinal: soft, non-distended Extremities: no cyanosis Hosp A/P - Plan DVT proph w/SCDs Breakthrough seizure Sepsis due to pneumonia suspected aspiration Swallow dysfunction s/p PEG tube Hypertension Diabetes mellitus type II Chronic deconditioning Hypomagnesemia Plan: Await neuro input. Continue Peg tube feeding. Continue Keppra with Depakote. Recheck labs in a.m. Replace magnesium. Continue PEG tube feeding. Continue insulin sliding scale
--- NOTE | 2020-05-25 00:49 | CON ---
DATE OF CONSULTATION: 05/24/2020 CONSULTING PHYSICIAN: Hospitalist Service. IMPRESSION: Recurrent seizure secondary to sepsis. PLAN: Continue his current seizure medicine regimen. HISTORY OF PRESENT ILLNESS: Mr. Larsen is a 54-year-old man with a known history of epilepsy and severe mental impairment. I have seen him in the past for breakthrough seizures. He apparently came in with evidence of pneumonia and sepsis. On exam, he had a single prolonged seizure. He was treated with Ativan. His lab work was otherwise unremarkable. His CT of the brain shows an old right parietal infarct. His chest x-ray showed right basilar infiltrates. He has not had any further seizure activity since being admitted to the Stroke Unit. Nurses report his behavior is otherwise as they have seen in the past. Given the infectious process triggered this, I would not make any changes in his regimen. Job ID: [id number]
[2020-05-25] MEDS: cefTRIAXone\\ROCEPHIN 1 GM in Sodium Chloride 0.9% 100 ML IVPB SCH (02:44)
[2020-05-25] MEDS: Azithromycin 500 MG in Sodium Chloride 0.9% 250 ML 250 ML IVPB SCH (03:06)
[2020-05-25 05:12] LABS: Anion Gap 13 mmol/L (10-20); BUN (Urea Nitrogen) 10 mg/dL (8.4-25.7); Calc. Creatinine Clearance 137 mL/min (70-130); Calcium 8.7 mg/dL (7.8-10.44); Carbon Dioxide 25 mmol/L (22-29); Chloride 104 mmol/L (98-107); Estimated GFR-MDRD Greater than 90; Glucose 128 mg/dL (70-105); Magnesium 2.1 mg/dL (1.6-2.6); Potassium 4.1 mmol/L (3.5-5.1); Sodium 138 mmol/L (136-145)
[2020-05-25 05:14] LABS: #Eosinphils 0.1 thou/uL (0.0-0.7); #Lymphocytes 1.6 thou/uL (1.20-3.40); #Monocytes 0.6 thou/uL (0.11-0.59); #Neutrophils 4.5 thou/uL (1.40-6.50); %Basophils 0.2 % (0.0-1.0); %Eosinophils 1.5 % (0.0-10.0); %Lymphocytes 23.7 % (21.0-51.0); %Neutrophils 65.5 % (42.0-75.0); Hemoglobin 14.7 g/dL (14.0-18.0); Mean Corpuscular HGB CONC 31.8 g/dL (32.0-36.0); Mean Corpuscular Hemoglobin 30.2 pg (27.0-31.0); Mean Corpuscular Volume 95.1 fL (78.0-98.0); Mean Platelet Volume 10.3 fL (7.4-10.4); Platelet Count 106 thou/uL (130-400); RBC Distribution Width 12.9 % (11.5-14.5); Red Blood Cell (RBC) Count 4.88 mill/uL (4.70-6.10); White Blood Cell (WBC) Count 6.9 thou/uL (4.8-10.8)
--- NOTE | 2020-05-25 09:18 | RAD ---
PORTABLE CHEST: HISTORY: Pneumonia. COMPARISON: 05/22/2020. FINDINGS: Lungs appear clear of infiltrate. Heart size upper normal with mild prominence of the vasculature wh ich appears stable. The questioned density in the right medial base is probably vascular. Upright P A and lateral views would be of benefit if possible. IMPRESSION: No acute process identified. POS: AGW
[2020-05-25] MEDS: Valproate Sodium 250 mg/5 ml UD Cup PER TUBE SCH ×3 (09:19→20:15)
[2020-05-25] MEDS: Famotidine 40 MG/5 ML Oral Suspension PER TUBE SCH (09:20)
[2020-05-25] MEDS: levETIRAcetam 500 mg/5 ml Oral Solution PER TUBE SCH ×2 (09:20→20:15)
[2020-05-25] MEDS: Enoxaparin Sodium 40 MG/0.4 ML SYRINGE SC SCH (09:21)
[2020-05-25] MEDS: Ascorbic Acid 500 mg Chewable Tablet PER TUBE SCH (09:21)
[2020-05-25] MEDS: Losartan 25 MG TAB PER TUBE SCH (09:22)
[2020-05-25] MEDS: Carvedilol 6.25 MG TAB PER TUBE SCH ×2 (09:22→20:15)
[2020-05-25] MEDS: Polyethylene Glycol 3350 17 GM Packet PO SCH (09:23)
[2020-05-25] MEDS ORDERED: Clindamycin 75 mg/5 ml Oral Suspension PER TUBE SCH (12:45)
--- NOTE | 2020-05-25 17:01 | PDOC.HOSPP ---
- Subjective Encounter Date: 05/25/20 Encounter Time: 10:30 non-verbal Subjective: Seen and examined for pneumonia with seizure. No new seizures reported. No other overnight events. Tolerating PEG tube feeding. - Objective Vital Signs & Weight: Vital Signs (12 hours) Temp Pulse Resp BP BP Pulse Ox 05/25/20 15:17 98.2 F 63 18 119/81 96 05/25/20 11:38 97.7 F 55 L 18 149/75 H 95 05/25/20 09:22 166/90 H 05/25/20 08:00 98.3 F 61 22 H 166/90 H 96 Weight Admit Weight 190 lb 8 oz Weight 190 lb 8 oz I&O: 05/24/20 05/25/20 05/26/20 06:59 06:59 06:59 Intake Total 1134 790 105 Balance 1134 790 105 Result Diagrams: 05/25/20 03:56 05/25/20 03:56 Additional Labs: Accuchecks 05/25/20 05/24/20 05/24/20 10:48 20:47 16:58 POC Glucose 103 83 76 EKG Reviewed by me: Yes (Sinus rhythm on telemetry) Hospitalist ROS - Review of Systems ROS unobtainable: due to mental status - Medication Medications: Active Medications Generic Name Dose Route Start Last Admin Trade Name Lisa PRN Reason Stop Dose Admin Ascorbic Acid 500 mg 05/24/20 09:00 05/25/20 09:21 Vitamin C PER TUBE 500 mg DAILY MEI Administration Carvedilol 12.5 mg 05/23/20 21:00 05/25/20 09:22 Coreg PER TUBE 12.5 mg BID MEI Administration Enoxaparin Sodium 40 mg 05/23/20 09:00 05/25/20 09:21 Lovenox SC 40 mg 0900 MEI Administration Famotidine 20 mg 05/24/20 09:00 05/25/20 09:20 Pepcid PER TUBE 20 mg DAILY MEI Administration Insulin Glargine 10 units/ 0.1 mls @ 0 mls/hr 05/23/20 21:00 05/24/20 20:54 Miscellaneous Medication SC 0.1 mls HS MEI Administration Levetiracetam 1,500 mg 05/23/20 21:00 05/25/20 09:20 Keppra Oral Solution PER TUBE 1,500 mg BID MEI Administration Losartan Potassium 25 mg 05/24/20 09:00 05/25/20 09:22 Cozaar PER TUBE 25 mg DAILY MEI Administration Polyethylene Glycol 17 gm 05/23/20 09:00 05/25/20 09:23 Miralax PO Not Given DAILY MEI Valproic Acid 500 mg 05/23/20 15:00 05/25/20 14:21 Depakene Liquid PER TUBE 500 mg TID MEI Administration - Exam General Appearance: NAD Heart: RRR, no gallops Respiratory: rales, rhonchi Gastrointestinal: soft, non-distended Extremities: no cyanosis Neurological: no new deficit Neurological - other findings: Exam limited Psychiatric - other findings: Exam limited due to current mentation Hosp A/P - Plan DVT proph w/SCDs Breakthrough seizure Sepsis due to pneumonia suspected aspiration Swallow dysfunction s/p PEG tube Hypertension Diabetes mellitus type II Chronic deconditioning Hypomagnesemia Thrombocytopenia probably due to sepsis Plan: 05/25 Continue Keppra with Depakote. Change IV antibiotics to oral clindamycin. Hold Lantus for now. Continue PEG tube feeding. Continue sliding scale and other medications as above. Discharge to group home in a.m. if no overnight issues. 05/24 Await neuro input. Continue Peg tube feeding. Continue Keppra with Depakote. Recheck labs in a.m. Replace magnesium. Continue PEG tube feeding. Continue insulin sliding scale
[2020-05-25] MEDS: Clindamycin 75 mg/5 ml Oral Suspension PER TUBE SCH (20:15)
[2020-05-25] MEDS ORDERED: Saccharomyces boulardii 250 MG CAP PER TUBE SCH (21:00)
[2020-05-26] MEDS: Clindamycin 75 mg/5 ml Oral Suspension PER TUBE SCH (09:03)
[2020-05-26] MEDS: Famotidine 40 MG/5 ML Oral Suspension PER TUBE SCH (09:03)
[2020-05-26] MEDS: Carvedilol 6.25 MG TAB PER TUBE SCH (09:05)
[2020-05-26] MEDS: levETIRAcetam 500 mg/5 ml Oral Solution PER TUBE SCH (09:07)
[2020-05-26] MEDS: Valproate Sodium 250 mg/5 ml UD Cup PER TUBE SCH (09:07)
[2020-05-26] MEDS: Losartan 25 MG TAB PER TUBE SCH (09:07)
[2020-05-26] MEDS: Ascorbic Acid 500 mg Chewable Tablet PER TUBE SCH (09:07)
[2020-05-26] MEDS: Enoxaparin Sodium 40 MG/0.4 ML SYRINGE SC SCH (09:32)
[2020-05-26] MEDS: Polyethylene Glycol 3350 17 GM Packet PO SCH (09:33)
[2020-05-26 11:25] VITALS: BP 150/75; TEMP 97.5
--- NOTE | 2020-05-26 15:51 | DIS ---
DATE OF ADMISSION: 05/22/2020 DATE OF DISCHARGE: 05/26/2020 DISCHARGE DISPOSITION: Returned to nursing facility. FOLLOWUP: Follow up with Dr. Lassiter at the nursing facility. CODE STATUS: Do not resuscitate. The patient was seen and examined on the day of discharge. No overnight events. DISCHARGE MEDICATIONS: 1. Clindamycin 300 mg b.i.d. for next 3 days. 2. All other home medications were left unchanged. BRIEF HOSPITAL COURSE: The patient is a 54-year-old male with seizure disorder, presented to the emergency room with a seizure episode that lasted approximately 1 hour at the [facility]. Please refer to the history and physical for further details. The patient was admitted to the hospital with a diagnosis of seizure along with sepsis due to pneumonia. He was started on broad-spectrum antibiotic along with Keppra and Depakote. He was evaluated by Neurology, Dr. Stark. Dr. Stark recommended to continue his home antiepileptic medications. The seizure probably happened due to pneumonia. Most likely, the patient had aspiration pneumonia. IV antibiotics will be transitioned to oral clindamycin since the patient is allergic to penicillin. His repeat chest x-ray did not show significant worsening. He was also started on PEG tube feeding without any problems. FINAL DIAGNOSES: 1. Breakthrough seizure. 2. Sepsis due to pneumonia, suspected aspiration. 3. Thrombocytopenia, probably due to sepsis. A repeat CBC after 1 week is recommended. Primary care physician advised to follow. 4. Swallow dysfunction, status post PEG tube. 5. Hypertension. 6. Diabetes mellitus type 2. 7. Hypomagnesemia. 8. History of CVA. 9. History of aspiration pneumonia. 10. Chronic physical deconditioning, currently bed-bound. 11. Aspirin and penicillin allergy. I discussed the plan of care with the patient's brother on the day of discharge. Time coordinating the discharge of this patient was 34 minutes. Job ID: [id number]
== END 2020-05-26 14:41 | DRG 871 ==
LOC: ERS 20:39 → 2SE 22:20
PROVIDERS: ADMIT Internal Medicine; ATTEND Internal Medicine
DX: A41.9 Sepsis, unspecified organism (principal); J69.0 Pneumonitis due to inhalation of food and vomit; R40.2342 Coma scale, best motor response, flexion withdrawal, at arrival to emergency department; R40.2122 Coma scale, eyes open, to pain, at arrival to emergency department; R40.2212 Coma scale, best verbal response, none, at arrival to emergency department; I69.151 Hemiplegia and hemiparesis following nontraumatic intracerebral hemorrhage affecting right dominant side; E11.9 Type 2 diabetes mellitus without complications; E78.5 Hyperlipidemia, unspecified; I10 Essential (primary) hypertension; R65.20 Severe sepsis without septic shock; G40.909 Epilepsy, unspecified, not intractable, without status epilepticus; E83.42 Hypomagnesemia; D69.6 Thrombocytopenia, unspecified; I69.120 Aphasia following nontraumatic intracerebral hemorrhage; Z88.0 Allergy status to penicillin; Z88.8 Allergy status to other drugs, medicaments and biological substances; Z79.899 Other long term (current) drug therapy; Z79.51 Long term (current) use of inhaled steroids; Z79.4 Long term (current) use of insulin
CPT/HCPCS: 36415; 36416; 71045; 80048; 83735; 85025; 99285; J0456; J0696; J1650; J1815; J1953; J3475; J3490; J7050; U0002

== ENCOUNTER 2020-07-24 06:20 | Emergency (ER) | payer MEDICARE, OTHER | END 2020-07-24 08:27 | LOC: ERS 06:20 | DX: Z43.1 Encounter for attention to gastrostomy (principal); E11.9 Type 2 diabetes mellitus without complications; E78.5 Hyperlipidemia, unspecified; I10 Essential (primary) hypertension; G92 Toxic encephalopathy; Z86.73 Personal history of transient ischemic attack (TIA), and cerebral infarction without residual deficits; Z79.891 Long term (current) use of opiate analgesic; Z79.4 Long term (current) use of insulin; Z79.899 Other long term (current) drug therapy | CPT/HCPCS: 43762 ==

== ENCOUNTER 2020-08-17 00:35 | Inpatient (IN) | payer MEDICARE, OTHER, MEDICAID ==
[2020-08-17] MEDS ORDERED: Acetaminophen 500 MG TAB ONE (00:50)
[2020-08-17] MEDS ORDERED: Acetaminophen 325 MG/10.15 ML UDCUP ONE (00:58)
[2020-08-17] MEDS ORDERED: Vancomycin 1.5 GRAM/300 ML BAG 1.5 GM in Premix Bag 1 BAG IVPB SCH (01:30)
[2020-08-17 01:46] LABS: Hemoglobin 15.7 g/dL (14.0-18.0); Mean Corpuscular HGB CONC 33.2 g/dL (32.0-36.0); Mean Corpuscular Volume 93.4 fL (78.0-98.0); RBC Distribution Width 12.7 % (11.5-14.5); Red Blood Cell (RBC) Count 5.05 mill/uL (4.70-6.10); White Blood Cell (WBC) Count 8.2 thou/uL (4.8-10.8)
[2020-08-17 01:49] LABS: ALT (SGPT) 20 U/L (8-55); AST (SGOT) 32 U/L (5-34); Albumin 3.4 g/dL (3.5-5.0); Alkaline Phosphatase 90 U/L (40-110); Anion Gap 15 mmol/L (10-20); BUN (Urea Nitrogen) 22 mg/dL (8.4-25.7); Bilirubin, Total 0.2 mg/dL (0.2-1.2); Calc. Creatinine Clearance 0 mL/min (70-130); Calcium 8.4 mg/dL (7.8-10.44); Carbon Dioxide 27 mmol/L (22-29); Chloride 101 mmol/L (98-107); Estimated GFR-MDRD 89; Globulin 4.9 g/dL (2.4-3.5); Glucose 133 mg/dL (70-105); Lipase 52 U/L (8-78); Potassium 4.9 mmol/L (3.5-5.1); Protein, Total 8.3 g/dL (6.0-8.3); Sodium 138 mmol/L (136-145)
[2020-08-17 02:05] LABS: Band 6 % (5-11); Lymphocytes 11 % (21-51); MDiff Complete? YES; Mean Platelet Volume 11.3 fL (7.4-10.4); Monocytes 15 % (0-10); Neutrophil 68 % (42-75); Platelet Count 114 thou/uL (130-400); Platelet Morphology Comment Appears Adequate
[2020-08-17 02:29] LABS: SARS-CoV-2 NAA Rapid Test DETECTED (NotDetected)
[2020-08-17 02:33] LABS: Bacteria/HPF None Seen HPF (None Seen); Bilirubin Negative (Negative); Blood, Urine Negative (Negative); Clarity Clear (Clear); Glucose, Urine (Dipstick) Normal (Negative); Ketone, Urine Trace mg/dL (Negative); Leukocyte Negative Leu/uL (Negative); Nitrite Negative (Negative); Protein, Urine (Dipstick) 50 mg/dL (Neg-Trace); RBC/HPF 0-3 HPF (0-3); Squamous Epithelial 0-3 HPF (0-3); Urobilinogen Normal mg/dL (Less than 2); WBC/HPF 0-3 HPF (0-3)
[2020-08-17] MEDS ORDERED: Ondansetron PF 4 MG/2 ML Vial IVP PRN (04:04)
[2020-08-17] MEDS ORDERED: Calcium Carbonate 500 MG ChewTAB PO PRN (04:04)
[2020-08-17] MEDS ORDERED: Acetaminophen 650 MG Suppository PR PRN (04:04)
[2020-08-17] MEDS ORDERED: Dexamethasone 10 MG/ML VIAL ONE (04:04)
[2020-08-17] MEDS ORDERED: Ondansetron ODT 4 MG TAB PO PRN (04:04)
--- NOTE | 2020-08-17 04:12 | PDOC.HHP ---
Hospitalist HPI - History of Present Illness fever History of Present Illness: history is limited patient is aphasic, no family members were present during my evaluation, most of the history obtain from ems and emr notes Case of an 54y/o male with a pmhx of diabetes, hyperlipidemia, hypertension, hx of mayor cva with residual aphasia generalized seizures, Apraxia, Dysphasia, hemiplegia and hemiparesis right side. who comes to hospital due to fever. At ed patient was evaluated and cxr/ chest ct was consistent with covid 19 pneumonia with sepsis. hospitalist was called for further evaluation and management. Hospitalist ROS - Review of Systems ROS unobtainable: due to mental status Hospitalist History - Past Surgical History Other Surgical History: peg placement - Family History Family History: reports: no pertinent history - Social History Smoking Status: Unknown if ever smoked Alcohol: reports: None Drugs: reports: none Living Situation: Shelter - Exam General Appearance: ill appearing Eye: PERRL, anicteric sclera ENT: normocephalic atraumatic, no oropharyngeal lesions Neck: supple, symmetric, no JVD Heart: no murmur, no gallops, no rubs Heart - other findings: tachycadic Respiratory: no wheezes, no rales, rhonchi Gastrointestinal: soft, non-tender, non-distended, normal bowel sounds Gastrointestinal - other findings: peg placement Extremities: no cyanosis, no clubbing, no edema Skin: normal turgor Neurological: hemiplegia Musculoskeletal: diffuse muscle atrophy Psychiatric: not oriented Hospitalist Results - Labs Result Diagrams: 08/17/20 01:15 08/17/20 01:15 Lab results: WBC 8.2 thou/uL (4.8-10.8) 08/17/20 01:15 Hgb 15.7 g/dL (14.0-18.0) 08/17/20 01:15 Hct 47.2 % (42.0-52.0) 08/17/20 01:15 MCV 93.4 fL (78.0-98.0) 08/17/20 01:15 Plt Count 114 thou/uL (130-400) L 08/17/20 01:15 Band Neuts % (Manual) 6 % (5-11) 08/17/20 01:15 Sodium 138 mmol/L (136-145) 08/17/20 01:15 Potassium 4.9 mmol/L (3.5-5.1) 08/17/20 01:15 Chloride 101 mmol/L (98-107) 08/17/20 01:15 Carbon Dioxide 27 mmol/L (22-29) 08/17/20 01:15 BUN 22 mg/dL (8.4-25.7) 08/17/20 01:15 Creatinine 1.06 mg/dL (0.7-1.3) 08/17/20 01:15 Glucose 133 mg/dL (70-105) H 08/17/20 01:15 Lactic Acid 2.4 mmol/L (0.5-2.2) H 08/17/20 01:15 Calcium 8.4 mg/dL (7.8-10.44) 08/17/20 01:15 Total Bilirubin 0.2 mg/dL (0.2-1.2) 08/17/20 01:15 AST 32 U/L (5-34) 08/17/20 01:15 ALT 20 U/L (8-55) 08/17/20 01:15 Alkaline Phosphatase 90 U/L (40-110) 08/17/20 01:15 Troponin I Less than 0.010 ng/mL (< 0.028) 08/17/20 01:15 B-Natriuretic Peptide Less than 10.0 pg/mL (0-100) 08/17/20 01:15 Serum Total Protein 8.3 g/dL (6.0-8.3) 08/17/20 01:15 Albumin 3.4 g/dL (3.5-5.0) L 08/17/20 01:15 Lipase 52 U/L (8-78) 08/17/20 01:15 Urine Ketones Trace mg/dL (Negative) A 08/17/20 02:07 Urine Blood Negative (Negative) 08/17/20 02:07 Urine Nitrite Negative (Negative) 08/17/20 02:07 Ur Leukocyte Esterase Negative August/uL (Negative) 08/17/20 02:07 Urine RBC 0-3 HPF (0-3) 08/17/20 02:07 Urine WBC 0-3 HPF (0-3) 08/17/20 02:07 Ur Squamous Epith Cells 0-3 HPF (0-3) 08/17/20 02:07 Urine Bacteria None Seen HPF (None Seen) 08/17/20 02:07 Hospitalist H&P A/P - Problem (1) Pneumonia due to COVID-19 virus Code(s): U07.1 - COVID-19; J12.89 - OTHER VIRAL PNEUMONIA Status: Acute (2) Sepsis Code(s): A41.9 - SEPSIS, UNSPECIFIED ORGANISM Status: Acute (3) HTN (hypertension) Code(s): I10 - ESSENTIAL (PRIMARY) HYPERTENSION Status: Acute (4) History of CVA with residual deficit Code(s): I69.30 - UNSPECIFIED SEQUELAE OF CEREBRAL INFARCTION Status: Acute (5) Seizure Code(s): R56.9 - UNSPECIFIED CONVULSIONS Status: Acute (6) Diabetes mellitus Code(s): E11.9 - TYPE 2 DIABETES MELLITUS WITHOUT COMPLICATIONS Status: Chronic - Plan Plan: Case of an 54y/o male with the stated pmhx who presents with sepsis secondary to covid 19 pneumonia sepsis / covid 19 pneumonia - elevated LA febrile with a cxr and chest ct consistent with covid 19 - started on levaquin prophylactically - decadron 6mg ivd - ivfs - f/u cultures - id consult - f/u inflammation markers - dvt prophylaxis - isolation protocol - 02 supplementation dm - long acting insulin - acc+ ss htn - will hold medication in setting of sepsis hx of seizures - continue home meds
[2020-08-17] MEDS ORDERED: Dextrose 5% in Water 1,000 ML IV PRN (04:19)
[2020-08-17] MEDS ORDERED: Dextrose 50% Abboject 50 ML SYRINGE SLOW IVP PRN (04:19)
[2020-08-17] MEDS ORDERED: HumaLOG 300 UNITS/3 ML VIAL SC PRN (04:19)
[2020-08-17 04:37] LABS: Lactic Acid 1.2 mmol/L (0.5-2.2)
[2020-08-17 05:55] LABS: Troponin I Less than 0.010 ng/mL (< 0.028)
[2020-08-17 07:51] LABS: Troponin I 0.013 ng/mL (< 0.028)
--- NOTE | 2020-08-17 08:20 | RAD ---
PORTABLE CHEST: HISTORY: Cough. COMPARISON: 06/27/2020. FINDINGS: Lungs appear clear of infiltrate. Heart size upper normal and stable. No interval change seen. IMPRESSION: Stable chest. POS: [facility]
--- NOTE | 2020-08-17 08:54 | CT ---
PRELIMINARY REPORT/[facility]/EMERGENCY AFTER HOURS PROCEDURE: Receipt of this report by the clinical staff was confirmed with Devorah Wills MD by Stacia Lozada on Aug 17, 2020 04:04:00 INSPECTOR TECHNICIAN. Addendum electronically signed by Renetta Lozada on August 17, 2020 4:03:55 AM INSPECTOR TECHNICIAN EXAM: CTA Chest with Intravenous Contrast CLINICAL HISTORY: FEVER AND HTN. ELEVATED DDIMER TECHNIQUE: Axial CTA images of the chest with intravenous contrast. Three-dimensional MIP/volume rendered reform ations were performed. CONTRAST: With; ISOVUE 370,100mL COMPARISON: None provided. FINDINGS: PULMONARY ARTERIES Suboptimal evaluation of the pulmonary arteries due to severe respiratory motion and artifact within the main pulmonary artery from intraluminal air. AORTA No thoracic aortic aneurysm or dissection. LUNGS Patchy opacities in the dependent left lower lobe suggest aspiration pneumonia or bronchopneumonia. N o others based opacities. PLEURAL SPACES No pleural effusion. No pneumothorax. HEART AND MEDIASTINUM No cardiomegaly. No significant pericardial effusion. LYMPH NODES No lymphadenopathy. BONES No focal osseous abnormality or acute fracture. CHEST WALL AND UPPER ABDOMEN Images through the upper abdomen are unremarkable. The chest wall is unremarkable. IMPRESSION: Limited CT angiogram due to motion artifact and air artifact. Air within the anterior main pulmonary artery which was probably introduced intravenously. Findings suggestive of a left lower lobe pneumonia which may be a bronchopneumonia or aspiration pneu monia. ELECTRONICALLY SIGNED BY: Marisa Sow MD Aug 17, 2020 3:59:01 AM INSPECTOR TECHNICIAN This report is intended for review by the ordering physician only, in accordance of law. If you recei ve this report in error, please call [facility] at [phone]. FINAL REPORT EMERGENCY AFTER HOURS CTA CHEST WITH CONTRAST: FINDINGS/IMPRESSION: I agree with the findings and impression given in the preliminary report per [facility] physici an. 1. This exam is limited for pulmonary thromboembolism. No central pulmonary thromboembolus is seen. 2. There is opacity in the left lung base which may represent atelectasis or an infiltrate. 3. There is iatrogenically injected air into the main pulmonary artery. POS: [facility]
--- NOTE | 2020-08-17 09:06 | RAD ---
PORTABLE CHEST: HISTORY: Assess central line placement. Shortness of breath. COMPARISON: 08/17/2020. FINDINGS: Central line via the right jugular has tip overlying the SVC. Mild elevated right hemidiaphragm. No confluent consolidation or infiltrate. No interval change fro m film earlier in the day. POS: [facility]
[2020-08-17] MEDS: Sodium Chloride 0.9% 1,000 ML IV SCH (09:15)
[2020-08-17] MEDS ORDERED: Dexamethasone 4 mg/ml Vial SLOW IVP SCH (12:15)
[2020-08-17] MEDS: Enoxaparin Sodium 40 MG/0.4 ML SYRINGE SC SCH (12:15)
[2020-08-17] MEDS ORDERED: Iopamidol 370 76% 50 ML VIAL FS ONE (12:53)
[2020-08-17] MEDS: Valproate Sodium 250 mg/5 ml UD Cup PER TUBE SCH ×2 (12:55→20:04)
[2020-08-17] MEDS: levETIRAcetam 500 mg/5 ml Oral Solution PER TUBE SCH ×2 (12:55→20:04)
[2020-08-17] MEDS: Dexamethasone 10 MG/ML VIAL SLOW IVP SCH ×2 (12:57→16:56)
[2020-08-17 19:06] VITALS: BMI 25.7
[2020-08-17] MEDS: Insulin Glargine 10 UNITS in Pre-Filled Syringe 1 EACH SC SCH (21:21)
--- NOTE | 2020-08-17 23:07 | PDOC.EVN ---
Event Note - Event Note Event Note: Patient seen and examined . He is non-verbal. He makes occasional grimaces with his face. He is on 2L of oxygen Gen: patient alert, nonverbal Skin: dry skin on face Neuro: appears developmentally impaired. Occasional facial grimacing and groaning CV: RRR, no murmurs, rubs, gallops Lungs: diminished breath sounds Abdomen: + BS, soft, nontender, nondistended Ext: no edema CTA: left lower lobe pneumonia Assessment: COVID pneumonia + aspiration pneumonia -on levaquin and dexamethasone - he is on 2L 100%, wean oxygen off if possible Seizure - continue depakote and keppra Chronic malnutrition -continue tube feeds History of ischemic stroke -nonverbal at baseline
[2020-08-18] MEDS: Guaifenesin DM 100-10/5 ML UDCUP PO PRN ×2 (03:22→21:33)
[2020-08-18] MEDS: Sodium Chloride 0.9% 1,000 ML IV SCH ×2 (06:14→21:33)
[2020-08-18] MEDS: Valproate Sodium 250 mg/5 ml UD Cup PER TUBE SCH ×2 (08:32→21:30)
[2020-08-18] MEDS: levETIRAcetam 500 mg/5 ml Oral Solution PER TUBE SCH ×2 (08:32→21:30)
[2020-08-18] MEDS: Enoxaparin Sodium 40 MG/0.4 ML SYRINGE SC SCH (08:32)
[2020-08-18] MEDS ORDERED: Dexamethasone 4 mg/ml Vial SLOW IVP SCH (09:00)
[2020-08-18] MEDS ORDERED: FLU VACC QS2020-21(6MOS UP)/PF 60 MCG/0.5 ML SYRINGE IM ONE (09:00)
[2020-08-18 09:25] LABS: Hemoglobin 15.1 g/dL (14.0-18.0); Mean Corpuscular HGB CONC 30.2 g/dL (32.0-36.0); Mean Corpuscular Hemoglobin 28.5 pg (27.0-31.0); Mean Corpuscular Volume 94.4 fL (78.0-98.0); Mean Platelet Volume 10.6 fL (7.4-10.4); Platelet Count 87 thou/uL (130-400); RBC Distribution Width 12.5 % (11.5-14.5); Red Blood Cell (RBC) Count 5.29 mill/uL (4.70-6.10); White Blood Cell (WBC) Count 7.5 thou/uL (4.8-10.8)
[2020-08-18 09:32] LABS: ALT (SGPT) 18 U/L (8-55); AST (SGOT) 25 U/L (5-34); Albumin 3.5 g/dL (3.5-5.0); Alkaline Phosphatase 82 U/L (40-110); Anion Gap 17 mmol/L (10-20); BUN (Urea Nitrogen) 14 mg/dL (8.4-25.7); Bilirubin, Total 0.2 mg/dL (0.2-1.2); CRP (Inflammatory) 2.48 mg/dL (= or < 0.5); Calc. Creatinine Clearance 117 mL/min (70-130); Calcium 8.8 mg/dL (7.8-10.44); Carbon Dioxide 26 mmol/L (22-29); Chloride 101 mmol/L (98-107); Estimated GFR-MDRD Greater than 90; Globulin 4.6 g/dL (2.4-3.5); Glucose 128 mg/dL (70-105); Potassium 4.8 mmol/L (3.5-5.1); Protein, Total 8.1 g/dL (6.0-8.3); Sodium 139 mmol/L (136-145)
[2020-08-18 10:09] LABS: Band 10 % (5-11); Lymphocytes 27 % (21-51); Metamyelocyte 1 % (0-0); Monocytes 5 % (0-10); Neutrophil 55 % (42-75); Reactive Lymphocytes 2 % (0-10)
[2020-08-18 10:10] LABS: MDiff Complete? YES; Platelet Morphology Comment Appears Decreased; Polychromasia SLIGHT = 2-3 cells (100X) (0-2/hpf); Vacuoles MODERATE
--- NOTE | 2020-08-18 16:55 | PDOC.HOSPP ---
- Subjective Encounter Date: 08/18/20 Encounter Time: 08:00 Subjective: F/u: pneumonia The patient is non-verbal. His tube feeds were not running yet. He has been weaned down to 1L of oxygen . THe patient frequently grimaces his face and moves his mouth. Left arm twitches some as well. During last admission, neurology was consulted and felt seizures were due to pneumonia and no changes in antiepileptics were made. When I saw him last year, his frequent mouth twitching was thought to be from old stroke and not seizure related. - Objective Vital Signs & Weight: Vital Signs (12 hours) Temp Pulse Resp BP Pulse Ox 08/18/20 15:43 98.2 F 66 16 163/92 H 100 08/18/20 10:58 98.9 F 79 16 177/86 H 98 08/18/20 08:00 98 F 83 16 182/100 H 100 Weight Admit Weight 190 lb 1.6 oz Weight 190 lb 1.6 oz I&O: 08/17/20 08/18/20 08/19/20 06:59 06:59 06:59 Intake Total 930 60 Balance 930 60 Result Diagrams: 08/18/20 08:57 08/18/20 08:57 Additional Labs: Accuchecks 08/18/20 08/18/20 08/18/20 15:23 10:45 03:16 POC Glucose 146 H 145 H 121 H 08/17/20 08/17/20 20:08 17:00 POC Glucose 114 H 110 H Hospitalist ROS - Review of Systems Constitutional: denies: fever, chills - Medication Medications: Active Medications Generic Name Dose Route Start Last Admin Trade Name Freq PRN Reason Stop Dose Admin Enoxaparin Sodium 40 mg 08/17/20 09:00 08/18/20 08:32 Enoxaparin Sodium 40 Mg/0.4 Ml Syringe SC 40 mg 0900 MEI Administration Guaifenesin/Dextromethorphan 15 ml 08/17/20 04:04 08/18/20 03:22 Guaifenesin Dm 100-10/5 Ml Udcup PO 15 ml Q4H PRN Administration Cough Levofloxacin 750 mg/ Device 150 mls @ 100 mls/hr 08/17/20 23:59 08/17/20 23:25 IVPB 150 mls Q24HR MEI Administration Sodium Chloride 1,000 mls @ 50 mls/hr 08/17/20 04:15 08/18/20 06:14 Normal Saline 0.9% IV 1,000 mls .Q20H MEI Administration Insulin Glargine 10 units/ 0.1 mls @ 0 mls/hr 08/17/20 21:00 08/17/20 21:21 Miscellaneous Medication SC Not Given HS MEI Levetiracetam 1,500 mg 08/17/20 09:00 08/18/20 08:32 Levetiracetam 500 Mg/5 Ml Oral Solution PER TUBE 1,500 mg BID MEI Administration Valproic Acid 750 mg 08/17/20 09:00 08/18/20 08:32 Valproate Sodium 250 Mg/5 Ml Ud Cup PER TUBE 750 mg BID MEI Administration - Exam General Appearance: NAD, awake alert General - other findings: on 1L of oxygen Eye: PERRL, anicteric sclera ENT: normocephalic atraumatic ENT - other findings: swollen lips, chronic Neck: no JVD Heart: RRR, no gallops, no rubs Respiratory: CTAB, no wheezes, no rales, no ronchi Gastrointestinal: soft, non-tender, non-distended, normal bowel sounds Extremities: no cyanosis, no clubbing, no edema Skin: normal turgor, no lesions, no rashes Neurological: hemiplegia, speech deficit Neurological - other findings: recurrent facial twitching, left hand tremor, grimacing Psychiatric: not oriented Hosp A/P - Plan Chest X ray: no pneumonia CTA chest: left lung infiltrate This is a 54 year old male with history of stroke, malnutrition, chronic metabolic encephalopathy, recurrent seizures who presented from his half-way due to fever, was found to have COVID #COVID pneumonia + aspiration pneumonia -CTA showed left lung infiltrate. He is on levaquin, but will switch to clindamycin given seizure history - continue dexamethasone - he has been weaned down to 1L nasal cannula #Seizure #History of stroke with baseline aphasia and hemiplegia - continue depakote and keppra. Check depakote level and keppra level in the morning - continue seizure medicines #Chronic malnutrition -started glucerna today per dietary recommendations Dispo: continue to wean off oxygen, will place palliative care consult given that patient is supposed to be on hospice
[2020-08-18] MEDS: Clindamycin 150 MG CAP PO SCH ×2 (17:07→23:25)
[2020-08-18] MEDS: Insulin Glargine 10 UNITS in Pre-Filled Syringe 1 EACH SC SCH (21:31)
[2020-08-18] MEDS ORDERED: Lorazepam 2 MG/ML VIAL SLOW IVP PRN (21:58)
--- NOTE | 2020-08-18 22:05 | PDOC.EVN ---
Event Note - Event Note Event Note: Patient with break through seizures, have ordered ativan and will transfer him to monitored bed.
--- NOTE | 2020-08-18 22:10 | CON ---
DATE OF CONSULTATION: 08/18/2020 REASON FOR CONSULTATION: COVID infection. HISTORY OF PRESENT ILLNESS: A 54-year-old whom I had seen in the past for evaluation of cerebrospinal fluid results in July 2019. 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 He also has a history of type 2 diabetes and this time, he is brought from his senior living because of fever. I contacted the nurse at [facility] and they left my phone number for them to call me back to get more details about the events before admission. On arrival, his vitals showed BP 140/80, pulse 86, respirations 25, temperature 103, saturating 95% on room air and 99% on 2 L nasal cannula. The initial exam did not document any particular abnormalities. The initial findings included also sodium 138, creatinine 1.06, glucose 133 with a normal liver profile. Albumin 3.4. CRP was 2.48. Ferritin was 97. Urinalysis was essentially normal and SARS-CoV RNA PCR positive on August 17. His CT was fairly unremarkable except for left lower lobe consolidation. Currently, Mr. Larsen is awake, but he does not interact with the examiner, does not establish eye contact or follow commands. His skin exam shows a stage II presacral. The patient has a peripheral IV access and is voiding in the diaper. No lymphadenopathy. It was difficult to examine his oral cavity. He has a quite a bit of dry debris in the lips and tip of his tongue. Diffuse stiffness. He has intermittent episodes of spasms, which are generalized. No jugular vein distention. Lungs are symmetric air entry. No obvious crackles or wheezing. S1 and S2. Regular rate with a soft aortic murmur. Abdomen is soft, not distended or tender. No ascites. No bladder distention. No guarding. There was some dullness on percussion. Postvoid residual measured by the nurse was 40. He is stiff on the right side. The left side is a little bit more flaccid. He still has, I think, mostly reflected motion in the lower extremities. There is clonus on the right and plantar responses are flexor on the left and extensor on the right. He is awake, but does not establish eye contact and has no meaningful cognitive function noticeable. LABORATORY DATA: The followup tests. We have a WBC count 27.5, hemoglobin 15, platelets 87,000 with a normal differential. D-dimer 3.85 and creatinine 0.9. Liver profile normal. CRP 2.48. Albumin 3.5. Urinalysis was normal. He has had a positive COVID on August 16 and he had a negative one done I think previously maybe a week before this admission at the senior living according to the nursing staff. ASSESSMENT: 1. Severe neurological impairment, though following episode of anoxic encephalopathy associated with complications due to rickettsial infection treated in [place] a few years ago. 2. Recurrent seizure activity. 3. COVID-19 infection acquired in the [facility]. There is an outbreak of COVID there. There are 26 patients positive for COVID in the [place]. He was transferred because of fever, but he does not have a lot of respiratory compromise. I doubt he needs oxygen supplementation at this point. He is at 1 L, but saturating 98% to 100% and he probably can do without O2 supplementation, so at this point, he would not need any intervention and just monitoring. It is hard to tell at what stage of the illness is. It is probably the first week going on to the second week, so he still has room for deterioration. His markers, though are quite low. He has normal ferritin, normal CRP, so that would argue against deterioration in the upcoming days. He does have this infiltrate and a possibility of aspiration. He is on treatment with antimicrobials for it. The indication for Decadron is kind of borderline and may want to withhold it and to allow proper antibody production particularly in view of the normal inflammatory markers. Job ID: [id number]
[2020-08-18] MEDS ORDERED: Lorazepam 2 MG/ML VIAL ONE (22:41)
[2020-08-18] MEDS ORDERED: Diazepam 10 MG/2 ML SYRINGE IVP SCH (22:45)
[2020-08-18] MEDS ORDERED: levETIRAcetam in NS 1,000 MG in Premix Bag 1 BAG IVPB SCH (23:00)
[2020-08-18] MEDS ORDERED: Lorazepam 2 MG/ML VIAL SLOW IVP SCH (23:00)
[2020-08-19] MEDS: Clindamycin 150 MG CAP PO SCH ×3 (05:34→17:10)
[2020-08-19] MEDS: Valproate Sodium 250 mg/5 ml UD Cup PER TUBE SCH ×2 (08:20→21:46)
[2020-08-19] MEDS: Enoxaparin Sodium 40 MG/0.4 ML SYRINGE SC SCH (08:20)
[2020-08-19] MEDS: levETIRAcetam 500 mg/5 ml Oral Solution PER TUBE SCH ×2 (08:20→21:46)
[2020-08-19 09:11] LABS: Glucose 145 mg/dL (70-105)
--- NOTE | 2020-08-19 11:22 | PDOC.HOSPP ---
- Subjective Encounter Date: 08/19/20 Encounter Time: 11:05 Subjective: f/u for LLL infiltrate/COVID-19 PNA receiving Clindamycin but no significant hypoxia or respiratory compromise. Remains non-verbal and non-interactive at baseline. - Objective Vital Signs & Weight: Vital Signs (12 hours) Temp Pulse Resp BP Pulse Ox 08/19/20 08:00 98.3 F 70 20 121/78 93 L 08/19/20 04:00 98.6 F 66 18 150/87 H 96 08/19/20 00:00 98.0 F 80 14 115/74 95 Weight Admit Weight 190 lb 1.6 oz Weight 190 lb 1.6 oz I&O: 08/18/20 08/19/20 08/20/20 06:59 06:59 06:59 Intake Total 930 3000 Balance 930 3000 Result Diagrams: 08/18/20 08:57 08/19/20 08:27 Additional Labs: Accuchecks 08/19/20 08/18/20 08/18/20 05:01 23:01 15:23 POC Glucose 111 H 129 H 146 H Microbiology 08/17/20 02:07 Urine Straight Catheter Urine Culture - Final NO GROWTH AT 36 HOURS 08/17/20 01:15 Nasal swab Influenza Types A,B Direct EIA - Final 08/02/19 02:00 Spinal Fluid Culture - Pending Cryptococcal Antigen - Final 08/02/19 00:24 Nasal swab Influenza Types A,B Direct EIA - Final 07/22/19 13:56 Venous blood - Left Hand Blood Culture - Final NO GROWTH IN 5 DAYS 07/22/19 13:47 Venous blood - Left Hand Blood Culture - Final NO GROWTH IN 5 DAYS 07/19/19 03:28 Nasopharyngeal swab Influenza Types A,B Direct EIA - Final 08/17/20 04:08 Central Line - Right Internal Jugular vein Blood Culture - Preliminary Specimen has been received and culture in progress. No Growth to date. 08/17/20 01:15 Venous blood - Left Arm Blood Culture - Preliminary Specimen has been received and culture in progress. No Growth to date. 08/02/19 02:00 Lumbar - Pending Body Fluid Culture - Preliminary 07/19/19 04:20 Spinal Fluid Culture - Pending Body Fluid Culture - Preliminary 07/19/19 02:56 Venous blood - Right Hand Blood Culture - Preliminary Streptococcus species 07/19/19 02:45 Venous blood - Left Arm Blood Culture - Preliminary Specimen has been received and culture in progress. No Growth to date. Laboratory Tests 07/19/19 07/19/19 07/20/19 02:46 13:25 06:15 Hgb 14.1 Plt Count Neutrophils % (Manual) 87 H 53 PT INR 2.4 D-Dimer Ferritin C-Reactive Protein Valproic Acid Levetiracetam Plasma Alcohol Syphilis IgG/IgM Ab SARS-CoV-2 Rap RNA(RT-PCR) 07/20/19 08/01/19 08/01/19 06:15 23:20 23:20 Hgb Plt Count Neutrophils % (Manual) PT INR 2.2 D-Dimer Ferritin C-Reactive Protein Valproic Acid Levetiracetam 21.8 Plasma Alcohol Less than 10 Syphilis IgG/IgM Ab SARS-CoV-2 Rap RNA(RT-PCR) 08/01/19 08/01/19 08/17/20 23:20 23:31 01:10 Hgb Plt Count Neutrophils % (Manual) PT 20.5 H INR 1.8 D-Dimer Ferritin C-Reactive Protein Valproic Acid Levetiracetam Plasma Alcohol Syphilis IgG/IgM Ab Nonreactive SARS-CoV-2 Rap RNA(RT-PCR) DETECTED A* 08/17/20 08/17/20 08/18/20 01:15 01:15 08:57 Hgb Plt Count 114 L Neutrophils % (Manual) PT INR D-Dimer 3.85 H Ferritin C-Reactive Protein 2.48 H Valproic Acid Levetiracetam Plasma Alcohol Syphilis IgG/IgM Ab SARS-CoV-2 Rap RNA(RT-PCR) 08/18/20 08/19/20 08/19/20 08:57 08:27 08:27 Hgb Plt Count Neutrophils % (Manual) PT INR D-Dimer Ferritin 97.67 C-Reactive Protein Valproic Acid 61.5 Levetiracetam 45.2 Plasma Alcohol Syphilis IgG/IgM Ab SARS-CoV-2 Rap RNA(RT-PCR) Radiology Reviewed by me: Yes (CTA chest - LLL infiltrate) Hospitalist ROS - Medication Medications: Active Medications Generic Name Dose Route Start Last Admin Trade Name Freq PRN Reason Stop Dose Admin Clindamycin HCl 300 mg 08/18/20 18:00 08/19/20 05:34 Clindamycin 150 Mg Cap PO 300 mg Q6HR MEI Administration Enoxaparin Sodium 40 mg 08/17/20 09:00 08/19/20 08:20 Enoxaparin Sodium 40 Mg/0.4 Ml Syringe SC 40 mg 0900 MEI Administration Guaifenesin/Dextromethorphan 15 ml 08/17/20 04:04 08/18/20 21:33 Guaifenesin Dm 100-10/5 Ml Udcup PO 15 ml Q4H PRN Administration Cough Sodium Chloride 1,000 mls @ 50 mls/hr 08/17/20 04:15 08/18/20 21:33 Normal Saline 0.9% IV 1,000 mls .Q20H MEI Administration Insulin Glargine 10 units/ 0.1 mls @ 0 mls/hr 08/17/20 21:00 08/18/20 21:31 Miscellaneous Medication SC 0.1 mls HS MEI Administration Levetiracetam 1,500 mg 08/17/20 09:00 08/19/20 08:20 Levetiracetam 500 Mg/5 Ml Oral Solution PER TUBE 1,500 mg BID MEI Administration Lorazepam 2 mg 08/18/20 21:58 08/18/20 22:05 Lorazepam 2 Mg/Ml Vial SLOW IVP 2 mg Q4H PRN Administration Anxiety/Agitation Valproic Acid 750 mg 08/17/20 09:00 08/19/20 08:20 Valproate Sodium 250 Mg/5 Ml Ud Cup PER TUBE 750 mg BID MEI Administration - Exam General Appearance: NAD, awake alert General - other findings: non-verbal(chronic), facial grimacing Eye: PERRL, anicteric sclera ENT: normocephalic atraumatic, dry oral mucosa Neck: supple, symmetric, no JVD, no thyromegaly, no lymphadenopathy Heart: RRR, no gallops, no rubs, normal peripheral pulses Heart - other findings: S1, S2 Respiratory: CTAB, no wheezes, no rales, no ronchi, normal chest expansion, no tachypnea Gastrointestinal: soft, non-tender, non-distended, normal bowel sounds, no palpable masses Gastrointestinal - other findings: PEG in place Extremities: no cyanosis, no clubbing, no edema Neurological - other findings: aphasic, hemiplegia, grimaces, L hand tremor Musculoskeletal: diffuse muscle atrophy Psychiatric: not oriented, flat affect Hosp A/P (1) Pneumonia due to COVID-19 virus Code(s): U07.1 - COVID-19; J12.89 - OTHER VIRAL PNEUMONIA Status: Acute Plan: LLL infiltrate on CTA chest, continue Clindamycin, general pulmonary supportive mgmt, isolation protocol, hold Decadron, O2 PRN, add Vit C/Zinc (2) Aspiration pneumonia Code(s): J69.0 - PNEUMONITIS DUE TO INHALATION OF FOOD AND VOMIT Status: Acute Plan: Suspected, continue Clindamycin, aspiration precautions (3) Recurrent seizures Code(s): G40.909 - EPILEPSY, UNSP, NOT INTRACTABLE, WITHOUT STATUS EPILEPTICUS Status: Chronic Plan: Continue Depakote/Keppra (4) HTN (hypertension) Code(s): I10 - ESSENTIAL (PRIMARY) HYPERTENSION Status: Chronic Qualifiers: Hypertension type: essential hypertension Qualified Code(s): I10 - Esse ntial (primary) hypertension Plan: Resume outpt BP regimen, serial BP monitoring (5) Thrombocytopenia Code(s): D69.6 - THROMBOCYTOPENIA, UNSPECIFIED Status: Chronic Plan: Monitor closely given Lovenox use (6) Dysphagia Code(s): R13.10 - DYSPHAGIA, UNSPECIFIED Status: Chronic Qualifiers: Dysphagia type: oropharyngeal phase Qualified Code(s): R13.12 - Dysphagia, oropharyngeal phase Plan: TF's and meds via PEG - Plan continue antibiotics, social work lecturer, speech therapy, respiratory therapy, DVT proph w/SCDs Continue supportive mgmt Continue Clindamycin Holding Decadron currently O2 PRN Monitor for decompensation related to COVID AM lab: BMP, CBC
[2020-08-19] MEDS: Sodium Chloride 0.9% 1,000 ML IV SCH (17:11)
[2020-08-19] MEDS: Insulin Glargine 10 UNITS in Pre-Filled Syringe 1 EACH SC SCH (21:46)
[2020-08-19] MEDS: Acetaminophen 325 MG TAB PO PRN (22:00)
[2020-08-20] MEDS: Clindamycin 150 MG CAP PO SCH ×4 (00:48→18:27)
[2020-08-20] MEDS: Acetaminophen 325 MG TAB PO PRN ×2 (05:20→20:04)
[2020-08-20 06:36] LABS: Anion Gap 14 mmol/L (10-20); BUN (Urea Nitrogen) 17 mg/dL (8.4-25.7); Calc. Creatinine Clearance 124 mL/min (70-130); Calcium 8.3 mg/dL (7.8-10.44); Carbon Dioxide 28 mmol/L (22-29); Chloride 101 mmol/L (98-107); Estimated GFR-MDRD Greater than 90; Glucose 130 mg/dL (70-105); Potassium 4.1 mmol/L (3.5-5.1); Sodium 139 mmol/L (136-145)
[2020-08-20 06:54] LABS: Hemoglobin 14.6 g/dL (14.0-18.0); Mean Corpuscular Hemoglobin 30.1 pg (27.0-31.0); Mean Platelet Volume 10.1 fL (7.4-10.4); Platelet Count 80 thou/uL (130-400); RBC Distribution Width 12.3 % (11.5-14.5); Red Blood Cell (RBC) Count 4.84 mill/uL (4.70-6.10); White Blood Cell (WBC) Count 6.9 thou/uL (4.8-10.8)
[2020-08-20 06:55] LABS: Band 2 % (5-11); Lymphocytes 15 % (21-51); MDiff Complete? YES; Metamyelocyte 1 % (0-0); Monocytes 35 % (0-10); Neutrophil 47 % (42-75); Platelet Morphology Comment Appears Decreased; RBC Morphology Normal
[2020-08-20] MEDS: Zinc Sulfate 220 MG CAP PER TUBE SCH (08:35)
[2020-08-20] MEDS: Ascorbic Acid 500 mg Chewable Tablet PER TUBE SCH (08:35)
[2020-08-20] MEDS: Valproate Sodium 250 mg/5 ml UD Cup PER TUBE SCH ×2 (08:36→20:04)
[2020-08-20] MEDS: Enoxaparin Sodium 40 MG/0.4 ML SYRINGE SC SCH (08:36)
[2020-08-20] MEDS: levETIRAcetam 500 mg/5 ml Oral Solution PER TUBE SCH ×2 (08:37→20:03)
--- NOTE | 2020-08-20 08:45 | PDOC.HOSPP ---
- Subjective Encounter Date: 08/20/20 Encounter Time: 08:35 Subjective: f/u for COVID PNA/LLL infiltrate on Clindamycin/Vit C/Zinc/Lovenox/O2 @ 1L/min NC. No new issues noted per nursing except lower platelet counts in the 80's and receiving Lovenox. - Objective Vital Signs & Weight: Vital Signs (12 hours) Temp Pulse Resp BP Pulse Ox 08/20/20 07:35 97 08/20/20 05:33 97 08/20/20 05:20 101.3 F H 08/20/20 00:00 99.7 F H 88 20 152/88 H 97 08/19/20 22:00 100.3 F H Weight Admit Weight 190 lb 1.6 oz Weight 190 lb 1.6 oz I&O: 08/19/20 08/20/20 08/21/20 06:59 06:59 06:59 Intake Total 3000 120 Balance 3000 120 Result Diagrams: 08/20/20 05:55 08/20/20 05:55 Additional Labs: Accuchecks 08/20/20 08/19/20 08/19/20 05:26 15:40 11:28 POC Glucose 137 H 112 H 132 H Microbiology 08/17/20 02:07 Urine Straight Catheter Urine Culture - Final NO GROWTH AT 36 HOURS 08/17/20 01:15 Nasal swab Influenza Types A,B Direct EIA - Final 08/02/19 02:00 Spinal Fluid Culture - Pending Cryptococcal Antigen - Final 08/02/19 00:24 Nasal swab Influenza Types A,B Direct EIA - Final 07/22/19 13:56 Venous blood - Left Hand Blood Culture - Final NO GROWTH IN 5 DAYS 07/22/19 13:47 Venous blood - Left Hand Blood Culture - Final NO GROWTH IN 5 DAYS 07/19/19 03:28 Nasopharyngeal swab Influenza Types A,B Direct EIA - Final 08/17/20 04:08 Central Line - Right Internal Jugular vein Blood Culture - Preliminary Specimen has been received and culture in progress. No Growth to date. 08/17/20 01:15 Venous blood - Left Arm Blood Culture - Preliminary Specimen has been received and culture in progress. No Growth to date. 08/02/19 02:00 Lumbar - Pending Body Fluid Culture - Preliminary 07/19/19 04:20 Spinal Fluid Culture - Pending Body Fluid Culture - Preliminary 07/19/19 02:56 Venous blood - Right Hand Blood Culture - Preliminary Streptococcus species 07/19/19 02:45 Venous blood - Left Arm Blood Culture - Preliminary Specimen has been received and culture in progress. No Growth to date. Laboratory Tests 07/19/19 07/19/19 07/20/19 02:46 13:25 06:15 Hgb 14.1 Plt Count Neutrophils % (Manual) 87 H 53 PT INR 2.4 D-Dimer Ferritin C-Reactive Protein Valproic Acid Levetiracetam Plasma Alcohol Syphilis IgG/IgM Ab SARS-CoV-2 Rap RNA(RT-PCR) 07/20/19 08/01/19 08/01/19 06:15 23:20 23:20 Hgb Plt Count Neutrophils % (Manual) PT INR 2.2 D-Dimer Ferritin C-Reactive Protein Valproic Acid Levetiracetam 21.8 Plasma Alcohol Less than 10 Syphilis IgG/IgM Ab SARS-CoV-2 Rap RNA(RT-PCR) 08/01/19 08/01/19 08/17/20 23:20 23:31 01:10 Hgb Plt Count Neutrophils % (Manual) PT 20.5 H INR 1.8 D-Dimer Ferritin C-Reactive Protein Valproic Acid Levetiracetam Plasma Alcohol Syphilis IgG/IgM Ab Nonreactive SARS-CoV-2 Rap RNA(RT-PCR) DETECTED A* 08/17/20 08/17/20 08/18/20 01:15 01:15 08:57 Hgb Plt Count 114 L Neutrophils % (Manual) PT INR D-Dimer 3.85 H Ferritin C-Reactive Protein 2.48 H Valproic Acid Levetiracetam Plasma Alcohol Syphilis IgG/IgM Ab SARS-CoV-2 Rap RNA(RT-PCR) 08/18/20 08/19/20 08/19/20 08:57 08:27 08:27 Hgb Plt Count Neutrophils % (Manual) PT INR D-Dimer Ferritin 97.67 C-Reactive Protein Valproic Acid 61.5 Levetiracetam 45.2 Plasma Alcohol Syphilis IgG/IgM Ab SARS-CoV-2 Rap RNA(RT-PCR) Hospitalist ROS - Medication Medications: Active Medications Generic Name Dose Route Start Last Admin Trade Name Freq PRN Reason Stop Dose Admin Acetaminophen 650 mg 08/17/20 04:04 08/20/20 05:20 Acetaminophen 325 Mg Tab PO 650 mg Q4H PRN Administration Headache/Fever/Mild Pain (1-3) Clindamycin HCl 300 mg 08/18/20 18:00 08/20/20 05:19 Clindamycin 150 Mg Cap PO 300 mg Q6HR MEI Administration Enoxaparin Sodium 40 mg 08/17/20 09:00 08/19/20 08:20 Enoxaparin Sodium 40 Mg/0.4 Ml Syringe SC 40 mg 0900 MEI Administration Guaifenesin/Dextromethorphan 15 ml 08/17/20 04:04 08/18/20 21:33 Guaifenesin Dm 100-10/5 Ml Udcup PO 15 ml Q4H PRN Administration Cough Sodium Chloride 1,000 mls @ 50 mls/hr 08/17/20 04:15 08/19/20 17:11 Normal Saline 0.9% IV 1,000 mls .Q20H MEI Administration Insulin Glargine 10 units/ 0.1 mls @ 0 mls/hr 08/17/20 21:00 08/19/20 21:46 Miscellaneous Medication SC 0.1 mls HS MEI Administration Levetiracetam 1,500 mg 08/17/20 09:00 08/19/20 21:46 Levetiracetam 500 Mg/5 Ml Oral Solution PER TUBE 1,500 mg BID MEI Administration Lorazepam 2 mg 08/18/20 21:58 08/18/20 22:05 Lorazepam 2 Mg/Ml Vial SLOW IVP 2 mg Q4H PRN Administration Anxiety/Agitation Valproic Acid 750 mg 08/17/20 09:00 08/19/20 21:46 Valproate Sodium 250 Mg/5 Ml Ud Cup PER TUBE 750 mg BID MEI Administration - Exam General - other findings: non-verbal, occasional groan Eye: PERRL, anicteric sclera ENT: normocephalic atraumatic, dry oral mucosa Neck: supple, symmetric, no JVD, no thyromegaly, no lymphadenopathy Heart: RRR, no gallops, no rubs, normal peripheral pulses Heart - other findings: S1, S2 Respiratory: no wheezes, no tachypnea, rhonchi Respiratory - other findings: few scattered coarse sounds, diminished in bases Gastrointestinal: soft, non-tender, non-distended, normal bowel sounds, no palpable masses Gastrointestinal - other findings: PEG in place Extremities: no cyanosis, no edema Skin: normal turgor Neurological: no new deficit Neurological - other findings: aphasic, few grimaces, spontaneous ext movement, R hemiplegic Musculoskeletal: generalized weakness Psychiatric: somnolent, lethargic Hosp A/P (1) Pneumonia due to COVID-19 virus Code(s): U07.1 - COVID-19; J12.89 - OTHER VIRAL PNEUMONIA Status: Acute Plan: Continue supportive mgmt, add Dexamethasone IV, continue Clindamycin/Vit C/Zinc, hold Lovenox due to thrombocytopenia, O2 @ 1L/min NC (2) Aspiration pneumonia Code(s): J69.0 - PNEUMONITIS DUE TO INHALATION OF FOOD AND VOMIT Status: Acute Plan: Suspected, continue Clindamycin, aspiration precautions, monitor gastric residuals with TF's (3) Recurrent seizures Code(s): G40.909 - EPILEPSY, UNSP, NOT INTRACTABLE, WITHOUT STATUS EPILEPTICUS Status: Chronic Plan: Continue Depakote/Keppra (4) HTN (hypertension) Code(s): I10 - ESSENTIAL (PRIMARY) HYPERTENSION Status: Chronic Qualifiers: Hypertension type: essential hypertension Qualified Code(s): I10 - Essential (primary) hypertension Plan: Labile, resume Coreg 12.5mg BID, serial BP monitoring (5) Thrombocytopenia Code(s): D69.6 - THROMBOCYTOPENIA, UNSPECIFIED Status: Chronic Plan: Hold Lovenox, trending downward, serial PLT monitoring (6) Dysphagia Code(s): R13.10 - DYSPHAGIA, UNSPECIFIED Status: Chronic Qualifiers: Dysphagia type: oropharyngeal phase Qualified Code(s): R13.12 - Dysphagia, oropharyngeal phase Plan: PEG tube feeds and medication administration - Plan continue antibiotics, [employer]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
[2020-08-20] MEDS ORDERED: Dexamethasone 20 MG/5 ML VIAL SLOW IVP SCH (09:00)
[2020-08-20] MEDS ORDERED: Non-Formulary Item 1 EACH (Carvedilol [Carvedilol] 12.5 MG Tablet) PER TUBE SCH (09:00)
[2020-08-20] MEDS: Carvedilol 6.25 MG TAB PER TUBE SCH ×2 (11:09→20:03)
[2020-08-20] MEDS: Dexamethasone 10 MG/ML VIAL SLOW IVP SCH (11:14)
[2020-08-20] MEDS: Ketorolac Tromethamine 30 MG/ML VIAL IVP PRN (11:30)
[2020-08-20] MEDS: Sodium Chloride 0.9% 1,000 ML IV SCH (16:19)
[2020-08-20] MEDS: Guaifenesin DM 100-10/5 ML UDCUP PO PRN (20:04)
[2020-08-20] MEDS: Insulin Glargine 10 UNITS in Pre-Filled Syringe 1 EACH SC SCH (20:48)
[2020-08-21] MEDS: Clindamycin 150 MG CAP PO SCH ×4 (00:12→17:30)
[2020-08-21] MEDS ORDERED: hydrALAZINE 20 MG/ML VIAL SLOW IVP SCH (06:30)
[2020-08-21 07:33] LABS: Hemoglobin 13.5 g/dL (14.0-18.0); Mean Corpuscular HGB CONC 32.7 g/dL (32.0-36.0); RBC Distribution Width 12.1 % (11.5-14.5); Red Blood Cell (RBC) Count 4.36 mill/uL (4.70-6.10)
[2020-08-21] MEDS: Carvedilol 6.25 MG TAB PER TUBE SCH ×2 (08:12→22:02)
[2020-08-21] MEDS: Ascorbic Acid 500 mg Chewable Tablet PER TUBE SCH (08:12)
[2020-08-21] MEDS: Dexamethasone 10 MG/ML VIAL SLOW IVP SCH (08:12)
[2020-08-21] MEDS: levETIRAcetam 500 mg/5 ml Oral Solution PER TUBE SCH ×2 (08:13→22:02)
[2020-08-21] MEDS: Zinc Sulfate 220 MG CAP PER TUBE SCH (08:14)
[2020-08-21] MEDS: Valproate Sodium 250 mg/5 ml UD Cup PER TUBE SCH ×2 (08:14→22:01)
--- NOTE | 2020-08-21 08:35 | PDOC.HOSPP ---
- Subjective Encounter Date: 08/21/20 Encounter Time: 11:30 non-verbal Subjective: Patient without events overnight. Still on 1.5L NC, sats in mid 90s. - Objective Vital Signs & Weight: Vital Signs (12 hours) Temp Pulse Resp BP BP Pulse Ox 08/21/20 08:12 162/102 H 08/21/20 07:56 99.0 F 84 16 171/82 H 94 L 08/21/20 05:30 99.8 F H 75 20 184/109 H 95 08/21/20 00:00 98.5 F 60 20 157/83 H 96 Weight Admit Weight 190 lb 1.6 oz Weight 190 lb 1.6 oz I&O: 08/20/20 08/21/20 08/22/20 06:59 06:59 06:59 Intake Total 120 90 Balance 120 90 Result Diagrams: 08/21/20 06:50 08/20/20 05:55 Additional Labs: Accuchecks 08/21/20 08/21/20 08/20/20 05:30 00:20 20:09 POC Glucose 88 87 105 H 08/20/20 08/20/20 15:50 11:30 POC Glucose 145 H 134 H Hospitalist ROS - Review of Systems ROS unobtainable: due to mental status - Medication Medications: Active Medications Generic Name Dose Route Start Last Admin Trade Name Freq PRN Reason Stop Dose Admin Acetaminophen 650 mg 08/17/20 04:04 08/20/20 20:04 Acetaminophen 325 Mg Tab PO 650 mg Q4H PRN Administration Headache/Fever/Mild Pain (1-3) Ascorbic Acid 1,000 mg 08/20/20 09:00 08/21/20 08:12 Ascorbic Acid 500 Mg Chewable Tablet PER TUBE 1,000 mg DAILY MEI Administration Carvedilol 12.5 mg 08/20/20 09:00 08/21/20 08:12 Carvedilol 6.25 Mg Tab PER TUBE 12.5 mg BID MEI Administration Clindamycin HCl 300 mg 08/18/20 18:00 08/21/20 05:28 Clindamycin 150 Mg Cap PO 300 mg Q6HR MEI Administration Dexamethasone 8 mg 08/20/20 09:00 08/21/20 08:12 Dexamethasone 10 Mg/Ml Vial SLOW IVP 8 mg DAILY MEI Administration Enoxaparin Sodium 40 mg 08/17/20 09:00 08/20/20 08:36 Enoxaparin Sodium 40 Mg/0.4 Ml Syringe SC Not Given 0900 MEI Guaifenesin/Dextromethorphan 15 ml 08/17/20 04:04 08/20/20 20:04 Guaifenesin Dm 100-10/5 Ml Udcup PO 15 ml Q4H PRN Administration Cough Hydralazine HCl 10 mg 08/21/20 06:30 08/21/20 06:47 Hydralazine 20 Mg/Ml Vial SLOW IVP 08/21/20 10:00 10 mg NOW MEI Administration Sodium Chloride 1,000 mls @ 50 mls/hr 08/17/20 04:15 08/20/20 16:19 Normal Saline 0.9% IV 1,000 mls .Q20H MEI Administration Insulin Glargine 10 units/ 0.1 mls @ 0 mls/hr 08/17/20 21:00 08/20/20 20:48 Miscellaneous Medication SC Not Given HS MEI Ketorolac Tromethamine 30 mg 08/20/20 10:40 08/20/20 11:30 Ketorolac Tromethamine 30 Mg/Ml Vial IVP 08/25/20 10:41 30 mg Q6H PRN Administration FEVER Levetiracetam 1,500 mg 08/17/20 09:00 08/21/20 08:13 Levetiracetam 500 Mg/5 Ml Oral Solution PER TUBE 1,500 mg BID MEI Administration Lorazepam 2 mg 08/18/20 21:58 08/18/20 22:05 Lorazepam 2 Mg/Ml Vial SLOW IVP 2 mg Q4H PRN Administration Anxiety/Agitation Sodium Chloride 10 ml 08/20/20 21:00 08/21/20 08:14 Flush - Normal Saline 10 Ml Syringe IVF 10 ml Q12HR MEI Administration Valproic Acid 750 mg 08/17/20 09:00 08/21/20 08:14 Valproate Sodium 250 Mg/5 Ml Ud Cup PER TUBE 750 mg BID MEI Administration Zinc Sulfate 220 mg 08/20/20 09:00 08/21/20 08:14 Zinc Sulfate 220 Mg Cap PER TUBE 220 mg DAILY MEI Administration - Exam General Appearance: NAD General - other findings: somnolent ENT: moist mucosa Heart: RRR, no murmur, no gallops, no rubs Respiratory: CTAB, no wheezes, no rales, no ronchi Gastrointestinal: soft, non-tender, non-distended, normal bowel sounds Gastrointestinal - other findings: PEG tube in place Psychiatric: somnolent Psychiatric - other findings: non-verbal Hosp A/P - Plan Consults: Palliative Care (1) Pneumonia due to COVID-19 virus Code(s): U07.1 - COVID-19; J12.89 - OTHER VIRAL PNEUMONIA Status: Acute Plan: Continue supportive mgmt, add Dexamethasone IV, continue Clindamycin/Vit C/Zinc, holding Lovenox due to thrombocytopenia, O2 @ 1L/min NC, on RA this AM. CRP trending up so started dexamethasone. (2) Aspiration pneumonia Code(s): J69.0 - PNEUMONITIS DUE TO INHALATION OF FOOD AND VOMIT Status: Acute Plan: Suspected, continue Clindamycin, aspiration precautions, monitor gastric residuals with TF's (3) Recurrent seizures Code(s): G40.909 - EPILEPSY, UNSP, NOT INTRACTABLE, WITHOUT STATUS EPILEPTICUS Status: Chronic Plan: Continue Depakote/Keppra (4) HTN (hypertension) Code(s): I10 - ESSENTIAL (PRIMARY) HYPERTENSION Status: Chronic Qualifiers: Hypertension type: essential hypertension Qualified Code(s): I10 - Essential (primary) hypertension Plan: Labile, resume Coreg 12.5mg BID, serial BP monitoring (5) Thrombocytopenia Code(s): D69.6 - THROMBOCYTOPENIA, UNSPECIFIED Status: Chronic Plan: Hold Lovenox, trending downward, serial PLT monitoring (6) Dysphagia Code(s): R13.10 - DYSPHAGIA, UNSPECIFIED Status: Chronic Qualifiers: Dysphagia type: oropharyngeal phase Qualified Code(s): R13.12 - Dysphagia, oropharyngeal phase Plan: PEG tube feeds and medication administration - Plan Consults: Palliative Care Continue supportive mgmt Continue Clindamycin Started Decadron 8mg IV daily on 08/20/2020 If O2 sats decompensate will give Remdesivir as well Continue Vit C/Zinc Hold Lovenox due to thrombocytopenia O2 PRN, currently 1L/min NC Monitor for decompensation related to COVID AM lab: CBC, D-dimer, Ferritin, CRP
[2020-08-21 08:58] LABS: Band 4 % (5-11); Lymphocytes 10 % (21-51); MDiff Complete? YES; Mean Platelet Volume 10.5 fL (7.4-10.4); Monocytes 4 % (0-10); Neutrophil 78 % (42-75); Platelet Count 65 thou/uL (130-400); Platelet Morphology Comment Appears Decreased; Reactive Lymphocytes 4 % (0-10); Vacuoles SLIGHT; White Blood Cell (WBC) Count 5.4 thou/uL (4.8-10.8)
[2020-08-21] MEDS: Guaifenesin DM 100-10/5 ML UDCUP PO PRN (09:58)
[2020-08-21] MEDS: Acetaminophen 325 MG TAB PO PRN (09:58)
[2020-08-21] MEDS: Sodium Chloride 0.9% 1,000 ML IV SCH (11:44)
--- NOTE | 2020-08-21 16:04 | PRG ---
DATE OF SERVICE: 08/21/2020 SUBJECTIVE: Mr. Larsen is not able to communicate. Does not appear to be in distress. OBJECTIVE: VITAL SIGNS: Demonstrate T-max 99.8, he is currently 98.8; BP 170/84; heart rate 75; respiratory rate 18; saturating 94 to 95 on 1.5 L nasal cannula. LUNGS: With a few crackles at the bases. HEART: S1 and S2, regular rate. ABDOMEN: Soft, not distended. NEURO: Unchanged. He is not able to interact with examiner and does not establish eye contact or follow commands. LABORATORY DATA: White cell count 5.4, hemoglobin 13.5, platelets 65,000, 78% neutrophils, 10% lymphocytes, 4% bands. D-dimer 2.8. Creatinine 0.85. Ferritin is still low at 141. The CRP is higher at 9.39. He is currently receiving Decadron and clindamycin. 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 Currently a [facility] resident, recurrent seizure activity, and coronavirus disease 2019 infection acquired apparently in the [place]. Still low levels of O2 supplementation. Still at risk for further deterioration since he is in the middle of the second week of his illness. Probably can discontinue clindamycin. Continue Decadron. Job ID: [id number]
[2020-08-21] MEDS: Ketorolac Tromethamine 30 MG/ML VIAL IVP PRN (17:30)
[2020-08-21] MEDS: Insulin Glargine 10 UNITS in Pre-Filled Syringe 1 EACH SC SCH (22:02)
[2020-08-22] MEDS: Clindamycin 150 MG CAP PO SCH ×4 (01:17→17:58)
[2020-08-22 05:56] LABS: #Lymphocytes 0.8 thou/uL (1.20-3.40); #Monocytes 0.5 thou/uL (0.11-0.59); #Neutrophils 4.5 thou/uL (1.40-6.50); %Basophils 0.2 % (0.0-1.0); %Eosinophils 0.1 % (0.0-10.0); %Lymphocytes 13.6 % (21.0-51.0); %Monocytes 8.5 % (0.0-10.0); %Neutrophils 77.7 % (42.0-75.0); Hemoglobin 14.3 g/dL (14.0-18.0); Mean Corpuscular HGB CONC 31.9 g/dL (32.0-36.0); Mean Corpuscular Hemoglobin 29.9 pg (27.0-31.0); Mean Corpuscular Volume 93.8 fL (78.0-98.0); Mean Platelet Volume 10.5 fL (7.4-10.4); Platelet Count 89 thou/uL (130-400); RBC Distribution Width 12.1 % (11.5-14.5); Red Blood Cell (RBC) Count 4.78 mill/uL (4.70-6.10); White Blood Cell (WBC) Count 5.7 thou/uL (4.8-10.8)
[2020-08-22 06:28] LABS: ALT (SGPT) 15 U/L (8-55); AST (SGOT) 26 U/L (5-34); Albumin 2.9 g/dL (3.5-5.0); Alkaline Phosphatase 81 U/L (40-110); Anion Gap 12 mmol/L (10-20); BUN (Urea Nitrogen) 20 mg/dL (8.4-25.7); Bilirubin, Total 0.2 mg/dL (0.2-1.2); CRP (Inflammatory) 8.32 mg/dL (= or < 0.5); Calc. Creatinine Clearance 144 mL/min (70-130); Calcium 8.8 mg/dL (7.8-10.44); Carbon Dioxide 30 mmol/L (22-29); Chloride 99 mmol/L (98-107); Estimated GFR-MDRD Greater than 90; Globulin 4.4 g/dL (2.4-3.5); Glucose 124 mg/dL (70-105); Potassium 4.4 mmol/L (3.5-5.1); Protein, Total 7.3 g/dL (6.0-8.3); Sodium 137 mmol/L (136-145)
[2020-08-22] MEDS: Sodium Chloride 0.9% 1,000 ML IV SCH (09:55)
[2020-08-22] MEDS: Valproate Sodium 250 mg/5 ml UD Cup PER TUBE SCH ×2 (09:55→21:08)
[2020-08-22] MEDS: levETIRAcetam 500 mg/5 ml Oral Solution PER TUBE SCH ×2 (09:55→21:07)
[2020-08-22] MEDS: Dexamethasone 10 MG/ML VIAL SLOW IVP SCH (09:56)
[2020-08-22] MEDS: Carvedilol 6.25 MG TAB PER TUBE SCH ×2 (09:56→21:08)
[2020-08-22] MEDS: Ascorbic Acid 500 mg Chewable Tablet PER TUBE SCH (09:56)
[2020-08-22] MEDS: Zinc Sulfate 220 MG CAP PER TUBE SCH (09:56)
[2020-08-22] MEDS: Enoxaparin Sodium 40 MG/0.4 ML SYRINGE SC SCH (09:58)
--- NOTE | 2020-08-22 13:10 | PDOC.HOSPP ---
- Subjective Encounter Date: 08/22/20 Encounter Time: 13:00 Subjective: f/u for COVID-19 receiving Clindamycin/Vit C/Zinc/Dexamethasone/Lovenox/O2 @ 1L/min NC. No new issues noted. - Objective Vital Signs & Weight: Vital Signs (12 hours) Temp Pulse Resp BP BP Pulse Ox 08/22/20 09:56 178/88 H 08/22/20 08:13 98.5 F 57 L 20 178/88 H 98 Weight Admit Weight 190 lb 1.6 oz Weight 190 lb 1.6 oz I&O: 08/21/20 08/22/20 08/23/20 06:59 06:59 06:59 Intake Total 90 980 Balance 90 980 Result Diagrams: 08/22/20 05:47 08/22/20 05:47 Additional Labs: Accuchecks 08/22/20 08/21/20 08/21/20 05:00 22:08 16:08 POC Glucose 116 H 162 H 130 H Microbiology 08/17/20 02:07 Urine Straight Catheter Urine Culture - Final NO GROWTH AT 36 HOURS 08/17/20 01:15 Nasal swab Influenza Types A,B Direct EIA - Final 08/02/19 02:00 Spinal Fluid Culture - Pending Cryptococcal Antigen - Final 08/02/19 00:24 Nasal swab Influenza Types A,B Direct EIA - Final 07/22/19 13:56 Venous blood - Left Hand Blood Culture - Final NO GROWTH IN 5 DAYS 07/22/19 13:47 Venous blood - Left Hand Blood Culture - Final NO GROWTH IN 5 DAYS 07/19/19 03:28 Nasopharyngeal swab Influenza Types A,B Direct EIA - Final 08/17/20 04:08 Central Line - Right Internal Jugular vein Blood Culture - Preliminary Specimen has been received and culture in progress. No Growth to date. 08/17/20 01:15 Venous blood - Left Arm Blood Culture - Preliminary Specimen has been received and culture in progress. No Growth to date. 08/02/19 02:00 Lumbar - Pending Body Fluid Culture - Preliminary 07/19/19 04:20 Spinal Fluid Culture - Pending Body Fluid Culture - Preliminary 07/19/19 02:56 Venous blood - Right Hand Blood Culture - Preliminary Streptococcus species 07/19/19 02:45 Venous blood - Left Arm Blood Culture - Preliminary Specimen has been received and culture in progress. No Growth to date. Laboratory Tests 07/19/19 07/19/19 07/20/19 02:46 13:25 06:15 Hgb 14.1 Plt Count Neutrophils % (Manual) 87 H 53 PT INR 2.4 D-Dimer Ferritin C-Reactive Protein Valproic Acid Levetiracetam Plasma Alcohol Syphilis IgG/IgM Ab SARS-CoV-2 Rap RNA(RT-PCR) 07/20/19 08/01/19 08/01/19 06:15 23:20 23:20 Hgb Plt Count Neutrophils % (Manual) PT INR 2.2 D-Dimer Ferritin C-Reactive Protein Valproic Acid Levetiracetam 21.8 Plasma Alcohol Less than 10 Syphilis IgG/IgM Ab SARS-CoV-2 Rap RNA(RT-PCR) 08/01/19 08/01/19 08/17/20 23:20 23:31 01:10 Hgb Plt Count Neutrophils % (Manual) PT 20.5 H INR 1.8 D-Dimer Ferritin C-Reactive Protein Valproic Acid Levetiracetam Plasma Alcohol Syphilis IgG/IgM Ab Nonreactive SARS-CoV-2 Rap RNA(RT-PCR) DETECTED A* 08/17/20 08/17/20 08/18/20 01:15 01:15 08:57 Hgb Plt Count 114 L Neutrophils % (Manual) PT INR D-Dimer 3.85 H Ferritin C-Reactive Protein 2.48 H Valproic Acid Levetiracetam Plasma Alcohol Syphilis IgG/IgM Ab SARS-CoV-2 Rap RNA(RT-PCR) 08/18/20 08/19/20 08/19/20 08:57 08:27 08:27 Hgb Plt Count Neutrophils % (Manual) PT INR D-Dimer Ferritin 97.67 C-Reactive Protein Valproic Acid 61.5 Levetiracetam 45.2 Plasma Alcohol Syphilis IgG/IgM Ab SARS-CoV-2 Rap RNA(RT-PCR) Hospitalist ROS - Medication Medications: Active Medications Generic Name Dose Route Start Last Admin Trade Name Freq PRN Reason Stop Dose Admin Acetaminophen 650 mg 08/17/20 04:04 08/21/20 09:58 Acetaminophen 325 Mg Tab PO 650 mg Q4H PRN Administration Headache/Fever/Mild Pain (1-3) Ascorbic Acid 1,000 mg 08/20/20 09:00 08/22/20 09:56 Ascorbic Acid 500 Mg Chewable Tablet PER TUBE 1,000 mg DAILY MEI Administration Carvedilol 12.5 mg 08/20/20 09:00 08/22/20 09:56 Carvedilol 6.25 Mg Tab PER TUBE 12.5 mg BID MEI Administration Clindamycin HCl 300 mg 08/18/20 18:00 08/22/20 04:54 Clindamycin 150 Mg Cap PO 300 mg Q6HR MEI Administration Dexamethasone 8 mg 08/20/20 09:00 08/22/20 09:56 Dexamethasone 10 Mg/Ml Vial SLOW IVP 8 mg DAILY MEI Administration Enoxaparin Sodium 40 mg 08/17/20 09:00 08/22/20 09:58 Enoxaparin Sodium 40 Mg/0.4 Ml Syringe SC 40 mg 0900 MEI Administration Guaifenesin/Dextromethorphan 15 ml 08/17/20 04:04 08/21/20 09:58 Guaifenesin Dm 100-10/5 Ml Udcup PO 15 ml Q4H PRN Administration Cough Sodium Chloride 1,000 mls @ 50 mls/hr 08/17/20 04:15 08/22/20 09:55 Normal Saline 0.9% IV 1,000 mls .Q20H MEI Administration Insulin Glargine 10 units/ 0.1 mls @ 0 mls/hr 08/17/20 21:00 08/21/20 22:02 Miscellaneous Medication SC 0.1 mls HS MEI Administration Ketorolac Tromethamine 30 mg 08/20/20 10:40 08/21/20 17:30 Ketorolac Tromethamine 30 Mg/Ml Vial IVP 08/25/20 10:41 30 mg Q6H PRN Administration FEVER Levetiracetam 1,500 mg 08/17/20 09:00 08/22/20 09:55 Levetiracetam 500 Mg/5 Ml Oral Solution PER TUBE 1,500 mg BID MEI Administration Lorazepam 2 mg 08/18/20 21:58 08/18/20 22:05 Lorazepam 2 Mg/Ml Vial SLOW IVP 2 mg Q4H PRN Administration Anxiety/Agitation Sodium Chloride 10 ml 08/20/20 21:00 08/22/20 09:58 Flush - Normal Saline 10 Ml Syringe IVF Not Given Q12HR MEI Valproic Acid 750 mg 08/17/20 09:00 08/22/20 09:55 Valproate Sodium 250 Mg/5 Ml Ud Cup PER TUBE 750 mg BID MEI Administration Zinc Sulfate 220 mg 08/20/20 09:00 08/22/20 09:56 Zinc Sulfate 220 Mg Cap PER TUBE 220 mg DAILY MEI Administration - Exam General Appearance: NAD General - other findings: non-verbal(chronic) Eye: PERRL, anicteric sclera ENT: normocephalic atraumatic, dry oral mucosa Neck: supple, symmetric, no JVD, no thyromegaly, no lymphadenopathy Heart: RRR, no murmur, no gallops, no rubs, normal peripheral pulses Heart - other findings: S1, S2 Respiratory: CTAB, no wheezes, no rales, no ronchi, normal chest expansion Gastrointestinal: soft, non-tender, non-distended, normal bowel sounds, no pa lpable masses Gastrointestinal - other findings: PEG in place Extremities: no cyanosis, no clubbing Skin: normal turgor, no lesions Neurological - other findings: non-verbal, bed bound, hemiplegic Musculoskeletal: generalized weakness Psychiatric: somnolent, lethargic Hosp A/P (1) Pneumonia due to COVID-19 virus Code(s): U07.1 - COVID-19; J12.89 - OTHER VIRAL PNEUMONIA Status: Acute Plan: Continue Clindamycin/Dexamethasone/Vit C/Zinc/O2 @ 1L/min NC, isolation protocol (2) Aspiration pneumonia Code(s): J69.0 - PNEUMONITIS DUE TO INHALATION OF FOOD AND VOMIT Status: Acute (3) Recurrent seizures Code(s): G40.909 - EPILEPSY, UNSP, NOT INTRACTABLE, WITHOUT STATUS EPILEPTICUS Status: Chronic Plan: Continue Keppra/Depakote (4) HTN (hypertension) Code(s): I10 - ESSENTIAL (PRIMARY) HYPERTENSION Status: Chronic Qualifiers: Hypertension type: essential hypertension Qualified Code(s): I10 - Essential (primary) hypertension (5) Thrombocytopenia Code(s): D69.6 - THROMBOCYTOPENIA, UNSPECIFIED Status: Chronic Plan: Slow improvement, serial monitoring (6) Dysphagia Code(s): R13.10 - DYSPHAGIA, UNSPECIFIED Status: Chronic Qualifiers: Dysphagia type: oropharyngeal phase Qualified Code(s): R13.12 - Dysphagia, oropharyngeal phase - 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
[2020-08-22] MEDS: Insulin Glargine 10 UNITS in Pre-Filled Syringe 1 EACH SC SCH (21:08)
[2020-08-23] MEDS: Clindamycin 150 MG CAP PO SCH ×4 (00:59→17:05)
[2020-08-23] MEDS: Sodium Chloride 0.9% 1,000 ML IV SCH ×2 (06:20→09:12)
[2020-08-23] MEDS: Enoxaparin Sodium 40 MG/0.4 ML SYRINGE SC SCH (09:10)
[2020-08-23] MEDS: Dexamethasone 10 MG/ML VIAL SLOW IVP SCH (09:10)
[2020-08-23] MEDS: Carvedilol 6.25 MG TAB PER TUBE SCH ×2 (09:12→19:42)
[2020-08-23] MEDS: Zinc Sulfate 220 MG CAP PER TUBE SCH (09:12)
[2020-08-23] MEDS: Ascorbic Acid 500 mg Chewable Tablet PER TUBE SCH (09:12)
[2020-08-23] MEDS: Valproate Sodium 250 mg/5 ml UD Cup PER TUBE SCH ×2 (09:14→19:43)
[2020-08-23] MEDS: levETIRAcetam 500 mg/5 ml Oral Solution PER TUBE SCH ×2 (09:14→19:43)
[2020-08-23] MEDS: hydrALAZINE 20 MG/ML VIAL SLOW IVP PRN (11:31)
--- NOTE | 2020-08-23 17:35 | PDOC.HOSPP ---
- Subjective Encounter Date: 08/23/20 Encounter Time: 17:35 Subjective: f/u for COVID PNA/hypoxic resp failure receiving Clindamycin/Vit C/Lovenox/Dexamethasone/Zinc. No new issues reported. - Objective Vital Signs & Weight: Vital Signs (12 hours) Temp Pulse Resp BP Pulse Ox 08/23/20 14:43 64 151/85 H 08/23/20 09:00 98.7 F 87 20 195/96 H 94 L 08/23/20 08:00 94 L Weight Admit Weight 190 lb 1.6 oz Weight 190 lb 1.6 oz I&O: 08/22/20 08/23/20 08/24/20 06:59 06:59 06:59 Intake Total 980 Balance 980 Result Diagrams: 08/22/20 05:47 08/22/20 05:47 Additional Labs: Accuchecks 08/23/20 08/23/20 08/23/20 17:15 12:02 04:38 POC Glucose 138 H 135 H 118 H 08/22/20 08/22/20 08/20/20 21:17 11:22 16:02 POC Glucose 164 H 144 H 121 H 08/19/20 21:57 POC Glucose 114 H Microbiology 08/17/20 02:07 Urine Straight Catheter Urine Culture - Final NO GROWTH AT 36 HOURS 08/17/20 01:15 Nasal swab Influenza Types A,B Direct EIA - Final 08/02/19 02:00 Spinal Fluid Culture - Pending Cryptococcal Antigen - Final 08/02/19 00:24 Nasal swab Influenza Types A,B Direct EIA - Final 07/22/19 13:56 Venous blood - Left Hand Blood Culture - Final NO GROWTH IN 5 DAYS 07/22/19 13:47 Venous blood - Left Hand Blood Culture - Final NO GROWTH IN 5 DAYS 07/19/19 03:28 Nasopharyngeal swab Influenza Types A,B Direct EIA - Final 08/17/20 04:08 Central Line - Right Internal Jugular vein Blood Culture - Preliminary Specimen has been received and culture in progress. No Growth to date. 08/17/20 01:15 Venous blood - Left Arm Blood Culture - Preliminary Specimen has been received and culture in progress. No Growth to date. 08/02/19 02:00 Lumbar - Pending Body Fluid Culture - Preliminary 07/19/19 04:20 Spinal Fluid Culture - Pending Body Fluid Culture - Preliminary 07/19/19 02:56 Venous blood - Right Hand Blood Culture - Preliminary Streptococcus species 07/19/19 02:45 Venous blood - Left Arm Blood Culture - Preliminary Specimen has been received and culture in progress. No Growth to date. Laboratory Tests 07/19/19 07/19/19 07/20/19 02:46 13:25 06:15 Hgb 14.1 Plt Count Neutrophils % (Manual) 87 H 53 PT INR 2.4 D-Dimer Ferritin C-Reactive Protein Valproic Acid Levetiracetam Plasma Alcohol Syphilis IgG/IgM Ab SARS-CoV-2 Rap RNA(RT-PCR) 07/20/19 08/01/19 08/01/19 06:15 23:20 23:20 Hgb Plt Count Neutrophils % (Manual) PT INR 2.2 D-Dimer Ferritin C-Reactive Protein Valproic Acid Levetiracetam 21.8 Plasma Alcohol Less than 10 Syphilis IgG/IgM Ab SARS-CoV-2 Rap RNA(RT-PCR) 08/01/19 08/01/19 08/17/20 23:20 23:31 01:10 Hgb Plt Count Neutrophils % (Manual) PT 20.5 H INR 1.8 D-Dimer Ferritin C-Reactive Protein Valproic Acid Levetiracetam Plasma Alcohol Syphilis IgG/IgM Ab Nonreactive SARS-CoV-2 Rap RNA(RT-PCR) DETECTED A* 08/17/20 08/17/20 08/18/20 01:15 01:15 08:57 Hgb Plt Count 114 L Neutrophils % (Manual) PT INR D-Dimer 3.85 H Ferritin C-Reactive Protein 2.48 H Valproic Acid Levetiracetam Plasma Alcohol Syphilis IgG/IgM Ab SARS-CoV-2 Rap RNA(RT-PCR) 08/18/20 08/19/20 08/19/20 08:57 08:27 08:27 Hgb Plt Count Neutrophils % (Manual) PT INR D-Dimer Ferritin 97.67 C-Reactive Protein Valproic Acid 61.5 Levetiracetam 45.2 Plasma Alcohol Syphilis IgG/IgM Ab SARS-CoV-2 Rap RNA(RT-PCR) Hospitalist ROS - Medication Medications: Active Medications Generic Name Dose Route Start Last Admin Trade Name Freq PRN Reason Stop Dose Admin Acetaminophen 650 mg 08/17/20 04:04 08/21/20 09:58 Acetaminophen 325 Mg Tab PO 650 mg Q4H PRN Administration Headache/Fever/Mild Pain (1-3) Ascorbic Acid 1,000 mg 08/20/20 09:00 08/23/20 09:12 Ascorbic Acid 500 Mg Chewable Tablet PER TUBE 1,000 mg DAILY MEI Administration Carvedilol 12.5 mg 08/20/20 09:00 08/23/20 09:12 Carvedilol 6.25 Mg Tab PER TUBE 12.5 mg BID MEI Administration Clindamycin HCl 300 mg 08/18/20 18:00 08/23/20 17:05 Clindamycin 150 Mg Cap PO 300 mg Q6HR MEI Administration Dexamethasone 8 mg 08/20/20 09:00 08/23/20 09:10 Dexamethasone 10 Mg/Ml Vial SLOW IVP 8 mg DAILY MEI Administration Enoxaparin Sodium 40 mg 08/17/20 09:00 08/23/20 09:10 Enoxaparin Sodium 40 Mg/0.4 Ml Syringe SC 40 mg 09 MEI Administration Guaifenesin/Dextromethorphan 15 ml 08/17/20 04:04 08/21/20 09:58 Guaifenesin Dm 100-10/5 Ml Udcup PO 15 ml Q4H PRN Administration Cough Hydralazine HCl 10 mg 08/23/20 10:32 08/23/20 11:31 Hydralazine 20 Mg/Ml Vial SLOW IVP 10 mg Q4H PRN Administration SBP>170 Sodium Chloride 1,000 mls @ 50 mls/hr 08/17/20 04:15 08/23/20 09:12 Normal Saline 0.9% IV 1,000 mls .Q20H MEI Administration Insulin Glargine 10 units/ 0.1 mls @ 0 mls/hr 08/17/20 21:00 08/22/20 21:08 Miscellaneous Medication SC 0.1 mls HS MEI Administration Ketorolac Tromethamine 30 mg 08/20/20 10:40 08/21/20 17:30 Ketorolac Tromethamine 30 Mg/Ml Vial IVP 08/25/20 10:41 30 mg Q6H PRN Administration FEVER Levetiracetam 1,500 mg 08/17/20 09:00 08/23/20 09:14 Levetiracetam 500 Mg/5 Ml Oral Solution PER TUBE 1,500 mg BID MEI Administration Lorazepam 2 mg 08/18/20 21:58 08/18/20 22:05 Lorazepam 2 Mg/Ml Vial SLOW IVP 2 mg Q4H PRN Administration Anxiety/Agitation Sodium Chloride 10 ml 08/20/20 21:00 08/23/20 11:31 Flush - Normal Saline 10 Ml Syringe IVF Not Given Q12HR MEI Valproic Acid 750 mg 08/17/20 09:00 08/23/20 09:14 Valproate Sodium 250 Mg/5 Ml Ud Cup PER TUBE 750 mg BID MEI Administration Zinc Sulfate 220 mg 08/20/20 09:00 08/23/20 09:12 Zinc Sulfate 220 Mg Cap PER TUBE 220 mg DAILY MEI Administration - Exam General Appearance: ill appearing General - other findings: non-verbal Eye: PERRL, anicteric sclera ENT: normocephalic atraumatic, no oropharyngeal lesions, dry oral mucosa Neck: supple, symmetric, no JVD, no thyromegaly, no lymphadenopathy Heart: RRR, no gallops, no rubs, normal peripheral pulses Heart - other findings: S1, S2 Respiratory: no tachypnea Respiratory - other findings: few scattered coarse sounds, diminished in bases Gastrointestinal: soft, non-tender, non-distended, normal bowel sounds, no palpable masses Gastrointestinal - other findings: PEG in place Extremities: no cyanosis, no clubbing Skin: normal turgor Neurological - other findings: bed bound, hemiplegic, non-verbal, dysphagia Musculoskeletal: generalized weakness Psychiatric: somnolent, lethargic Hosp A/P (1) Pneumonia due to COVID-19 virus Code(s): U07.1 - COVID-19; J12.89 - OTHER VIRAL PNEUMONIA Status: Acute Plan: Continue Clindamycin/Vit C/Dexamethasone/Lovenox/Zinc, continue low-flow O2 via NC (2) Aspiration pneumonia Code(s): J69.0 - PNEUMONITIS DUE TO INHALATION OF FOOD AND VOMIT Status: Acute Plan: Suspected, continue Clindamycin, aspiration precautions (3) Recurrent seizures Code(s): G40.909 - EPILEPSY, UNSP, NOT INTRACTABLE, WITHOUT STATUS EPILEPTICUS Status: Chronic Plan: Continue Keppra (4) HTN (hypertension) Code(s): I10 - ESSENTIAL (PRIMARY) HYPERTENSION Status: Chronic Qualifiers: Hypertension type: essential hypertension Qualified Code(s): I10 - Essential (primary) hypertension (5) Thrombocytopenia Code(s): D69.6 - THROMBOCYTOPENIA, UNSPECIFIED Status: Chronic (6) Dysphagia Code(s): R13.10 - DYSPHAGIA, UNSPECIFIED Status: Chronic Qualifiers: Dysphagia type: oropharyngeal phase Qualified Code(s): R13.12 - Dysphagia, oropharyngeal phase Plan: TF's, monitor gastric residuals - Plan continue antibiotics, group social worker, speech therapy, respiratory therapy, DVT proph w/SCDs Continue supportive mgmt Continue Clindamycin Continue Decadron 8mg IV daily Continue Vit C/Zinc Hold Lovenox due to thrombocytopenia O2 PRN, currently 1L/min NC Monitor for decompensation related to COVID AM lab: CBC, D-dimer, Ferritin, CRP
[2020-08-23] MEDS: Insulin Glargine 10 UNITS in Pre-Filled Syringe 1 EACH SC SCH (19:43)
[2020-08-24] MEDS: Clindamycin 150 MG CAP PO SCH ×2 (06:36)
[2020-08-24] MEDS: Dexamethasone 10 MG/ML VIAL SLOW IVP SCH (09:22)
[2020-08-24] MEDS: levETIRAcetam 500 mg/5 ml Oral Solution PER TUBE SCH ×2 (09:23→21:04)
[2020-08-24] MEDS: Ascorbic Acid 500 mg Chewable Tablet PER TUBE SCH (09:26)
[2020-08-24] MEDS: Valproate Sodium 250 mg/5 ml UD Cup PER TUBE SCH ×2 (09:26→21:03)
[2020-08-24] MEDS: Carvedilol 6.25 MG TAB PER TUBE SCH ×2 (09:27→21:03)
[2020-08-24] MEDS: Zinc Sulfate 220 MG CAP PER TUBE SCH (09:27)
[2020-08-24] MEDS: Enoxaparin Sodium 40 MG/0.4 ML SYRINGE SC SCH (09:27)
[2020-08-24] MEDS: Acetaminophen 325 MG TAB PO PRN (09:29)
[2020-08-24] MEDS ORDERED: Pancrelipase DR 12,000 1 CAP FS PRN (10:30)
[2020-08-24] MEDS ORDERED: Sodium Bicarbonate Tab 325 MG TAB PER TUBE PRN (10:30)
--- NOTE | 2020-08-24 11:27 | PDOC.HOSPP ---
- Subjective Encounter Date: 08/24/20 Encounter Time: 11:10 Subjective: f/u for COVID PNA receiving Dexamethasone/Clindamycin/Vit C/Zinc/Lovenox. Spiking fevers - Objective Vital Signs & Weight: Vital Signs (12 hours) Temp Pulse Resp BP Pulse Ox 08/24/20 11:04 98.5 F 73 20 135/88 95 08/24/20 09:29 101.7 F H 08/24/20 07:34 101.7 F H 87 20 181/93 H 94 L 08/24/20 06:00 97.6 F 55 L 19 168/121 H 91 L Weight Admit Weight 190 lb 1.6 oz Weight 190 lb 1.6 oz Result Diagrams: 08/22/20 05:47 08/22/20 05:47 Additional Labs: Accuchecks 08/24/20 08/23/20 08/23/20 05:52 19:55 17:15 POC Glucose 85 133 H 138 H 08/23/20 12:02 POC Glucose 135 H Microbiology 08/17/20 02:07 Urine Straight Catheter Urine Culture - Final NO GROWTH AT 36 HOURS 08/17/20 01:15 Nasal swab Influenza Types A,B Direct EIA - Final 08/02/19 02:00 Spinal Fluid Culture - Pending Cryptococcal Antigen - Final 08/02/19 00:24 Nasal swab Influenza Types A,B Direct EIA - Final 07/22/19 13:56 Venous blood - Left Hand Blood Culture - Final NO GROWTH IN 5 DAYS 07/22/19 13:47 Venous blood - Left Hand Blood Culture - Final NO GROWTH IN 5 DAYS 07/19/19 03:28 Nasopharyngeal swab Influenza Types A,B Direct EIA - Final 08/17/20 04:08 Central Line - Right Internal Jugular vein Blood Culture - Preliminary Specimen has been received and culture in progress. No Growth to date. 08/17/20 01:15 Venous blood - Left Arm Blood Culture - Preliminary Specimen has been received and culture in progress. No Growth to date. 08/02/19 02:00 Lumbar - Pending Body Fluid Culture - Preliminary 07/19/19 04:20 Spinal Fluid Culture - Pending Body Fluid Culture - Preliminary 07/19/19 02:56 Venous blood - Right Hand Blood Culture - Preliminary Streptococcus species 07/19/19 02:45 Venous blood - Left Arm Blood Culture - Preliminary Specimen has been received and culture in progress. No Growth to date. Laboratory Tests 07/19/19 07/19/19 07/20/19 02:46 13:25 06:15 Hgb 14.1 Plt Count Neutrophils % (Manual) 87 H 53 PT INR 2.4 D-Dimer Ferritin C-Reactive Protein Valproic Acid Levetiracetam Plasma Alcohol Syphilis IgG/IgM Ab SARS-CoV-2 Rap RNA(RT-PCR) 07/20/19 08/01/19 08/01/19 06:15 23:20 23:20 Hgb Plt Count Neutrophils % (Manual) PT INR 2.2 D-Dimer Ferritin C-Reactive Protein Valproic Acid Levetiracetam 21.8 Plasma Alcohol Less than 10 Syphilis IgG/IgM Ab SARS-CoV-2 Rap RNA(RT-PCR) 08/01/19 08/01/19 08/17/20 23:20 23:31 01:10 Hgb Plt Count Neutrophils % (Manual) PT 20.5 H INR 1.8 D-Dimer Ferritin C-Reactive Protein Valproic Acid Levetiracetam Plasma Alcohol Syphilis IgG/IgM Ab Nonreactive SARS-CoV-2 Rap RNA(RT-PCR) DETECTED A* 08/17/20 08/17/20 08/18/20 01:15 01:15 08:57 Hgb Plt Count 114 L Neutrophils % (Manual) PT INR D-Dimer 3.85 H Ferritin C-Reactive Protein 2.48 H Valproic Acid Levetiracetam Plasma Alcohol Syphilis IgG/IgM Ab SARS-CoV-2 Rap RNA(RT-PCR) 08/18/20 08/19/20 08/19/20 08:57 08:27 08:27 Hgb Plt Count Neutrophils % (Manual) PT INR D-Dimer Ferritin 97.67 C-Reactive Protein Valproic Acid 61.5 Levetiracetam 45.2 Plasma Alcohol Syphilis IgG/IgM Ab SARS-CoV-2 Rap RNA(RT-PCR) Hospitalist ROS - Medication Medications: Active Medications Generic Name Dose Route Start Last Admin Trade Name Freq PRN Reason Stop Dose Admin Acetaminophen 650 mg 08/17/20 04:04 08/24/20 09:29 Acetaminophen 325 Mg Tab PO 650 mg Q4H PRN Administration Headache/Fever/Mild Pain (1-3) Ascorbic Acid 1,000 mg 08/20/20 09:00 08/24/20 09:26 Ascorbic Acid 500 Mg Chewable Tablet PER TUBE 1,000 mg DAILY MEI Administration Carvedilol 12.5 mg 08/20/20 09:00 08/24/20 09:27 Carvedilol 6.25 Mg Tab PER TUBE 12.5 mg BID MEI Administration Enoxaparin Sodium 40 mg 08/17/20 09:00 08/24/20 09:27 Enoxaparin Sodium 40 Mg/0.4 Ml Syringe SC Not Given 899 MEI Guaifenesin/Dextromethorphan 15 ml 08/17/20 04:04 08/21/20 09:58 Guaifenesin Dm 100-10/5 Ml Udcup PO 15 ml Q4H PRN Administration Cough Hydralazine HCl 10 mg 08/23/20 10:32 08/23/20 11:31 Hydralazine 20 Mg/Ml Vial SLOW IVP 10 mg Q4H PRN Administration SBP>170 Sodium Chloride 1,000 mls @ 50 mls/hr 08/17/20 04:15 08/23/20 09:12 Normal Saline 0.9% IV 1,000 mls .Q20H MEI Administration Insulin Glargine 10 units/ 0.1 mls @ 0 mls/hr 08/17/20 21:00 08/23/20 19:43 Miscellaneous Medication SC 0.1 mls HS MEI Administration Ketorolac Tromethamine 30 mg 08/20/20 10:40 08/21/20 17:30 Ketorolac Tromethamine 30 Mg/Ml Vial IVP 08/25/20 10:41 30 mg Q6H PRN Administration FEVER Levetiracetam 1,500 mg 08/17/20 09:00 08/24/20 09:23 Levetiracetam 500 Mg/5 Ml Oral Solution PER TUBE 1,500 mg BID MEI Administration Lorazepam 2 mg 08/18/20 21:58 08/18/20 22:05 Lorazepam 2 Mg/Ml Vial SLOW IVP 2 mg Q4H PRN Administration Anxiety/Agitation Sodium Chloride 10 ml 08/20/20 21:00 08/24/20 09:26 Flush - Normal Saline 10 Ml Syringe IVF 10 ml Q12HR MEI Administration Valproic Acid 750 mg 08/17/20 09:00 12/01/20 09:26 Valproate Sodium 250 Mg/5 Ml Ud Cup PER TUBE 750 mg BID MEI Administration Zinc Sulfate 220 mg 08/20/20 09:00 08/24/20 09:27 Zinc Sulfate 220 Mg Cap PER TUBE 220 mg DAILY MEI Administration - Exam General Appearance: ill appearing General - other findings: flushed, lethargic, opens eyes briefly to name Eye: PERRL, anicteric sclera ENT: normocephalic atraumatic, dry oral mucosa Neck: supple, symmetric, no JVD, no thyromegaly, no lymphadenopathy Heart: RRR, no gallops, no rubs, normal peripheral pulses Heart - other findings: S1, S2 Respiratory: no wheezes, tachypneic Respiratory - other findings: coarse sounds bilat Gastrointestinal: soft, non-tender, non-distended, normal bowel sounds, no palpable masses Gastrointestinal - other findings: PEG in place Extremities: no cyanosis, no clubbing Extremities - other findings: Contractures RUE Skin: normal turgor Neurological - other findings: aphasic, bed bound, R hemiplegia Psychiatric: somnolent, lethargic Hosp A/P (1) Pneumonia due to COVID-19 virus Code(s): U07.1 - COVID-19; J12.89 - OTHER VIRAL PNEUMONIA Status: Acute Plan: Start Rocephin/Zithromax, continue Dexamethasone/Lovenox/Vit C/Zinc, check PCXR today, d/c Clindamycin (2) Aspiration pneumonia Code(s): J69.0 - PNEUMONITIS DUE TO INHALATION OF FOOD AND VOMIT Status: Acute (3) Recurrent seizures Code(s): G40.909 - EPILEPSY, UNSP, NOT INTRACTABLE, WITHOUT STATUS EPILEPTICUS Status: Chronic Plan: Continue Depakote/Keppra (4) HTN (hypertension) Code(s): I10 - ESSENTIAL (PRIMARY) HYPERTENSION Status: Chronic Qualifiers: Hypertension type: essential hypertension Qualified Code(s): I10 - Essential (primary) hypertension (5) Thrombocytopenia Code(s): D69.6 - THROMBOCYTOPENIA, UNSPECIFIED Status: Chronic (6) Dysphagia Code(s): R13.10 - DYSPHAGIA, UNSPECIFIED Status: Chronic Qualifiers: Dysphagia type: oropharyngeal phase Qualified Code(s): R13.12 - Dysphagia, oropharyngeal phase Plan: TF's monitoring gastric residuals, Diabetic 1.5 @ 95ml/h - Plan continue antibiotics, neonatal social worker, speech therapy, respiratory therapy, DVT proph w/SCDs Consults: Palliative Care Continue supportive mgmt D/C Clindamycin Add Rocephin/Zithromax Continue Decadron 10mg IV daily Continue Vit C/Zinc Hold Lovenox due to thrombocytopenia O2 PRN, currently 1L/min NC Monitor for decompensation related to COVID, check inflammatory markers today PCXR today AM lab: CBC, D-dimer, Ferritin, CRP
[2020-08-24] MEDS: cefTRIAXone\\ROCEPHIN 2 GM in Sodium Chloride 0.9% 100 ML IVPB SCH (11:55)
[2020-08-24] MEDS: Azithromycin 500 MG in Sodium Chloride 0.9% 250 ML 250 ML IVPB SCH (13:29)
--- NOTE | 2020-08-24 13:49 | RAD ---
PORTABLE CHEST ONE VIEW: 08/24/20 at 11:53 a.m. HISTORY: COVID pneumonia. COMPARISON: 08/17/20 FINDINGS: The heart size is normal. Patchy opacities developed in the lower lung saucedo bilaterally since the l ast exam. Right internal jugular central line remains in place. No pneumothoraces or large effusions are seen. IMPRESSION: Findings are consistent with COVID-19 pneumonia. POS: OFF
[2020-08-24] MEDS: Sodium Chloride 0.9% 1,000 ML IV SCH (18:29)
[2020-08-24] MEDS: Ketorolac Tromethamine 30 MG/ML VIAL IVP PRN (21:02)
[2020-08-24] MEDS: Insulin Glargine 10 UNITS in Pre-Filled Syringe 1 EACH SC SCH (21:03)
[2020-08-25] MEDS: hydrALAZINE 20 MG/ML VIAL SLOW IVP PRN (06:41)
[2020-08-25] MEDS: Ascorbic Acid 500 mg Chewable Tablet PER TUBE SCH (08:37)
[2020-08-25] MEDS: levETIRAcetam 500 mg/5 ml Oral Solution PER TUBE SCH ×2 (08:37→21:00)
[2020-08-25] MEDS: Acetaminophen 325 MG TAB PO PRN (08:38)
[2020-08-25] MEDS: Valproate Sodium 250 mg/5 ml UD Cup PER TUBE SCH ×2 (08:38→21:00)
[2020-08-25] MEDS: Carvedilol 6.25 MG TAB PER TUBE SCH ×2 (08:38→21:00)
[2020-08-25] MEDS: Zinc Sulfate 220 MG CAP PER TUBE SCH (08:38)
[2020-08-25] MEDS ORDERED: Dexamethasone 10 MG/ML VIAL SLOW IVP SCH (09:00)
[2020-08-25] MEDS: Enoxaparin Sodium 40 MG/0.4 ML SYRINGE SC SCH (10:12)
--- NOTE | 2020-08-25 10:44 | PDOC.HOSPP ---
- Subjective Encounter Date: 08/25/20 Encounter Time: 09:45 Subjective: f/u for COVID PNA receiving Rocephin/Zithromax/Dexamethasone/Lovenox/Vit C/Zinc/O2 @ 1L/min NC. Tmax 101.7F. - Objective Vital Signs & Weight: Vital Signs (12 hours) Temp Pulse Resp BP Pulse Ox 08/25/20 08:38 99.5 F 08/25/20 07:42 99.5 F 83 18 182/83 H 92 L 08/25/20 06:41 78 08/25/20 06:00 182/110 H 08/25/20 03:14 95 Weight Admit Weight 190 lb 1.6 oz Weight 190 lb 1.6 oz I&O: 08/24/20 08/25/20 08/26/20 06:59 06:59 06:59 Intake Total 1310 Balance 1310 Result Diagrams: 08/22/20 05:47 08/22/20 05:47 Additional Labs: Accuchecks 08/25/20 08/24/20 08/24/20 06:16 21:13 16:04 POC Glucose 126 H 152 H 147 H 08/24/20 10:52 POC Glucose 147 H Microbiology 08/17/20 02:07 Urine Straight Catheter Urine Culture - Final NO GROWTH AT 36 HOURS 08/17/20 01:15 Nasal swab Influenza Types A,B Direct EIA - Final 08/02/19 02:00 Spinal Fluid Culture - Pending Cryptococcal Antigen - Final 08/02/19 00:24 Nasal swab Influenza Types A,B Direct EIA - Final 07/22/19 13:56 Venous blood - Left Hand Blood Culture - Final NO GROWTH IN 5 DAYS 07/22/19 13:47 Venous blood - Left Hand Blood Culture - Final NO GROWTH IN 5 DAYS 07/19/19 03:28 Nasopharyngeal swab Influenza Types A,B Direct EIA - Final 08/17/20 04:08 Central Line - Right Internal Jugular vein Blood Culture - Preliminary Specimen has been received and culture in progress . No Growth to date. 08/17/20 01:15 Venous blood - Left Arm Blood Culture - Preliminary Specimen has been received and culture in [facility]. No Growth to date. 08/02/19 02:00 Lumbar - Pending Body Fluid Culture - Preliminary 07/19/19 04:20 Spinal Fluid Culture - Pending Body Fluid Culture - Prelimi nary 07/19/19 02:56 Venous blood - Right Hand Blood Culture - Preliminary Streptococcus species 07/19/19 02:45 Venous blood - Left Arm Blood Culture - Preliminary Specimen has been received and culture in progress. No Growth to date. Laboratory Tests 07/19/19 07/19/19 07/20/19 02:46 13:25 06:15 Hgb 14.1 Plt Count Neutrophils % (Manual) 87 H 53 PT INR 2.4 D-Dimer Ferritin C-Reactive Protein Valproic Acid Levetiracetam Plasma Alcohol Syphilis IgG/IgM Ab SARS-CoV-2 Rap RNA(RT-PCR) 07/20/19 08/01/19 08/01/19 06:15 23:20 23:20 Hgb Plt Count Neutrophils % (Manual) PT INR 2.2 D-Dimer Ferritin C-Reactive Protein Valproic Acid Levetiracetam 21.8 Plasma Alcohol Less than 10 Syphilis IgG/IgM Ab SARS-CoV-2 Rap RNA(RT-PCR) 08/01/19 08/01/19 08/17/20 23:20 23:31 01:10 Hgb Plt Count Neutrophils % (Manual) PT 20.5 H INR 1.8 D-Dimer Ferritin C-Reactive Protein Valproic Acid Levetiracetam Plasma Alcohol Syphilis IgG/IgM Ab Nonreactive SARS-CoV-2 Rap RNA(RT-PCR) DETECTED A* 08/17/20 08/17/20 08/18/20 01:15 01:15 08:57 Hgb Plt Count 114 L Neutrophils % (Manual) PT INR D-Dimer 3.85 H Ferritin C-Reactive Protein 2.48 H Valproic Acid Levetiracetam Plasma Alcohol Syphilis IgG/IgM Ab SARS-CoV-2 Rap RNA(RT-PCR) 08/18/20 08/19/20 08/19/20 08:57 08:27 08:27 Hgb Plt Count Neutrophils % (Manual) PT INR D-Dimer Ferritin 97.67 C-Reactive Protein Valproic Acid 61.5 Levetiracetam 45.2 Plasma Alcohol Syphilis IgG/IgM Ab SARS-CoV-2 Rap RNA(RT-PCR) Radiology Reviewed by me: Yes (PCXR - bilat infiltrates) Hospitalist ROS - Medication Medications: Active Medications Generic Name Dose Route Start Last Admin Trade Name Freq PRN Reason Stop Dose Admin Acetaminophen 650 mg 08/17/20 04:04 08/25/20 08:38 Acetaminophen 325 Mg Tab PO 650 mg Q4H PRN Administration Headache/Fever/Mild Pain (1-3) Ascorbic Acid 1,000 mg 08/20/20 09:00 08/25/20 08:37 Ascorbic Acid 500 Mg Chewable Tablet PER TUBE 1,000 mg DAILY MEI Administration Carvedilol 12.5 mg 08/20/20 09:00 08/25/20 08:38 Carvedilol 6.25 Mg Tab PER TUBE 12.5 mg BID MEI Administration Dexamethasone 10 mg 08/25/20 09:00 08/25/20 08:38 Dexamethasone 10 Mg/Ml Vial SLOW IVP 10 mg DAILY MEI Administration Enoxaparin Sodium 40 mg 08/17/20 09:00 08/25/20 10:12 Enoxaparin Sodium 40 Mg/0.4 Ml Syringe SC Not Given 0900 MEI Guaifenesin/Dextromethorphan 15 ml 08/17/20 04:04 08/21/20 09:58 Guaifenesin Dm 100-10/5 Ml Udcup PO 15 ml Q4H PRN Administration Cough Hydralazine HCl 10 mg 08/23/20 10:32 08/25/20 06:41 Hydralazine 20 Mg/Ml Vial SLOW IVP 10 mg Q4H PRN Administration SBP>170 Sodium Chloride 1,000 mls @ 50 mls/hr 08/17/20 04:15 08/24/20 18:29 Normal Saline 0.9% IV Not Given .Q20H MEI Insulin Glargine 10 units/ 0.1 mls @ 0 mls/hr 08/17/20 21:00 08/24/20 21:03 Miscellaneous Medication SC 0.1 mls HS MEI Administration Ceftriaxone Sodium 2 gm/ 100 mls @ 200 mls/hr 08/24/20 12:00 08/24/20 11:55 Sodium Chloride IVPB 100 mls 1200 MEI Administration Azithromycin 500 mg/ Sodium 250 mls @ 250 mls/hr 08/24/20 13:00 08/24/20 13:29 Chloride IVPB 250 mls 1300 MEI Administration Levetiracetam 1,500 mg 08/17/20 09:00 08/25/20 08:37 Levetiracetam 500 Mg/5 Ml Oral Solution PER TUBE 1,500 mg BID MEI Administration Lorazepam 2 mg 08/18/20 21:58 08/18/20 22:05 Lorazepam 2 Mg/Ml Vial SLOW IVP 2 mg Q4H PRN Administration Anxiety/Agitation Sodium Chloride 10 ml 08/20/20 21:00 08/25/20 10:12 Flush - Normal Saline 10 Ml Syringe IVF 10 ml Q12HR MEI Administration Valproic Acid 750 mg 08/17/20 09:00 08/25/20 08:38 Valproate Sodium 250 Mg/5 Ml Ud Cup PER TUBE 750 mg BID MEI Administration Zinc Sulfate 220 mg 08/20/20 09:00 08/25/20 08:38 Zinc Sulfate 220 Mg Cap PER TUBE 220 mg DAILY MEI Administration - Exam General Appearance: awake alert, ill appearing General - other findings: attempts to track with eyes Eye: PERRL, anicteric sclera ENT: normocephalic atraumatic, no oropharyngeal lesions Neck: supple, symmetric, no JVD, no thyromegaly, no lymphadenopathy Neck - other findings: R IJ CVC in place Heart: RRR, no murmur, no gallops, no rubs, normal peripheral pulses Heart - other findings: S1, S2 Respiratory: tachypneic Respiratory - other findings: diminished bilat, scattered coarse sounds Gastrointestinal: soft, non-tender, non-distended, normal bowel sounds, no palpable masses Gastrointestinal - other findings: PEG in place Extremities: no cyanosis, no clubbing, no edema Extremities - other findings: Contractures of RUE Skin: normal turgor Neurological: no new deficit Musculoskeletal: generalized weakness Psychiatric: oriented to person, somnolent Hosp A/P (1) Pneumonia due to COVID-19 virus Code(s): U07.1 - COVID-19; J12.89 - OTHER VIRAL PNEUMONIA Status: Acute Plan: Continue Zithromax/Rocephin/Dexamethasone/Lovenox/Vit C/Zinc/O2 @ 1L/min NC (2) Aspiration pneumonia Code(s): J69.0 - PNEUMONITIS DUE TO INHALATION OF FOOD AND VOMIT Status: Acute Plan: Suspected given chronic debilitated state, tube feeds, monitor for aspiration, precautions per BUDDER, low gastric residuals currently (3) Recurrent seizures Code(s): G40.909 - EPILEPSY, UNSP, NOT INTRACTABLE, WITHOUT STATUS EPILEPTICUS Status: Chronic Plan: Continue Keppra/Depakote (4) HTN (hypertension) Code(s): I10 - ESSENTIAL (PRIMARY) HYPERTENSION Status: Chronic Qualifiers: Hypertension type: essential hypertension Qualified Code(s): I10 - Essential (primary) hypertension (5) Thrombocytopenia Code(s): D69.6 - THROMBOCYTOPENIA, UNSPECIFIED Status: Chronic (6) Dysphagia Code(s): R13.10 - DYSPHAGIA, UNSPECIFIED Status: Chronic Qualifiers: Dysphagia type: oropharyngeal phase Qualified Code(s): R13.12 - Dysphagia, oropharyngeal phase - Plan continue antibiotics, rn social services, speech therapy, respiratory therapy, DVT proph w/SCDs Consults: Palliative Care Continue supportive mgmt D/C Clindamycin Continue Rocephin/Zithromax Continue Decadron 10mg IV daily Continue Vit C/Zinc Resume Lovenox O2 PRN, currently 1L/min NC Monitor for decompensation related to COVID AM lab: CBC, D-dimer, Ferritin, CRP CODE Status: DNAR
[2020-08-25] MEDS ORDERED: Ketorolac Tromethamine 30 MG/ML VIAL IVP PRN (10:45)
[2020-08-25] MEDS: cefTRIAXone\\ROCEPHIN 2 GM in Sodium Chloride 0.9% 100 ML IVPB SCH (12:05)
[2020-08-25] MEDS: Azithromycin 500 MG in Sodium Chloride 0.9% 250 ML 250 ML IVPB SCH (13:55)
[2020-08-25] MEDS: Sodium Chloride 0.9% 1,000 ML IV SCH (16:27)
--- NOTE | 2020-08-25 16:43 | PRG ---
DATE OF SERVICE: 08/25/2020 SUBJECTIVE: The patient is not responsive as usual, in a vegetative state. He does not interact with the examiner. OBJECTIVE: VITAL SIGNS: T-max 101.7 on August 24, O2 saturations are 92 on 1 L nasal cannula. SKIN: He has seborrheic dermatitis in forehead. LUNGS: Symmetric air entry. Diminished breath sounds at bases. No wheezing. HEART: S1, S2. Regular rate. ABDOMEN: Soft, somewhat taut. Voiding in the diaper. No bladder distention, diffuse stiffness. LABORATORY DATA: White cell count 5.7, hemoglobin 14, platelets 89,000. D- dimer is 2.19. Ferritin is down to 185. CRP is still up at 8.41. During the exam, he was coughing intermittently. Repeat chest x-ray with patchy opacities bilaterally. 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 This is the end of the second week of illness and we will see what his next few days will show in terms of progress. I do not recall his advance directive is at this point in time. Job ID: [id number] MTDD
[2020-08-25] MEDS: Insulin Glargine 10 UNITS in Pre-Filled Syringe 1 EACH SC SCH (21:00)
[2020-08-26] MEDS: hydrALAZINE 20 MG/ML VIAL SLOW IVP PRN ×3 (02:45→20:30)
[2020-08-26] MEDS: Dexamethasone 10 MG/ML VIAL SLOW IVP SCH (09:15)
[2020-08-26] MEDS: Enoxaparin Sodium 40 MG/0.4 ML SYRINGE SC SCH (09:17)
[2020-08-26] MEDS: Carvedilol 6.25 MG TAB PER TUBE SCH ×2 (09:18→22:31)
[2020-08-26] MEDS: Ascorbic Acid 500 mg Chewable Tablet PER TUBE SCH (09:18)
[2020-08-26] MEDS: levETIRAcetam 500 mg/5 ml Oral Solution PER TUBE SCH (09:20)
[2020-08-26] MEDS: Valproate Sodium 250 mg/5 ml UD Cup PER TUBE SCH (09:20)
[2020-08-26] MEDS: Zinc Sulfate 220 MG CAP PER TUBE SCH (09:21)
[2020-08-26] MEDS: Pantoprazole 40 MG VIAL IVP SCH (09:25)
[2020-08-26] MEDS: levETIRAcetam in NS 1,000 MG in Premix Bag 1 BAG IVPB SCH ×2 (09:31→20:36)
[2020-08-26] MEDS: Sodium Chloride 0.9% 1,000 ML IV SCH (10:05)
[2020-08-26] MEDS: Valproate Sodium 500 MG in Sodium Chloride 0.9% 100 ML IVPB SCH (10:05)
[2020-08-26] MEDS: cefTRIAXone\\ROCEPHIN 2 GM in Sodium Chloride 0.9% 100 ML IVPB SCH (11:31)
--- NOTE | 2020-08-26 11:42 | PDOC.HOSPP ---
- Subjective Encounter Date: 08/26/20 Encounter Time: 08:55 Subjective: Patient is not able to communicate at all, patient had PEG tube problem, patient is not able to get any medication, patient's blood pressure was very high, - Objective Vital Signs & Weight: Vital Signs (12 hours) Pulse BP BP 08/26/20 11:31 192/110 H 08/26/20 09:18 192/110 H 08/26/20 06:00 167/105 H 08/26/20 02:45 86 192/110 H 08/26/20 02:00 192/110 H Weight Admit Weight 190 lb 1.6 oz Weight 190 lb 1.6 oz I&O: 08/25/20 08/26/20 08/27/20 06:59 06:59 06:59 Intake Total 1310 1245 Balance 1310 1245 Result Diagrams: 08/22/20 05:47 08/22/20 05:47 Additional Labs: Accuchecks 08/25/20 16:25 POC Glucose 141 H Radiology Reviewed by me: Yes Hospitalist ROS - Review of Systems ROS unobtainable: due to mental status - Medication Medications: Active Medications Generic Name Dose Route Start Last Admin Trade Name Freq PRN Reason Stop Dose Admin Acetaminophen 650 mg 08/17/20 04:04 08/25/20 08:38 Acetaminophen 325 Mg Tab PO 650 mg Q4H PRN Administration Headache/Fever/Mild Pain (1-3) Ascorbic Acid 1,000 mg 08/20/20 09:00 08/26/20 09:18 Ascorbic Acid 500 Mg Chewable Tablet PER TUBE Not Given DAILY MEI Carvedilol 12.5 mg 08/20/20 09:00 08/26/20 09:18 Carvedilol 6.25 Mg Tab PER TUBE Not Given BID MEI Dexamethasone 6 mg 08/26/20 09:00 08/26/20 09:15 Dexamethasone 10 Mg/Ml Vial SLOW IVP 6 mg DAILY MEI Administration Enoxaparin Sodium 40 mg 08/17/20 09:00 08/26/20 09:17 Enoxaparin Sodium 40 Mg/0.4 Ml Syringe SC 40 mg 0900 MEI Administration Guaifenesin/Dextromethorphan 15 ml 08/17/20 04:04 08/21/20 09:58 Guaifenesin Dm 100-10/5 Ml Udcup PO 15 ml Q4H PRN Administration Cough Hydralazine HCl 10 mg 08/23/20 10:32 08/26/20 11:31 Hydralazine 20 Mg/Ml Vial SLOW IVP 10 mg Q4H PRN Administration SBP>170 Sodium Chloride 1,000 mls @ 50 mls/hr 08/17/20 04:15 08/26/20 10:05 Normal Saline 0.9% IV 1,000 mls .Q20H MEI Administration Insulin Glargine 10 units/ 0.1 mls @ 0 mls/hr 08/17/20 21:00 08/25/20 21:00 Miscellaneous Medication SC Not Given HS MEI Ceftriaxone Sodium 2 gm/ 100 mls @ 200 mls/hr 08/24/20 12:00 08/26/20 11:31 Sodium Chloride IVPB 100 mls 1200 MEI Administration Azithromycin 500 mg/ Sodium 250 mls @ 250 mls/hr 08/24/20 13:00 08/25/20 13:55 Chloride IVPB 250 mls 1300 MEI Administration Levetiracetam 1,000 mg/ Device 100 mls @ 200 mls/hr 08/26/20 09:00 08/26/20 09:31 IVPB 100 mls BID MEI Administration Valproic Acid 500 mg/ Sodium 105 mls @ 100 mls/hr 08/26/20 09:00 08/26/20 10:05 Chloride IVPB Not Given DAILY MEI Lorazepam 2 mg 08/18/20 21:58 08/18/20 22:05 Lorazepam 2 Mg/Ml Vial SLOW IVP 2 mg Q4H PRN Administration Anxiety/Agitation Pantoprazole Sodium 40 mg 08/26/20 09:00 08/26/20 09:25 Pantoprazole 40 Mg Vial IVP 40 mg DAILY MEI Administration Sodium Chloride 10 ml 08/20/20 21:00 08/26/20 09:20 Flush - Normal Saline 10 Ml Syringe IVF Not Given Q12HR MEI Zinc Sulfate 220 mg 08/20/20 09:00 08/26/20 09:21 Zinc Sulfate 220 Mg Cap PER TUBE Not Given DAILY MEI - Exam General Appearance: NAD, ill appearing Eye: PERRL ENT: normocephalic atraumatic, no oropharyngeal lesions, dry oral mucosa Neck: symmetric, no JVD Heart: RRR, no murmur, no gallops, no rubs Respiratory: no wheezes, no rales, no ronchi Gastrointestinal: non-tender, non-distended, normal bowel sounds Gastrointestinal - other findings: PEG tube in place, Extremities: no clubbing, no edema Neurological: hemiplegia, speech deficit Neurological - other findings: Contractures noted Musculoskeletal: normal tone Psychiatric: normal affect Hosp A/P (1) Pneumonia due to COVID-19 virus Code(s): U07.1 - COVID-19; J12.89 - OTHER VIRAL PNEUMONIA Status: Acute (2) History of CVA with residual deficit Code(s): I69.30 - UNSPECIFIED SEQUELAE OF CEREBRAL INFARCTION Status: Acute (3) Sepsis Code(s): A41.9 - SEPSIS, UNSPECIFIED ORGANISM Status: Acute (4) HTN (hypertension) Code(s): I10 - ESSENTIAL (PRIMARY) HYPERTENSION Status: Chronic Qualifiers: Hypertension type: essential hypertension Qualified Code(s): I10 - Essential (primary) hypertension (5) PEG tube malfunction Code(s): K94.23 - GASTROSTOMY MALFUNCTION Status: Acute (6) Seizure Code(s): R56.9 - UNSPECIFIED CONVULSIONS Status: Acute (7) Uncontrolled hypertension Code(s): I10 - ESSENTIAL (PRIMARY) HYPERTENSION Status: Acute (8) Chronic hypoxic-ischemic brain injury Code(s): I67.82 - CEREBRAL ISCHEMIA; G93.1 - ANOXIC BRAIN DAMAGE, NOT ELSEWHERE CLASSIFIED Status: Chronic (9) Diabetes mellitus Code(s): E11.9 - TYPE 2 DIABETES MELLITUS WITHOUT COMPLICATIONS Status: Chronic (10) Dysphagia Code(s): R13.10 - DYSPHAGIA, UNSPECIFIED Status: Chronic Qualifiers: Dysphagia type: oropharyngeal phase Qualified Code(s): R13.12 - Dysphagia, oropharyngeal phase (11) PEG (percutaneous endoscopic gastrostomy) status Code(s): Z93.1 - GASTROSTOMY STATUS Status: Chronic - Plan old records reviewed/req, continue antibiotics Gastroenterology has been consulted for PEG tube malfunction Patient is on Rocephin and azithromycin for pneumonia Today I have changed his some medication IV as patient is not able to get through PEG tube, especially changed to Keppra and valproic acid given his seizure problem, as his blood pressure is not well controlled so I have started labetalol as needed basis, I have reduced Decadron to 6 mg IV daily for Covid pneumonia, once PEG tube issue resolves then will resume his oral medication, patient will go back to senior living when relatively stable
--- NOTE | 2020-08-26 14:22 | PDOC.FMACP ---
Advance Care Planning - Problem (1) History of CVA with residual deficit Status: Acute Code(s): I69.30 - UNSPECIFIED SEQUELAE OF CEREBRAL INFARCTION (2) Pneumonia due to COVID-19 virus Status: Acute Code(s): U07.1 - COVID-19; J12.89 - OTHER VIRAL PNEUMONIA (3) Acute CVA (cerebrovascular accident) Status: Acute Code(s): I63.9 - CEREBRAL INFARCTION, UNSPECIFIED (4) Encephalopathy, metabolic Status: Acute Code(s): G93.41 - METABOLIC ENCEPHALOPATHY (5) Palliative care encounter Status: Acute Code(s): Z51.5 - ENCOUNTER FOR PALLIATIVE CARE (6) Chronic hypoxic-ischemic brain injury Status: Chronic Code(s): I67.82 - CEREBRAL ISCHEMIA; G93.1 - ANOXIC BRAIN DAMAGE, NOT ELSEWHERE CLASSIFIED (7) Dysphagia Status: Chronic Code(s): R13.10 - DYSPHAGIA, UNSPECIFIED Qualifiers: Dysphagia type: oropharyngeal phase Qualified Code(s): R13.12 - Dysphagia, oropharyngeal phase - Note Participants: surrogate decision-maker, palliative care Summary: Advanced Care Planning was discussed. The diagnosis, prognosis and goals of care were discussed. Appropriate forms and documentation to accomplish the goals of care were discussed. All questions were answered. Spoke with patient brother Erickson over the phone, he requested [facility] as his first choice and he said if they were unable to admit that he was fine with what ever hospice complany can admit to [facility]. Communicated to ETTA Rothman Discharge back to [facility] First choice for hospice [facility], Erickson states that he is ok with any hospice that can admit to facility if [facility] can not. Confirmed resuscitation status. Palliative Care will sign off as Goal of Care have been addressed and Directives confirmed. Please reconsult if we can be of assistance in the future. Thank you for this very appropriate consult, it was our pleasure to participate in the care of Mr Larsen.
[2020-08-26] MEDS: Azithromycin 500 MG in Sodium Chloride 0.9% 250 ML 250 ML IVPB SCH (14:23)
[2020-08-26] MEDS: Labetalol HCl 100 MG/20 ML VIAL SLOW IVP PRN (14:40)
--- NOTE | 2020-08-26 19:36 | RAD ---
SINGLE VIEW OF THE ABDOMEN 08/26/20 COMPARISON: 06/08/20 HISTORY: Confirm PEG tube placement. FINDINGS: Single view of the upper abdomen shows a PEG tube. After the administration of contrast through the P EG tube, the stomach and duodenum fills with contrast. No leakage of the contrast into the peritoneal cavity is seen. IMPRESSION: PEG tube located in the stomach. POS: EAA
[2020-08-26] MEDS: Insulin Glargine 10 UNITS in Pre-Filled Syringe 1 EACH SC SCH (22:31)
--- NOTE | 2020-08-27 00:40 | CON ---
DATE OF CONSULTATION: 08/26/2020 CHIEF COMPLAINT: Problems with the feeding tube. HISTORY OF PRESENT ILLNESS: The patient is not communicative. He is group home bound. Nursing reports that his PEG tube had migrated in such that the injection ports had slid all the way up to the external bumper. Nursing retracted the tube back and slid the bumper forward, however, then tube again pulled forward into the stomach. There was resistance to giving the feeding and he seemed to be uncomfortable with that, so he has not been receiving feeds today. There was some leakage around the PEG site. He has had no vomiting. He was admitted to the hospital on 08/17/2020 with fever and he was found to have COVID-19. 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 PAST SURGICAL HISTORY: PEG tube placement. FAMILY HISTORY: Negative for GI malignancy. SOCIAL HISTORY: No alcohol, tobacco, or drugs. ALLERGIES: ASPIRIN, PENICILLIN, EILEEN INHIBITOR. CURRENT INPATIENT MEDICATIONS: 1. Azithromycin. 2. Ceftriaxone. 3. Enoxaparin. 4. Insulin. 5. Levetiracetam. 6. Pantoprazole. 7. Valproic acid. 8. Zinc. REVIEW OF SYSTEMS: Unobtainable as the patient is not communicative. PHYSICAL EXAMINATION: VITAL SIGNS: Temperature 98.1, pulse 62, blood pressure 158/89. GENERAL: He is in no acute distress. LUNGS: Clear to auscultation bilaterally. HEART: Regular rate and rhythm without murmur. ABDOMEN: Soft, no obvious tenderness, is not distended. His bowel sounds are present. The gastrostomy tube has migrated into the stomach and the injection ports are all the way up to the external bumper. The tube was retracted and the external bumper was slid forward, however, there is still retraction pressure from inside, which indicates that the balloon is likely migrated beyond the pylorus. EXTREMITIES: He has no lower extremity edema. IMPRESSION: Complication of the gastrostomy tube, most consistent with the balloon having migrated beyond the pylorus resulting in traction pulling the tube into the stomach. I deflated the water from the balloon and pulled the catheter back and reinflated the water. The external bumper was then placed at 5 cm and there is no longer significant traction pulling the tube back into the stomach. I injected around 80 mL of water, which he seemed to tolerate well. Bilious return from the tube when it is left open to gravity is achieved. We should be able to use the tube at this point without problems. RECOMMENDATIONS: 1. We will check a Gastrografin injection of contrast through the tube to verify it is in proper position in the stomach and not transpyloric. 2. Once that is clear, then he can restart his feeds. Job ID: [id number]
[2020-08-27] MEDS: Sodium Chloride 0.9% 1,000 ML IV SCH (07:07)
[2020-08-27] MEDS: Enoxaparin Sodium 40 MG/0.4 ML SYRINGE SC SCH (08:59)
[2020-08-27] MEDS: levETIRAcetam in NS 1,000 MG in Premix Bag 1 BAG IVPB SCH (08:59)
[2020-08-27] MEDS: Pantoprazole 40 MG VIAL IVP SCH (08:59)
[2020-08-27] MEDS: Ascorbic Acid 500 mg Chewable Tablet PER TUBE SCH (09:00)
[2020-08-27] MEDS: Carvedilol 6.25 MG TAB PER TUBE SCH (09:00)
[2020-08-27] MEDS: Zinc Sulfate 220 MG CAP PER TUBE SCH (09:01)
[2020-08-27] MEDS: Valproate Sodium 500 MG in Sodium Chloride 0.9% 100 ML IVPB SCH (09:01)
[2020-08-27] MEDS: Dexamethasone 10 MG/ML VIAL SLOW IVP SCH (09:05)
--- NOTE | 2020-08-27 10:24 | PDOC.DS.DS ---
Provider - Provider Date of Admission: 08/17/20 04:25 Admitting Provider: Alfred Low Primary Care Physician: Unknown Course - Hospital Course Hospital Course: 54-year-old male who was admitted on August 17, 2020, patient is not able to provide any history because of aphasia, patient was sent from long term, patient was having fever, in the emergency room he had chest x-ray which showed no acute process, subsequently patient had a CT angiography which showed left upper lobe opacity consistent with pneumonia, routine laboratory parameters showed COVID-19 positive on admission, his CBC showed thrombocytopenia, his D- dimer remains elevated, but CT angio was negative for PE, he had elevated inflammatory marker which was slowly improving, while in hospital he was treated with dexamethasone and vitamin supplementation, he was also evaluated by Dr. Pemberton, patient was on room air, patient was DNR while in hospital, patient had some PEG tube malfunction but after that we consulted GI and we did x-ray abdomen after Gastrografin which appears to be unremarkable and subsequently patient was able to use PEG tube.. Resuscitation Status: 08/18/20 04:36 Resuscitation Status Routine Co-Sign Provider: Resuscitation Status: DNAR: NO Resuscitation Discussed with: LALI -brother Erickson Additional comments: Patient also has OOH DNAR Brother's phone # [phone] - Labs Lab Results: 08/22/20 05:47 08/22/20 05:47 Abnormal Lab Results - Last 48 hrs 08/26/20 05:19: C-Reactive Protein 9.55 H 08/26/20 05:19: D-Dimer 2.55 H 08/27/20 06:11: C-Reactive Protein 3.87 H 08/27/20 06:11: D-Dimer 2.75 H Microbiology - Entire Visit 08/17/20 04:08 Central Line - Right Internal Jugular vein Blood Culture - Final NO GROWTH IN 5 DAYS 08/17/20 01:15 Venous blood - Left Arm Blood Culture - Final NO GROWTH IN 5 DAYS 08/17/20 02:07 Urine Straight Catheter Urine Culture - Final NO GROWTH AT 36 HOURS 08/17/20 01:15 Nasal swab Influenza Types A,B Direct EIA - Final - Physical Exam Vitals: Vital Signs (12 hours) Temp Pulse Resp BP BP Pulse Ox 08/27/20 09:00 173/99 H 08/27/20 08:00 98.0 F 63 20 165/95 H 92 L 08/26/20 23:41 154/78 H 08/26/20 22:31 173/99 H Weight Admit Weight 190 lb 1.6 oz Weight 190 lb 1.6 oz Physical Exam: The patient was seen and examined on the day of discharge. General patient is currently awake, nonverbal Head normocephalic atraumatic Neck supple no JVD no meningeal signs of irritation Lungs clear to auscultation without any rhonchi rales Cardiac S1-S2 regular, no murmur no gallop no rub Abdomen soft, bowel sound present, PEG tube in place Extremity no edema Neurologic contracture noted bilaterally, Problem - Problem (1) Pneumonia due to COVID-19 virus Code(s): U07.1 - COVID-19; J12.89 - OTHER VIRAL PNEUMONIA Status: Acute (2) History of CVA with residual deficit Code(s): I69.30 - UNSPECIFIED SEQUELAE OF CEREBRAL INFARCTION Status: Acute (3) Sepsis Code(s): A41.9 - SEPSIS, UNSPECIFIED ORGANISM Status: Resolved (4) HTN (hypertension) Code(s): I10 - ESSENTIAL (PRIMARY) HYPERTENSION Status: Chronic Qualifiers: Hypertension type: essential hypertension Qualified Code(s): I10 - Essential (primary) hypertension (5) PEG tube malfunction Code(s): K94.23 - GASTROSTOMY MALFUNCTION Status: Resolved (6) Seizure Code(s): R56.9 - UNSPECIFIED CONVULSIONS Status: Chronic (7) Uncontrolled hypertension Code(s): I10 - ESSENTIAL (PRIMARY) HYPERTENSION Status: Chronic (8) Chronic hypoxic-ischemic brain injury Code(s): I67.82 - CEREBRAL ISCHEMIA; G93.1 - ANOXIC BRAIN DAMAGE, NOT ELSEWHERE CLASSIFIED Status: Chronic (9) Diabetes mellitus Code(s): E11.9 - TYPE 2 DIABETES MELLITUS WITHOUT COMPLICATIONS Status: Chronic (10) Dysphagia Code(s): R13.10 - DYSPHAGIA, UNSPECIFIED Status: Chronic Qualifiers: Dysphagia type: oropharyngeal phase Qualified Code(s): R13.12 - Dysphagia, oropharyngeal phase (11) PEG (percutaneous endoscopic gastrostomy) status Code(s): Z93.1 - GASTROSTOMY STATUS Status: Chronic Plan - Discharge Medications Prescriptions: Cefuroxime Axetil [Ceftin] 250 mg PER TUBE BID #10 tab Dexamethasone 6 mg PER TUBE DAILY #5 tablet Home Medications: Medication Instructions Recorded Confirmed Type Carvedilol 12.5 mg PER TUBE BID 09/11/18 08/17/20 History Acetaminophen [Tylenol Elixir] 650 mg PO Q6H PRN udcup 05/30/19 08/17/20 Rx Ascorbic Acid [Vitamin C with Heather 500 mg PER TUBE DAILY 05/30/19 08/17/20 History Hips] Insulin Glargine [Lantus Vial] 10 units SC HS vial 07/28/19 08/17/20 Rx Docusate Sodium [Diocto] 100 mg PER TUBE DAILY PRN 08/02/19 08/17/20 History Lipase/Protease/Amylase [Creon DR 1 cap PER TUBE ASDIR PRN #30 cap 08/08/19 08/17/20 Rx 12,000 Units] levETIRAcetam [Keppra Oral 1,500 mg PER TUBE BID #60 packet 08/08/19 08/17/20 Rx Solution] Lorazepam [Ativan] 2 mg PER TUBE Q4H PRN 12/19/19 08/17/20 History Losartan [Cozaar] 25 mg PER TUBE DAILY 12/19/19 08/17/20 History Valproate Sodium [Valproate Sodium 750 mg PER TUBE BID 12/19/19 08/17/20 History Oral Solution] Bisacodyl [Dulcolax] 10 mg NH DAILYPRN PRN 05/23/20 08/17/20 History Nystatin [Nystatin Powder] 1 applic TOP PRN PRN 05/23/20 08/17/20 History Ipratropium/Albuterol Sulfate 3 ml NEB [id number] PRN neb 05/26/20 08/17/20 Rx [DuoNeb] Polyethylene Glycol 3350 [Miralax] 17 gm PO DAILY pk 05/26/20 08/17/20 Rx Saccharomyces boulardii [Florastor] 250 mg PER TUBE HS cap 05/26/20 08/17/20 Rx Cefuroxime Axetil [Ceftin] 250 mg PER TUBE BID #10 tab 08/27/20 Rx Dexamethasone 6 mg PER TUBE DAILY #5 tablet 08/27/20 Rx Allergies: aspirin Allergy (Verified 05/23/20 01:48) Penicillins Allergy (Verified 05/23/20 01:48) - Discharge Instructions Activity:: Activity as Tolerated Nourishment:: Tube Feeding Diet Therapies:: Not Applicable Equipment/Supplies:: Not Applicable IV Therapy:: Not Applicable - Follow up Plan Referrals: Unknown,Unknown [Primary Care Provider] - Disposition: PENITENTIARY FACILITY Quality - Care Measures CORE MEASURES:: N/A
[2020-08-27] MEDS: cefTRIAXone\\ROCEPHIN 2 GM in Sodium Chloride 0.9% 100 ML IVPB SCH (11:16)
[2020-08-27] MEDS: Labetalol HCl 100 MG/20 ML VIAL SLOW IVP PRN (11:16)
[2020-08-27] MEDS: Azithromycin 500 MG in Sodium Chloride 0.9% 250 ML 250 ML IVPB SCH (13:39)
[2020-08-27 16:59] VITALS: BP 155/88; TEMP 98.3
--- NOTE | 2020-08-28 12:43 | EKG ---
Test Reason : SEPSIS Blood Pressure : / mmHG Vent. Rate : 085 BPM Atrial Rate : 085 BPM P-R Int : 124 ms QRS Dur : 062 ms QT Int : 328 ms P-R-T Axes : 054 056 027 degrees QTc Int : 390 ms Normal sinus rhythm Nonspecific T wave abnormality Abnormal ECG Confirmed by GRISELDA SUTTON ([id number]), industrial editor NIKOLAI TALAMANTES ([id number]) on 08/28/2020 12:43:12 PM Referred By: Confirmed By:GRISELDA SUTTON
== END 2020-08-27 17:49 | DRG 871 ==
LOC: ERS 00:35 → T4-A 04:25
PROVIDERS: ADMIT Internal Medicine; ATTEND Internal Medicine
PROC: 8E0ZXY6 Isolation (ICD-10-PCS; principal; 2020-08-17)
DX: A41.89 Other specified sepsis (principal); U07.1 COVID-19; J12.89 Other viral pneumonia; J69.0 Pneumonitis due to inhalation of food and vomit; G93.41 Metabolic encephalopathy; I69.351 Hemiplegia and hemiparesis following cerebral infarction affecting right dominant side; E46 Unspecified protein-calorie malnutrition; K94.23 Gastrostomy malfunction; G93.1 Anoxic brain damage, not elsewhere classified; I67.82 Cerebral ischemia; E11.9 Type 2 diabetes mellitus without complications; G40.909 Epilepsy, unspecified, not intractable, without status epilepticus; R13.12 Dysphagia, oropharyngeal phase; D69.6 Thrombocytopenia, unspecified; E78.5 Hyperlipidemia, unspecified; I10 Essential (primary) hypertension; I69.320 Aphasia following cerebral infarction; Z74.01 Bed confinement status; Z68.25 Body mass index [BMI] 25.0-25.9, adult; Y83.3 Surgical operation with formation of external stoma as the cause of abnormal reaction of the patient, or of later complication, without mention of misadventure at the time of the procedure
CPT/HCPCS: 36415; 36416; 36556; 51701; 71045; 71275; 74018; 80048; 80053; 80164; 80177; 81003; 81015; 82728; 82947; 83605; 83690; 83880; 84145; 84484; 85007; 85025; 85027; 85379; 86140; 87040; 87086; 87635; 87804; 93005; 96365; 96366; 96368; 96375; C9113; C9803; J0360; J0456; J0696; J1100; J1650; J1815; J1885; J1953; J1956; J2060; J3370; J3490; J7050; Q9967; U0002; U0003

== ENCOUNTER 2020-11-04 22:24 | Inpatient (IN) | payer MEDICARE, MEDICAID ==
[2020-11-05 00:10] LABS: Troponin I 0.021 ng/mL (< 0.028)
[2020-11-05] MEDS ORDERED: Lorazepam 2 MG/ML VIAL SLOW IVP PRN ×2 (00:43→04:29)
[2020-11-05] MEDS ORDERED: Acetaminophen 325 MG TAB PO PRN (00:45)
[2020-11-05] MEDS ORDERED: Lactated Ringer's 1,000 ML IV SCH (00:45)
[2020-11-05] MEDS ORDERED: Ondansetron PF 4 MG/2 ML Vial IVP PRN ×2 (00:45→04:26)
[2020-11-05] MEDS ORDERED: Ondansetron ODT 4 MG TAB SL PRN (00:45)
[2020-11-05 02:35] LABS: Lactic Acid 1.9 mmol/L (0.5-2.2)
[2020-11-05 02:50] LABS: Troponin I 0.028 ng/mL (< 0.028)
[2020-11-05] MEDS ORDERED: metroNIDAZOLE 500 MG in Premix Bag 1 BAG IVPB SCH ×2 (04:00→06:00)
[2020-11-05] MEDS ORDERED: HYDROcodone/Acetaminophen 5/325 mg Tablet PO PRN (04:26)
[2020-11-05] MEDS ORDERED: Labetalol HCl 100 MG/20 ML VIAL SLOW IVP PRN (04:26)
[2020-11-05] MEDS ORDERED: Promethazine HCl 12.5 MG in Sodium Chloride 0.9% 50 ML IVPB PRN (04:26)
[2020-11-05] MEDS ORDERED: hydrALAZINE 20 MG/ML VIAL SLOW IVP PRN (04:26)
[2020-11-05] MEDS ORDERED: Guaifenesin DM 100-10/5 ML UDCUP PO PRN (04:26)
[2020-11-05] MEDS ORDERED: cloNIDine 0.1 MG TAB PO PRN (04:26)
[2020-11-05] MEDS ORDERED: Electrolyte Replacement Protocol 1 EACH FS SCH (04:30)
--- NOTE | 2020-11-05 04:31 | PDOC.HHP ---
Hospitalist HPI Seizure History of Present Illness: Patient is a 55 year old male with PMH CVA, epilepsy, [place] fever infection who presents to ED from [facility] for seizure. Patient transferred to [place] ED from [facility] after 45 minute seizure, he recieved 1000mg keppra, 6mg ativan through PEG. In [place], CXR revealed RML pneumonia possibly due to aspiration. He was given vancomycin, levaquin, flagyl. He had tempoary hypoxia requiring small amount supplemental O2. Here, patient is obtunded and sleeping, possibly due to ativan needed for seizure, no further seizure activity reported after initial seizure broke. lactic acid 2.4. Patient to be admitted for seizure and suspected aspiration pneumonia. Allergies/Adverse Reactions: Allergy/AdvReac Type Severity Reaction Status Date / Time aspirin Allergy Verified 05/23/20 01:48 Penicillins Allergy Verified 05/23/20 01:48 Home Medications: Medication Instructions Recorded Confirmed Type Carvedilol 12.5 mg PER TUBE BID 09/11/18 11/05/20 History Ascorbic Acid [Vitamin C with Heather 500 mg PER TUBE BID 05/30/19 11/05/20 History Hips] Insulin Glargine [Lantus Vial] 10 units SC HS vial 07/28/19 11/05/20 Rx Docusate Sodium [Diocto] 10 ml PER TUBE DAILY PRN 08/02/19 11/05/20 History levETIRAcetam [Keppra Oral 1,500 mg PER TUBE BID #60 packet 08/08/19 11/05/20 Rx Solution] Lorazepam [Ativan] 1 mg PER TUBE Q4H PRN 12/19/19 11/05/20 History Losartan [Cozaar] 25 mg PER TUBE DAILY 12/19/19 11/05/20 History Valproate Sodium [Valproate Sodium 750 mg PER TUBE BID 12/19/19 11/05/20 History Oral Solution] Nystatin [Nystatin Powder] 1 applic TOP PRN PRN 05/23/20 11/05/20 History Saccharomyces boulardii [Florastor] 250 mg PER TUBE HS cap 05/26/20 11/05/20 Rx Acetaminophen [Tylenol Elixir] 650 mg PO Q6HR PRN 11/05/20 11/05/20 History Albuterol Sulfate HFA (OR) 1 puff INH Q2HR PRN 11/05/20 11/05/20 History [Proventil Hfa (or)] Amlodipine [Norvasc] 5 mg PO BID 11/05/20 11/05/20 History Melatonin 6 mg PO HS PRN 11/05/20 11/05/20 History Omeprazole 20 mg PO DAILY 11/05/20 11/05/20 History Polyethylene Glycol 3350 [Miralax] 17 gm PO DAILY PRN 11/05/20 11/05/20 History Zinc 2 tab PO DAILY 11/05/20 11/05/20 History Past History: PMHx: T2DM, HLD, HTN, CVA, residual aphasia, seizure disorder, dysphagia, peg tube, [place] spotted fever, R sided hemiplegia, hemiparesis PSHx: peg tube, abscess drainage FHx: unable to ask due to altered mental status Social: lives at [facility], no alcohol or drug use reported Hospitalist HPI ROS ROS unobtainable: due to mental status (altered mental status) Hospitalist Exam General - other findings: obtunded, sleeping, no distress Eye: PERRL, anicteric sclera ENT: normocephalic atraumatic, no oropharyngeal lesions, moist mucosa Neck: supple, symmetric, no JVD, no thyromegaly, no lymphadenopathy, no carotid bruit Heart: RRR, no murmur, no gallops, no rubs, normal peripheral pulses Respiratory: CTAB, no wheezes, no rales, no ronchi, normal chest expansion, no tachypnea, normal percussion Gastrointestinal: soft, non-tender, non-distended, normal bowel sounds, no palpable masses, no hepatomegaly, no splenomegaly, no bruit Extremities: no cyanosis, no clubbing, no edema Skin: normal turgor, no lesions, no rashes Neurological - other findings: r side chronic weakness Psychiatric - other findings: unable to evaluate Hospitalist Results Lab results: Laboratory Last Values Lactic Acid 1.9 mmol/L (0.5-2.2) 11/05/20 02:00 Troponin I 0.028 ng/mL (< 0.028) 11/05/20 02:[address] head report reviewed Hospitalist H&P A/P Plan: Patient is a 55 year old male with PMH CVA, epilepsy, [place] fever infection who presents to ED from [facility] for seizure. # seizure - breakthrough # suspected aspiration pneumonia - ED read concerning for RML pneumonia (not confirmed by radiology report) Patient transferred to [place] ED from [facility] after 45 minute seizure, he recieved 1000mg keppra, 6mg ativan through PEG. In [place], CXR revealed RML pneumonia possibly due to aspiration. He was given vancomycin, levaquin, flagyl. - admit to neurology unit - seizure precautions, PRN ativan - continue keppra, valproate - ceftriaxone, flagyl - consult speech # T2DM - hold lantus, SSI, consult dietitian for tube feed recs # HTN - resume home meds # HLD - resume home meds # CVA - ct head stable, follow neurologic status DVT/GI ppx
[2020-11-05] MEDS ORDERED: Melatonin 3 MG TAB PO PRN (06:09)
[2020-11-05] MEDS ORDERED: Non-Formulary Item 1 EACH (Albuterol Sulfate Hfa (Or) 200 PUFF Inh) INH PRN (06:09)
[2020-11-05] MEDS ORDERED: Dextrose 5% in Water 1,000 ML IV PRN (06:12)
[2020-11-05] MEDS ORDERED: Dextrose 50% Abboject 50 ML SYRINGE SLOW IVP PRN (06:12)
[2020-11-05] MEDS ORDERED: Albuterol 200 PUFF (6.7GM INHALER) INH PRN (06:19)
[2020-11-05 06:42] VITALS: BMI 31.7
[2020-11-05] MEDS: cefTRIAXone\\ROCEPHIN 2 GM in Sodium Chloride 0.9% 100 ML IVPB SCH (06:51)
[2020-11-05] MEDS ORDERED: FLU VACC QS2020-21(6MOS UP)/PF 60 MCG/0.5 ML SYRINGE IM ONE (07:15)
[2020-11-05] MEDS ORDERED: Non-Formulary Item 1 EACH (Carvedilol [Carvedilol] 12.5 MG Tablet) PER TUBE SCH (09:00)
[2020-11-05] MEDS ORDERED: Non-Formulary Item 1 EACH (Omeprazole [Omeprazole] 20 MG Capsule.Dr) PO SCH (09:00)
[2020-11-05] MEDS ORDERED: Valproate Sodium 250 mg/5 ml UD Cup PER TUBE SCH (09:00)
[2020-11-05] MEDS ORDERED: levETIRAcetam in NS 1,000 MG in Premix Bag 1 BAG IVPB SCH (09:00)
[2020-11-05] MEDS ORDERED: Polyethylene Glycol 3350 17 GM Packet PO PRN (09:29)
[2020-11-05] MEDS ORDERED: Docusate Sodium 100 MG/10 ML UDCUP PER TUBE PRN (09:29)
[2020-11-05] MEDS ORDERED: Nystatin Powder 15 GM BOT TOP PRN (09:29)
[2020-11-05] MEDS ORDERED: Lorazepam 1 MG TAB PER TUBE PRN (09:29)
[2020-11-05] MEDS: levETIRAcetam 500 mg/5 ml Oral Solution PER TUBE SCH ×2 (09:44→20:26)
[2020-11-05] MEDS: Famotidine 20 MG TAB PO SCH ×2 (09:44→20:26)
[2020-11-05] MEDS: Amlodipine 5 MG TAB PO SCH ×2 (09:45→20:25)
[2020-11-05] MEDS: Pantoprazole 40 MG GRANULES PACKET PER TUBE SCH (09:45)
[2020-11-05] MEDS: Losartan 25 MG TAB PER TUBE SCH (09:48)
[2020-11-05] MEDS: Carvedilol 6.25 MG TAB PER TUBE SCH ×2 (09:48→20:25)
[2020-11-05 09:53] LABS: SARS-CoV-2 PCR by NAA Not Detected (NotDetected)
--- NOTE | 2020-11-05 13:06 | PDOC.HOSPP ---
- Subjective Encounter Date: 11/05/20 Encounter Time: 09:10 Subjective: Patient seen this morning. He is in not easily arousable. Sleeping ;appears comfortable nontoxic; nursing had a similar experience. his vitals are stable. When he was hospitalized last time very similar scenario. - Objective Vital Signs & Weight: Vital Signs (12 hours) Temp Pulse Resp BP BP Pulse Ox 11/05/20 12:00 98.4 F 59 L 16 127/82 100 11/05/20 09:48 158/80 H 11/05/20 09:45 61 158/80 H 11/05/20 08:00 98.6 F 59 L 18 104/50 L 100 11/05/20 07:40 100 11/05/20 04:27 99.8 F H 70 24 H 118/59 L 100 Weight Admit Weight 202 lb 12.8 oz Weight 202 lb 12.8 oz I&O: 11/04/20 11/05/20 11/06/20 06:59 06:59 06:59 Intake Total 879 120 Balance 879 120 Additional Labs: Accuchecks 11/05/20 11/05/20 11/05/20 11:20 09:40 06:29 POC Glucose 113 H 83 77 Hospitalist ROS - Medication Medications: Active Medications Generic Name Dose Route Start Last Admin Trade Name Freq PRN Reason Stop Dose Admin Amlodipine Besylate 5 mg 11/05/20 09:00 11/05/20 09:45 Amlodipine 5 Mg Tab PO 5 mg BID MEI Administration Carvedilol 12.5 mg 11/05/20 09:00 11/05/20 09:48 Carvedilol 6.25 Mg Tab PER TUBE 12.5 mg BID MEI Administration Famotidine 20 mg 11/05/20 09:00 11/05/20 09:44 Famotidine 20 Mg Tab PO 20 mg BID MEI Administration Ceftriaxone Sodium 2 gm/ 100 mls @ 200 mls/hr 11/05/20 06:00 11/05/20 06:51 Sodium Chloride IVPB 100 mls Q24HR MEI Administration Levetiracetam 1,500 mg 11/05/20 09:00 11/05/20 09:44 Levetiracetam 500 Mg/5 Ml Oral Solution PER TUBE 1,500 mg BID MEI Administration Losartan Potassium 25 mg 11/05/20 09:00 11/05/20 09:48 Losartan 25 Mg Tab PER TUBE 25 mg DAILY MEI Administration Pantoprazole Sodium 40 mg 11/05/20 09:00 11/05/20 09:45 Pantoprazole 40 Mg Granules Packet PER TUBE 40 mg DAILY MEI Administration Sodium Chloride 10 ml 11/05/20 09:00 11/05/20 09:45 Flush - Normal Saline 10 Ml Syringe IVF 10 ml Q12HR MEI Administration Valproic Acid 750 mg 11/05/20 09:00 11/05/20 09:44 Valproate Sodium 250 Mg/5 Ml Ud Cup PER TUBE 750 mg BID MEI Administration Hospitalist Exam Vitals: Vital Signs (12 hours) Temp Pulse Resp BP BP Pulse Ox 11/05/20 12:00 98.4 F 59 L 16 127/82 100 11/05/20 09:48 158/80 H 11/05/20 09:45 61 158/80 H 11/05/20 08:00 98.6 F 59 L 18 104/50 L 100 11/05/20 07:40 100 11/05/20 04:27 99.8 F H 70 24 H 118/59 L 100 Weight Admit Weight 202 lb 12.8 oz Weight 202 lb 12.8 oz General - other findings: Sleeping Eye: PERRL ENT: normocephalic atraumatic Neck: supple Heart: RRR, normal peripheral pulses Respiratory: CTAB, normal chest expansion Gastrointestinal: soft Neurological: cranial nerve grossly intact, no focal deficits Psychiatric - other findings: Sleeping Hosp A/P - Plan 55 year old male with PMH CVA, epilepsy, [place] fever infection who presents to ED from [facility] for seizure. seizure - breakthrough - admit to neurology unit -Neurology consult placed. - seizure precautions, PRN ativan - continue keppra, valproate -Check the valproic acid level - # suspected aspiration pneumonia - ED read concerning for RML pneumonia (not confirmed by radiology report) Patient transferred to [place] ED from [facility] after 45 minute seizure, he recieved 1000mg keppra, 6mg ativan through PEG. In [place], CXR revealed RML pneumonia possibly due to aspiration. He was given vancomycin, levaquin, flagyl. -- ceftriaxone, flagyl # T2DM - hold lantus, - SSI, consult dietitian for tube feed recs # HTN - resume home meds # HLD - resume home meds History of CVA -CT head without acute abnormality d/w nurse.
[2020-11-05] MEDS: metroNIDAZOLE 500 MG in Premix Bag 1 BAG IVPB SCH ×2 (14:19→22:16)
--- NOTE | 2020-11-05 17:29 | PDOC.EEG ---
Neurology EEG Report - Report Report: This EEG was performed using 24 channel [employer] video EEG machine with 24 disc benigno ctrodes. This was an extended 2 hours 2 minutes of inpatient video EEG recording. Digital analysis of the EEG was done for spike and seizure detection which revealed no abnormalities. Background: The posterior background rhythm is not observed. Excessive beta activity seen during the recording. Hyperventilation: Not performed. Photic Stimulation: No significant response. Sleep: No stage change is observed. EEG Diagnosis: Generalized irregular theta delta activity seen during the recording. Absence of posterior background rhythm. Clinical Interpretation: This EEG is consistent with moderate generalized nonspecific cerebral dysfunction.
--- NOTE | 2020-11-05 17:33 | CON ---
NEUROLOGY CONSULTATION DATE OF CONSULTATION: 11/05/2020 REASON FOR CONSULTATION: Breakthrough seizure. HISTORY OF PRESENT ILLNESS: Mr. Derek Larsen is a 55-year-old male with medical history significant for prior CVA, epilepsy, [place] spotted fever infection, presented to the emergency room from shelter because of breakthrough seizures. The patient was transferred from [facility] from the shelter after a 45-minute seizure. During which, he received 6 mg of Ativan through PEG tube and also 1000 mg of Keppra. In the emergency room, chest x-ray showed pneumonia due to aspiration and he was given vancomycin, Levaquin, and Flagyl, and transferred to [facility] for higher level of care. No further seizures were reported by the nursing staff since admission to the hospital. He has been treated for breakthrough seizures and also for the treatment of aspiration pneumonia. REVIEW OF SYSTEMS: Unobtainable due to the patient being somnolent. ALLERGIES: ASPIRIN AND PENICILLIN. HOME MEDICATIONS: 1. Carvedilol 12.5 mg per tube b.i.d. 2. Ascorbic acid. 3. Insulin glargine. 4. Docusate sodium. 5. Keppra 1500 mg 6. Ativan 1 mg per tube q.4 hours p.r.n. 7. Valproate sodium 750 mg per tube b.i.d. 8. Nystatin powder. 9. Florastor. 10. Tylenol. 11. Proventil. 12. Amlodipine. 13. Melatonin. 14. Omeprazole. 15. Polyethylene glycol. 16. Zinc. PAST MEDICAL HISTORY: Type 2 diabetes mellitus, hyperlipidemia, hypertension, prior CVA with residual aphasia, seizure disorder, dysphagia, PEG tube status, [place] spotted fever infection. PAST SURGICAL HISTORY: Status post PEG tube placement, abscess drainage. FAMILY HISTORY: Unable to provide family history. SOCIAL HISTORY: The patient lives in a shelter. There is no documented history of alcohol or illegal drug use. Vital Signs & Weight: Vital Signs (12 hours) Temp Pulse Resp BP BP Pulse Ox 11/05/20 12:00 98.4 F 59 L 16 127/82 100 11/05/20 09:48 158/80 H 11/05/20 09:45 61 158/80 H 11/05/20 08:00 98.6 F 59 L 18 104/50 L 100 11/05/20 07:40 100 11/05/20 04:27 99.8 F H 70 24 H 118/59 L 100 Weight Admit Weight 202 lb 12.8 oz Weight 202 lb 12.8 oz I&O: 11/04/20 11/05/20 11/06/20 06:59 06:59 06:59 Intake Total 879 120 Balance 879 120 Additional Labs: Accuchecks 11/05/20 11/05/20 11/05/20 11:20 09:40 06:29 POC Glucose 113 H 83 77 Active Medications Generic Name Dose Route Start Last Admin Trade Name Freq PRN Reason Stop Dose Admin Amlodipine Besylate 5 mg 11/05/20 09:00 11/05/20 09:45 Amlodipine 5 Mg Tab PO 5 mg BID MEI Administration Carvedilol 12.5 mg 11/05/20 09:00 11/05/20 09:48 Carvedilol 6.25 Mg Tab PER TUBE 12.5 mg BID MEI Administration Famotidine 20 mg 11/05/20 09:00 11/05/20 09:44 Famotidine 20 Mg Tab PO 20 mg BID MEI Administration Ceftriaxone Sodium 2 gm/ 100 mls @ 200 mls/hr 11/05/20 06:00 11/05/20 06:51 Sodium Chloride IVPB 100 mls Q24HR MEI Administration Levetiracetam 1,500 mg 11/05/20 09:00 11/05/20 09:44 Levetiracetam 500 Mg/5 Ml Oral Solution PER TUBE 1,500 mg BID MEI Administration Losartan Potassium 25 mg 11/05/20 09:00 11/05/20 09:48 Losartan 25 Mg Tab PER TUBE 25 mg DAILY MEI Administration Pantoprazole Sodium 40 mg 11/05/20 09:00 11/05/20 09:45 Pantoprazole 40 Mg Granules Packet PER TUBE 40 mg DAILY MEI Administration Sodium Chloride 10 ml 11/05/20 09:00 11/05/20 09:45 Flush - Normal Saline 10 Ml Syringe IVF 10 ml Q12HR MEI Administration Valproic Acid 750 mg 11/05/20 09:00 11/05/20 09:44 Valproate Sodium 250 Mg/5 Ml Ud Cup PER TUBE 750 mg BID MEI Administration PHYSICAL EXAMINATION: GENERAL: The patient is somnolent and he does have receptive aphasia. CVS: Regular rate and rhythm. CHEST: Clear. ABDOMEN: Soft. NECK: Supple. NEUROLOGIC: Mental status; the patient is somnolent, does not follow commands, does not maintain eye contact. Speech is slurred. Cranial nerves 2 through 12 intact except 7 mild right facial droop and 10 dysarthria. Motor; muscle tone is increased on the right with right hemiplegia. Cerebellum could not be performed secondary to mental status. Gait deferred due to the patient's safety reasons. Sensory withdraws to nailbed pressure, left greater than right. Spontaneous movements of the left side are seen. DIAGNOSTIC STUDIES: Data reviewed. I reviewed the chest x-ray, which has findings concerning for pneumonia. Head CT did not reveal acute intracranial pathology. ASSESSMENT AND PLAN: Mr. Derek Larsen is a 55-year-old male with medical history significant for prior cerebrovascular accident with residual hemiplegia, epilepsy, [place] spotted fever infection, presented from the shelter with prolonged breakthrough seizure, most likely provoked seizure in the setting of suspected aspiration pneumonia. Continue Keppra 1500 mg b.i.d., increase Depakote to 750- 1000 mg p.o. per tube b.i.d. Check valproic acid level in the morning. EEG to evaluate for underlying cortical irritability, which will help us in further adjustment of the medications. Observe seizure precaution. Ativan 2 mg IV for seizure greater than 2 minutes. Neuro checks every 4 hours. Continue home medications. Continue medical management per primary team. We will continue to follow. Thank you for the consult. Job ID: [id number] MTDD
[2020-11-05] MEDS: Ascorbic Acid 500 mg Chewable Tablet PER TUBE SCH (20:25)
[2020-11-05] MEDS: Enoxaparin Sodium 40 MG/0.4 ML SYRINGE SC SCH (20:25)
[2020-11-05] MEDS: Saccharomyces boulardii 250 MG CAP PER TUBE SCH (20:26)
[2020-11-05] MEDS: Valproate Sodium 250 mg/5 ml UD Cup PER TUBE SCH (20:27)
[2020-11-06 05:07] LABS: Anion Gap 15 mmol/L (10-20); BUN (Urea Nitrogen) 14 mg/dL (8.4-25.7); Calc. Creatinine Clearance 132 mL/min (70-130); Calcium 8.6 mg/dL (7.8-10.44); Carbon Dioxide 24 mmol/L (22-29); Chloride 107 mmol/L (98-107); Glucose 106 mg/dL (70-105); Potassium 4.5 mmol/L (3.5-5.1); Sodium 141 mmol/L (136-145)
[2020-11-06] MEDS: cefTRIAXone\\ROCEPHIN 2 GM in Sodium Chloride 0.9% 100 ML IVPB SCH (05:25)
[2020-11-06 06:06] LABS: Eosinophils 3 % (0-10); Hemoglobin 15.3 g/dL (14.0-18.0); Large Platelets SLIGHT; Lymphocytes 26 % (21-51); MDiff Complete? YES; Mean Corpuscular HGB CONC 33.6 g/dL (32.0-36.0); Mean Corpuscular Hemoglobin 31.7 pg (27.0-31.0); Mean Corpuscular Volume 94.2 fL (78.0-98.0); Mean Platelet Volume 11.4 fL (7.4-10.4); Monocytes 10 % (0-10); Neutrophil 61 % (42-75); Platelet Count 108 thou/uL (130-400); Platelet Morphology Comment Appears Decreased; RBC Distribution Width 13.9 % (11.5-14.5); Red Blood Cell (RBC) Count 4.84 mill/uL (4.70-6.10); White Blood Cell (WBC) Count 6.8 thou/uL (4.8-10.8)
[2020-11-06] MEDS ORDERED: Magnesium 2 GM/50 ML 2 GM in Premix Bag 1 BAG IVPB SCH (06:30)
[2020-11-06] MEDS: metroNIDAZOLE 500 MG in Premix Bag 1 BAG IVPB SCH ×3 (06:30→21:08)
--- NOTE | 2020-11-06 09:18 | PDOC.HOSPP ---
- Subjective Encounter Date: 11/06/20 Encounter Time: 09:16 Subjective: Patient positioned up in bed this morning. He is in not easily arousable, appears to be sleeping, respirations even and unlabored, patient appears comfortable. Patient is 99% on RA and HR regular at 83 bpm. Mental status marshall ears the same as last hospitalization notes. Nursing reports the same with patient. - Objective Vital Signs & Weight: Vital Signs (12 hours) Temp Pulse Resp BP Pulse Ox 11/06/20 07:40 99.1 F 90 20 137/78 98 11/06/20 04:00 99.8 F H 83 18 141/80 H 99 11/05/20 23:28 99.0 F 86 20 137/71 99 Weight Admit Weight 202 lb 12.8 oz Weight 202 lb 12.8 oz I&O: 11/05/20 11/06/20 11/07/20 06:59 06:59 06:59 Intake Total 879 2766 Balance 879 2766 Result Diagrams: 11/06/20 04:25 11/06/20 04:25 Additional Labs: Accuchecks 11/06/20 11/05/20 11/05/20 06:20 23:25 16:32 POC Glucose 113 H 178 H 135 H 11/05/20 11/05/20 11:20 09:40 POC Glucose 113 H 83 Hospitalist ROS - Review of Systems ROS unobtainable: due to mental status - Medication Medications: Active Medications Generic Name Dose Route Start Last Admin Trade Name Joshuaq PRN Reason Stop Dose Admin Amlodipine Besylate 5 mg 11/05/20 09:00 11/05/20 20:25 Amlodipine 5 Mg Tab PO 5 mg BID MEI Administration Ascorbic Acid 500 mg 11/05/20 21:00 11/05/20 20:25 Ascorbic Acid 500 Mg Chewable Tablet PER TUBE 500 mg BID MEI Administration Carvedilol 12.5 mg 11/05/20 09:00 11/05/20 20:25 Carvedilol 6.25 Mg Tab PER TUBE 12.5 mg BID MEI Administration Enoxaparin Sodium 40 mg 11/05/20 21:00 11/05/20 20:25 Enoxaparin Sodium 40 Mg/0.4 Ml Syringe SC 40 mg 2100 MEI Administration Famotidine 20 mg 11/05/20 09:00 11/05/20 20:26 Famotidine 20 Mg Tab PO 20 mg BID MEI Administration Ceftriaxone Sodium 2 gm/ 100 mls @ 200 mls/hr 11/05/20 06:00 11/06/20 05:25 Sodium Chloride IVPB 100 mls Q24HR MEI Administration Metronidazole 500 mg/ Device 100 mls @ 100 mls/hr 11/05/20 14:00 11/06/20 06:30 IVPB 100 mls Q8HR MEI Administration Magnesium Sulfate 2 gm/ Device 50 mls @ 50 mls/hr 11/06/20 06:30 11/06/20 06:46 IVPB 11/06/20 10:00 50 mls NOW MEI Administration Levetiracetam 1,500 mg 11/05/20 09:00 11/05/20 20:26 Levetiracetam 500 Mg/5 Ml Oral Solution PER TUBE 1,500 mg BID MEI Administration Losartan Potassium 25 mg 11/05/20 09:00 11/05/20 09:48 Losartan 25 Mg Tab PER TUBE 25 mg DAILY MEI Administration Pantoprazole Sodium 40 mg 11/05/20 09:00 11/05/20 09:45 Pantoprazole 40 Mg Granules Packet PER TUBE 40 mg DAILY MEI Administration Saccharomyces Boulardii 250 mg 11/05/20 21:00 11/05/20 20:26 Saccharomyces Boulardii 250 Mg Cap PER TUBE 250 mg HS MEI Administration Sodium Chloride 10 ml 11/05/20 09:00 11/05/20 20:26 Flush - Normal Saline 10 Ml Syringe IVF 10 ml Q12HR MEI Administration Valproic Acid 1,000 mg 11/05/20 21:00 11/05/20 20:27 Valproate Sodium 250 Mg/5 Ml Ud Cup PER TUBE 1,000 mg HS MEI Administration Hospitalist Exam Vitals: Vital Signs (12 hours) Temp Pulse Resp BP Pulse Ox 11/06/20 07:40 99.1 F 90 20 137/78 98 11/06/20 04:00 99.8 F H 83 18 141/80 H 99 11/05/20 23:28 99.0 F 86 20 137/71 99 Weight Admit Weight 202 lb 12.8 oz Weight 202 lb 12.8 oz General Appearance: NAD (sleeping) Eye: PERRL ENT: normocephalic atraumatic (dry skin to lips) Neck: supple Heart: RRR, normal peripheral pulses Respiratory: CTAB, normal chest expansion, no tachypnea Gastrointestinal: soft, non-tender, normal bowel sounds Neurological: cranial nerve grossly intact, no focal deficits Hosp A/P (1) Seizure Code(s): R56.9 - UNSPECIFIED CONVULSIONS Status: Chronic (2) Aspiration pneumonia Code(s): J69.0 - PNEUMONITIS DUE TO INHALATION OF FOOD AND VOMIT Status: Acute (3) Diabetes mellitus Code(s): E11.9 - TYPE 2 DIABETES MELLITUS WITHOUT COMPLICATIONS Status: Chronic (4) HTN (hypertension) Code(s): I10 - ESSENTIAL (PRIMARY) HYPERTENSION Status: Chronic Qualifiers: Hypertension type: essential hypertension Qualified Code(s): I10 - Essential (primary) hypertension (5) Hyperlipidemia Code(s): E78.5 - HYPERLIPIDEMIA, UNSPECIFIED Status: Acute - Plan 55 year old male with PMH CVA, epilepsy, [place] fever infection who presents [facility] ED from senior care for seizure. Seizure - breakthrough -admit to neurology unit -Neurology consult placed - Dr. Bragg -EEG showed moderate generalized nonspecific cerebral dysfunction. -seizure precautions -Ativan 2mg IV for seizure greater than 2 min. -Neuro checks Q4 hrs. -continue Keppra 1500mg BID -Increase Depakote 750mg QAM and 1000mg QHS. -Valproic acid level on 11/06/20: 66.4 Suspected aspiration pneumonia -ED read concerning for RML pneumonia (not confirmed by radiology report) Patient transferred to [place] ED from senior care after 45 minute seizure, he recieved 1000mg keppra, 6mg ativan through PEG. In [place], CXR revealed RML pneumonia possibly due to aspiration. He was given vancomycin, levaquin, flagyl. -- ceftriaxone, flagyl # T2DM -hold lantus, -SSI, consult dietitian for tube feed recs -Accucheck ACHS HTN -resume home meds HLD -resume home meds History of CVA -CT head without acute abnormality
[2020-11-06] MEDS: Pantoprazole 40 MG GRANULES PACKET PER TUBE SCH (10:08)
[2020-11-06] MEDS: Zinc Sulfate 220 MG CAP PO SCH (10:09)
[2020-11-06] MEDS: Famotidine 20 MG TAB PO SCH ×2 (10:09→20:48)
[2020-11-06] MEDS: Carvedilol 6.25 MG TAB PER TUBE SCH ×2 (10:09→20:48)
[2020-11-06] MEDS: Losartan 25 MG TAB PER TUBE SCH (10:10)
[2020-11-06] MEDS: Amlodipine 5 MG TAB PO SCH ×2 (10:11→20:48)
[2020-11-06] MEDS: Ascorbic Acid 500 mg Chewable Tablet PER TUBE SCH ×2 (10:11→20:48)
[2020-11-06] MEDS: levETIRAcetam 500 mg/5 ml Oral Solution PER TUBE SCH ×2 (10:12→20:56)
[2020-11-06] MEDS: Valproate Sodium 250 mg/5 ml UD Cup PER TUBE SCH ×2 (10:12→20:49)
[2020-11-06] MEDS: Saccharomyces boulardii 250 MG CAP PER TUBE SCH (20:48)
[2020-11-06] MEDS: Enoxaparin Sodium 40 MG/0.4 ML SYRINGE SC SCH (20:49)
[2020-11-07 04:44] LABS: Anion Gap 14 mmol/L (10-20); BUN (Urea Nitrogen) 17 mg/dL (8.4-25.7); Calc. Creatinine Clearance 141 mL/min (70-130); Calcium 8.5 mg/dL (7.8-10.44); Carbon Dioxide 22 mmol/L (22-29); Chloride 108 mmol/L (98-107); Glucose 108 mg/dL (70-105); Magnesium 2.1 mg/dL (1.6-2.6); Potassium 4.3 mmol/L (3.5-5.1); Sodium 140 mmol/L (136-145)
[2020-11-07] MEDS: metroNIDAZOLE 500 MG in Premix Bag 1 BAG IVPB SCH ×3 (05:14→21:49)
[2020-11-07] MEDS: cefTRIAXone\\ROCEPHIN 2 GM in Sodium Chloride 0.9% 100 ML IVPB SCH (06:14)
[2020-11-07 06:16] LABS: Band 1 % (5-11); Eosinophils 8 % (0-10); Hemoglobin 14.6 g/dL (14.0-18.0); Lymphocytes 28 % (21-51); MDiff Complete? YES; Mean Corpuscular HGB CONC 32.6 g/dL (32.0-36.0); Mean Corpuscular Hemoglobin 30.9 pg (27.0-31.0); Mean Corpuscular Volume 94.7 fL (78.0-98.0); Mean Platelet Volume 10.3 fL (7.4-10.4); Monocytes 18 % (0-10); Neutrophil 45 % (42-75); Platelet Count 134 thou/uL (130-400); Red Blood Cell (RBC) Count 4.74 mill/uL (4.70-6.10); White Blood Cell (WBC) Count 5.9 thou/uL (4.8-10.8)
--- NOTE | 2020-11-07 08:48 | PDOC.HOSPP ---
- Subjective Encounter Date: 11/07/20 Encounter Time: 08:00 Subjective: Evaluated the patient this morning, is non-verbal at baseline, had his eyes open looking around. Lips are chapped, doesn't appear to be any overnight events. - Objective Vital Signs & Weight: Vital Signs (12 hours) Temp Pulse Resp BP BP Pulse Ox 11/07/20 07:57 98.6 F 73 22 H 135/79 100 11/07/20 04:00 99.1 F 74 18 133/73 98 11/06/20 20:48 79 158/78 H Weight Admit Weight 91.989 kg Weight 91.989 kg I&O: 11/06/20 11/07/20 11/08/20 06:59 06:59 06:59 Intake Total 2766 1148 Balance 2766 1148 Result Diagrams: 11/07/20 03:52 11/07/20 03:52 Additional Labs: Accuchecks 11/07/20 11/06/20 11/06/20 05:28 19:59 15:51 POC Glucose 97 109 H 164 H 11/06/20 10:35 POC Glucose 160 H Hospitalist ROS - Review of Systems ROS unobtainable: due to mental status Constitutional: reports: fever (Low grade fever; feels warm to the touch) Eyes: reports: pain - Medication Medications: Active Medications Generic Name Dose Route Start Last Admin Trade Name Freq PRN Reason Stop Dose Admin Amlodipine Besylate 5 mg 11/05/20 09:00 11/06/20 20:48 Amlodipine 5 Mg Tab PO 5 mg BID MEI Administration Ascorbic Acid 500 mg 11/05/20 21:00 11/06/20 20:48 Ascorbic Acid 500 Mg Chewable Tablet PER TUBE 500 mg BID MEI Administration Carvedilol 12.5 mg 11/05/20 09:00 11/06/20 20:48 Carvedilol 6.25 Mg Tab PER TUBE 12.5 mg BID MEI Administration Enoxaparin Sodium 40 mg 11/05/20 21:00 11/06/20 20:49 Enoxaparin Sodium 40 Mg/0.4 Ml Syringe SC 40 mg 2100 MEI Administration Famotidine 20 mg 11/05/20 09:00 11/06/20 20:48 Famotidine 20 Mg Tab PO 20 mg BID MEI Administration Ceftriaxone Sodium 2 gm/ 100 mls @ 200 mls/hr 11/05/20 06:00 11/07/20 06:14 Sodium Chloride IVPB 100 mls Q24HR MEI Administration Metronidazole 500 mg/ Device 100 mls @ 100 mls/hr 11/05/20 14:00 11/07/20 05:14 IVPB 100 mls Q8HR MEI Administration Levetiracetam 1,500 mg 11/05/20 09:00 11/06/20 20:56 Levetiracetam 500 Mg/5 Ml Oral Solution PER TUBE 1,500 mg BID MEI Administration Losartan Potassium 25 mg 11/05/20 09:00 11/06/20 10:10 Losartan 25 Mg Tab PER TUBE 25 mg DAILY MEI Administration Pantoprazole Sodium 40 mg 11/05/20 09:00 11/06/20 10:08 Pantoprazole 40 Mg Granules Packet PER TUBE 40 mg DAILY MEI Administration Saccharomyces Boulardii 250 mg 11/05/20 21:00 11/06/20 20:48 Saccharomyces Boulardii 250 Mg Cap PER TUBE 250 mg HS MEI Administration Sodium Chloride 10 ml 11/05/20 09:00 11/06/20 20:49 Flush - Normal Saline 10 Ml Syringe IVF 10 ml Q12HR MEI Administration Valproic Acid 750 mg 11/06/20 09:00 11/06/20 10:12 Valproate Sodium 250 Mg/5 Ml Ud Cup PER TUBE 750 mg QAM MEI Administration Valproic Acid 1,000 mg 11/05/20 21:00 11/06/20 20:49 Valproate Sodium 250 Mg/5 Ml Ud Cup PER TUBE 1,000 mg HS MEI Administration Zinc Sulfate 220 mg 11/06/20 09:00 11/06/20 10:09 Zinc Sulfate 220 Mg Cap PO 220 mg DAILY MEI Administration Hospitalist Exam Vitals: Vital Signs (12 hours) Temp Pulse Resp BP BP Pulse Ox 11/07/20 07:57 98.6 F 73 22 H 135/79 100 11/07/20 04:00 99.1 F 74 18 133/73 98 11/06/20 20:48 79 158/78 H Weight Admit Weight 91.989 kg Weight 91.989 kg General Appearance: awake alert Eye: PERRL ENT: dry oral mucosa Neck: supple Heart: RRR, normal peripheral pulses Respiratory: CTAB, normal chest expansion Gastrointestinal: soft, non-tender Extremities - other findings: right sided contractures Skin: no lesions Musculoskeletal: diffuse muscle atrophy Psychiatric - other findings: non-verbal at baseline; does not follow commands Hosp A/P (1) Hyperlipidemia Code(s): E78.5 - HYPERLIPIDEMIA, UNSPECIFIED Status: Chronic (2) Aspiration pneumonia Code(s): J69.0 - PNEUMONITIS DUE TO INHALATION OF FOOD AND VOMIT Status: Acute (3) History of CVA with residual deficit Code(s): I69.30 - UNSPECIFIED SEQUELAE OF CEREBRAL INFARCTION Status: Chronic (4) Diabetes mellitus Code(s): E11.9 - TYPE 2 DIABETES MELLITUS WITHOUT COMPLICATIONS Status: Chronic (5) Dysphagia Code(s): R13.10 - DYSPHAGIA, UNSPECIFIED Status: Chronic Qualifiers: Dysphagia type: oropharyngeal phase Qualified Code(s): R13.12 - Dysphagia, oropharyngeal phase (6) Recurrent seizures Code(s): G40.909 - EPILEPSY, UNSP, NOT INTRACTABLE, WITHOUT STATUS EPILEPTICUS Status: Chronic - Plan Plan 55 year old male with PMH CVA, epilepsy, [place] fever infection who [facility]. Seizure - breakthrough - monitor on neurology unit -Neurology is on the case, Dr. Bragg has seen the patient -EEG showed moderate generalized nonspecific cerebral dysfunction. -seizure precautions -Ativan 2mg IV for seizure greater than 2 min. -Neuro checks Q4 hrs. -continue Keppra 1500mg BID -Continue Depakote 750mg QAM and 1000mg QHS. -Valproic acid level on 11/06/20: 66.4 Suspected aspiration pneumonia -ED read concerning for RML pneumonia (not confirmed by radiology report) Patient transferred to [place] [facility] after [facility] minute seizure, he recieved 1000mg keppra, 6mg ativan through PEG. In [place], CXR revealed RML pneumonia possibly due to aspiration. He was given vancomycin, levaquin, flagyl. -- will continue ceftriaxone, flagyl IVPB for now -- will monitor for fever; worsening symptoms -- recheck labs in AM # T2DM -hold lantus, -SSI, consult dietitian for tube feed recs -Accucheck ACHS -BS 113-164 in the last 24 hours; has gotten down to 77 on 11/05 HTN -resume home meds HLD -resume home meds History of CVA -CT head without acute abnormality Have added consult for Case Management to assist with placement Lovenox for DVT prevention; pepcid bid for PUD prevention Discussed with Dr. Lord
[2020-11-07] MEDS: Famotidine 20 MG TAB PO SCH ×2 (10:47→21:51)
[2020-11-07] MEDS: levETIRAcetam 500 mg/5 ml Oral Solution PER TUBE SCH ×2 (10:47→21:53)
[2020-11-07] MEDS: Pantoprazole 40 MG GRANULES PACKET PER TUBE SCH (10:47)
[2020-11-07] MEDS: Valproate Sodium 250 mg/5 ml UD Cup PER TUBE SCH ×2 (10:47→21:51)
[2020-11-07] MEDS: Zinc Sulfate 220 MG CAP PO SCH (10:49)
[2020-11-07] MEDS: Ascorbic Acid 500 mg Chewable Tablet PER TUBE SCH ×2 (11:01→21:53)
[2020-11-07] MEDS: Losartan 25 MG TAB PER TUBE SCH (11:01)
[2020-11-07] MEDS: Amlodipine 5 MG TAB PO SCH ×2 (11:01→21:53)
[2020-11-07] MEDS: Carvedilol 6.25 MG TAB PER TUBE SCH ×2 (11:15→21:53)
[2020-11-07] MEDS ORDERED: Magnesium 2 GM/50 ML 2 GM in Premix Bag 1 BAG IVPB SCH (14:30)
[2020-11-07] MEDS: Acetaminophen 325 MG TAB PO PRN (15:05)
[2020-11-07] MEDS: Enoxaparin Sodium 40 MG/0.4 ML SYRINGE SC SCH (21:53)
[2020-11-07] MEDS: Saccharomyces boulardii 250 MG CAP PER TUBE SCH (21:54)
[2020-11-08] MEDS: Valproate Sodium 250 mg/5 ml UD Cup PER TUBE SCH ×2 (11:18→20:45)
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
[2020-11-08] MEDS ORDERED: cefTRIAXone\\ROCEPHIN 2 GM in Sodium Chloride 0.9% 100 ML IVPB SCH (14:45)
[2020-11-08] MEDS: metroNIDAZOLE 500 MG in Premix Bag 1 BAG IVPB SCH (14:54)
[2020-11-08] MEDS: cefTRIAXone\\ROCEPHIN 2 GM in Sodium Chloride 0.9% 100 ML IVPB SCH (14:54)
[2020-11-08] MEDS: Amlodipine 5 MG TAB PO SCH ×2 (15:21→20:43)
[2020-11-08] MEDS: Zinc Sulfate 220 MG CAP PO SCH (15:22)
[2020-11-08] MEDS: Ascorbic Acid 500 mg Chewable Tablet PER TUBE SCH ×2 (15:23→20:43)
[2020-11-08] MEDS: Pantoprazole 40 MG GRANULES PACKET PER TUBE SCH (15:25)
[2020-11-08] MEDS: levETIRAcetam 500 mg/5 ml Oral Solution PER TUBE SCH ×2 (15:26→20:44)
[2020-11-08] MEDS: Famotidine 20 MG TAB PO SCH ×3 (16:26→20:57)
[2020-11-08] MEDS: Carvedilol 6.25 MG TAB PER TUBE SCH ×3 (16:26→20:57)
[2020-11-08] MEDS: Losartan 25 MG TAB PER TUBE SCH (16:31)
[2020-11-08] MEDS: metroNIDAZOLE 500 MG TAB PO SCH ×2 (16:31→20:43)
[2020-11-08 16:57] LABS: #Eosinphils 0.2 thou/uL (0.0-0.7); #Lymphocytes 1.5 thou/uL (1.20-3.40); #Monocytes 0.7 thou/uL (0.11-0.59); #Neutrophils 3.9 thou/uL (1.40-6.50); %Basophils 0.6 % (0.0-1.0); %Eosinophils 3.5 % (0.0-10.0); %Lymphocytes 22.9 % (21.0-51.0); %Monocytes 11.5 % (0.0-10.0); %Neutrophils 61.5 % (42.0-75.0); Mean Corpuscular Hemoglobin 30.2 pg (27.0-31.0); Mean Corpuscular Volume 94.4 fL (78.0-98.0); Mean Platelet Volume 10.7 fL (7.4-10.4); Platelet Count 135 thou/uL (130-400); RBC Distribution Width 13.8 % (11.5-14.5); Red Blood Cell (RBC) Count 4.98 mill/uL (4.70-6.10); White Blood Cell (WBC) Count 6.3 thou/uL (4.8-10.8)
[2020-11-08] MEDS: HumaLOG 300 UNITS/3 ML VIAL SC PRN (18:06)
[2020-11-08 18:24] LABS: Anion Gap 14 mmol/L (10-20); BUN (Urea Nitrogen) 14 mg/dL (8.4-25.7); Calc. Creatinine Clearance 139 mL/min (70-130); Calcium 8.6 mg/dL (7.8-10.44); Carbon Dioxide 24 mmol/L (22-29); Chloride 102 mmol/L (98-107); Glucose 166 mg/dL (70-105); Sodium 136 mmol/L (136-145)
[2020-11-08] MEDS: Acetaminophen 325 MG TAB PO PRN (20:42)
[2020-11-08] MEDS: Saccharomyces boulardii 250 MG CAP PER TUBE SCH (20:43)
[2020-11-08] MEDS: Enoxaparin Sodium 40 MG/0.4 ML SYRINGE SC SCH (20:44)
[2020-11-09] MEDS: Pantoprazole 40 MG GRANULES PACKET PER TUBE SCH (08:40)
[2020-11-09] MEDS: Famotidine 20 MG TAB PO SCH ×2 (08:41→20:37)
[2020-11-09] MEDS: Amlodipine 5 MG TAB PO SCH ×2 (08:42→20:37)
[2020-11-09] MEDS: Losartan 25 MG TAB PER TUBE SCH (08:42)
[2020-11-09] MEDS: Carvedilol 6.25 MG TAB PER TUBE SCH ×2 (08:43→20:37)
[2020-11-09] MEDS: Zinc Sulfate 220 MG CAP PO SCH (08:44)
[2020-11-09] MEDS: metroNIDAZOLE 500 MG TAB PO SCH ×3 (08:44→20:37)
[2020-11-09] MEDS: Ascorbic Acid 500 mg Chewable Tablet PER TUBE SCH ×2 (08:45→20:37)
[2020-11-09] MEDS: levETIRAcetam 500 mg/5 ml Oral Solution PER TUBE SCH ×2 (08:46→20:36)
[2020-11-09] MEDS: Valproate Sodium 250 mg/5 ml UD Cup PER TUBE SCH ×2 (08:47→20:36)
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
[2020-11-09] MEDS ORDERED: Pancrelipase DR 12,000 1 CAP FS PRN (16:30)
[2020-11-09] MEDS ORDERED: Sodium Bicarbonate Tab 325 MG TAB PER TUBE PRN (16:30)
[2020-11-09] MEDS: Enoxaparin Sodium 40 MG/0.4 ML SYRINGE SC SCH (20:35)
[2020-11-09] MEDS: Saccharomyces boulardii 250 MG CAP PER TUBE SCH (20:38)
[2020-11-10] MEDS: levETIRAcetam 500 mg/5 ml Oral Solution PER TUBE SCH ×2 (10:39→21:34)
[2020-11-10] MEDS: Valproate Sodium 250 mg/5 ml UD Cup PER TUBE SCH ×2 (10:40→21:34)
[2020-11-10] MEDS: Carvedilol 6.25 MG TAB PER TUBE SCH ×2 (10:41→21:34)
[2020-11-10] MEDS: metroNIDAZOLE 500 MG TAB PO SCH ×3 (10:41→21:33)
[2020-11-10] MEDS: Famotidine 20 MG TAB PO SCH ×2 (10:42→21:33)
[2020-11-10] MEDS: Zinc Sulfate 220 MG CAP PO SCH (10:42)
[2020-11-10] MEDS: Amlodipine 5 MG TAB PO SCH ×2 (10:42→21:33)
[2020-11-10] MEDS: Losartan 25 MG TAB PER TUBE SCH (10:42)
[2020-11-10] MEDS: Ascorbic Acid 500 mg Chewable Tablet PER TUBE SCH ×2 (10:42→21:34)
[2020-11-10] MEDS: Pantoprazole 40 MG GRANULES PACKET PER TUBE SCH (10:43)
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
[2020-11-10] MEDS: HumaLOG 300 UNITS/3 ML VIAL SC PRN (18:09)
[2020-11-10] MEDS: Enoxaparin Sodium 40 MG/0.4 ML SYRINGE SC SCH (21:34)
[2020-11-10] MEDS: Saccharomyces boulardii 250 MG CAP PER TUBE SCH (21:35)
[2020-11-11] MEDS: Acetaminophen 325 MG TAB PO PRN (05:13)
[2020-11-11] MEDS: levETIRAcetam 500 mg/5 ml Oral Solution PER TUBE SCH ×2 (10:57→19:40)
[2020-11-11] MEDS: Famotidine 20 MG TAB PO SCH ×2 (10:58→19:39)
[2020-11-11] MEDS: metroNIDAZOLE 500 MG TAB PO SCH ×3 (10:58→19:39)
[2020-11-11] MEDS: Pantoprazole 40 MG GRANULES PACKET PER TUBE SCH (10:58)
[2020-11-11] MEDS: Zinc Sulfate 220 MG CAP PO SCH (10:58)
[2020-11-11] MEDS: Amlodipine 5 MG TAB PO SCH ×2 (10:58→19:40)
[2020-11-11] MEDS: Losartan 25 MG TAB PER TUBE SCH (10:59)
[2020-11-11] MEDS: Ascorbic Acid 500 mg Chewable Tablet PER TUBE SCH ×2 (10:59→19:39)
[2020-11-11] MEDS: Carvedilol 6.25 MG TAB PER TUBE SCH ×2 (11:00→19:39)
[2020-11-11] MEDS: Valproate Sodium 250 mg/5 ml UD Cup PER TUBE SCH ×2 (11:01→19:40)
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
[2020-11-11] MEDS: Enoxaparin Sodium 40 MG/0.4 ML SYRINGE SC SCH (19:40)
[2020-11-11] MEDS: Saccharomyces boulardii 250 MG CAP PER TUBE SCH (19:40)
[2020-11-11 20:04] VITALS: BP 131/75; TEMP 98.8
== END 2020-11-11 21:06 | DRG 100 ==
LOC: ERS 22:24 → 2SE 23:27
PROVIDERS: ADMIT Internal Medicine; ATTEND Internal Medicine
DX: G40.909 Epilepsy, unspecified, not intractable, without status epilepticus (principal); J69.0 Pneumonitis due to inhalation of food and vomit; G93.41 Metabolic encephalopathy; I69.951 Hemiplegia and hemiparesis following unspecified cerebrovascular disease affecting right dominant side; Z20.822 Contact with and (suspected) exposure to COVID-19; Z23 Encounter for immunization; R13.12 Dysphagia, oropharyngeal phase; E78.5 Hyperlipidemia, unspecified; E11.9 Type 2 diabetes mellitus without complications; G93.89 Other specified disorders of brain; I69.991 Dysphagia following unspecified cerebrovascular disease; Z93.1 Gastrostomy status; Z88.0 Allergy status to penicillin; Z88.6 Allergy status to analgesic agent; I69.990 Apraxia following unspecified cerebrovascular disease; Z79.899 Other long term (current) drug therapy
CPT/HCPCS: 36415; 36416; 80048; 80164; 83605; 83735; 84484; 85025; 87635; 90471; 90662; 95712; 95819; 95957; G0008; J0696; J1650; J1815; J3475; J3490; U0003; U0005

== ENCOUNTER 2021-01-10 03:45 | Emergency (ER) | payer MEDICARE, MEDICAID ==
[2021-01-10] MEDS ORDERED: GASTROGRAFIN 30 ML BOT ONE (13:18)
== END 2021-01-10 04:44 ==
LOC: ERS 03:45
DX: Z43.1 Encounter for attention to gastrostomy (principal); E11.9 Type 2 diabetes mellitus without complications; E78.5 Hyperlipidemia, unspecified; I10 Essential (primary) hypertension; Z86.73 Personal history of transient ischemic attack (TIA), and cerebral infarction without residual deficits; Z79.4 Long term (current) use of insulin; Z79.891 Long term (current) use of opiate analgesic; Z79.899 Other long term (current) drug therapy; Z86.19 Personal history of other infectious and parasitic diseases
CPT/HCPCS: 43762; 74018; Q9963